=== PATIENT | female | born 1940 | race Caucasian/White ===

== ENCOUNTER → 2018-05-20 08:20 | Outpatient (CLI) | payer MEDICARE, OTHER, SELFPAY ==
[2018-05-20 10:26] LABS: Anion Gap 9 (5-15); BUN 20 mg/dL (7-18); BUN/Creat Ratio 22.3 RATIO (10-20); Calcium,Total 8.9 mg/dL (8.5-10.1); Chloride 105 mmol/L (98-107); Cholesterol 149 mg/dL (200); EST Glomerular Filtration Rate 65 mL/min (>60); Est Glom Filt Rate - Afr Amer 79 mL/min (>60); Glucose 124 mg/dL (74-106); High Density Lipoprotein 36 mg/dL; Potassium 3.8 mmol/L (3.5-5.1); Sodium Level 144 mmol/L (136-145); Triglycerides 182 mg/dL; Very Low Density Lipoprotein 36 mg/dL (5-40)
== END ==
PROVIDERS: Visit Provider Family Medicine
DX: I71.9 Aortic aneurysm of unspecified site, without rupture (principal); E55.9 Vitamin D deficiency, unspecified
CPT/HCPCS: 36415; 80048; 80061; 82306

== ENCOUNTER → 2018-06-26 14:42 | Outpatient (CLI) | payer MEDICARE, OTHER, SELFPAY ==
--- NOTE | 2018-06-26 14:44 | CT_ITS ---
STUDY: CT ABDOMEN AND PELVIS WITH CONTRAST REASON FOR EXAM: Female, 77 years old. Malignant neoplasm of the anus RADIATION DOSAGE (If Supplied By Facility): CTDIvol = ( 18.57 ) mGy, DLP = ( 1092.21 ) mGycm TECHNIQUE: Transaxial images were obtained from the dome of the diaphragm to the symphysis pubis with oral contrast. 100 ml of Isovue 300 contrast was administered. Sagittal and coronal images were reconstructed. Individualized dose optimization techniques were used for this CT. COMPARISON: None. FINDINGS: The visualized lung bases are unremarkable. The visualized portions of the heart are within normal limits. Low-density cystic lesion of the left hepatic lobe measures 2 cm with peripheral calcification or nodular enhancement. There are surgical clips in the gallbladder fossa consistent with a prior cholecystectomy. Normal spleen. Normal pancreas. Normal bilateral adrenal glands. Normal right kidney. There is a simple cyst of the left kidney measuring 9 mm. Normal visualized stomach. Normal small intestine. There are multiple colonic diverticula consistent with diverticulosis. Wall thickening in the region of the anus and lower rectum could relate to patient's known history of anal neoplasm but is limited in evaluation due to incomplete distention. The appendix is visualized and appears normal. Atherosclerosis and tortuosity of the abdominal aorta and iliac arteries. There is noncalcified mural thrombus of the lower thoracic aorta with mild aneurysmal enlargement measuring up to 4.3 cm. Normal inferior vena cava. There is borderline retroperitoneal lymphadenopathy with enlarged nodes no greater than 10mm in the short axis diameter. Poorly distended urinary bladder. There is atrophy of the uterus. 3.3 x 2.9 cm cyst of the right ovary is evident on axial image 75. No pelvic free fluid or adenopathy. There is a left-sided inguinal hernia containing adipose tissue. There are diffuse degenerative changes of the visualized lumbar spine. CT/Abdomen/Pelvis WITH Contrast IMPRESSION: 1. No pelvic mass or adenopathy. Lower rectal/anal wall thickening could relate to patient's known neoplasm or artifact and nondistention. 2. 2 cm low density lesion of the left hepatic lobe with peripheral calcification or nodular enhancement. In the setting of known neoplasm, additional evaluation with hepatic MRI or ultrasound suggested. 3. 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 4. 3.3 x 2.9 cm left ovarian cyst. Electronically Signed: Rene Hall MD at 9:30 EDT , Service support ,
== END ==
PROVIDERS: Family Provider Family Medicine; PCP Family Medicine; Referring Provider Internal Medicine Medical Oncology; Visit Provider Internal Medicine Medical Oncology
DX: C21.0 Malignant neoplasm of anus, unspecified (principal)
CPT/HCPCS: 74177; Q9967

== ENCOUNTER → 2018-07-22 12:05 | Outpatient (CLI) | payer MEDICARE, OTHER, SELFPAY ==
--- NOTE | 2018-07-22 12:08 | MRI_ITS ---
STUDY: MRI ABDOMEN WITH AND WITHOUT CONTRAST REASON FOR EXAM: Female, 77 years old. malignant neoplasm of anus, attn. liver f/u from ct abd TECHNIQUE: Standardized fat and water weighted pulse sequences were obtained in all 3 orthogonal planes post contrast administration. 7 ml of Gadavist contrast material was administered intravenously for the contrast portion of the examination. COMPARISON: CT abdomen and pelvis June 26, 2018 FINDINGS: The visualized lung bases are unremarkable. The visualized portions of the heart are within normal limits. Once again note is made of a lesion associated with the lateral left hepatic lobe measuring approximately 1.7 cm transverse. It is stable in size. It follows fluid signal intensity on all sequences including diffusion and ADC mapping. Although it does appear to have subtle rim enhancement on postcontrast imaging I do not believe it represents a hemangioma. There is no central fill in. The appearance however suggests a benign lesion, perhaps a complicated cyst. It is unchanged compared to previous CT. There are surgical clips in the gallbladder fossa consistent with a prior cholecystectomy. Normal spleen. Normal pancreas. Normal bilateral adrenal glands. Normal right kidney. Normal left kidney. Small cortical cyst of the lateral midpole the left kidney is noted measuring approximately 0.85 cm. Normal visualized stomach. Normal small intestine. Normal colon. There is non-visualization of the appendix. Once again note is made of aneurysmal dilatation of the distal thoracic aorta with prominent peripheral thrombus. The aorta measures approximately 4.43 x 3.79 cm as seen on image #17 series 904. Normal inferior vena cava. Normal retroperitoneum. Normal abdominal wall. Normal osseous structures. MRI/MRI Abd WITH and W/O Contrast IMPRESSION: The signal could characteristics of the lesion in the left hepatic lobe generally follows water signal intensity. It does not have the typical enhancement pattern of a hemangioma, yet it does not completely meet the characteristics of a simple hepatic cyst read on CT exam the margin was irregular in the high density of this peripheral located cyst appears to associate with peripheral vasculature. Especially concerning in this patient has history of malignant neoplasm of the anus and this lesion therefore cannot be completely deemed to have simple benign characteristics. One might consider either follow-up or PET scan in further evaluation. Electronically Signed: Haily Bennett MD at 12:54 EST , Service support ,
== END ==
PROVIDERS: Family Provider Family Medicine; PCP Family Medicine; Referring Provider Internal Medicine Medical Oncology; Visit Provider Internal Medicine Medical Oncology
DX: C21.0 Malignant neoplasm of anus, unspecified (principal); K76.89 Other specified diseases of liver
CPT/HCPCS: 74183; A9585

== ENCOUNTER 2018-08-01 08:32 | Day surgery (SDC) | payer MEDICARE, OTHER, SELFPAY ==
[2018-07-18 13:16] VITALS: BMI 33.4
[2018-08-01] VITALS (8 sets, daily range): BP systolic 112–158; BP diastolic 51–92; PULSE 62–76; RESP 16; TEMP 36.5–37.1; O2SAT 4–97; BMI 32.3
--- NOTE | 2018-08-01 09:45 | COLBX_PTH ---
PATIENT: RICKEY TRUJILLO LOC: EN U#:[id number] AGE/SX: 77/F ROOM: RE08/01/[address]: Dr. Chao Martins MD : 1940 BED: DIS: 08/01/2018 SPEC #: [id number] RECD: 08/01/18 13:43 STATUS: DAWNA ISAIAS #: [id number] EJ: 08/01/18 09:[address]: Chao Martins DEPT: SURGICAL PATHOLOGY RECD BY: Dayo Overton ENTERED: 08/01/18 13:43 SP TYPE: COLON BX OTHR DR: Dr. Antoine Brown MD Tissues: Rectum, NOS Procedures: Surgery Specimen Level IV HEADER OPERATION: Flexible sigmoidoscopy PRE-OP DIAGNOSIS: Anal squamous cell carcinoma, history of anal cancer TISSUE SUBMITTED: Random rectal biopsy MICROSCOPIC DIAGNOSIS Rectum, random biopsy: Fragments of colonic mucosa, no pathologic diagnosis. SJ:damion 11/19/18 MICROSCOPIC DESCRIPTION Slides are reviewed. GROSS DESCRIPTION Received in fixative is one container labeled with the patient's name and designated random rectal biopsy. The specimen consists of multiple irregular fragments of light arteaga soft tissue that in aggregate measure 1 x 0.3 x 0.1 cm. The specimen is totally submitted in one cassette. / SJ:rg 08/01/18 TC:4 CPT: 74909
--- NOTE | 2018-08-01 09:54 | OP.ENDO_ITS ---
Patient Name: Latonia Pierce Procedure Date: 08/01/2018 9:32 AM Date of : 1940 Age: 77 Procedure: Colonoscopy Indications: Follow-up of anorectal cancer, Personal history of malignant neoplasm of the anal canal, Abnormal CT of the GI tract with thickening of anal canal. Providers: Chao Martins MD Referring MD: Chao Martins MD Medicines: Fentanyl 50 micrograms IV, Midazolam 2 mg IV Patient Profile: This is a 77 year old female. Refer to note in patient chart for documentation of history and physical. Last Colonoscopy: 1 year ago. Complications: No immediate complications. Estimated blood loss: Minimal. Procedure: Pre-Anesthesia Assessment: - Prior to the procedure, a History and Physical was performed, and patient medications and allergies were reviewed. The patient's tolerance of previous anesthesia was also reviewed. The risks and benefits of the procedure and the sedation options and risks were discussed with the patient. All questions were answered, and informed consent was obtained. Prior Anticoagulants: The patient has taken no previous anticoagulant or antiplatelet agents. After reviewing the risks and benefits, the patient was deemed in satisfactory condition to undergo the procedure. After I obtained informed consent, the scope was passed under direct vision. Throughout the procedure, the patient's blood pressure, pulse, and oxygen saturations were monitored continuously. The colonoscope was introduced through the anus and advanced to the sigmoid colon for evaluation. This was the intended extent. The colonoscopy was performed without difficulty. The patient tolerated the procedure well. The quality of the bowel preparation was good. Moderate Sedation: Moderate (conscious) sedation was administered by the endoscopy nurse and supervised by the endoscopist. The patient's oxygen saturation, heart rate, blood pressure and response to care were monitored. Scope In: 9:42:55 AM Scope Out: 9:46:20 AM Total Procedure Duration Time 0 hours 3 minutes 25 seconds Findings: A diffuse area of moderately friable mucosa with no bleeding was found in the rectum. Appeared consistent with prior radiation, no obvious malignancy identified. Random biopsies of the rectal and anal canal were taken with a cold forceps for histology. Impression: - Friability with no bleeding in the rectum. Appeared consistent with prior radiation, no obvious malignancy identified. Random biopsies of the rectal and anal canal were taken with a cold forceps for histology. Recommendation: - Discharge patient to home. - Resume previous diet. - Continue present medications. - Await pathology results. - Repeat colonoscopy is recommended. The colonoscopy date will be determined after pathology results from today's exam become available for review. Procedure Code(s): --- Professional --- 79271, Sigmoidoscopy, flexible; with biopsy, single or multiple Diagnosis Code(s): --- Professional --- K62.89, Other specified diseases of anus and rectum C21.8, Malignant neoplasm of overlapping sites of rectum, anus and anal canal Z85.048, Personal history of other malignant neoplasm of rectum, rectosigmoid junction, and anus R93.3, Abnormal findings on diagnostic imaging of other parts of digestive tract CPT copyright 2017 [employer]. All rights reserved. The codes documented in this report are preliminary and upon band attacher review may be revised to meet current compliance requirements. Chao Martins MD 08/01/2018 9:53:52 AM This report has been signed electronically. Number of Addenda: 0 Note Initiated On: 08/01/2018 9:32 AM
== END 2018-08-01 10:56 | disposition home or self-care (01) ==
LOC: EN 08:34 → AC 08:35
PROVIDERS: Family Provider Family Medicine; PCP Family Medicine; Referring Provider Surgery; Visit Provider Surgery
PROC: 0DJD8ZZ Inspection of Lower Intestinal Tract, Via Natural or Artificial Opening Endoscopic (ICD-10-PCS; CPT 45330; principal; 2018-08-01 09:40)
DX: C21.0 Malignant neoplasm of anus, unspecified (principal); R93.3 Abnormal findings on diagnostic imaging of other parts of digestive tract; K62.89 Other specified diseases of anus and rectum; Z92.3 Personal history of irradiation; Z85.048 Personal history of other malignant neoplasm of rectum, rectosigmoid junction, and anus; J44.9 Chronic obstructive pulmonary disease, unspecified; I10 Essential (primary) hypertension; Z87.891 Personal history of nicotine dependence
CPT/HCPCS: 45331; 88305; 99152; J7120

== ENCOUNTER → 2018-08-19 09:53 | Outpatient (CLI) | payer MEDICARE, OTHER, SELFPAY ==
[2018-08-12 13:19] VITALS: BMI 33.2
[2018-08-19 13:05] LABS: Anion Gap 9 (5-15); BUN 24 mg/dL (7-18); BUN/Creat Ratio 28.2 RATIO (10-20); Calcium,Total 8.6 mg/dL (8.5-10.1); Chloride 106 mmol/L (98-107); Cholesterol 165 mg/dL (200); Creatinine, Serum 0.85 mg/dL (0.55-1.02); EST Glomerular Filtration Rate 69 mL/min (>60); Est Glom Filt Rate - Afr Amer 84 mL/min (>60); Glucose 118 mg/dL (74-106); High Density Lipoprotein 37 mg/dL; Potassium 3.9 mmol/L (3.5-5.1); Sodium Level 142 mmol/L (136-145); Triglycerides 192 mg/dL; Very Low Density Lipoprotein 38 mg/dL (5-40)
== END ==
PROVIDERS: Family Provider Family Medicine; PCP Family Medicine; Visit Provider Family Medicine
DX: I50.9 Heart failure, unspecified (principal)
CPT/HCPCS: 36415; 80048; 80061

== ENCOUNTER → 2018-08-27 12:33 | Outpatient (CLI) | payer MEDICARE, OTHER, SELFPAY ==
[2018-08-12 13:19] VITALS: BMI 33.2
--- NOTE | 2018-08-27 12:37 | ECHODONC_ITS ---
Version 2 Reason For Study: CHF Procedure This was a 2D Doppler, Color Flow transthoracic echocardiogram. Myocardial strain analysis was performed in this exam to aid in the assessment of cardiac function. Exam performed in department. Left Ventricle Normal LV size. The estimated ejection fraction is 50 %. Left ventricular systolic function is lower limits of normal. The global longitudinal strain is moderately abnormal. The global longitudinal strain = -14.2% (abnormal). Stage 1 diastolic dysfunction. No regional wall motion abnormalities noted. Right Ventricle Normal RV size. Normal systolic function. Atria Normal left atrium. Normal right atrium. Mitral Valve Normal mitral valve. Mild (1+) eccentric mitral valve insufficiency. Tricuspid Valve Normal tricuspid valve. Mild (1+) tricuspid valve insufficiency. Pulmonary artery systolic pressure is 29 mmHg. Aortic Valve Trisinus/trileaflet aortic valve. Mild (1+) eccentric aortic valve insufficiency. Great Vessels Mild to moderately dilated aortic root. The pulmonary artery is normal size. Normal inferior vena cava. Pericardium/Pleural No pericardial effusion. MMode/2D Measurements & Calculations LVIDd: 4.9 cm IVSd: 1.2 cm Ao root diam: 4.6 cm LVIDs: 3.4 cm LVPWd: 1.1 cm RVDd: 2.6 cm FS: 31.7 % LAV(MOD-bp): 36.9 ml LA A4 area: 13.0 cm2 LA dimension(2D): 3.3 cm LAV(MOD-bp) Indexed: 21.1 ml/m2 LAV(MOD-sp2): 43.3 ml LAV(MOD-sp4): 31.4 ml RA A4 area: 11.6 cm2 Time Measurements MV dec time: 0.33 sec Doppler Measurements & Calculations MV E max dk: 51.1 cm/sec Lat Peak E' Dk: 4.8 cm/sec Med Peak E' Dk: 4.4 cm/sec MV A max dk: 109.8 cm/sec E/E' lat: 10.7 E/E' med: 11.6 MV E/A: 0.46 Ao V2 max: 132.3 cm/sec AI max dk: 393.3 cm/sec LV V1 max: 103.3 cm/sec Ao max P.0 mmHg AI max P.9 mmHg LV V1 max P.3 mmHg AI dec slope: 190.7 cm/sec2 AI P1/2t: 603.9 msec PA V2 max: 74.8 cm/sec TR max dk: 248.5 cm/sec TR max P.7 mmHg Interpretation Summary Normal LV size. The estimated ejection fraction is 50 %. Left ventricular systolic function is lower limits of normal. The global longitudinal strain is moderately abnormal. The global longitudinal strain = -14.2% (abnormal). Stage 1 diastolic dysfunction. Mild (1+) tricuspid valve insufficiency. Pulmonary artery systolic pressure is 29 mmHg. Mild to moderately dilated aortic root. Ordering Physician: Antoine Brown Referring Physician: Antoine Brown Performed By: Anita Fair RDCS, RVT
--- NOTE | 2018-08-27 13:49 | CT_ITS ---
STUDY: CT CHEST/THORAX WITH CONTRAST REASON FOR EXAM: Female, 78 years old. Aortic aneurysm. History of emphysema, anal cancer. RADIATION DOSAGE (If Supplied By Facility): CTDIvol = ( 14.59 ) mGy, DLP = ( 429.28 ) mGycm TECHNIQUE: Transaxial imaging was performed following intravenous administration of 100ML ml of Isovue 300 contrast material. Multiplanar coronal and sagittal images were reformatted. Individualized dose optimization techniques were used for this CT. COMPARISON: CT abdomen and pelvis June 26, 2018. FINDINGS: Emphysematous changes predominate in the upper lung zones. There is a 7.5 x 6.5 x 5 mm noncalcified nodule in the lateral periphery of the right lower lobe (series 4 image 78, series 601 image 46, series 602 image 149). This is a borderline spiculated margin and a small tail to the lateral pleural surface. Two additional 2-3 mm nodular densities are seen in the anterior peripheral margin of the right lung base near the pleural fissure on series 4 image 78. Mild curvilinear scarring in the inferior lingula of the left upper lobe. There is no demonstrated pleural abnormality. The heart size is upper normal. Normal pericardium. There are calcifications of the coronary arteries. There are nonspecific lymph nodes along the proximal right mainstem bronchus, as well as a few nonspecific lymph nodes at the hilar regions. Normal enhanced pulmonary arteries. The diameter of the aortic root is 4 cm. The mid ascending aorta is 4.5 x 4.6 cm (series 601 image 136, series 602 image 107). Moderate atherosclerotic calcification of the thoracic aortic arch. The posterior thoracic aortic arch to centered beyond the takeoff left subclavian artery is 3.3 x 3.05 cm. The proximal descending thoracic aorta is 2.95 x 3.0 cm. Possible small intimal flap near this level (series 601 image 180). Mild eccentric mural thrombus or noncalcified plaquing along the left posterior wall of the mid descending thoracic aorta. There is 8.5 cm long, 3.9 x 4.3 cm fusiform aneurysm of the distal descending thoracic aorta just above the hiatus. There is eccentric left posterolateral mural thrombus within the aneurysm. The aorta at the level of the hiatus just above the celiac artery takeoff is 2.7 x 2.8 cm, and shows some smooth, eccentric noncalcified posterior mural plaquing. There are multi-level degenerative changes of the thoracic spine. Lobulated 1.35 cm low-density in the upper right lobe of liver just deep to a smooth cortical angulation may be a focus of scarring CT/Chest WITH Contrast IMPRESSION: 1. 4.6 cm fusiform ectasia of the ascending aorta, as well as 8.5 cm long, 4.3 cm diameter fusiform aneurysm of the distal descending thoracic aorta. The latter contains eccentric mural thrombus. Question also of the eccentric intimal flap at the very proximal descending thoracic aorta, but no extended aortic dissection. 2. The heart size is upper normal. There are atherosclerotic calcifications of the coronary arteries. 3. There is emphysema, predominating in the upper lung zones. 4. 7.5 mm nodule of indeterminate etiology in the lateral periphery of the right lung base. This must be regarded with some suspicion and, at the least, a 1-3 month follow-up is advised to document stability. If clinical suspicion warrants additional imaging, one might consider PET scan. 5. Stable lobulated 1.3 cm low-density in the dome of the right lobe of liver, possibly a focus of scarring. Electronically Signed: Mahad Love MD at 20:05 EST , Service support ,
--- OUTSIDE RECORDS SUMMARY | 2018-10-13 16:09 | XMS RPT_ITS ---
:1940 Author Organization OHIP Support Name Relationship Address Phone ARMINDA, LATANYA Unavailable Unavailable + R Unavailable Unavailable Unavailable ARMINDA, LATANYA Unavailable Unavailable + R Unavailable Unavailable Unavailable ARMINDA, LATANYA Unavailable Unavailable + R Unavailable Unavailable Unavailable ARMINDA, LATANYA Unavailable Unavailable + R Unavailable Unavailable Unavailable ARMINDA, LATANYA Unavailable Unavailable + R Unavailable Unavailable Unavailable ARMINDA, LATANYA Unavailable Unavailable + R Unavailable Unavailable Unavailable ARMINDA, LATANYA Unavailable Unavailable + R Unavailable Unavailable Unavailable ARMINDA, LATANYA Unavailable . + [place] [address] R Unavailable Unavailable Unavailable ARMINDA, LATANYA Unavailable . + [place] [address] R Unavailable Unavailable Unavailable ARMINDA, LATANYA Unavailable . + [place] [address] R Unavailable Unavailable Unavailable ARMINDA, LATANYA Unavailable Unavailable + R Unavailable Unavailable Unavailable ARMINDA, LATANYA Unavailable Unavailable + R Unavailable Unavailable Unavailable R Unavailable Unavailable Unavailable Care Team Providers Name Role Phone Gopi Tom Attending Unavailable Antoine Brown Referring Unavailable Antoine Brown Attending Unavailable Armando Wallace Attending Unavailable Antoine Brown Referring Unavailable Antoine Brown Primary Care Unavailable Armando Wallace Attending Unavailable Antoine Brown Referring Unavailable Antoine Brown Primary Care Unavailable Armando Wallace Consulting Unavailable Armando Wallace Attending Unavailable Armando Wallace Referring Unavailable Antoine Brown Primary Care Unavailable Armando Wallace Attending Unavailable Antoine Brown Referring Unavailable Antoine Brown Primary Care Unavailable Armando Wallace Consulting Unavailable Chao Martins Attending Unavailable Armando Wallace Referring Unavailable Armando Wallace Attending Unavailable Armando Wallace Referring Unavailable Brown, Antoine Primary Care Unavailable Calabretta, Chao Attending Unavailable Calabretta, Chao Referring Unavailable Brown, Antoine Primary Care Unavailable Prabertin, Armando Attending Unavailable Brown, Antoine Referring Unavailable Brown, Antoine Primary Care Unavailable Prabertin, Armando Consulting Unavailable Calabretta, Chao Attending Unavailable Brown, Antoine Attending Unavailable Brown, Antoine Primary Care Unavailable Brown, Antoine Attending Unavailable Brown, Antoine Referring Unavailable Brown, Antoine Primary Care Unavailable PROBLEMS PROBLEMS DATE TYPE CONDITION / CODE ATTENDING STATUS SOURCE 08/19/2018 Unknown I50.9 - Heart Antoine Brown Active [place] failure, Community unspecified / Hospital I50.9(ICD-10) Repository 08/08/2018 Unknown 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, Community unspecified / Hospital C21.0(ICD-10) Repository 08/08/2018 Unknown K76.89 - Other Armando Wallace Active [place] specified diseases [facility] of liver / Hospital K76.89(ICD-10) Repository 08/18/2018 Unknown Z85.048 - Personal Calcarmen, Active [place] history of other [facility] malignant neoplasm Hospital of rectum, Repository rectosigmoid junction, and anus / Z85.048(ICD-10) 08/18/2018 Unknown R93.3 - Abnormal Calcarmen, Active [place] findings on [facility] diagnostic imaging Hospital of other parts of Repository digestive tract / R93.3(ICD-10) 08/18/2018 Unknown K62.89 - Other [facility], Active [place] specified diseases [facility] anus and rectum Hospital / K62.89(ICD-10) Repository 08/18/2018 Unknown C21.8 - Malignant Calabretta, Active [place] neoplasm of [facility] overlapping sites Hospital of rectum, anus Repository and anal canal / C21.8(ICD-10) PROCEDURES PROCEDURES No Procedure Records FoundRESULTS RESULTS ONC ECHOCARDIOGRAM Observed: 08/27/2018 Status: F Source: [place] COMPLETE 3:41 PM [facility] H[facility]PITAL REPOSITORY [facility] Cardiovascular Services [address] [place] [address] ONC Echo Complete 08/27/18 1258 MR#: [id number] Acct: [id number] Name: RICKEY PIERCE Rep #: [id number] : 1940 78 From: Gopi Tom MD Attending Dr: Antoine Brown MD Status: REG CLI Ordering Dr: Antoine Brown MD Date: 08/27/18 Location: [facility] Sex: F C Admitted: Version 2 Reason For Study: CHF Procedure This was a 2D Doppler, Color Flow transthoracic echocardiogram. Myocardial strain analysis was performed in this exam to aid in the assessment of cardiac function. Exam performed in department. Left Ventricle Normal LV size. The estimated ejection fraction is 50 %. Left ventricular systolic function is lower limits of normal. The global longitudinal strain is moderately abnormal. The global longitudinal strain = -14.2% (abnormal). Stage 1 diastolic dysfunction. No regional wall motion abnormalities noted. Right Ventricle Normal RV size. Normal systolic function. Atria Normal left atrium. Normal right atrium. Mitral Valve Normal mitral valve. Mild (1+) eccentric mitral valve insufficiency. Tricuspid Valve Normal tricuspid valve. Mild (1+) tricuspid valve insufficiency. Pulmonary artery systolic pressure is 29 mmHg. Aortic Valve Trisinus/trileaflet aortic valve. Mild (1+) eccentric aortic valve insufficiency. Great Vessels Mild to moderately dilated aortic root. The pulmonary artery is normal size. Normal inferior vena cava. Pericardium/Pleural No pericardial effusion. MMode/2D Measurements AND Calculations LVIDd: 4.9 cm IVSd: 1.2 cm Ao root diam: 4.6 cm LVIDs: 3.4 cm LVPWd: 1.1 cm RVDd: 2.6 cm FS: 31.7 % LAV(MOD-bp): 36.9 ml LA A4 area: 13.0 cm2 LA dimension(2D): 3.3 cm LAV(MOD-bp) Indexed: 21.1 ml/m2 LAV(MOD-sp2): 43.3 ml LAV(MOD-sp4): 31.4 ml RA A4 area: 11.6 cm2 Time Measurements MV dec time: 0.33 sec Doppler Measurements AND Calculations MV E max dk: 51.1 cm/sec Lat Peak E' Dk: 4.8 cm/sec Med Peak E' Dk: 4.4 cm/sec MV A max dk: 109.8 cm/sec E/E' lat: 10.7 E/E' med: 11.6 MV E/A: 0.46 Ao V2 max: 132.3 cm/sec AI max dk: 393.3 cm/sec LV V1 max: 103.3 cm/sec Ao max P.0 mmHg AI max P.9 mmHg LV V1 max P.3 mmHg AI dec slope: 190.7 cm/sec2 AI P1/2t: 603.9 msec PA V2 max: 74.8 cm/sec TR max dk: 248.5 cm/sec TR max P.7 mmHg Interpretation Summary Normal LV size. The estimated ejection fraction is 50 %. Left ventricular systolic function is lower limits of normal. The global longitudinal strain is moderately abnormal. The global longitudinal strain = -14.2% (abnormal). Stage 1 diastolic dysfunction. Mild (1+) tricuspid valve insufficiency. Pulmonary artery systolic pressure is 29 mmHg. Mild to moderately dilated aortic root. Ordering Physician: Antoine Brown Referring Physician: Antoine Brown Performed By: Anita Fair, AISLINN, RVT 08/27/18 1540 Date Gopi Tom MD CC: Antoine Brown MD Date Dictated: 08/27/18 1258 Date Transcribed: 08/27/18 1540 Cutting And Printing Machine Operator: Signed CHEST WITH CONTRAST Observed: 08/27/2018 Status: F Source: [place] 1:49 PM [facility] REPOSITORY [facility] Imaging Services [address] [place] [address] Chest WITH Contrast MR#: [id number] Acct: [id number] Name: RICKEY PIERCE Rep #: [id number] : 1940 F 78 From: Vince Love MD PCP: Antoine Brown MD Status: REG CLI Study: Chest WITH Contrast Date of Exam: 08/27/18 Exam# [id number] Ordering Dr: Antoine Brown MD STUDY: CT CHEST/THORAX WITH CONTRAST REASON FOR EXAM: Female, 78 years old. Aortic aneurysm. History of emphysema, anal cancer. RADIATION DOSAGE (If Supplied By Facility): CTDIvol = ( 14.59 ) mGy, DLP = ( 429.28 ) mGycm TECHNIQUE: Transaxial imaging was performed following intravenous administration of 100ML ml of Isovue 300 contrast material. Multiplanar coronal and sagittal images were reformatted. Individualized dose optimization techniques were used for this CT. COMPARISON: CT abdomen and pelvis June 26, 2018. FINDINGS: Emphysematous changes predominate in the upper lung zones. There is a 7.5 x 6.5 x 5 mm noncalcified nodule in the lateral periphery of the right lower lobe (series 4 image 78, series 601 image 46, series 602 image 149). This is a borderline spiculated margin and a small tail to the lateral pleural surface. Two additional 2-3 mm nodular densities are seen in the anterior peripheral margin of the right lung base near the pleural fissure on series 4 image 78. Mild curvilinear scarring in the inferior lingula of the left upper lobe. There is no demonstrated pleural abnormality. The heart size is upper normal. Normal pericardium. There are calcifications of the coronary arteries. There are nonspecific lymph nodes along the proximal right mainstem bronchus, as well as a few nonspecific lymph nodes at the hilar regions. Normal enhanced pulmonary arteries. The diameter of the aortic root is 4 cm. The mid ascending aorta is 4.5 x 4.6 cm (series 601 image 136, series 602 image 107). Moderate atherosclerotic calcification of the thoracic aortic arch. The posterior thoracic aortic arch to centered beyond the takeoff left subclavian artery is 3.3 x 3.05 cm. The proximal descending thoracic aorta is 2.95 x 3.0 cm. Possible small intimal flap near this level (series 601 image 180). Mild eccentric mural thrombus or noncalcified plaquing along the left posterior wall of the mid descending thoracic aorta. There is 8.5 cm long, 3.9 x 4.3 cm fusiform aneurysm of the distal descending thoracic aorta just above the hiatus. There is eccentric left posterolateral mural thrombus within the aneurysm. The aorta at the level of the hiatus just above the celiac artery takeoff is 2.7 x 2.8 cm, and shows some smooth, eccentric noncalcified posterior mural plaquing. There are multi-level degenerative changes of the thoracic spine. Lobulated 1.35 cm low-density in the upper right lobe of liver just deep to a smooth cortical angulation may be a focus of scarring CT/Chest WITH Contrast IMPRESSION: 1. 4.6 cm fusiform ectasia of the ascending aorta, as well as 8.5 cm long, 4.3 cm diameter fusiform aneurysm of the distal descending thoracic aorta. The latter contains eccentric mural thrombus. Question also of the eccentric intimal flap at the very proximal descending thoracic aorta, but no extended aortic dissection. 2. The heart size is upper normal. There are atherosclerotic calcifications of the coronary arteries. 3. There is emphysema, predominating in the upper lung zones. 4. 7.5 mm nodule of indeterminate etiology in the lateral periphery of the right lung base. This must be regarded with some suspicion and, at the least, a 1-3 month follow-up is advised to document stability. If clinical suspicion warrants additional imaging, one might consider PET scan. 5. Stable lobulated 1.3 cm low-density in the dome of the right lobe of liver, possibly a focus of scarring. Electronically Signed: Mahad Love MD at 20:05 EST , Service support , CC: Antoine Brown MD Cutting [employer] Printing Machine Operator: Signed BASIC METABOLIC Collected: 08/19/2018 Status: F Source: [place] PROFILE (BMP) 9:54 AM [facility] REPOSITORY TYPE CODE TESTS RESULT OUT OF RANGE REFERENCE UNITS LAB L501.0100 74-106 mg/dL High GLU 118 Result Comment: Fasting Glucose result from 100 to 125 mg/dL suggests IMPAIRED HOMEOSTASIS per A.D.A. criteria. Please note revised GLUCOSE reference range effective 2017. LAB L501.1000 7-18 mg/dL High BUN 24 LAB L501.1100 0.55-1.02 mg/dL Normal CREAT,SERUM 0.85 Result Comment: The validity of the calculated GFR AND GFRAA in patients over 70 years has not been determined. Clinical correlation is essential. LAB L501.1110 >60 mL/min Normal EST GFR 69 Result Comment: Non- GFR Calc LAB L501.1115 >60 mL/min Normal EST GFR - AA 84 Result Comment: GFR Calc LAB L501.1300 10-20 RATIO High BUN/CRE 28.2 LAB L501.2200 8.5-10.1 mg/dL CA Normal 8.6 LAB L501.5300 136-145 mmol/L NA Normal 142 LAB L501.5600 3.5-5.1 mmol/L K Normal 3.9 LAB L501.5900 98-107 mmol/L CL Normal 106 LAB L501.6100 21.0-32.0 mmol/L Normal CO2 27.0 LAB L501.6200 5-15 Normal GAP 9 Performed By: #### L500.2500, L500.4100 #### [facility] [address] [place], [address] LIPID PROFILE Collected: 08/19/2018 Status: F Source: [place] 9:54 AM [facility] REPOSITORY TYPE CODE TESTS RESULT OUT OF RANGE REFERENCE UNITS LAB L501.4900 200 mg/dL Normal CHOL 165 Result Comment: <200 mg/dL Desirable 200-240 mg/dL Borderline >240 mg/dL High Risk LAB L501.5000 mg/dL Normal TRIG 192 Result Comment: The drugs N-Acetylcysteine and Metamizole may falsely depress this assay. Serum Triglycerides Reference Interval Normal <150 mg/dL Borderline high 150 - 199 mg/dL High 200 - 499 mg/dL Very High > or = 500 mg/dL LAB L501.6400 mg/dL Low HDL 37 Result Comment: The drugs N-Acetylcysteine and Metamizole may falsely depress this assay. Reference Range HDL <40 mg/dL Low HDL Cholesterol HDL >or= 60 mg/dL High HDL Cholesterol LAB L501.6500 0-130 mg/dL Normal LDL 90 LAB L501.6600 5-40 mg/dL Normal VLDL 38 Performed By: #### L500.2500, L500.4100 #### [facility] [address] [place], [address] ONCOLOGY VISIT REPORT Observed: 08/12/2018 Status: F Source: [place] 4:53 PM [facility] REPOSITORY [facility] [address] [place] [address] OFFICE VISIT Date of Service: 08/12/18 1343 MR#: [id number] Acct: [id number] Name: ARYA PIERCEANDERSON Oakes Rep #: [id number] : 1940 From: Armando Wallace MD Age/Sex: 78/F Location: OMD Status: Signed Subjective - Date of Service Date of Service:: 08/12/18 - Chief Complaint For anal cancer follow up. - History of Present Illness 78-year-old woman was diagnosed with anal cancer, squamous cell type, stage I (cT1 cN0 M0) on July 03, 2017 in [place]. She was treated with Xeloda and mitomycin with radiation therapy from 08/16/2017 to 10/03/2017. She had a PET CT scan on 12/11/2017 which showed complete resolution of hypermetabolic activity in the anal canal no evidence of regional chinmay disease or distant metastatic disease. She moved to [place], referred by PCP for follow up care of Anal cancer. CT a/p on 06/26/2018 showed 2cm Left hepatic lobe lesion. She had colonoscopy on 08/01/2018, which showed friable mucosa in the rectum with no bleeding, biopsy was negative. She had MRI liver and comes for follow up. Review of Systems Constitutional:: Denies: Fever, Sweats, Weight loss, Appetite change, Chills Cardiovascular:: Denies: Chest pain, Palpitations, Dyspnea on exertion, Orthopnea, PND, Shortness of breath Respiratory: Denies: Cough, Hemoptysis, Shortness of Breath, Wheezing Gastrointestinal:: Denies: Abdominal pain, Nausea, Vomiting, Diarrhea, Constipation, Hematochezia Genitourinary: Denies: Dysuria, Hematuria, 15, Flank pain Musculoskeletal:: Denies: Back pain, Myalgia, Arthralgia Skin: Denies: Rash, Skin Changes, Wounds Neurological:: Denies: Headache, Dizziness, Visual changes, Tinnitus, Hearing loss Psychiatric: Denies: Anxiety, Depression, Homicidal Ideations, Suicidal Ideations Vital Signs Height 5 ft 0.5 in Weight: 78.381 kg Weight in Pounds 172.8 lbs Pulse Ox 94 - Physical Exam General: Alert, Oriented x3, No apparent distress Diagnostic Data: 07/22/2018 MRI report reviewed. MRI/MRI Abd WITH and W/O Contrast IMPRESSION: The signal could characteristics of the lesion in the left hepatic lobe generally follows water signal intensity. It does not have the typical enhancement pattern of a hemangioma, yet it does not completely meet the characteristics of a simple hepatic cyst read on CT exam the margin was irregular in the high density of this peripheral located cyst appears to associate with peripheral vasculature. Especially concerning in this patient has history of malignant neoplasm of the anus and this lesion therefore cannot be completely deemed to have simple benign characteristics. One might consider either follow-up or PET scan in further evaluation. Electronically Signed: Haily Bennett MD at 12:54 EST Assessment and Plan Anal cancer stage I, S/P chemoradiation therapy. No evidence of disease. Hypodensity in liver-Cyst present since 2012 so no further evaluation required. Plan is to do observation. RTC 6 months with CBC/CMP. Medications: Prescriptions This Visit Medication Instructions Recorded Carvedilol [Coreg] 12.5 mg PO DAILY 06/17/18 Cholecalciferol (VIT D3) [Vitamin 3,000 unit PO DAILY 06/17/18 Primary Care Provider: Antoine Brown Referring Provider: Antoine Brown - Problem List (1) Anal squamous cell carcinoma Status: Resolved (2) History of anal cancer Status: Chronic Code Visit Office Visits / Consults: 65203 OV L4 Est 08/12/18 1653 <Electronically signed by Armando Wallace MD> Date Armando Wallace MD Cosigner Signature: Date (if applicable) CC: Antoine Brown MD OPERATIVE REPORT - Observed: 08/01/2018 Status: F Source: [place] [facility] 9:54 AM [facility] REPOSITORY [facility] Medical Records Department [address] [place] [address] Operative Report - Endoscopy MR#: [id number] Acct: [id number] Name: RICKEY PIERCE Rep #: [id number] : 1940 77 From: Chao Martins MD PCP: Antoine Brown MD Status: REG [facility] Patient Name: Rickey Pierce Procedure Date: 08/01/2018 9:32 AM Date of : 1940 Age: 77 Procedure: Colonoscopy Indications: Follow-up of anorectal cancer, Personal history of malignant neoplasm of the anal canal, Abnormal CT of the GI tract with thickening of anal canal. Providers: Chao Martins MD Referring MD: Chao Martins MD Medicines: Fentanyl 50 micrograms IV, Midazolam 2 mg IV Patient Profile: This is a 77 year old female. Refer to note in patient chart for documentation of history and physical. Last Colonoscopy: 1 year ago. Complications: No immediate complications. Estimated blood loss: Minimal. Procedure: Pre-Anesthesia Assessment: - Prior to the procedure, a History and Physical was performed, and patient medications and allergies were reviewed. The patient's tolerance of previous anesthesia was also reviewed. The risks and benefits of the procedure and the sedation options and risks were discussed with the patient. All questions were answered, and informed consent was obtained. Prior Anticoagulants: The patient has taken no previous anticoagulant or antiplatelet agents. After reviewing the risks and benefits, the patient was deemed in satisfactory condition to undergo the procedure. After I obtained informed consent, the scope was passed under direct vision. Throughout the procedure, the patient's blood pressure, pulse, and oxygen saturations were monitored continuously. The colonoscope was introduced through the anus and advanced to the sigmoid colon for evaluation. This was the intended extent. The colonoscopy was performed without difficulty. The patient tolerated the procedure well. The quality of the bowel preparation was good. Moderate Sedation: Moderate (conscious) sedation was administered by the endoscopy nurse and supervised by the endoscopist. The patient's oxygen saturation, heart rate, blood pressure and response to care were monitored. Scope In: 9:42:55 AM Scope Out: 9:46:20 AM Total Procedure Duration Time 0 hours 3 minutes 25 seconds Findings: A diffuse area of moderately friable mucosa with no bleeding was found in the rectum. Appeared consistent with prior radiation, no obvious malignancy identified. Random biopsies of the rectal and anal canal were taken with a cold forceps for histology. Impression: - Friability with no bleeding in the rectum. Appeared consistent with prior radiation, no obvious malignancy identified. Random biopsies of the rectal and anal canal were taken with a cold forceps for histology. Recommendation: - Discharge patient to home. - Resume previous diet. - Continue present medications. - Await pathology results. - Repeat colonoscopy is recommended. The colonoscopy date will be determined after pathology results from today's exam become available for review. Procedure Code(s): --- Professional --- 01644, Sigmoidoscopy, flexible; with biopsy, single or multiple Diagnosis Code(s): --- Professional --- K62.89, Other specified diseases of anus and rectum C21.8, Malignant neoplasm of overlapping sites of rectum, anus and anal canal Z85.048, Personal history of other malignant neoplasm of rectum, rectosigmoid junction, and anus R93.3, Abnormal findings on diagnostic imaging of other parts of digestive tract CPT copyright 2017 [employer]. All rights reserved. The codes documented in this report are preliminary and upon collection card clerk review may be revised to meet current compliance requirements. Chao Martins MD 08/01/2018 9:53:52 AM This report has been signed electronically. Number of Addenda: 0 Note Initiated On: 08/01/2018 9:32 AM 08/01/1854 Date Chao Martins MD Cosigner Signature: Date (if indicated) CC: Chao Martins MD; Antoine Brown MD Date Dictated: 08/01/18931 Date Transcribed: Cutting And Printing Machine Operator: AC Signed COLON BIOPSY (CHOOSE Observed: 08/01/2018 Status: F Source: [facility]) 9:45 AM [facility] REPOSITORY Patient: RICKEY PIERCE : 1940 (77/F) Acct Num: [id number] Phys: Lakshmi VARGAS,Chao Unit Num: [id number] Loc: EN Specimen: [id number] Received: 08/01/18 1343 Spec Type: COLON BX TISSUES 1 TISSUES: Rectum, NOS GROSS DESCRIPTION Received in fixative is one container labeled with the patient's name and designated random rectal biopsy. The specimen consists of multiple irregular fragments of light arteaga soft tissue that in aggregate measure 1 x 0.3 x 0.1 cm. The specimen is totally submitted in one cassette. / SJ:damion 08/01/18 TC:4 CPT: 47600 HEADER OPERATION: Flexible sigmoidoscopy PRE-OP DIAGNOSIS: Anal squamous cell carcinoma, history of anal cancer TISSUE SUBMITTED: Random rectal biopsy MICROSCOPIC DESCRIPTION Slides are reviewed. MICROSCOPIC DIAGNOSIS Rectum, random biopsy: Fragments of colonic mucosa, no pathologic diagnosis. SJ:damion 08/04/18 Signed Brooks Dc 08/04/18 <signature on file> Performed By: #### PCOLBX #### [facility] [address] [place], [address] MRI ABD WITH AND W/O Observed: 07/22/2018 Status: F Source: [place] CONTRAST 12:08 PM [facility] REPOSITORY [facility] Imaging Services [address] [place] [address] MRI Abd WITH and W/O Contrast MR#: [id number] Acct: [id number] Name: RICKEY PIERCE Rep #: [id number] : 1940 F 77 From: Haily Bennett MD PCP: Antoine Brown MD Status: REG CLI Study: MRI Abd WITH and W/O Contrast Date of Exam: 07/22/18 Exam# [id number] Ordering Dr: Armando Wallace MD STUDY: MRI ABDOMEN WITH AND WITHOUT CONTRAST REASON FOR EXAM: Female, 77 years old. malignant neoplasm of anus, attn. liver f/u from ct abd TECHNIQUE: Standardized fat and water weighted pulse sequences were obtained in all 3 orthogonal planes post contrast administration. 7 ml of Gadavist contrast material was administered intravenously for the contrast portion of the examination. COMPARISON: CT abdomen and pelvis June 26, 2018 FINDINGS: The visualized lung bases are unremarkable. The visualized portions of the heart are within normal limits. Once again note is made of a lesion associated with the lateral left hepatic lobe measuring approximately 1.7 cm transverse. It is stable in size. It follows fluid signal intensity on all sequences including diffusion and ADC mapping. Although it does appear to have subtle rim enhancement on postcontrast imaging I do not believe it represents a hemangioma. There is no central fill in. The appearance however suggests a benign lesion, perhaps a complicated cyst. It is unchanged compared to previous CT. There are surgical clips in the gallbladder fossa consistent with a prior cholecystectomy. Normal spleen. Normal pancreas. Normal bilateral adrenal glands. Normal right kidney. Normal left kidney. Small cortical cyst of the lateral midpole the left kidney is noted measuring approximately 0.85 cm. Normal visualized stomach. Normal small intestine. Normal colon. There is non-visualization of the appendix. Once again note is made of aneurysmal dilatation of the distal thoracic aorta with prominent peripheral thrombus. The aorta measures approximately 4.43 x 3.79 cm as seen on image #17 series 904. Normal inferior vena cava. Normal retroperitoneum. Normal abdominal wall. Normal osseous structures. MRI/MRI Abd WITH and W/O Contrast IMPRESSION: The signal could characteristics of the lesion in the left hepatic lobe generally follows water signal intensity. It does not have the typical enhancement pattern of a hemangioma, yet it does not completely meet the characteristics of a simple hepatic cyst read on CT exam the margin was irregular in the high density of this peripheral located cyst appears to associate with peripheral vasculature. Especially concerning in this patient has history of malignant neoplasm of the anus and this lesion therefore cannot be completely deemed to have simple benign characteristics. One might consider either follow-up or PET scan in further evaluation. Electronically Signed: Haily Bennett MD at 12:54 EST , Service support , CC: Armando Wallace MD; Antoine Brown MD Cutting And Printing Machine Operator: Signed SURGERY VISIT REPORT Observed: 07/18/2018 Status: F Source: [place] 1:56 PM [facility] REPOSITORY [facility] [address] [place] [address]. [address] [place], [place] [address] OFFICE VISIT Date of Service: 07/18/18 MR#: [id number] Acct: [id number] Name: RICKEY PIERCE Rep #: [id number] : 1940 Provider: Chao Martins MD Age/Sex: 77/F Location: [facility] [place] Status: Signed Intake Vital Signs07/18/18 Height 5 ft 0.5 in 07/18/18 Weight: 174 lb 07/18/18 Body Mass Index (BMI) 33.4 Intake Visit Reasons: Proctoscopy AND Sigmoidoscopy Consult from [facility] Chief Complaint: For anal cancer follow up. Ball Fringe Machine Operator Required: No Is patient in pain?: No Allergies aspirin Adverse Reaction (Verified 07/18/18 13:05) Nausea Medications Carvedilol [Coreg] 12.5 mg PO DAILY 06/17/18 [History Confirmed 07/18/18] Cholecalciferol (VIT D3) [Vitamin D] 3,000 unit PO DAILY 06/17/18 [History Confirmed 07/18/18] Furosemide [Lasix] 40 mg PO DAILY 06/17/18 [History Confirmed 07/18/18] Potassium Chloride 20 tab PO DAILY 06/17/18 [History Confirmed 07/18/18] Meclizine HCl [Antivert] 25 mg PO TID PRN PRN 07/15/18 [History Confirmed 07/18/18] PFSH Medical History Anal cancer (Acute) Palumbo esophagus (Acute) COPD (chronic obstructive pulmonary disease) (Acute) Diverticular disease (Acute) Vertigo (Acute) Hypertension (Chronic) Surgical History History of cholecystectomy (Acute) Family History Father Heart disease Sister Cancer Diabetes Brother Heart disease Mother Heart disease Sister Heart disease Social History Smoking Status: Former smoker alcohol intake: never HPI HPI HPI: RICKEY PIERCE, is a 77 F who presents to the office today for rectal exam. The patient had a history of anal carcinoma which was treated with chemotherapy and radiation 1 year ago. She is not having any bleeding but does report that she is having diarrhea. She has been having diarrhea since radiation completed. She is not having any rectal or anal pain. She recently had a CT scan which showed thickening of the anal canal and her oncologist would like exam and possible biopsy ROS General General: No weight change or fatigue Cardio Cardiovascular: No murmur, pacemaker, heart disease, atrial fibrillation, high blood pressure, heart attack, heart stent, palpitations, shortness of breat with exertion or chest pain Psych Psychiatric: No depression or anxiety Resp Respiratory: Yes shortness of breath, No sleep apnea, No cough, Yes COPD, No asthma, Yes emphysema, No wheezing Gastro Gastrointestinal: No abdominal pain, No nausea or vomiting, Yes diarrhea, No constipation, No blood in stool, No acid reflux, No hemorrhoids, No ulcers, Yes gallbladder problem, No black,tarry stools Rory Hematologic: No blood thinners Exam Const General: cooperative Orientation: alert, oriented x3 Resp Effort AND Inspection: normal respiratory effort Auscultation: clear to auscultation bilaterally Cardio Rate: regular rate Rhythm: regular rhythm Heart Sounds: no murmurs GI Inspection: non-distended Palpation: soft, nontender Other: Inspection of the anal canal is normal. No bleeding or proctitis. Assessment AND Plan Problems 1. 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 History of anal cancer Z85.048 Plan 1. The patient has a history of anal cancer and completed radiation and chemotherapy this September. She had a CT scan which showed thickening of the anal canal. 2. I will plan on flexible sigmoidoscopy to examine the distal rectum and anal canal. 3. I explained endoscopy in detail to the patient. I explained the risks including but not limited to stroke or heart attack with anesthesia, perforation of the GI tract, bleeding, infection. I explained that any of these could necessitate further emergency surgery. The patient understands and all questions were answered sufficiently. The patient wishes to proceed with procedure. 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 History of anal cancer Z85.048 07/18/18 1356 <Electronically signed by Chao Martins MD> Date [facility]ins [facility] Signature: Date (if applicable) CC: Armando Wallace MD; Antoine Brown MD ONCOLOGY VISIT REPORT Observed: 07/15/2018 Status: F Source: [place] 4:17 PM [facility] REPOSITORY [facility] [address] [place] [address] OFFICE VISIT Date of Service: 07/15/18 1332 MR#: [id number] Acct: [id number] Name: RICKEY PIERCE Rep #: [id number] : 1940 From: Armando Wallace MD Age/Sex: 77/F Location: OMD Status: Signed Subjective - Date of Service Date of Service:: 07/15/18 - Chief Complaint For anal cancer follow up. - History of Present Illness 77-year-old woman was diagnosed with anal cancer, squamous cell type, stage I (cT1 cN0 M0) on July 03, 2017 in [place]. She was treated with Xeloda and mitomycin with radiation therapy from 08/16/2017 to 10/03/2017. She had a PET CT scan on 12/11/2017 which showed complete resolution of hypermetabolic activity in the anal canal no evidence of regional chinmay disease or distant metastatic disease. She moved to [place], referred by PCP for follow up care of Anal cancer. She had a CT a/p and comes for follow up. Review of Systems Constitutional:: Denies: Fever, Sweats, Weight loss, Appetite change, Chills Cardiovascular:: Denies: Chest pain, Palpitations, Dyspnea on exertion, Orthopnea, PND, Shortness of breath Respiratory: Denies: Cough, Hemoptysis, Shortness of Breath, Wheezing Gastrointestinal:: Denies: Abdominal pain, Nausea, Vomiting, Diarrhea, Constipation, Hematochezia Genitourinary: Denies: Dysuria, Hematuria, 15, Flank pain Musculoskeletal:: Denies: Back pain, Myalgia, Arthralgia Skin: Denies: Rash, Skin Changes, Wounds Neurological:: Denies: Headache, Dizziness, Visual changes, Tinnitus, Hearing loss Psychiatric: Denies: Anxiety, Depression, Homicidal Ideations, Suicidal Ideations Vital Signs Height 5 ft 0.5 in Weight: 78.925 kg Weight in Pounds 174.0 lbs Pulse Ox 92 - Physical Exam General: Alert, Oriented x3, No apparent distress Diagnostic Data: 06/26/2018 CT abd/pelvis reviewed. CT/Abdomen/Pelvis WITH Contrast IMPRESSION: 1. No pelvic mass or adenopathy. Lower rectal/anal wall thickening could relate to patient's known neoplasm or artifact and nondistention. 2. 2 cm low density lesion of the left hepatic lobe with peripheral calcification or nodular enhancement. In the setting of known neoplasm, additional evaluation with hepatic MRI or ultrasound suggested. 3. 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 4. 3.3 x 2.9 cm left ovarian cyst. Electronically Signed: Rene Hall MD at 9:30 EDT Assessment and Plan Anal cancer stage I, S/P chemoradiation therapy. Hypodensity in liver. Plan is to obtain MRI liver. Surgery referral for proctoscopy/sigmoidoscopy. RTC 1 month. Medications: Prescriptions This Visit Medication Instructions Recorded Carvedilol [Coreg] 12.5 mg PO DAILY 06/17/18 Cholecalciferol (VIT D3) [Vitamin 3,000 unit PO DAILY 06/17/18 Primary Care Provider: Antoine Brown Referring Provider: Antoine Brown - Problem List (1) Anal squamous cell carcinoma Status: Resolved (2) History of anal cancer Status: Chronic Code Visit Office Visits / Consults: 85053 OV L3 Est 07/15/18 1617 <Electronically signed by Armando Wallace MD> Date Armando Wallace MD Cosigner Signature: Date (if applicable) CC: Antoine Brown MD ABDOMEN/PELVIS WITH Observed: 06/26/2018 Status: F Source: [place] CONTRAST 2:44 PM [facility] REPOSITORY [facility] Imaging Services [address] [place] [address] Abdomen/Pelvis WITH Contrast MR#: [id number] Acct: [id number] Name: RICKEY PIERCE Rep #: [id number] : 1940 F 77 From: Rene Hall MD PCP: Antoine Brown MD Status: REG CLI Study: Abdomen/Pelvis WITH Contrast Date of Exam: 06/26/18 Exam# [id number] Ordering Dr: Armando Wallace MD STUDY: CT ABDOMEN AND PELVIS WITH CONTRAST REASON FOR EXAM: Female, 77 years old. Malignant neoplasm of the anus RADIATION DOSAGE (If Supplied By Facility): CTDIvol = ( 18.57 ) mGy, DLP = ( 1092.21 ) mGycm TECHNIQUE: Transaxial images were obtained from the dome of the diaphragm to the symphysis pubis with oral contrast. 100 ml of Isovue 300 contrast was administered. Sagittal and coronal images were reconstructed. Individualized dose optimization techniques were used for this CT. COMPARISON: None. FINDINGS: The visualized lung bases are unremarkable. The visualized portions of the heart are within normal limits. Low-density cystic lesion of the left hepatic lobe measures 2 cm with peripheral calcification or nodular enhancement. There are surgical clips in the gallbladder fossa consistent with a prior cholecystectomy. Normal spleen. Normal pancreas. Normal bilateral adrenal glands. Normal right kidney. There is a simple cyst of the left kidney measuring 9 mm. Normal visualized stomach. Normal small intestine. There are multiple colonic diverticula consistent with diverticulosis. Wall thickening in the region of the anus and lower rectum could relate to patient's known history of anal neoplasm but is limited in evaluation due to incomplete distention. The appendix is visualized and appears normal. Atherosclerosis and tortuosity of the abdominal aorta and iliac arteries. There is noncalcified mural thrombus of the lower thoracic aorta with mild aneurysmal enlargement measuring up to 4.3 cm. Normal inferior vena cava. There is borderline retroperitoneal lymphadenopathy with enlarged nodes no greater than 10mm in the short axis diameter. Poorly distended urinary bladder. There is atrophy of the uterus. 3.3 x 2.9 cm cyst of the right ovary is evident on axial image 75. No pelvic free fluid or adenopathy. There is a left-sided inguinal hernia containing adipose tissue. There are diffuse degenerative changes of the visualized lumbar spine. CT/Abdomen/Pelvis WITH Contrast IMPRESSION: 1. No pelvic mass or adenopathy. Lower rectal/anal wall thickening could relate to patient's known neoplasm or artifact and nondistention. 2. 2 cm low density lesion of the left hepatic lobe with peripheral calcification or nodular enhancement. In the setting of known neoplasm, additional evaluation with hepatic MRI or ultrasound suggested. 3. 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 4. 3.3 x 2.9 cm left ovarian cyst. Electronically Signed: Rene Hall MD at 9:30 EDT , Service support , CC: Armando Wallace MD; Antoine Brown MD Cutting And Printing Machine Operator: Signed ONCOLOGY CONSULTATION Observed: 06/17/2018 Status: F Source: [place] 4:26 PM [facility] REPOSITORY [facility] [address] [place] [address] Oncology Consultation Date of Service: 06/17/18 1446 MR#: [id number] Acct: [id number] Name: RICKEY PIERCE Rep #: [id number] : 1940 From: Armando Wallace MD Age/Sex: 77/F Location: OMD Status: Signed Consult Referring Physician: Dr. Tierney Consult Results: histroy of Anal Cancer. Subjective Date of Service:: 06/17/18 Chief Complaint: Referred for anal cancer follow up. History of Present Illness: 77-year-old woman was diagnosed with anal cancer, squamous cell type, stage I (cT1 cN0 M0) on July 03, 2017 in [place]. She was treated with Xeloda and mitomycin with radiation therapy from 08/16/2017 to 10/03/2017. She had a PET CT scan on 12/11/2017 which showed complete resolution of hypermetabolic activity in the anal canal no evidence of regional chinmay disease or distant metastatic disease. She moved to [place], referred by PCP for follow up care of Anal cancer. Health History: Past Medical History (Last Updated 06/10/18 @ 10:08 by Linda Leary) Anal cancer (Acute) Palumbo esophagus (Acute) COPD (chronic obstructive pulmonary disease) (Acute) Diverticular disease (Acute) Hypertension (Chronic) Past Surgical History (Last Updated 06/17/18 @ 14:14 by Linda Leary) History of cholecystectomy (Acute) Family History (Last Updated 06/17/18 @ 14:17 by Linda Leary) Father Heart disease Sister Cancer Diabetes Brother Heart disease Mother Heart disease Sister Heart disease Allergies/Adverse Reactions: Allergy/AdvReac Type Severity Reaction Status Date / Time aspirin AdvReac Nausea Verified 06/17/18 14:12 Review of Systems Constitutional:: Denies: Fever, Sweats, Weight loss, Appetite change, Chills Cardiovascular:: Denies: Chest pain, Palpitations, Dyspnea on exertion, Orthopnea, PND, Shortness of breath Respiratory: Denies: Cough, Hemoptysis, Shortness of Breath, Wheezing Gastrointestinal:: Denies: Abdominal pain, Nausea, Vomiting, Diarrhea, Constipation, Hematochezia Genitourinary: Denies: Dysuria, Hematuria, 15, Flank pain Musculoskeletal:: Denies: Back pain, Myalgia, Arthralgia Skin: Denies: Rash, Skin Changes, Wounds Neurological:: Denies: Headache, Dizziness, Visual changes, Tinnitus, Hearing loss Psychiatric: Denies: Anxiety, Depression, Homicidal Ideations, Suicidal Ideations Vital Signs Height 5 ft 0.5 in Weight: 78.381 kg Weight in Pounds 172.8 lbs Pulse Ox 82 - Physical Exam General: Alert, Oriented x3, No apparent distress HEENT: Atraumatic, PERRLA, EOMI, Normocephalic Oropharynx:: Dry mucosa Neck:: Supple, Trachea midline. Negative for: JVD, bilateral Cardiac:: Regular rate, Regular rhythm, Normal S1, Normal S2. Negative for: Murmur Lungs: Clear to auscultation, Excusion symmetrical. Negative for: Rhonchi, Wheezes Abdomen:: Bowel sounds x 4, Soft, Non-tender, Non-distended. Negative for: Hepatosplenomegaly Extremities:: Negative for: Cyanosis, Edema Neurological: Neuro grossly intact Skin:: Negative for: Lesions, Rash, Petechiae, Ecchymosis Psychiatric:: Appropriate affect, Euthymic Lymphatics:: Negative for: Cervical lymphadenopathy, Supraclavicular lymphadenopathy, Axillary lymphadenopathy Assessment and Plan Anal cancer stage I, no clinical evidence of disease. Discussed disease status, surveillance for recurrence with periodic CT scan. Patient agrees to proceed. Plan is to obtain CT abdomen/pelvis and CBC/CMP. She will need referral for proctoscopy on her next visit. RTC 1 month. Medications: Prescriptions This Visit Medication Instructions Recorded Carvedilol [Coreg] 12.5 mg PO DAILY 06/17/18 Primary Care Provider: Antoine Brown Referring Provider: Antoine Brown - Problem List (1) Anal squamous cell carcinoma Status: Resolved (2) History of anal cancer Status: Chronic Code Visit Office Visits / Consults: 28589 OP Consult L5 06/17/18 2716 <Electronically signed by Armando Wallace MD> Date Armando Wallace MD Cosigner Signature: Date (if applicable) CC: Antoine Brown MD CBC W/DIFF, AUTOMATED Collected: 06/17/2018 Status: F Source: [place] 3:25 PM [facility] REPOSITORY Order Comment: Reason for Laboratory Test . TYPE CODE TESTS RESULT OUT OF RANGE REFERENCE UNITS LAB L100.1000 4.4-11.0 K/mm3 Normal WBC 7.0 LAB L100.1200 4.2-5.4 M/mm3 Low RBC 4.10 LAB L100.1300 12.0-15.0 g/dl Normal HGB 13.1 LAB L100.1400 37-47 % Normal HCT 39.8 LAB L100.1500 81-99 fL Normal MCV 97.1 LAB L100.1600 27.0-32.0 pg Normal MCH 32.0 LAB L100.1700 32-36 g/gl Normal MCHC 32.9 LAB L100.1810 11.6-14.6 % Normal RDW CV 13.3 LAB L100.1820 35.1-43.9 fl High RDW SD 46.2 LAB L100.1900 150-450 K/mm3 Normal PLT 279 LAB L100.2000 6.2-12.0 fl Normal MPV 8.5 LAB L100.2100 47-70 % Normal NEUT% 65.2 LAB L100.2200 19-41 % Normal LY% 24.6 LAB L100.2300 0-10 % Normal MONO% 8.6 LAB L100.2400 0-5 % Normal EO% 1.4 LAB L100.2500 0-1 % Normal BASO% 0.1 LAB L100.2550 0.0-0.9 % Normal IM GRAN % 0.100 Result Comment: IG% - Immature Granulocytes (promyelocytes, myelocytes and metamyelocytes) > 1% indicates that a LEFT SHIFT is Present. LAB L100.2620 2.0-7.7 X10 3/uL Normal Absolute Neut 4.5 LAB L100.2720 0.83-4.51 X10 3/ul Normal Absolute Lymph 1.71 Performed By: #### L100.0100 #### [facility] [address] [place], [place], [address] COMPREHENSIVE METABOLIC Collected: 06/17/2018 Status: F Source: [facility] 3:25 PM [facility] REPOSITORY Order Comment: Reason for Laboratory Test . TYPE CODE TESTS RESULT OUT OF RANGE REFERENCE UNITS LAB L501.0100 74-106 mg/dL Normal GLU 85 Result Comment: Please note revised GLUCOSE reference range effective 2017. LAB L501.1000 7-18 mg/dL High BUN 19 LAB L501.1100 0.55-1.02 mg/dL Normal CREAT,SERUM 0.82 Result Comment: The validity of the calculated GFR AND GFRAA in patients over 70 years has not been determined. Clinical correlation is essential. LAB L501.1110 >60 mL/min Normal EST GFR 72 Result Comment: Non- GFR Calc LAB L501.1115 >60 mL/min Normal EST GFR - AA 87 Result Comment: GFR Calc LAB L501.1255 ml/min Normal Estimated CRCL 42.58 LAB L501.1300 10-20 RATIO High BUN/CRE 23.1 LAB L501.1500 6.4-8. g/dL Normal 2 T PROT 8.1 LAB L501.1800 3.2-5. g/dL Normal 0 ALB 3.7 LAB L501.1950 2.2-4. g/dL High 2 GLOB 4.4 LAB L501.2000 0.9-2. RATIO Low 4 A/G 0.8 LAB L501.2200 8.5-10 mg/dL Normal .1 CA 9.1 LAB L501.4100 15-37 U/L Normal AST 23 LAB L501.4305 45-117 U/L Normal ALK P 109 LAB L501.4405 13-56 U/L Normal ALT 33 LAB L501.4600 0.20-1 mg/dL Normal .00 T BILI 0.50 LAB L501.5300 136-14 mmol/L Normal 5 NA 140 LAB L501.5600 3.5-5. mmol/L Normal 1 K 3.5 LAB L501.5900 98-107 mmol/L Normal CL 105 LAB L501.6100 21.0-3 mmol/L Normal 2.0 CO2 27.0 LAB L501.6200 5-15 Normal GAP 8 Performed By: #### L500.4050 #### [facility] [address] [place], [address] BASIC METABOLIC Collected: 05/20/2018 Status: F Source: [place] PROFILE ([facility]) 8:26 AM [facility] REPOSITORY TYPE CODE TESTS RESULT OUT OF RANGE REFERENCE UNITS LAB L501.0100 74-106 mg/dL High GLU 124 Result Comment: Fasting Glucose result from 100 to 125 mg/dL suggests IMPAIRED HOMEOSTASIS per A.D.A. criteria. Please note revised GLUCOSE reference range effective 2017. LAB L501.1000 7-18 mg/dL High BUN 20 LAB L501.1100 0.55-1.02 mg/dL Normal CREAT,SERUM 0.90 Result Comment: The validity of the calculated GFR AND GFRAA in patients over 70 years has not been determined. Clinical correlation is essential. LAB L501.1110 >60 mL/min Normal EST GFR 65 Result Comment: Non- GFR Calc LAB L501.1115 >60 mL/min Normal EST GFR - AA 79 Result Comment: GFR Calc LAB L501.1300 10-20 RATIO High BUN/CRE 22.3 LAB L501.2200 8.5-10.1 mg/dL CA Normal 8.9 LAB L501.5300 136-145 mmol/L NA Normal 144 LAB L501.5600 3.5-5.1 mmol/L K Normal 3.8 LAB L501.5900 98-107 mmol/L CL Normal 105 LAB L501.6100 21.0-32.0 mmol/L Normal CO2 30.0 LAB L501.6200 5-15 Normal GAP 9 Performed By: #### L500.2500, L500.4100 #### [facility] [address] [facility] [place], [place], [id number] LIPID PROFILE Collected: 05/20/2018 Status: F Source: [place] 8:26 AM [facility] REPOSITORY TYPE CODE TESTS RESULT OUT OF RANGE REFERENCE UNITS LAB L501.4900 200 mg/dL Normal CHOL 149 Result Comment: <200 mg/dL Desirable 200-240 mg/dL Borderline >240 mg/dL High Risk LAB L501.5000 mg/dL Normal TRIG 182 Result Comment: The drugs N-Acetylcysteine and Metamizole may falsely depress this assay. Serum Triglycerides Reference Interval Normal <150 mg/dL Borderline high 150 - 199 mg/dL High 200 - 499 mg/dL Very High > or = 500 mg/dL LAB L501.6400 mg/dL Low HDL 36 Result Comment: The drugs N-Acetylcysteine and Metamizole may falsely depress this assay. Reference Range HDL <40 mg/dL Low HDL Cholesterol HDL >or= 60 mg/dL High HDL Cholesterol LAB L501.6500 0-130 mg/dL Normal LDL 77 LAB L501.6600 5-40 mg/dL Normal VLDL 36 Performed By: #### L500.2500, L500.4100 #### [facility] [address] [facility] [place], [place], [id number] VITAMIN D,25 HYDROXY Collected: 05/20/2018 Status: F Source: [place] 8:26 AM [facility] REPOSITORY TYPE CODE TESTS RESULT OUT OF REFERENCE UNITS RANGE LAB L506.1000 29.95-100.01 ng/mL Low Vitamin D 25.0 25-OH Result Comment: Vitamin D 25(OH) Status Range Deficiency <20 ng/mL (50nmol/L) Insuffciency 20 - 30 ng/mL (50 - 75 nmol/L) Sufficiency 30 - 100 ng/mL (75 - 250 nmol/L) Toxicity >100 ng/mL (>250 nmol/L) Performed By: #### L506.1000 #### [facility] [address] [place], [address] ALLERGIES ALLERGIES DATE TYPE / CODE NAME / CODE REACTION SEVERITY SOURCE 08/12/2018 Drug aspirin/F006 Nausea Unknown [facility] Allergy/4160 [id number](Formerly [facility] [address]26(SNOMED M) Repository CT) ENCOUNTERS ENCOUNTERS ADMIT/DISCHARGE ACCOUNT ADMITTING ENCOUNTER LOCATION SOURCE NUMBER CLASS 08/27/2018 [id number] Ambulatory BMSBuilding:[place] 7 [facility] Repository 08/27/2018 [id number] [place] [facility] ing:[facility] Repository 08/19/2018 [id number] [place] 8 [facility] ing:MFPLAB Repository 08/12/2018 [id number] Ambulatory BMSBuilding:B [place] 8 [place] Repository 08/12/2018 [id number] [place] [facility] ing:[facility] Repository 08/01/2018/ [id number] [place] 8 3 [facility] ing:ENRoom: Repository AC15 08/01/2018/ [id number] Ambulatory BMSBuilding:B [place] 8 0 [place] Repository 07/22/2018 [id number] [place] 8 [facility] ing:MRI Repository 07/18/2018/ [id number] Ambulatory BMSBuilding:B [place] 6 [place] Repository 07/15/2018 [id number] Ambulatory BMSBuilding:B [place] 7 [place] Repository 06/26/2018 [id number] [place] [facility] ing:CT Repository 06/17/2018 [id number] Ambulatory BMSBuilding:B [place] Repository 05/20/2018 [id number] Ambulatory [place] 2 [facility] ing:MFPLAB Repository PAYERS PAYERS ENCOUNTER GUARANTOR PAYER SUBSCRIBER SOURCE 08/27/2018 DELTHA J Primary DELTHA J [place] [id number] Insurance:MEDICARE ANSHUTZDOB: [facility], PART A [id number] [address]Qrn: Number: Repository [id number] (HP) Date:2018-08-15 08/27/2018 Secondary DELTHA J [place] Insurance:AARPPolicy ANSTZDOB: [facility] Number: [id number] Hospital [id number] Repository Date:6539-02-78AY [facility] [place], [place] [address]FP: 08/27/2018 Tertiary NOT GIVENUNK [place] Insurance:SELF PAY [facility] Number: Effective Repository Date:2018-08-27 08/27/2018 DELTHA J Primary DELTHA J [place] [id number] Insurance:MEDICARE ANSHUTZDOB: [facility], PART A [facility] [id number] [id number]: Number: Repository [id number] (HP) Date:2018-08-15 08/27/2018 Secondary DELTHA J Anselmo Insurance:AARPPolicy ANSHUTZDOB: Community Number: [id number] Hospital [id number] Repository Date:0552-18-22GM [facility] [place], [place] [address]UJ: 08/27/2018 Tertiary NOT GIVENUNK [place] Insurance:SELF PAY [facility] Number: Effective Repository Date:2018-08-15 08/19/2018 DELTHA J Primary DELTHA J [place] [id number] Insurance:MEDICARE ANSH[facility]ZDOB[facility] [id number] Health Care [facility] [address]Ohg: Number: Repository [id number] (HP) Date:2018-08-19 08/19/2018 Secondary DELTHA J [place] Insurance:AARPPolicy ANSTZDOB: Community Number: [id number] Hospital [id number] Repository Date:5114-63-57QK [address], [place] [address]VH: 08/19/2018 Tertiary NOT GIVENUNK [place] Insurance:SELF PAY [facility] Number: Effective Repository Date:2018-08-19 08/12/2018 DELTHA J Primary DELTHA J [place] [id number] Insurance:MEDICARE ANSHUTZDOB: [facility] ELISA, PART A [facility] [id number] Health Care Center [address]Mzt: Number: Repository [id number] (HP) Date:2018-06-09 08/12/2018 Secondary DELTHA J [place] [facility] Community Number: [id number] Hospital [id number] Repository Date:5089-41-50SE [address]QYZNJSL, [place] [address]CX: 08/12/2018 Tertiary NOT GIVENUNK [place] Insurance:SELF PAY [facility] Number: Effective Repository Date:2018-08-12 08/12/2018 DELTHA J Primary DELTHA J [place] [id number] Insurance:MEDICARE ANSHUTZDOB: [facility] ENE, PART A [facility] [id number] Health Care Center [address]Ikp: Number: Repository [id number] (HP) Date:2018-06-09 08/12/2018 Secondary DELTHA J [place] Insurance[facility] ANSTZDOB: Community Number: [id number] Hospital [id number] Repository Date:5993-87-83WH [address], [place] [address]AD: 08/12/2018 Tertiary NOT GIVENUNK [place] Insurance:SELF PAY [facility] Number: Effective Repository Date:2018-06-09 08/01/2018 DELTHA J Primary DELTHA J [place] [id number] Insurance:MEDICARE ANSTZDOB: [facility], PART A [facility] [id number] Health Care Center [address]Dtp: Number: Repository [id number] (HP) Date:2018-07-21 08/01/2018 Secondary DELTHA J [place] Insurance:[facility] ANSTZDOB: Community Number: [id number] Hospital [id number] Repository Date:3409-36-99XC [address]CH, [place] [address]HT: 08/01/2018 Tertiary NOT GIVENUNK [place] Insurance:SELF PAY [facility] Number: Effective Repository Date:2018-07-21 08/01/2018 DELTHA J Primary DELTHA J [place] [id number] Insurance:MEDICARE ANSTZDOB: [facility], PART A [facility] [id number] Health Care Center [address]Czf: Number: Repository [id number] (HP) Date:2018-07-21 08/01/2018 Secondary DELTHA J [place] Insurance:AARPPolicy ANSTZDOB: Community Number: [id number] Hospital [id number] Repository Date:8756-69-99MD [address]YWJNH, [place] [address]LZ: 08/01/2018 Tertiary NOT GIVENUNK [place] Insurance:SELF PAY [facility] Number: Effective Repository Date:2018-08-01 07/22/2018 DELTHA J Primary DELTHA J [place] [id number] Insurance:MEDICARE ANSTZDOB: [facility], PART A [facility] [id number] [place] [address]Tel: Number: Repository [id number] (HP) Date:2018-07-15 07/22/2018 Secondary DELTHA J [place] Insurance:AARPPolicy GEOVANNYTZDOB: Community Number: [id number] Hospital [id number] Repository Date:0860-53-69VB [facility] [address], [place] [address]ZZ: 07/22/2018 Tertiary NOT GIVENUNK [place] Insurance:SELF PAY [facility] Number: Effective Repository Date:2018-07-15 07/18/2018 DELTHA J Primary DELTHA J [place] [id number] Insurance:MEDICARE [facility]ZDOB[facility] [id number] [id number]: Number: Repository [id number] (HP) Date:2018-07-15 07/18/2018 Secondary DELTHA J [place] Insurance:AARPPolicy GEOVANNYTZDOB: Community Number: [id number] Hospital [id number] Repository Date:6657-91-70QV [address], [place] [address]FM: 07/18/2018 Tertiary NOT GIVENUNK [place] Insurance:SELF PAY [facility] Number: Effective Repository Date:2018-07-15 07/15/2018 DELTHA J Primary DELTHA J [place] [id number] Insurance:MEDICARE ANSHUTZDOB[facility] [id number] [place] [address]Tel: Number: Repository [id number] (HP) Date:2018-06-09 07/15/2018 Secondary DELTHA J [place] Insurance:[facility]PP[facility]ery ANSAJAYTZDOB: Community Number: [id number] Hospital [id number] Repository Date:4633-16-93LR [address]GFYQM[place], [place] [address]GT: 07/15/2018 Tertiary NOT GIVENUNK [place] Insurance:SELF PAY [facility] Number: Effective Repository Date:2018-07-15 06/26/2018 DELTHA J Primary DELTHA J [place] [id number] Insurance:MEDICARE ANSHUTZDOB: Community [address]SH[address]VE, PART A olicy [id number] Health Care Center [address]Rau: Number: Repository [id number] (HP) Date:2018-06-17 06/26/2018 Secondary DELTHA J [place] Insurance:AARPPolicy ANSHUTZDOB: Community Number: [id number] [facility] [id number] Repository Date:3941-36-14BS [address], [place] [address]PA: 06/26/2018 Tertiary NOT GIVENUNK [place] Insurance:SELF PAY [facility] Number: Effective Repository Date:2018-06-17 06/17/2018 DELTHA J Primary DELTHA J [place] [id number] Insurance:MEDICARE ANSHUTZDOB: [facility] MICHOACANO RDSHREVE, PART A [facility] [id number] Health Care Center [address]Xmp: Number: Repository [id number] (HP) Date:2018-06-09 06/17/2018 Secondary DELTHA J [place] Insurance:AARPPolicy ANSHUTZDOB: Community Number: [id number] Hospital [id number] Repository Date:8654-88-79WU [facility] 9810[place], [place] [address]FE: 06/17/2018 Tertiary NOT GIVENUNK [place] Insurance:SELF PAY [facility] Number: Effective Repository Date:2018-06-17 05/20/2018 DELTHA Primary DELTHA [place] [id number] Insurance:MEDICARE ANSHUTZDOB: Community [address]SHREVE, PART A [facility] [id number] Health Care Center [address]Eda: Number: Repository [id number] (HP) Date:2018-05-20 05/20/2018 Secondary DELTHA [place] Insurance:Beto GAMBINOB: Community Number: [id number] Hospital [id number] Repository Date:5232-94-03CL [address], [place] [address]CU: 05/20/2018 Tertiary NOT GIVENANDERSON [place] Insurance:SELF PAY [facility]: Effective Repository Date:2018-05-20
== END ==
PROVIDERS: Family Provider Family Medicine; PCP Family Medicine; Referring Provider Family Medicine; Visit Provider Family Medicine
DX: I71.4 Abdominal aortic aneurysm, without rupture (principal)
CPT/HCPCS: 0399T; 71260; 93306; Q9967

== ENCOUNTER → 2018-11-17 07:18 | Outpatient (CLI) | payer MEDICARE, OTHER, SELFPAY ==
[2018-08-12 13:19] VITALS: BMI 33.2
--- NOTE | 2018-11-17 07:23 | CT_ITS ---
STUDY: CT CHEST WITH CONTRAST REASON FOR EXAM: Female, 78 years old. Lung nodule follow-up. History of cancer RADIATION DOSAGE (If Supplied By Facility): CTDIvol = ( 10.08 ) mGy, DLP = ( 481.67 ) mGycm TECHNIQUE: Transaxial imaging was performed following intravenous administration of Isovue 300 100 IV. Individualized dose optimization techniques were used for this CT. COMPARISON: 08/27/2018 FINDINGS: Grossly unremarkable thyroid Stable appearance of COPD and emphysema. There is a stable soft tissue nodule in the superior segment of the right lower lobe laterally measuring 6.4 x 5.6 mm. No significant interval change as compared to the most recent prior exam. No evidence of new pulmonary nodules or masses. Lungs are clear. There is no demonstrated pleural abnormality. Normal heart and pericardium. Normal mediastinum. Normal hilar regions. Normal enhanced pulmonary arteries. Stable enlargement of the descending aorta measuring 4.5 cm. Prominent soft plaque formation in the distal thoracic aorta near the hemidiaphragms with associated stable fusiform aneurysm. Normal osseous structures. There appears to be a small hemangioma in the left lobe of the liver, stable. Otherwise, upper abdomen is unremarkable. CT/Chest WITH Contrast IMPRESSION: 1. Stable pulmonary nodule in the right lung base as detailed above. Repeat chest CT is recommended in 6 months 2. Remaining findings are stable Electronically Signed: Neptali Franklin DO at 9:10 EST Tel , Service support ,
[2018-11-17 08:06] LABS: CREATININE FINGERSTICK 0.8 mg/dL (0.55-1.02)
== END ==
PROVIDERS: Family Provider Family Medicine; PCP Family Medicine; Referring Provider Family Medicine; Visit Provider Family Medicine
DX: R91.1 Solitary pulmonary nodule (principal); Z01.812 Encounter for preprocedural laboratory examination
CPT/HCPCS: 71260; Q9967

== ENCOUNTER 2019-07-05 09:09 | Inpatient (IN) | payer MEDICARE, OTHER, SELFPAY ==
[2019-04-08 14:56] VITALS: BMI 30.8
[2019-07-05 09:11] VITALS: BP 146/88; PULSE 73; RESP 16; TEMP 36.6; O2SAT 92; BMI 31.6
--- NOTE | 2019-07-05 09:20 | CT_ITS ---
STUDY: CTA HEAD AND NECK WITH CONTRAST REASON FOR EXAM: Female, 78 years old. Headache and left shoulder pain. RADIATION DOSAGE (If Supplied By Facility): CTDIvol = ( 29.89 ) mGy, DLP = ( 1431.12 ) mGycm TECHNIQUE: CT angiography was performed with a multi-detector CT scanner. Data acquisition was obtained from the skull base through the vertex following intravenous administration of IV Isovue 370 75. MIP images were reconstructed from the axial data set. Post-processing of the angiographic images was performed, with multiplanar reformation and 3D reconstruction. Individualized dose optimization techniques were used for this CT. COMPARISON: No relevant priors. FINDINGS: Normal bilateral petrous carotid arteries. Normal right cavernous carotid artery with a normal supraclinoid bifurcation. Normal left cavernous carotid artery with a normal supraclinoid bifurcation. Normal right A1 segments of the anterior cerebral artery. Normal left A1 segments of the anterior cerebral artery. Normal intact anterior communicating artery (ACOM). Normal bilateral A2 segments of the anterior cerebral arteries. Normal right M1 and M2 segments of the middle cerebral arteries, with a normal M1 bifurcation. Normal left M1 and M2 segments of the middle cerebral arteries, with a normal M1 bifurcation. Normal right posterior communicating artery (PCOM). There is a persistent origin of the left posterior cerebral artery with absence of the posterior communicating artery (PCOM). Normal bilateral vertebral arteries. Normal basilar artery with a normal basilar bifurcation. There is no demonstrated definite aneurysm of the pilot point of Armas within the limitation of this examination. There is no demonstrated abnormality of the visualized brain. AORTIC ARCH: There is atherosclerotic calcific plaque formation of the aortic arch and great vessels arising from the aortic arch, without a hemodynamically significant stenosis. There is a bovine origin of the great vessels with a common origin of the brachiocephalic and left common carotid artery. Normal origin of the left subclavian artery. Normal origins of the brachiocephalic, left common carotid, and left subclavian arteries. RIGHT CAROTID ARTERIES: Normal right common carotid artery (CCA). Normal right common carotid bulb. Normal origin of the right internal carotid (ICA) artery without a hemodynamically significant stenosis. There is atherosclerotic tortuous elongation of the cervical portion of the right internal carotid artery. Normal origin of the right external carotid artery (ECA). LEFT CAROTID ARTERIES: Normal left common carotid artery (CCA). There is mild atherosclerotic plaque formation with minimal narrowing of the left carotid bulb. Normal origin of the left internal carotid (ICA) artery without a hemodynamically significant stenosis. There is atherosclerotic tortuous elongation of the cervical portion of the left internal carotid artery. Minimal calcification at the origin of the left external carotid artery (ECA) without significant stenosis. VERTEBRAL ARTERIES: Normal bilateral vertebral arteries. CT/CTA Head AND Neck W/ Contrast IMPRESSION: 1. No flow-limiting stenosis is seen. 2. Tortuous internal carotid arteries without significant stenosis. Electronically Signed: Shawn Perry MD at 11:09 EDT Tel , Service support ,
[2019-07-05] MEDS: fentaNYL 100 MCG/2 ML Ampul 50 MCG IV (09:41)
[2019-07-05 09:48] LABS: Absolute Lymphocyte Count 1.35 X10^3/uL (0.83-4.51); Absolute Neutrophil Count 6.7 X10^3/uL (2.0-7.7); Basophil# 0.02 X10^3/uL; Basophil% 0.2 % (0-1); Eosinophil# 0.03 X10^3/uL; Eosinophils% 0.3 % (0-5); Hematocrit 38.9 % (37-47); Hemoglobin 12.7 g/dL (12.0-15.0); Lymphocyte # 1.35 X10^3/ul (4.0); Lymphocyte % 15.4 % (19-41); Mean Corp Hgb Conc 32.6 g/dL (32-36); Mean Corpuscular Hgb 32.1 pg (27.0-32.0); Mean Corpuscular Volume 98.2 fL (81-99); Mean Platelet Vol. 8.8 fl (6.2-12.0); Monocyte# 0.65 X10^3/uL; Monocyte% 7.4 % (0-10); NRBC Flagged by Analyzer 0 % (0-5); Neutrophil # 6.69 X10^3/uL (2.7-7.7); Neutrophil % 76.4 % (47-70); Platelet Count 263 K/mm3 (150-450); RBC Distribution Width CV 13.2 % (11.6-14.6); RBC Distribution Width SD 47.1 fl (35.1-43.9); Red Blood Count 3.96 M/mm3 (4.2-5.4); White Blood Count 8.8 K/mm3 (4.4-11.0)
[2019-07-05 09:58] LABS: Anion Gap 6 (5-15); BUN 25 mg/dL (7-18); BUN/Creat Ratio 28.6 RATIO (10-20); Calcium,Total 9.1 mg/dL (8.5-10.1); Chloride 108 mmol/L (98-107); Creatinine, Serum 0.88 mg/dL (0.55-1.02); EST Glomerular Filtration Rate 67 mL/min (>60); Est Glom Filt Rate - Afr Amer 81 mL/min (>60); Estimated Creatinine Clearance 39.07 ml/min; Glucose 123 mg/dL (74-106); Potassium 3.8 mmol/L (3.5-5.1); Sodium Level 141 mmol/L (136-145)
--- NOTE | 2019-07-05 10:13 | ED.DCSUM_ITS ---
- ER Visit Summary Date of Service: 07/05/19 Chief Complaint: Pain History of Present Illness: The patient is a 78 F with headache, left ear, left neck, and left shoulder pain. Symptoms started 3 days ago when she woke up. They are gradually getting worse. The pain is severe and worse with movement. Patient denies any injury, she did see a chiropractor for right back and shoulder pain earlier in the week. She denies any history of this pain in the past. No associated symptoms like HEENT symptoms. No weakness or numbness or other neurologic symptoms. No fever or recent illness. Physical Examination: Afebrile and vital signs unremarkable. Head and neck are normal to inspection. She has diffuse tenderness to palpation of her left lateral neck and cervical spine. She has some tenderness to palpation into the left trapezius. HEENT exam is unremarkable. Cranial nerves grossly intact. Heart regular. Lungs clear. Skin appears normal. Good strength and sensation. Normal speech and cranial nerve function. Test Results: Labs and imaging pending. Emergency Department Course and Treatment: CT brain was ordered because of the new headache and her advanced age. Results are pending. I will also check basic labs and then CTA of her head and neck. I have low suspicion for arterial injury, but she did have recent manipulation. I do not have any suspicion for cervical fracture based on her history and exam. She was treated with fentanyl and IV fluids while awaiting results. CTA was unremarkable. Patient was having continued pain after treatment with fentanyl. She was treated with Compazine and Benadryl. I spoke with radiology. They were able to do recons of the imaging and evaluate the cervical spine. She had no acute pathology. She continues to complain of neck pain and was worried that her neck was out of alignment. I was concerned for myofascial pain. She was treated with Valium. Patient had continued pain. There is no evidence of dissection, aneurysm, bleeding, fracture, infection. I am not sure what is causing her symptoms. Her pain is severe and she is unable to ambulate without multiple people assisting her. I contacted the hospitalist for further care. Treatment Plan: As above Disposition: [facility] Impression: 1. Intractable neck pain This note was generated with [employer] software. It may contain incorrect words, spelling, and punctuation that were not noted in review of the chart prior to signing ED Disposition - Plan for ED Patient: Referrals: Antoine Brown MD [Primary Care Provider] -
[2019-07-05] MEDS: proCHLORPERazine 10 MG/2 ML Vial 5 MG IV (11:13)
[2019-07-05] MEDS: DiphenhydrAMINE 50 MG/ML Syringe 25 MG IV (11:13)
[2019-07-05 11:33] VITALS: BP 139/89
[2019-07-05 13:00] VITALS: BP 139/85; PULSE 68; RESP 16; O2SAT 95
[2019-07-05] MEDS: diazePAM 2 MG Tablet PO (13:00)
--- NOTE | 2019-07-05 13:38 | CT_ITS ---
STUDY: CT CERVICAL SPINE WITHOUT CONTRAST REASON FOR EXAM: Female, 78 years old. Pain radiating from the head to the shoulders for a couple days RADIATION DOSAGE (If Supplied By Facility): CTDIvol = ( ) mGy, DLP = ( ) mGycm TECHNIQUE: High resolution transaxial imaging was performed without contrast material. Sagittal and coronal images were reconstructed. Individualized dose optimization techniques were used for this CT. COMPARISON: None FINDINGS: Normal craniovertebral junction. There are degenerative changes of the anterior atlantoaxial articulation. Normal odontoid process. Normal cervical lordosis. Normal vertebral bodies and posterior osseous elements. C2-3: Normal endplates. Normal disc height and morphology. Normal central canal and intervertebral neuroforamina. C3-4: Normal endplates. Normal disc height and morphology. Moderate facet arthropathy with right less than left foraminal stenosis. C4-5: Disc space narrowing with anterior spondylosis but no critical canal stenosis. Bilateral facet arthropathy without critical canal stenosis or significant foraminal stenosis. C5-6: Disc space narrowing with posterior disc osteophyte complex and anterior spondylosis. Uncovertebral hypertrophy and facet arthropathy contribute to bilateral foraminal narrowing. C6-7: Mild disc space narrowing with anterior spondylosis but no significant canal or foraminal stenosis. C7-T1: Normal endplates. Normal disc height and morphology. Normal central canal and intervertebral neuroforamina. Tortuosity of the bilateral carotid arteries. The bilateral vertebral arteries are patent and their visualized extent. CT/Spine Cervical without Contras IMPRESSION: 1. No cervical spine fracture or traumatic subluxation. 2. 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 3. Bilateral foraminal narrowing, as above. Electronically Signed: Rene Hall MD ([place]) at 14:04 EDT , Service support ,
--- NOTE | 2019-07-05 15:25 | PCM.HP.STD ---
Problem List (1) Neck pain Status: Acute (2) Essential (primary) hypertension Status: Chronic (3) Thoracic aortic aneurysm Status: Chronic (4) Anal squamous cell carcinoma Status: Resolved (5) Lung nodule Status: Chronic History of Present Illness Date of Admission: 07/05/19 Chief Complaint: Neck pain - 3 days The patient is a 78 year old F with past medical history of hypertension, chronic diastolic heart failure, ascending thoracic aortic aneurysm, history of anal CA status post chemoradiation comes in with complaints of left-sided posterior neck and shoulder pain ongoing for 3 days. Patient had seen a chiropractor a week prior with complaints of right shoulder pain. She was told that her shoulder had popped out and manipulations were made to his shoulder. She reportedly car with heavy groceries on 4 days to admission. She denies any trauma. She woke up Saturday with pain in her left neck radiation to the head and down to his shoulder. She tried to manage it conservatively but pain persisted she came to the emergency department. Vitals in the ED show temperature of 97.9F, heart rate 73, blood pressure 146/88, respiratory rate was 16, SPO2 is 92% on room air. Admitting blood work showed WBC count of 8.8, hemoglobin 12.7, platelet count 263, BMP was unremarkable. CTA of the head and neck showed no flow-limiting stenosis. Cervical spine CT shows degenerative disc disease, bilateral foramina narrowing seen more in C4-C6. Past Medical History Past Medical History (Chronic Problems): Chronic Problems (This Medical Record has been edited. Action required.) Thoracic aortic aneurysm (Chronic) Essential (primary) hypertension (Chronic) Lung nodule (Chronic) Medical History: Medical History (This Medical Record has been edited. 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 COPD (chronic obstructive pulmonary disease) J44.9 Diverticular disease K57.90 History of anal cancer Z85.048 Vertigo R42 Allergies aspirin Adverse Reaction (Verified 07/05/19 09:11) Nausea Home Medications: Ambulatory Orders Medication Instructions Recorded Furosemide [Lasix] 40 mg PO DAILY 06/17/18 potassium chloride ER 20 mEq 20 meq PO DAILY #90 tab 04/07/19 tablet,extended release(part/cryst) carvedilol 6.25 mg tablet 6.25 mg PO BID tab 04/08/19 cholecalciferol (vitamin D3) 1,000 1,000 unit PO TID tab 04/08/19 unit (25 mcg) tablet Surgical History: Surgical History (This Medical Record has been edited. Action required.) History of cholecystectomy Z90.49 07/28/13 [place] History of right and left heart catheterization Onset Date: 02/24/13 Z98.890 Surgical History: cholecystectomy, - - Status post right and left heart catheterization Psychiatric History: No pertinent psych hx S[employer] WORKER History: No pertinent S[employer] WORKER history Lives: Spouse/ Significant Other Smoking Status: Former smoker Tobacco Use: Non-smoker Alcohol: None Drugs: None - *Family History Maternal Family History: Family History (This Medical Record has been edited. Action required.) Father Heart disease Sister Cancer Diabetes Brother Heart disease Mother Heart disease Sister Heart disease Sister Cancer History Items: Heart Disease Paternal Family History: Family History (This Medical Record has been edited. Action required.) Father Heart disease Sister Cancer Diabetes Brother Heart disease Mother Heart disease Sister Heart disease Sister Cancer History Items: Heart Disease Review of Systems Constitutional: Reports: Chills, Malaise, Weakness, Fatigue. Denies: Anorexia, Fever, Weight Change Eyes: Denies: Blurred vision, Cataracts, Conjunctivae Inflammation HEENT: Denies: Difficulty Hearing, Difficulty Swallowing, Head Aches, Hearing Changes, Sinus Congestion, Sinus Drainage Cardiovascular: Denies: Chest Pain, Claudication, Orthopnea, Palpitations, Paroxysmal Noc. Dyspnea, Syncope Respiratory: Denies: Cough, Shortness of breath at rest, Shortness of breath upon exertion, Sputum production Gastrointestinal: Denies: Abdominal Pain, Constipation, Hematemesis, Hematochezia, Nausea, Vomiting Genitourinary: Denies: Dysuria Musculoskeletal: Reports: Neck Pain, Shoulder Pain - left. Denies: Joint Pain, Joint stiffness, Joint swelling, Joint Tenderness Skin: Denies: Rash, Wounds Neurological: Denies: Numbness, Tingling, Focal weakness Psychiatric: Denies: Anxiety, Depression, Homicidal Ideations, Suicidal Ideations Hematologic/ Lymphatic: Denies: Easy Bruising, Easy Bleeding VTE Information - Inpt Only VTE Present on Admission: No VTE Pharm Prophylaxis ordered?: Yes Patient Problems: Active and Suspected Problems (This Medical Record has been edited. Action required.) Neck pain (Acute) - Physical Exam General: Alert, Oriented x3, Cooperative, - - in severe pain, covered up with blankets HEENT: Atraumatic, PERRLA, EOMI, Normocephalic Oral: Moist Mucosa Neck: - - tenderness over the posterior neck with point tenderness at the proximal neck. Spasms of muscles of posterior neck and shoulder palpated. Lungs: Clear to auscultation, Normal air movement Cardiovascular: Regular rate, Regular Rhythm, Normal S1, Normal S2, No murmurs Abdomen: Bowel Sounds Present, Soft, Non Tender, Non-Distended, No Hepato-splenomegaly Extremities: No edema Skin: No rashes, No breakdown Musculoskeletal: No Tenderness to Palpation of Joints or Extremities Lymphatic: No Cervical, Supraclavicular, or Inguinal Adenopathy Neurological: Cranial nerves II-XII grossly intact, Neuro grossly intact Psych/Mental Status: Normal Affect, Appropriate Vital Signs Temp Pulse Resp BP Pulse Ox 97.9 F 68 16 139/85 H 95 07/05/19 09:11 07/05/19 13:00 07/05/19 13:00 07/05/19 13:00 07/05/19 13:00 Oxygen Delivery Method Room Air Weight: 73.6 kg Body Mass Index (BMI) 31.6 Intake and Output for Last 24 Hours 07/03/19 07/04/19 07/05/19 23:59 23:59 23:59 Intake Total 500 / 500 Balance 500 / 500 Laboratory Tests Past 24 Hrs 07/05/19 07/05/19 09:15 09:15 WBC 8.8 RBC 3.96 L Hgb 12.7 Hct 38.9 MCV 98.2 MCH 32.1 H MCHC 32.6 RDW Std Deviation 47.1 H RDW Coeff of Harsh 13.2 Plt Count 263 MPV 8.8 Immature Gran % (Auto) 0.300 Neut % (Auto) 76.4 H Lymph % (Auto) 15.4 L [place] % (Auto) 7.4 Eos % (Auto) 0.3 Baso % (Auto) 0.2 Absolute Neuts (auto) 6.7 Absolute Lymphs (auto) 1.35 Nucleated RBC % 0 Sodium 141 Potassium 3.8 Chloride 108 H Carbon Dioxide 27.0 Anion Gap 6 BUN 25 H Creatinine 0.88 Estim Creat Clear Calc 39.07 Est GFR (MDRD) Af Amer 81 Est GFR (MDRD) Non-Af 67 BUN/Creatinine Ratio 28.6 H Glucose 123 H Calcium 9.1 Assessment/Plan All Active Problems (This Medical Record has been edited. Action required.) Neck pain (Acute) Anal squamous cell carcinoma (Resolved) 78 year old F with past medical history of hypertension, chronic diastolic heart failure, ascending thoracic aortic aneurysm, history of anal CA status post chemoradiation comes in with complaints of left-sided posterior neck and shoulder pain ongoing for 3 days. 1. Acute intractable left posterior neck and shoulder pain, musculoskeletal in origin Unclear etiology, likely related to heavy groceries lifted a day before admission Plan: Admit to MedSurg, monitor per protocol, pain control with scheduled Tylenol, PRN oxycodone, PRN morphine, Flexeril as needed, Lidoderm patch, PT and OT to evaluate and treat 2. Hypertension, controlled, on carvedilol, continue with home regimen 3. Chronic diastolic CHF, not in acute exacerbation, Will hold home Lasix whilst patient is on gentle IV fluids Lasix may need to be resumed tomorrow Daily weights 4. Ascending thoracic aortic aneurysm, stable, follow-up in the outpatient 5. History of anal CA, stage I, status post chemoradiation Not on any treatment at the moment, being followed by oncology 6. DVT PPx- Lovenox SC Code Visit OBSV E&M: 81866 Initial observation care L3
[2019-07-05 15:41] VITALS: RESP 16
[2019-07-05 17:11] VITALS: BMI 31.7
[2019-07-05 17:20] VITALS: BMI 30.8
[2019-07-05 17:29] VITALS: BP 130/71; PULSE 79; RESP 16; TEMP 36.6; O2SAT 92
[2019-07-05] MEDS: 0.9% Normal Saline 1,000 ML 75 ML IV (18:23)
[2019-07-05] MEDS: cycloBENZAPRine HCl 10 MG Tablet PO (18:23)
[2019-07-05 18:37] LABS: AST(SGOT) 17 U/L (15-37); Alanine Aminotransfer ALT/SGPT 26 U/L (13-56); Albumin, Serum 3.7 g/dL (3.2-5.0); Alkaline Phosphatase 102 U/L (45-117); Bilirubin, Direct 0.15 mg/dL (0.00-0.30); Globulin 3.8 g/dL (2.2-4.2); Protein, Total 7.5 g/dL (6.4-8.2)
[2019-07-05 21:40] VITALS: BP 128/72; PULSE 84; RESP 16; TEMP 37.1; O2SAT 92
[2019-07-05] MEDS: Acetaminophen 500 MG Tablet 1000 MG PO (21:51)
[2019-07-05] MEDS: Carvedilol 6.25 MG Tablet PO (21:51)
[2019-07-05] MEDS: Heparin Injection (Vial) 5,000 UNIT/ML VIAL 5000 UNIT SC (21:51)
[2019-07-05] MEDS: Morphine 2 MG/ML Syringe IV (21:52)
[2019-07-06 03:24] VITALS: BP 107/58; PULSE 67; RESP 16; TEMP 36.9; O2SAT 96
[2019-07-06] MEDS: cycloBENZAPRine HCl 10 MG Tablet PO ×3 (04:50→21:48)
[2019-07-06 05:49] LABS: Absolute Lymphocyte Count 1.62 X10^3/uL (0.83-4.51); Absolute Neutrophil Count 4.3 X10^3/uL (2.0-7.7); Basophil# 0.02 X10^3/uL; Basophil% 0.3 % (0-1); Eosinophil# 0.04 X10^3/uL; Eosinophils% 0.6 % (0-5); Hematocrit 36.4 % (37-47); Hemoglobin 11.7 g/dL (12.0-15.0); Lymphocyte # 1.62 X10^3/ul (4.0); Lymphocyte % 24.5 % (19-41); Mean Corp Hgb Conc 32.1 g/dL (32-36); Mean Corpuscular Hgb 32.3 pg (27.0-32.0); Mean Corpuscular Volume 100.6 fL (81-99); Mean Platelet Vol. 8.9 fl (6.2-12.0); Monocyte# 0.59 X10^3/uL; Monocyte% 8.9 % (0-10); NRBC Flagged by Analyzer 0 % (0-5); Neutrophil # 4.33 X10^3/uL (2.7-7.7); Neutrophil % 65.4 % (47-70); Platelet Count 230 K/mm3 (150-450); RBC Distribution Width CV 13.3 % (11.6-14.6); RBC Distribution Width SD 49.6 fl (35.1-43.9); Red Blood Count 3.62 M/mm3 (4.2-5.4); White Blood Count 6.6 K/mm3 (4.4-11.0)
[2019-07-06 06:21] LABS: ALB/GLOB Ratio 0.9 RATIO (0.9-2.4); AST(SGOT) 16 U/L (15-37); Alanine Aminotransfer ALT/SGPT 21 U/L (13-56); Albumin, Serum 3.2 g/dL (3.2-5.0); Alkaline Phosphatase 92 U/L (45-117); Anion Gap 8 (5-15); BUN 18 mg/dL (7-18); BUN/Creat Ratio 26.4 RATIO (10-20); Calcium,Total 8.5 mg/dL (8.5-10.1); Chloride 110 mmol/L (98-107); Creatinine, Serum 0.68 mg/dL (0.55-1.02); EST Glomerular Filtration Rate 89 mL/min (>60); Est Glom Filt Rate - Afr Amer 107 mL/min (>60); Estimated Creatinine Clearance 34.38 ml/min; Globulin 3.6 g/dL (2.2-4.2); Glucose 95 mg/dL (74-106); Potassium 3.5 mmol/L (3.5-5.1); Protein, Total 6.8 g/dL (6.4-8.2); Sodium Level 141 mmol/L (136-145)
[2019-07-06] MEDS: Heparin Injection (Vial) 5,000 UNIT/ML VIAL 5000 UNIT SC ×3 (06:25→21:49)
[2019-07-06] MEDS: Acetaminophen 500 MG Tablet 1000 MG PO ×3 (06:31→21:49)
[2019-07-06] MEDS: Morphine 2 MG/ML Syringe IV ×3 (06:33→21:04)
--- NOTE | 2019-07-06 08:51 | MRI_ITS ---
STUDY: MRI CERVICAL SPINE WITHOUT CONTRAST REASON FOR EXAM: Female, 78 years old. Neck pain, left shoulder pain. TECHNIQUE: Standardized fat and water weighted pulse sequences were obtained in the sagittal and axial planes. COMPARISON: None FINDINGS: Normal foramen magnum and brainstem-cervical cord junction. Normal craniovertebral junction. Normal anterior atlantoaxial articulation. Normal odontoid process. Normal cervical lordosis. Normal vertebral bodies and posterior osseous elements. C2-3: Normal endplates. Normal disc height, signal and morphology. Normal central canal and intervertebral neural foramina. C3-4: Normal endplates. Normal disc height, signal and morphology. Normal central canal and intervertebral neural foramina. C4-5: Mild broad disc osteophyte complex produces mild spinal stenosis but no neural foraminal stenosis. C5-6: Mild broad disc osteophyte complex produces mild spinal stenosis but no neural foraminal stenosis. C6-7: Mild broad disc osteophyte complex produces mild spinal stenosis but no neural foraminal stenosis. C7-T1: Normal endplates. Normal disc height, signal and morphology. Normal central canal and intervertebral neural foramina. Normal cervical cord. Normal visualized soft tissue structures. MRI/Spine Cervical (Routine) IMPRESSION: Multilevel degenerative changes, as described above. Electronically Signed: aDyo Llanes MD at 10:52 EDT Tel , Service support ,
[2019-07-06] MEDS: Lidocaine 5% Patch 2 PATCH TOPICAL (10:36)
[2019-07-06] MEDS: Carvedilol 6.25 MG Tablet PO ×2 (10:37→21:50)
[2019-07-06 10:54] VITALS: BP 108/56; PULSE 71; RESP 18; TEMP 36.6; O2SAT 92
--- NOTE | 2019-07-06 11:25 | PCM.PROGNOTE ---
Patient Problems: Active and Suspected Problems (This Medical Record has been edited. Action required.) Neck pain (Acute) Subjective: CC ; f/u neck pain Patient is a 78-year-old lady admitted with neck pain and left-sided shoulder pain of 2 days duration. Seen patient is still c/o significant neck pain . MRI was requested did demonstrate multilevel degenerative joint disease - Physical Exam Vitals/I&O's: Vital Signs Temp Pulse Resp BP Pulse Ox 97.8 F 71 18 108/56 L 92 07/06/19 10:54 07/06/19 10:54 07/06/19 10:54 07/06/19 10:54 07/06/19 10:54 Oxygen Delivery Method Room Air Weight: 71.668 kg Body Mass Index (BMI) 30.8 Intake and Output for Last 24 Hours 07/04/19 07/05/19 07/06/19 23:59 23:59 23:59 Intake Total 500 / 900 1100 / 1100 Balance 500 / 900 1100 / 1100 General: Cooperative HEENT: Atraumatic Neck: No JVD Lungs: Diminished Cardiovascular: Regular rate, Regular Rhythm Abdomen: Soft, Non Tender Extremities: No clubbing, No cyanosis Neurological: Cranial nerves II-XII grossly intact Psych/Mental Status: Flat Affect Laboratory Results 07/05/19 09:15: Total Bilirubin 0.50, Direct Bilirubin 0.15, AST 17, ALT 26, Alkaline Phosphatase 102, Total Protein 7.5, Albumin 3.7, Globulin 3.8 07/06/19 05:24: WBC 6.6, RBC 3.62 L, Hgb 11.7 L, Hct 36.4 L, MCV 100.6 H, MCH 32.3 H, MCHC 32.1, RDW Std Deviation 49.6 H, RDW Coeff of Harsh 13.3, Plt Count 230, MPV 8.9, Immature Gran % (Auto) 0.300, Neut % (Auto) 65.4, Lymph % (Auto) 24.5, [place] % (Auto) 8.9, Eos % (Auto) 0.6, Baso % (Auto) 0.3, Absolute Neuts (auto) 4.3, Absolute Lymphs (auto) 1.62, Nucleated RBC % 0 07/06/19 05:24: Sodium 141, Potassium 3.5, Chloride 110 H, Carbon Dioxide 23.0, Anion Gap 8, BUN 18, Creatinine 0.68, Estim Creat Clear Calc 34.38, Est GFR (MDRD) Af Amer 107, Est GFR (MDRD) Non-Af 89, BUN/Creatinine Ratio 26.4 H, Glucose 95, Calcium 8.5, Total Bilirubin 0.50, AST 16, ALT 21, Alkaline Phosphatase 92, Total Protein 6.8, Albumin 3.2, Globulin 3.6, Albumin/Globulin Ratio 0.9 Current Medications Acetaminophen (Tylenol) 1,000 mg PO TID COUNTS INCLUDE 234 BEDS AT THE [facility] Last Admin: 07/06/19 06:31 Dose: 1,000 mg Documented by: Al Hydroxide/Mg Hydroxide (Mylanta Ii) 30 ml PO Q6H PRN PRN PRN Reason: Gastric Burning Carvedilol (Coreg) 6.25 mg PO BID COUNTS INCLUDE 234 BEDS AT THE [facility] Last Admin: 07/06/19 10:37 Dose: 6.25 mg Documented by: Cholecalciferol (Vitamin D) 1,000 unit PO TID COUNTS INCLUDE 234 BEDS AT THE [facility] Last Admin: 07/06/19 06:25 Dose: 1,000 unit Documented by: Cyclobenzaprine HCl (Flexeril) 10 mg PO TID PRN PRN PRN Reason: SPASMS Last Admin: 07/06/19 04:50 Dose: 10 mg Documented by: Heparin Sodium (Porcine) (Heparin Na) 5,000 unit SC Q8 COUNTS INCLUDE 234 BEDS AT THE [facility] Last Admin: 07/06/19 06:25 Dose: 5,000 unit Documented by: Lidocaine (Lidoderm Patch) 2 patch TOPICAL DAILY COUNTS INCLUDE 234 BEDS AT THE [facility]; Protocol Last Admin: 07/06/19 10:36 Dose: 2 patch Documented by: Morphine Sulfate () 2 mg IV Q3H PRN PRN PRN Reason: Severe pain (7-10/10) Last Admin: 07/06/19 06:33 Dose: 2 mg Documented by: Ondansetron HCl (Zofran) 4 mg IV Q8H PRN PRN PRN Reason: NAUSEA/VOMITING Oxycodone HCl (Oxyir) 5 mg PO Q4H PRN PRN PRN Reason: Moderate Pain (4-6/10) Potassium Chloride (K-Dur) 20 meq PO DAILYCM COUNTS INCLUDE 234 BEDS AT THE [facility] Last Admin: 07/06/19 10:37 Dose: 20 meq Documented by: Medical Necessity - Tobacco Use Smoking Status: Former smoker Tobacco Use: Non-smoker Assessment/Plan All Active Problems (This Medical Record has been edited. Action required.) Neck pain (Acute) Anal squamous cell carcinoma (Resolved) Patient is a 78-year-old lady admitted with neck pain and left-sided shoulder pain of 2 days duration. 1. Intractable pain involving the serial neck and left shoulder region. 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 Admitted to regular nursing floor for pain control. MRI was requested did demonstrate multilevel degenerative joint disease 2. Hypertension ~ blood pressure controlled, home medications continued with dose adjustment as needed 3. Chronic congestive heart failure with preserved ejection fraction ~ Not in exacerbation 4. Ascending thoracic aortic aneurysm ~ F/U as outpatient by PCP 5. History of anal CA, stage I ~ status post chemoradiation 6. DVT Prophylaxis ~ Lovenox SC Clinical Impression(s) from Imaging Studies Head/Neck CTA 07/05/19 09:20 IMPRESSION: 1. No flow-limiting stenosis is seen. 2. Tortuous internal carotid arteries without significant stenosis. Electronically Signed: Shawn Perry MD at 11:09 EDT Tel , Service support , Cervical Spine CT 07/05/19 13:38 IMPRESSION: 1. No cervical spine fracture or traumatic subluxation. 2. 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 3. Bilateral foraminal narrowing, as above. Electronically Signed: Rene Hall MD ([place]) at 14:04 EDT , Service support , Cervical Spine MRI 07/06/19 08:51 IMPRESSION: Multilevel degenerative changes, as described above. Electronically Signed: Dayo Llanes MD at 10:52 EDT Tel , Service support , Code Visit OBSV E&M: 40930 Subsequent observation care L3
[2019-07-06] MEDS: oxyCODONE 5 MG Tablet PO ×2 (12:12→17:43)
--- NOTE | 2019-07-06 14:45 | CHAPLAIN ---
Type of Pastoral Visit _x__ Initial Visit ___ Follow-up Visit ___ On-call Visit ___ General Patient Visit ___ Spiritual Assessment ___ Family Conference ___ Bereavement ___ Rapid Response ___ Code Blue ___ Other (describe below) Pastoral Care Referral From _x__ Patient _x__ Family ___ Nurse ___ Physician ___ Desk Operator ___ Student Assistance Counselor ___ Other (describe below) Sacrament/Intervention _x__ Active listening ___ Anointing ___ Caodaism ___ Bereavement ___ Communion _x__ Annmarie exploration ___ _x__ Life review _x__ Prayer ___ Reconciliation ___ Sacrament of Sick _x__ Supportive presence ___ Wedding ___ Other (describe below) Pastoral Comments
[2019-07-06 16:00] VITALS: BP 110/68; PULSE 68; RESP 16; TEMP 36.9; O2SAT 99
[2019-07-06 21:39] VITALS: BP 132/66; PULSE 74; RESP 20; TEMP 37.1; O2SAT 93
[2019-07-06] MEDS: 0.9% Saline Lock 10 ML Syringe IV (21:48)
[2019-07-07] MEDS: 0.9% Saline Lock 10 ML Syringe IV ×2 (00:01→04:55)
[2019-07-07] MEDS: Morphine 2 MG/ML Syringe IV ×2 (00:01→04:55)
[2019-07-07 04:58] VITALS: BP 111/66; PULSE 69; RESP 16; TEMP 36.6; O2SAT 92
[2019-07-07] MEDS: Heparin Injection (Vial) 5,000 UNIT/ML VIAL 5000 UNIT SC (05:12)
[2019-07-07] MEDS: Acetaminophen 500 MG Tablet 1000 MG PO (05:12)
--- NOTE | 2019-07-07 09:28 | DCINST_ITS ---
- Discharge Diagnoses Current Active Problems: Current Active and Chronic Problems (This Medical Record has been edited. Action required.) Neck pain (Acute) You will use the following diet at home:: No restrictions Your food should be the consistency of: Regular Discharge Activity: May not drive while taking narcotic pain medications. Allergies/Adverse Reactions: Allergies aspirin Adverse Reaction (Verified 07/05/19 09:11) Nausea Medications to take at Discharge Furosemide [Lasix] 40 mg PO DAILY 06/17/18 potassium chloride ER 20 mEq tablet,extended release(part/cryst) 20 meq PO DAILY #90 tab 04/07/19 carvedilol 6.25 mg tablet 6.25 mg PO BID tab 04/08/19 cholecalciferol (vitamin D3) 1,000 unit (25 mcg) tablet 1,000 unit PO TID tab 04/08/19 Cholecalciferol (VIT D3) [Vitamin D3] 1,000 unit PO TID #30 tab 07/07/19 Lidocaine [Lidoderm Patch] 1 patch TOPICAL DAILY #30 patch 07/07/19 Oxycodone [Oxyir] 5 mg PO Q4H PRN PRN 3 Days #18 tablet 07/07/19 The following prescriptions were given: Lidocaine [Lidoderm Patch] 1 patch TOPICAL DAILY #30 patch Transmission Status: Pending to [id number] Oxycodone [Oxyir] 5 mg PO Q4H PRN PRN 3 Days #18 tablet PRN Reason: Moderate Pain (4-6/10) Transmission Status: Received by [id number] Cholecalciferol (VIT D3) [Vitamin D3] 1,000 unit PO TID #30 tab Transmission Status: Pending to [id number] Primary Care Physician: Antoine Brown MD [Primary Care Provider] - Please follow up with your Primary Care Physician in: in 2-3 days Test Results: Test results from this visit will be discussed in further detail at your follow- up appointment, if applicable. Proposed Discharge Date: 07/07/19
--- NOTE | 2019-07-07 09:30 | PCM.DC.SUM ---
Discharge Date and Diagnosis - Problem List Patient Problems: Active and Suspected Problems (This Medical Record has been edited. Action required.) Neck pain (Acute) Date of Admission: 07/05/19 Date of Discharge: 07/07/19 - Primary Discharge Diagnosis Active and Suspected Problems (This Medical Record has been edited. Action required.) Neck pain (Acute) - Secondary Discharge Diagnosis Chronic Problems (This Medical Record has been edited. Action required.) Thoracic aortic aneurysm (Chronic) Essential (primary) hypertension (Chronic) Lung nodule (Chronic) Hospital Course and Treatment Imaging Results: Clinical Impression(s) from Imaging Studies Head/Neck CTA 07/05/19 09:20 IMPRESSION: 1. No flow-limiting stenosis is seen. 2. Tortuous internal carotid arteries without significant stenosis. Electronically Signed: Shawn Perry MD at 11:09 EDT Tel , Service support , Cervical Spine CT 07/05/19 13:38 IMPRESSION: 1. No cervical spine fracture or traumatic subluxation. 2. 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 3. Bilateral foraminal narrowing, as above. Electronically Signed: Rene Hall MD ([place]) at 14:04 EDT , Service support , Cervical Spine MRI 07/06/19 08:51 IMPRESSION: Multilevel degenerative changes, as described above. Electronically Signed: Dayo Llanes MD at 10:52 EDT Tel , Service support , Summary of Care Provided: Patient is a 78-year-old lady admitted with neck pain and left-sided shoulder pain of 2 days duration. 1. Intractable pain involving the serial neck and left shoulder region. 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 Admitted to regular nursing floor for pain control. MRI was requested did demonstrate multilevel degenerative joint disease she was discharged home 2 days after her admission after achieving a relatively good pain control. Prescription was written for lidocaine patch oxycodone as well as Flexeril on discharge. She was instructed to follow-up with her primary care physician within 2 to 3 days. 2. Hypertension ~ blood pressure controlled, home medications continued with dose adjustment as needed 3. Chronic congestive heart failure with preserved ejection fraction ~ Not in exacerbation 4. Ascending thoracic aortic aneurysm ~ F/U as outpatient by PCP 5. History of anal CA, stage I ~ status post chemoradiation 6. DVT Prophylaxis ~ Lovenox SC Patient Problems: Active and Suspected Problems (This Medical Record has been edited. Action required.) Neck pain (Acute) Objective: GENERAL: cooperative HEENT: Atraumatic; EYES; Anicteric, Normal Conjunctiva NECK; supple, normal thyroid, RESPIRATORY: Diminished to auscultation CARDIOVASCULAR: Regular S1 S2, GI: soft, normoactive bowel sounds, NEURO: Awake; no lateralizing signs. SKIN: No Rash PSYCH; Flat affect - Physical Exam Vitals/I&O's: Vital Signs Temp Pulse Resp BP Pulse Ox 97.9 F 69 16 111/66 92 07/07/19 04:58 07/07/19 04:58 07/07/19 04:58 07/07/19 04:58 07/07/19 04:58 Oxygen Delivery Method Room Air Weight: 74.7 kg Body Mass Index (BMI) 30.8 Intake and Output for Last 24 Hours 07/05/19 07/06/19 07/07/19 23:59 23:59 23:59 Intake Total 500 / 900 1900 / 2110 210 / 210 Balance 500 / 900 1900 / 2110 210 / 210 Current Medications Acetaminophen (Tylenol) 1,000 mg PO TID [facility] Last Admin: 07/07/19 05:12 Dose: 1,000 mg Documented by: Al Hydroxide/Mg Hydroxide (Mylanta Ii) 30 ml PO Q6H PRN PRN PRN Reason: Gastric Burning Carvedilol (Coreg) 6.25 mg PO BID [facility] Last Admin: 07/06/19 21:50 Dose: 6.25 mg Documented by: Cholecalciferol (Vitamin D) 1,000 unit PO TID [facility] Last Admin: 07/07/19 05:12 Dose: 1,000 unit Documented by: Cyclobenzaprine HCl (Flexeril) 10 mg PO TID PRN PRN PRN Reason: SPASMS Last Admin: 07/06/19 21:48 Dose: 10 mg Documented by: Heparin Sodium (Porcine) (Heparin Na) 5,000 unit SC Q8 [facility] Last Admin: 07/07/19 05:12 Dose: 5,000 unit Documented by: Lidocaine (Lidoderm Patch) 2 patch TOPICAL DAILY [facility]; Protocol Last Admin: 07/06/19 10:36 Dose: 2 patch Documented by: Morphine Sulfate () 2 mg IV Q3H PRN PRN PRN Reason: Severe pain (7-10/10) Last Admin: 07/07/19 04:55 Dose: 2 mg Documented by: Ondansetron HCl (Zofran) 4 mg IV Q8H PRN PRN PRN Reason: NAUSEA/VOMITING Oxycodone HCl (Oxyir) 5 mg PO Q4H PRN PRN PRN Reason: Moderate Pain (4-6/10) Last Admin: 07/06/19 17:43 Dose: 5 mg Documented by: Potassium Chloride (K-Dur) 20 meq PO DAILYCM [facility] Last Admin: 07/07/19 08:07 Dose: 20 meq Documented by: Sodium Chloride () 5 - 15 ml IV UD PRN PRN Reason: SALINE FLUSH Last Admin: 07/07/19 04:55 Dose: 10 ml Documented by: Discharge Diet: No Restrictions Discharge Activity: May not drive while taking narcotic pain medications. Home Medications: Medications to take at Discharge Furosemide [Lasix] 40 mg PO DAILY 06/17/18 potassium chloride ER 20 mEq tablet,extended release(part/cryst) 20 meq PO DAILY #90 tab 04/07/19 carvedilol 6.25 mg tablet 6.25 mg PO BID tab 04/08/19 cholecalciferol (vitamin D3) 1,000 unit (25 mcg) tablet 1,000 unit PO TID tab 04/08/19 Cholecalciferol (VIT D3) [Vitamin D3] 1,000 unit PO TID #30 tab 07/07/19 Lidocaine [Lidoderm Patch] 1 patch TOPICAL DAILY #30 patch 07/07/19 Oxycodone [Oxyir] 5 mg PO Q4H PRN PRN 3 Days #18 tablet 07/07/19 Following Prescrptions Were Given to Patient: Lidocaine [Lidoderm Patch] 1 patch TOPICAL DAILY #30 patch Transmission Status: [id number] Oxycodone [Oxyir] 5 mg PO Q4H PRN PRN 3 Days #18 tablet PRN Reason: Moderate Pain (4-610) Transmission Status: Received by [id number] Cholecalciferol (VIT D3) [Vitamin D3] 1,000 unit PO TID #30 tab Transmission Status: [id number] Primary Care Physician: Antoine Brown MD [Primary Care Provider] - Please follow up with your Primary Care Physician in: in 2-3 days Disposition: Home Minutes spent on discharge:: 35 Patient Condition:: Stable Medical Necessity - Tobacco Use Smoking Status: Former smoker Tobacco Use: Non-smoker Meaningful Use Info Meaningful Use Diagnoses (Choose all that apply): None applicable Code Visit Inpatient E&M: 16921 Disch Hosp
--- NOTE | 2019-07-07 10:06 | CASEMGMT ---
RN CM Assessment Presentation: Neck, shoulder pain Intro role of CM and purpose of RN CM assessment to patient. Demographics, PCP and Pharmacy verified. Pt plans to return home today. Pt states her has difficulty getting around and her grandson Gerry will be coming to assist them. Pt voiced she will be able to manage at home with his assist. -PT recommended outpt therapy. Discussed with pt. Script will be faxed to [facility] and pt will set up appt with them. PCP: Dr. Brown Preferred [facility]acy: [facility] Insurance: [facility] Prescription Benefit: yes LNOK: Rosalio Pierce and son Eze Engel Living Arrangements: Lives in one story home with ramp entry. Pt was independent prior to admission. Ambulated 100' with support of 1. 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 Pt states her grandson will assist. Transportation: Family will drive her to appointments and therapy DME: walker, cane- pt will be using cane at home HHC: none Patient DC goals: Home DC PLAN: Home with Outpt therapy @ [facility] and family support. Dang CANTU RN ACM
[2019-07-07] MEDS: Carvedilol 6.25 MG Tablet PO (10:10)
[2019-07-07] MEDS: Lidocaine 5% Patch 2 PATCH TOPICAL (10:11)
[2019-07-07] MEDS: cycloBENZAPRine HCl 10 MG Tablet PO (10:13)
--- NOTE | 2019-07-08 14:03 | CASEMGMT ---
JOVAN ELLIOTT DC PHONE CALL DC DATE: 07/07/19 DC Disposition: Home Diagnosis on Discharge: Neck pain, shoulder pain LACE/STRATA: 05/19 Intro role of CM to patient via phone. Pt states she is still having pain, but saw her pain dr today and had injection. Pt also states they gave her lidocaine patch and pain medications. Reviewed medications and symptoms to call physician for. Pt currently states just painful. She has assist at home, is using her cane for safety. No further questions, no care improvement suggestions were given. Dang CANTU RN ACM
== END 2019-07-07 10:52 | disposition home or self-care (01) | DRG 552 ==
LOC: ED 09:45 → MS3 15:49
PROVIDERS: Admitting Provider Internal Medicine; Emergency Provider Emergency Medicine; Family Provider Family Medicine; PCP Family Medicine; Referring Provider Internal Medicine; Visit Provider Internal Medicine
DX: M50.30 Other cervical disc degeneration, unspecified cervical region (principal); I50.32 Chronic diastolic (congestive) heart failure; I71.2 Thoracic aortic aneurysm, without rupture; I11.0 Hypertensive heart disease with heart failure; J44.9 Chronic obstructive pulmonary disease, unspecified; M19.90 Unspecified osteoarthritis, unspecified site; Z87.891 Personal history of nicotine dependence; Z92.21 Personal history of antineoplastic chemotherapy; Z92.3 Personal history of irradiation; Z85.048 Personal history of other malignant neoplasm of rectum, rectosigmoid junction, and anus; R91.1 Solitary pulmonary nodule; Z82.49 Family history of ischemic heart disease and other diseases of the circulatory system; Z83.3 Family history of diabetes mellitus
CPT/HCPCS: 36415; 70496; 70498; 72125; 72141; 80048; 80053; 80076; 85025; 97161; 97166; 97530; 99285; J7030; Q9967; A4216

== ENCOUNTER 2019-07-08 20:17 | Observation (INO) | payer MEDICARE, OTHER, SELFPAY ==
[2019-07-08 20:17] VITALS: BMI 31.6
[2019-07-08 20:18] VITALS: BP 136/62; PULSE 65; RESP 18; TEMP 36.8; O2SAT 94; BMI 28.6
[2019-07-08] MEDS: Ondansetron 4 MG/2 ML Vial IV (22:31)
[2019-07-08] MEDS: Morphine 2 MG/ML Syringe IV (22:31)
--- NOTE | 2019-07-08 22:35 | ED.DCSUM_ITS ---
History of Present Illness Chief Complaint: Headache Detail of Chief Complaint: Left upper neck pain Informant: Patient, Family Onset: Days Current Severity: Severe Maximum Severity: Severe Narrative: Patient presents with pain to the superior left neck and in the base of her skull. She was hospitalized July 05 through the for the same. CT and MRI studies revealed no acute cause. She was treated with morphine and oxycodone while here in the hospital. She was discharged with oxycodone, return patches, and Flexeril. Patient states that the oxycodone makes her sick so she does not take it. She is been using Tylenol. She got an injection today by her primary care physician which she believes was lidocaine. This is not helped her pain in fact she feels like it has worsened. There is been no new injury. She has no pain radiation to her arms and has no paresthesias or weakness. Past Medical History - Allergies and Home Meds Allergies/Adverse Reactions: Allergies aspirin Adverse Reaction (Verified 07/08/19 20:18) Nausea Primary Care Physician: Antoine Brown MD [Primary Care Provider] - Prior records reviewed: Yes Past Medical History: - - Reviewed Surgical History: cholecystectomy, - - Status post right and left heart catheterization Lives: With Family Smoking Status: Never smoker - Family History Maternal Family History: Family History (This Medical Record has been edited. Action required.) Father Heart disease Sister Cancer Diabetes Brother Heart disease Mother Heart disease Sister Heart disease Sister Cancer Family History: Reports: Heart Disease Paternal Family History: Family History (This Medical Record has been edited. Action required.) Father Heart disease Sister Cancer Diabetes Brother Heart disease Mother Heart disease Sister Heart disease Sister Cancer Family History: Reports: Heart Disease Review of Systems General: Denies: Chills, Fever Eyes: Denies: Visual changes - bilaterally ENT: Reports: - - Left upper neck pain. Denies: Bilateral ear pain Cardiovascular: Denies: Chest pain Respiratory: Denies: Dyspnea, Cough Gastrointestinal: Denies: Abdominal pain, Nausea, Vomiting Skin: Denies: Rash Neurological: Reports: Headache - Base of the skull on the left Endocrine: Denies: Polyuria, Polydipsia Hematologic: Denies: Easy bruising Allergy: Denies: Uticaria Physical Exam Vital Signs/Narrative: Vital Signs Temp Pulse Resp BP Pulse Ox 07/08/19 20:18 98.3 F 65 18 136/62 H 94 Inital Vital Signs reviewed: Yes General: Well nourished, Well developed Head: Normocephalic ENT: Moist mucous membranes Neck: Supple, - - Tenderness in the left upper cervical paraspinals and over the base of the skull. Cardiovascular: Regular rate, Regular rhythm Respiratory: No distress, CTA bilaterally Abdomen: Soft, Nontender Extremities: Nontender Skin: Normal color, No rash Neurological: Alert, Oriented x3, Normal Strength, Normal Sensation Psychological: Normal affect Diagnostic/Tx/Re-eval - Medical Decision Making I reviewed the patient's recent hospital notes. Imaging studies were reviewed. She was initially given 2 mg of IV morphine as this is what she was on the floor. On repeat evaluation she noted no improvement. She was given 0.5 mg of IV Dilaudid. At this time patient reports mild improvement but is still having intermittent spasms. She does not feel well to go home. I will speak with hospitalist again for readmission to get her back on an appropriate pain regimen. ED Disposition - Plan for ED Patient: Disposition: Acute Care Hospital [facility] Diagnosis: Intractable pain, Neck pain Referrals: Antoine Brown MD [Primary Care Provider] -
[2019-07-08 22:42] VITALS: BP 133/85; PULSE 80; RESP 16; O2SAT 94
[2019-07-08] MEDS: HYDROmorphone 0.5 MG/0.5 ML SYRINGE IV (23:16)
--- NOTE | 2019-07-09 00:10 | NURSING ---
HOSPITALIST WAS NOTIFIED THAT DR. REYNOLDS WANTS HIM TO SEE PT IN ROOM 9 FOR ADMISSION.
--- NOTE | 2019-07-09 00:15 | HP.PCM_ITS ---
Problem List (1) Intractable pain Status: Acute History of Present Illness Date of Admission: 07/09/19 Chief Complaint: neck pain Patient is a 78 year old F with past medical history of hypertension, chronic diastolic heart failure, ascending thoracic aortic aneurysm, history of anal CA status post chemoradiation comes who comes in with persistent complaints of left-sided posterior neck and shoulder pain for about 6 days. Her pain is at the posterior left neck and it radiates to her head. She was admitted on 07/05/2019 and discharged on 07/07/2019 for the same symptoms. MRI at that time showed multilevel degenerative joint disease. After patient achieved relatively good pain control at the hospital she was discharged home on lidocaine patch;oxycodone as well as Flexeril. She went to her PCPs office and was given a shot in the neck to help with her pain. Reportedly patient went home; slept and woke up with excruciating pain at the posterior neck. On discharge reportedly patient was not taking her oxycodone because oxycodone actually increases her pain. Her PCP started patient on gabapentin. Per patient she was instructed to take her gabapentin once a day and then advance her gabapentin as tolerated. She reported that moving makes her pain worse. Her pain is described as deep aching and sharp. Lying still makes the pain better. She denies photophobia. However she has sonophobia. She denies any nausea or vomiting. Past Medical History Past Medical History (Chronic Problems): Chronic Problems (This Medical Record has been edited. Action required.) Thoracic aortic aneurysm (Chronic) Essential (primary) hypertension (Chronic) Lung nodule (Chronic) Medical History: Medical History (This Medical Record has been edited. 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 COPD (chronic obstructive pulmonary disease) J44.9 Diverticular disease K57.90 History of anal cancer Z85.048 Vertigo R42 Allergies aspirin Adverse Reaction (Verified 07/08/19 20:18) Nausea Home Medications: Ambulatory Orders Medication Instructions Recorded Furosemide [Lasix] 40 mg PO DAILY 06/17/18 potassium chloride ER 20 mEq 20 meq PO DAILY #90 tab 04/07/19 tablet,extended release(part/cryst) carvedilol 6.25 mg tablet 6.25 mg PO BID tab 04/08/19 cholecalciferol (vitamin D3) 1,000 1,000 unit PO TID tab 04/08/19 unit (25 mcg) tablet Cholecalciferol (VIT D3) [Vitamin 1,000 unit PO TID #30 tab 07/07/19 D3] Lidocaine [Lidoderm Patch] 1 patch TOPICAL DAILY #30 patch 07/07/19 Oxycodone [Oxyir] 5 mg PO Q4H PRN PRN 3 Days #18 tab 07/07/19 Gabapentin [Neurontin] 300 mg PO TID 07/08/19 Surgical History: Surgical History (This Medical Record has been edited. 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 Action required.) Father Heart disease Sister Cancer Diabetes Brother Heart disease Mother Heart disease Sister Heart disease Sister Cancer History Items: Heart Disease Paternal Family History: Family History (This Medical Record has been edited. Action required.) Father Heart disease Sister Cancer Diabetes Brother Heart disease Mother Heart disease Sister Heart disease Sister Cancer History Items: Heart Disease Review of Systems Constitutional: Denies: Chills, Fever, Weight Change HEENT: Reports: Head Aches. Denies: Sinus Congestion, Sinus Drainage Cardiovascular: Denies: Chest Pain, Palpitations Respiratory: Denies: Cough, Shortness of breath at rest, Sputum production Gastrointestinal: Denies: Abdominal Pain, Nausea, Vomiting Genitourinary: Denies: Dysuria Musculoskeletal: Denies: Joint Pain, Joint Tenderness Skin: Denies: Rash, Wounds Neurological: Denies: Numbness, Tingling, Focal weakness Psychiatric: Denies: Anxiety, Depression, Homicidal Ideations, Suicidal Ideations Hematologic/ Lymphatic: Denies: Easy Bruising, Easy Bleeding VTE Information - Inpt Only VTE Present on Admission: No VTE Mechan Device Prophylaxis: None VTE Pharm Prophylaxis ordered?: Yes Patient Problems: Active and Suspected Problems (This Medical Record has been edited. Action required.) Neck pain (Acute) Intractable pain (Acute) - Physical Exam Vitals/I&O's: Vital Signs Temp Pulse Resp BP Pulse Ox 98.3 F 80 16 133/85 H 94 07/08/19 20:18 07/08/19 22:42 07/08/19 22:42 07/08/19 22:42 07/08/19 22:42 Oxygen Flow Rate (L/min) 3 Oxygen Delivery Method Nasal Cannula Weight: 78 kg Body Mass Index (BMI) 28.6 General: Alert, Oriented x3, Cooperative HEENT: Atraumatic, PERRLA, EOMI, Normocephalic Neck: Trachea Midline, - - Tender left neck and left shoulder Lungs: Clear to auscultation, Normal air movement Cardiovascular: Regular rate, No murmurs Abdomen: Bowel Sounds Present, Soft, Non Tender Extremities: No edema, Capillary Refill Less than 3 Seconds Skin: No rashes, No breakdown Musculoskeletal: No Tenderness to Palpation of Joints or Extremities Neurological: Cranial nerves II-XII grossly intact Psych/Mental Status: Normal Affect, Appropriate Assessment/Plan All Active Problems (This Medical Record has been edited. Action required.) Neck pain (Acute) Intractable pain (Acute) Anal squamous cell carcinoma (Resolved) Patient is a 78 year old F with past medical history of hypertension, chronic diastolic heart failure, ascending thoracic aortic aneurysm, history of anal CA status post chemoradiation comes who comes in with persistent complaints of left-sided posterior neck and shoulder pain. Intractable neck pain and headache We will continue patient on lidocaine patch. Reportedly she took 1 dose of gabapentin since she was advised to advance her gabapentin as tolerated. We will advance gabapentin to twice daily. The dose is 300 mg. Patient was started on Dilaudid 2 mg p.o. every 4 hours. Breakthrough dose of 1 mg of Dilaudid was also given for pain 10 out of 10 night of this admission.. Antiemetics and bowel protocol in place. Hypertension On presentation his blood pressure was stable in regard to age Carvedilol and Lasix continued Blood pressure and adjust blood pressure medications. Diastolic heart failure Lasix with potassium continued DVT prophylaxis Subcutaneous Lovenox Code Visit OBSV E&M: 45202 Initial observation care L3
[2019-07-09 01:10] VITALS: BP 120/60; PULSE 61; RESP 18; TEMP 36.3; O2SAT 98
[2019-07-09 01:44] VITALS: BMI 32.2
[2019-07-09] MEDS: HYDROmorphone 2 MG TABLET PO ×3 (02:14→19:43)
[2019-07-09] MEDS: HYDROmorphone 2 MG TABLET 1 MG PO (04:14)
[2019-07-09] MEDS: Gabapentin 300 MG Capsule PO ×3 (04:15→21:58)
[2019-07-09 04:18] VITALS: BP 115/57; PULSE 70; RESP 18; TEMP 36.6; O2SAT 95
[2019-07-09 08:25] VITALS: O2SAT 95
[2019-07-09] MEDS: MethylPREDNISolone 125 MG/2 ML Vial 60 MG IV (09:32)
[2019-07-09] MEDS: Lidocaine 5% Patch 1 PATCH TOPICAL (09:33)
[2019-07-09] MEDS: Enoxaparin 40 MG/0.4 ML Syringe SC (09:33)
[2019-07-09] MEDS: 0.9% Saline Lock 10 ML Syringe IV ×2 (09:33→22:04)
[2019-07-09] MEDS: Senna/Docusate Sodium 1 Tablet PO (09:34)
[2019-07-09] MEDS: Furosemide 40 MG Tablet PO (09:34)
[2019-07-09] MEDS: Carvedilol 6.25 MG Tablet PO ×2 (09:34→21:58)
[2019-07-09 09:48] VITALS: BP 126/61; PULSE 81; RESP 18; TEMP 36.9; O2SAT 96
--- NOTE | 2019-07-09 10:36 | OT ---
PT. WOULD BENEFIT FROM SHOWER CHAIR, GRAB BARS IN SHOWER, AND PATIENT ACCOUNTS SPECIALIST FOR GREATER INDEP AND DECREASED RISK FOR FALLS DURING ADLS. COMMUNICATED THROUGH PT. EDUCATION FOLDER HANDOUT.
--- NOTE | 2019-07-09 12:21 | PCM.PROGNOTE ---
<Kenyatta Stubbs - Last Filed: 07/09/19 12:48> Patient Problems: Active and Suspected Problems (This Medical Record has been edited. Action required.) Neck pain (Acute) Intractable pain (Acute) Subjective: Patient seen and examined. Continues to have significant neck pain, worse with any movement. Reports she is unable to sleep or get comfortable due to neck pain. - Physical Exam Vitals/I&O's: Vital Signs Temp Pulse Resp BP Pulse Ox 98.5 F 81 18 126/61 H 96 07/09/19 09:48 07/09/19 09:48 07/09/19 09:48 07/09/19 09:48 07/09/19 09:48 Oxygen Flow Rate (L/min) 3 Oxygen Delivery Method Room Air Weight: 165 lb 2.02 oz Body Mass Index (BMI) 32.2 Intake and Output for Last 24 Hours 07/07/19 07/08/19 07/09/19 23:59 23:59 23:59 Intake Total 640 / 640 Output Total 600 / 600 Balance 40 / 40 General: Alert, Oriented x3, Cooperative HEENT: Atraumatic, PERRLA, EOMI, Normocephalic Neck: Supple, No JVD, Negative Carotid Bruits Lungs: Clear to auscultation, Normal air movement Cardiovascular: Regular rate, Regular Rhythm, Normal S1, Normal S2, No murmurs Abdomen: Bowel Sounds Present, Soft, Non Tender, Non-Distended Extremities: No clubbing, No cyanosis, No edema, Capillary Refill Less than 3 Seconds Skin: No rashes, No breakdown Musculoskeletal: Tenderness - Cervical tenderness Neurological: Cranial nerves II-XII grossly intact, Neuro grossly intact Psych/Mental Status: Normal Affect, Appropriate Current Medications Acetaminophen (Tylenol) 650 mg PO Q6H PRN PRN PRN Reason: Pain Score 1-3/Temp > 100.7 F Carvedilol (Coreg) 6.25 mg PO BID [facility] Last Admin: 07/09/19 09:34 Dose: 6.25 mg Documented by: Cholecalciferol (Vitamin D) 1,000 unit PO TID [facility] Last Admin: 07/09/19 04:15 Dose: 1,000 unit Documented by: Dextrose (D50w Syringe) 0 gm IV X1 PRN; Protocol PRN Reason: Hypoglycemia Enoxaparin Sodium (Lovenox) 40 mg SC DAILY@1000 [facility] Last Admin: 07/09/19 09:33 Dose: 40 mg Documented by: Furosemide (Lasix) 40 mg PO DAILY [facility] Last Admin: 07/09/19 09:34 Dose: 40 mg Documented by: Gabapentin (Neurontin) 300 mg PO TID [facility] Last Admin: 07/09/19 04:15 Dose: 300 mg Documented by: Glucagon () 1 mg IM .X1 PRN PRN Reason: Hypoglycemia Hydromorphone HCl (Dilaudid Tablet) 2 mg PO Q4H PRN PRN PRN Reason: moderate to severe pain Last Admin: 07/09/19 09:32 Dose: 2 mg Documented by: Sodium Chloride () 250 mls @ 15 mls/hr IV .[id number] PRN PRN Reason: Saline Flush Lidocaine (Lidoderm Patch) 1 patch TOPICAL DAILY [facility]; Protocol Last Admin: 07/09/19 09:33 Dose: 1 patch Documented by: Melatonin (Melatonin) 3 mg PO QHS PRN PRN PRN Reason: INSOMNIA Methylprednisolone (Solu-Medrol) 40 mg IV Q8 JAYLYN Ondansetron HCl (Zofran) 4 mg IV Q8H PRN PRN PRN Reason: NAUSEA/VOMITING Potassium Chloride (K-Dur) 20 meq PO DAILY [facility] Last Admin: 07/09/19 09:35 Dose: 20 meq Documented by: Senna/Docusate Sodium (Senokot-S, Mayda-Colace) 1 tablet PO BID [facility] Last Admin: 07/09/19 09:34 Dose: 1 tablet Documented by: Sodium Chloride () 10 - 40 ml IV UD PRN PRN Reason: SALINE FLUSH Last Admin: 07/09/19 09:33 Dose: 10 ml Documented by: Medical Necessity - Tobacco Use Smoking Status: Former smoker Assessment/Plan All Active Problems (This Medical Record has been edited. Action required.) Neck pain (Acute) Intractable pain (Acute) Anal squamous cell carcinoma (Resolved) 1. Intractable neck pain secondary to cervical spine degenerative joint disease- PT/OT. Continue gabapentin regimen. Lidoderm patch. PRN pain regimen. Initiated on IV Solu-Medrol. Additionally will start on low-dose Flexeril. Apply heating pad. Patient had recent cervical spine MRI 07/06/2019 which showed multilevel degenerative changes. 2. Hypertension-stable, continue home carvedilol regimen. 3. Chronic diastolic CHF-continue home Lasix regimen. 4. Ascending thoracic aortic aneurysm-continue outpatient follow-up. 5. History of stage I anal cancer-in remission, status post chemoradiation. DVT prophylaxis- Lovenox sc This patient was seen by LORRAINE Martin under the supervision of Dr. Kolb. <Reginald Kolb - Last Filed: 07/09/19 13:14> - Physical Exam Vitals/I&O's: Vital Signs Temp Pulse Resp BP Pulse Ox 98.5 F 81 18 126/61 H 96 07/09/19 09:48 07/09/19 09:48 07/09/19 09:48 07/09/19 09:48 07/09/19 09:48 Oxygen Flow Rate (L/min) 3 Oxygen Delivery Method Room Air Weight: 74.9 kg Body Mass Index (BMI) 32.2 Intake and Output for Last 24 Hours 07/07/19 07/08/19 07/09/19 23:59 23:59 23:59 Intake Total 640 / 640 Output Total 600 / 600 Balance 40 / 40 Current Medications Acetaminophen (Tylenol) 650 mg PO Q6H PRN PRN PRN Reason: Pain Score 1-3/Temp > 100.7 F Carvedilol (Coreg) 6.25 mg PO BID [facility] Last Admin: 07/09/19 09:34 Dose: 6.25 mg Documented by: Cholecalciferol (Vitamin D) 1,000 unit PO TID [facility] Last Admin: 07/09/19 04:15 Dose: 1,000 unit Documented by: Cyclobenzaprine HCl (Flexeril) 5 mg PO X1 ONE Stop: 07/09/19 12:37 Cyclobenzaprine HCl (Flexeril) 5 mg PO BID PRN PRN PRN Reason: Neck pain Dextrose (D50w Syringe) 0 gm IV X1 PRN; Protocol PRN Reason: Hypoglycemia Enoxaparin Sodium (Lovenox) 40 mg SC DAILY@1000 [facility] Last Admin: 07/09/19 09:33 Dose: 40 mg Documented by: Furosemide (Lasix) 40 mg PO DAILY [facility] Last Admin: 07/09/19 09:34 Dose: 40 mg Documented by: Gabapentin (Neurontin) 300 mg PO TID [facility] Last Admin: 07/09/19 04:15 Dose: 300 mg Documented by: Glucagon () 1 mg IM .X1 PRN PRN Reason: Hypoglycemia Hydromorphone HCl (Dilaudid Tablet) 2 mg PO Q4H PRN PRN PRN Reason: moderate to severe pain Last Admin: 07/09/19 09:32 Dose: 2 mg Documented by: Sodium Chloride () 250 mls @ 15 mls/hr IV .[id number] PRN PRN Reason: Saline Flush Lidocaine (Lidoderm Patch) 1 patch TOPICAL DAILY JAYLYN; Protocol Last Admin: 07/09/19 09:33 Dose: 1 patch Documented by: Melatonin (Melatonin) 3 mg PO QHS PRN PRN PRN Reason: INSOMNIA Methylprednisolone (Solu-Medrol) 40 mg IV Q8 JAYLYN Ondansetron HCl (Zofran) 4 mg IV Q8H PRN PRN PRN Reason: NAUSEA/VOMITING Potassium Chloride (K-Dur) 20 meq PO DAILY [facility] Last Admin: 07/09/19 09:35 Dose: 20 meq Documented by: Senna/Docusate Sodium (Senokot-S, Mayda-Colace) 1 tablet PO BID [facility] Last Admin: 07/09/19 09:34 Dose: 1 tablet Documented by: Sodium Chloride () 10 - 40 ml IV UD PRN PRN Reason: SALINE FLUSH Last Admin: 07/09/19 09:33 Dose: 10 ml Documented by: Assessment/Plan This patient was seen in conjunction with LORRAINE Martin . I have independently interviewed and examined the patient and reviewed pertinent historical, laboratory, and other data. Please refer to LORRAINE Martin note for details of this patient's presentation, findings, and recommendations. I have reviewed LORRAINE Martin note and concur with documented findings. In brief, patient is a 78-year-old lady discharged from the hospital a day prior to her readmission with neck pain which was attributed to degenerative joint disease involving the cervical spine. Patient apparently did receive lidocaine injection in the office by PCP however symptoms did not improve subsequently sent to the hospital from where patient was admitted for further management Physical Examination: GENERAL: Appears to be in some discomfort HEENT: Atraumatic; EYES; Anicteric, Normal Conjunctiva NECK; supple, normal thyroid, RESPIRATORY: Diminished to auscultation CARDIOVASCULAR: Regular S1 S2, GI: soft, normoactive bowel sounds, : No Renal angle tenderness; NEURO: Awake; no lateralizing signs. SKIN: No Rash PSYCH; Flat affect Assessment: 1. Intractable pain involving the serial neck and left shoulder region.secondary to referred pain from degenerative joint disease involving the cervical spine. 2. Hypertension 3. Chronic congestive heart failure with preserved ejection fraction 4. Ascending thoracic aortic aneurysm 5. History of anal CA, stage I 6. DVT Prophylaxis- SC Lovenox Recommendations: 1. I have discussed the results of my overview and impressions with the patient 2. Options for management were reviewed Code Visit OBSV E&M: 67266 Subsequent observation care L3
--- NOTE | 2019-07-09 13:20 | NURSING ---
Patient requested a DO NOT DISTURB sign to be placed on door so that she could sleep undisturbed for 1-2 hours.
[2019-07-09] MEDS: cycloBENZAPRine HCl 10 MG Tablet 5 MG PO (13:37)
[2019-07-09 15:49] VITALS: BP 120/58; PULSE 72; RESP 18; TEMP 36.9; O2SAT 95
[2019-07-09 22:14] VITALS: BP 120/55; PULSE 73; RESP 18; TEMP 36.7; O2SAT 94
[2019-07-10] MEDS: Gabapentin 300 MG Capsule PO (05:32)
[2019-07-10] MEDS: 0.9% Saline Lock 10 ML Syringe IV (05:32)
[2019-07-10] MEDS: HYDROmorphone 2 MG TABLET PO (05:36)
[2019-07-10] MEDS: cycloBENZAPRine HCl 10 MG Tablet 5 MG PO (05:36)
[2019-07-10 05:38] VITALS: BP 130/66; PULSE 77; RESP 16; TEMP 36.1; O2SAT 95
[2019-07-10 05:43] LABS: Absolute Lymphocyte Count 1.06 X10^3/uL (0.83-4.51); Absolute Neutrophil Count 7.6 X10^3/uL (2.0-7.7); Basophil# 0.01 X10^3/uL; Basophil% 0.1 % (0-1); Eosinophil# 0.17 X10^3/uL; Eosinophils% 1.9 % (0-5); Hematocrit 33.3 % (37-47); Hemoglobin 10.6 g/dL (12.0-15.0); Lymphocyte # 1.06 X10^3/ul (4.0); Lymphocyte % 11.6 % (19-41); Mean Corp Hgb Conc 31.8 g/dL (32-36); Mean Corpuscular Hgb 31.6 pg (27.0-32.0); Mean Corpuscular Volume 99.4 fL (81-99); Mean Platelet Vol. 9.1 fl (6.2-12.0); Monocyte# 0.31 X10^3/uL; Monocyte% 3.4 % (0-10); NRBC Flagged by Analyzer 0 % (0-5); Neutrophil # 7.57 X10^3/uL (2.7-7.7); Neutrophil % 82.7 % (47-70); POSITIVE MORPHOLOGY YES; Platelet Count 254 K/mm3 (150-450); RBC Distribution Width CV 13.3 % (11.6-14.6); RBC Distribution Width SD 48.7 fl (35.1-43.9); Red Blood Count 3.35 M/mm3 (4.2-5.4); White Blood Count 9.2 K/mm3 (4.4-11.0)
[2019-07-10 05:48] LABS: Differential Indicated SCAN CRITERIA MET
[2019-07-10 06:03] LABS: Anion Gap 4 (5-15); BUN 23 mg/dL (7-18); BUN/Creat Ratio 25.3 RATIO (10-20); Calcium,Total 8.9 mg/dL (8.5-10.1); Chloride 106 mmol/L (98-107); Creatinine, Serum 0.91 mg/dL (0.55-1.02); EST Glomerular Filtration Rate 64 mL/min (>60); Est Glom Filt Rate - Afr Amer 77 mL/min (>60); Estimated Creatinine Clearance 37.78 ml/min; Glucose 164 mg/dL (74-106); Magnesium 2.2 mg/dL (1.6-2.6); Potassium 4.6 mmol/L (3.5-5.1); Sodium Level 139 mmol/L (136-145)
[2019-07-10 08:08] VITALS: BP 126/59; PULSE 54; RESP 18; TEMP 36.8; O2SAT 93
[2019-07-10] MEDS: Carvedilol 6.25 MG Tablet PO (08:18)
[2019-07-10] MEDS: Senna/Docusate Sodium 1 Tablet PO (08:18)
[2019-07-10] MEDS: Furosemide 40 MG Tablet PO (08:18)
[2019-07-10] MEDS: Lidocaine 5% Patch 1 PATCH TOPICAL (10:04)
[2019-07-10] MEDS: Enoxaparin 40 MG/0.4 ML Syringe SC (10:05)
--- NOTE | 2019-07-10 10:16 | DCINST_ITS ---
- Discharge Diagnoses Current Active Problems: Current Active and Chronic Problems (This Medical Record has been edited. Action required.) Neck pain (Acute) Intractable pain (Acute) You will use the following diet at home:: No restrictions Discharge Activity: Return to Normal Activity Call your doctor if you observe: Shortness of breath, Dizziness, Fainting spells, Chest pain Allergies/Adverse Reactions: Allergies aspirin Adverse Reaction (Verified 07/08/19 20:18) Nausea Medications to take at Discharge Furosemide [Lasix] 40 mg PO DAILY 06/17/18 potassium chloride ER 20 mEq tablet,extended release(part/cryst) 20 meq PO DAILY #90 tab 04/07/19 carvedilol 6.25 mg tablet 6.25 mg PO BID tab 04/08/19 cholecalciferol (vitamin D3) 1,000 unit (25 mcg) tablet 1,000 unit PO TID tab 04/08/19 Cholecalciferol (VIT D3) [Vitamin D3] 1,000 unit PO TID #30 tab 07/07/19 Lidocaine [Lidoderm Patch] 1 patch TOPICAL DAILY #30 patch 07/07/19 Gabapentin [Neurontin] 300 mg PO TID 07/08/19 Acetaminophen [Tylenol Extra Strength] 1,000 mg PO Q8H PRN PRN #20 tab 07/10/19 Prednisone 40 mg PO DAILY 5 Days #10 tab 07/10/19 cycloBENZAPRine HCl [Flexeril] 5 mg PO BID PRN PRN #20 tab 07/10/19 The following prescriptions were given: cycloBENZAPRine HCl [Flexeril] 5 mg PO BID PRN PRN #20 tab PRN Reason: Neck pain Transmission Status: Pending to [id number] Prednisone 40 mg PO DAILY 5 Days #10 tab Transmission Status: Pending to [id number] Acetaminophen [Tylenol Extra Strength] 1,000 mg PO Q8H PRN PRN #20 tab PRN Reason: Pain Transmission Status: Pending to [id number] Orders to be completed after discharge: Physical Therapy Evaluation Location: None Selected Primary Care Physician: Antoine Brown MD [Primary Care Provider] - Please follow up with your Primary Care Physician in: 3-5 Days Test Results: Test results from this visit will be discussed in further detail at your follow- up appointment, if applicable. Proposed Discharge Date: 07/10/19
--- NOTE | 2019-07-10 10:19 | DS.PCM_ITS ---
<Kenyatta Stubbs - Last Filed: 07/10/19 10:25> Discharge Date and Diagnosis Date of Admission: 07/09/19 Date of Discharge: 07/10/19 - Primary Discharge Diagnosis Active and Suspected Problems (This Medical Record has been edited. Action required.) 1. Intractable neck pain secondary to cervical spine degenerative joint disease and muscle strain 2. Hypertension 3. Chronic diastolic CHF 4. Ascending thoracic aortic aneurysm 5. History of stage I anal cancer - Secondary Discharge Diagnosis Chronic Problems (This Medical Record has been edited. Action required.) Thoracic aortic aneurysm (Chronic) Essential (primary) hypertension (Chronic) Lung nodule (Chronic) Hospital Course and Treatment Operations: None Procedures: None Summary of Care Provided: The patient is a 78 year old F admitted 07/09/2019 due to neck pain. 1. Intractable neck pain secondary to cervical spine degenerative joint disease and muscle strain- Patient had recent cervical spine MRI 07/06/2019 which showed multilevel degenerative changes. Pain improved with Flexeril, heating pad and steroids. Discharged on prednisone 40 mg x 5 days. Continue as needed low-dose Flexeril. Patient instructed not to drive while using muscle relaxer and use fall precautions at home. Continue heating pad at home. Patient declined outpatient physical therapy. Previously prescribed narcotics which patient reports she will not take. Recommend Tylenol 1000 mg every 8 hours as needed for pain. Follow-up with primary care provider in 3 to 5 days. 2. Hypertension-stable, continue home carvedilol regimen. 3. Chronic diastolic CHF-continue home Lasix regimen. 4. Ascending thoracic aortic aneurysm-continue outpatient follow-up. 5. History of stage I anal cancer-in remission, status post chemoradiation. General: Alert, Oriented x3, Cooperative HEENT: Atraumatic, PERRLA, EOMI, Normocephalic Neck: Supple, No JVD, Negative Carotid Bruits Lungs: Clear to auscultation, Normal air movement Cardiovascular: Regular rate, Regular Rhythm, Normal S1, Normal S2, No murmurs Abdomen: Bowel Sounds Present, Soft, Non Tender, Non-Distended Extremities: No clubbing, No cyanosis, No edema, Capillary Refill Less than 3 Seconds Skin: No rashes, No breakdown Musculoskeletal: Tenderness -Cervical tenderness Neurological: Cranial nerves II-XII grossly intact, Neuro grossly intact Psych/Mental Status: Normal Affect, Appropriate Patient seen and examined prior to discharge. Physical assessment as noted above. Patient is stable for discharge with follow up recommendations as noted above. This patient was seen by LORRAINE Martin under the supervision of Dr. Kolb. - Physical Exam Vitals/I&O's: Vital Signs Temp Pulse Resp BP Pulse Ox 98.3 F 54 L 18 126/59 H 93 07/10/19 08:08 07/10/19 08:08 07/10/19 08:08 07/10/19 08:08 07/10/19 08:08 Oxygen Flow Rate (L/min) 2 Oxygen Delivery Method Room Air Weight: 165 lb 2.02 oz Body Mass Index (BMI) 32.2 Intake and Output for Last 24 Hours 07/08/19 07/09/19 07/10/19 23:59 23:59 23:59 Intake Total 1100 / 1100 Output Total 1000 / 1000 Balance 100 / 100 Laboratory Results 07/10/19 04:55: WBC 9.2, RBC 3.35 L, Hgb 10.6 L, Hct 33.3 L, MCV 99.4 H, MCH 31.6, MCHC 31.8 L, RDW Std Deviation 48.7 H, RDW Coeff of Harsh 13.3, Plt Count 254, MPV 9.1, Immature Gran % (Auto) 0.300, Neut % (Auto) 82.7 H, Lymph % (Auto) 11.6 L, Brown % (Auto) 3.4, Eos % (Auto) 1.9, Baso % (Auto) 0.1, Absolute Neuts (auto) 7.6, Absolute Lymphs (auto) 1.06, Nucleated RBC % 0 07/10/19 04:55: Sodium 139, Potassium 4.6, Chloride 106, Carbon Dioxide 29.0, Anion Gap 4 L, BUN 23 H, Creatinine 0.91, Estim Creat Clear Calc 37.78, Est GFR (MDRD) Af Amer 77, Est GFR (MDRD) Non-Af 64, BUN/Creatinine Ratio 25.3 H, Glucose 164 H, Calcium 8.9, Magnesium 2.2 Current Medications Acetaminophen (Tylenol) 650 mg PO Q6H PRN PRN PRN Reason: Pain Score 1-3/Temp > 100.7 F Carvedilol (Coreg) 6.25 mg PO BID JAYLYN Last Admin: 07/10/19 08:18 Dose: 6.25 mg Documented by: Cholecalciferol (Vitamin D) 1,000 unit PO TID [facility] Last Admin: 07/10/19 05:32 Dose: 1,000 unit Documented by: Cyclobenzaprine HCl (Flexeril) 5 mg PO BID PRN PRN PRN Reason: Neck pain Last Admin: 07/10/19 05:36 Dose: 5 mg Documented by: Dextrose (D50w Syringe) 0 gm IV X1 PRN; Protocol PRN Reason: Hypoglycemia Enoxaparin Sodium (Lovenox) 40 mg SC DAILY@1000 [facility] Last Admin: 07/10/19 10:05 Dose: 40 mg Documented by: Furosemide (Lasix) 40 mg PO DAILY [facility] Last Admin: 07/10/19 08:18 Dose: 40 mg Documented by: Gabapentin (Neurontin) 300 mg PO TID [facility] Last Admin: 07/10/19 05:32 Dose: 300 mg Documented by: Glucagon () 1 mg IM .X1 PRN PRN Reason: Hypoglycemia Hydromorphone HCl (Dilaudid Tablet) 2 mg PO Q4H PRN PRN PRN Reason: moderate to severe pain Last Admin: 07/10/19 05:36 Dose: 2 mg Documented by: Sodium Chloride () 250 mls @ 15 mls/hr IV .[id number] PRN PRN Reason: Saline Flush Lidocaine (Lidoderm Patch) 1 patch TOPICAL DAILY [facility]; Protocol Last Admin: 07/10/19 10:04 Dose: 1 patch Documented by: Melatonin (Melatonin) 3 mg PO QHS PRN PRN PRN Reason: INSOMNIA Methylprednisolone (Solu-Medrol) 40 mg IV Q8 [facility] Last Admin: 07/10/19 05:32 Dose: 40 mg Documented by: Ondansetron HCl (Zofran) 4 mg IV Q8H PRN PRN PRN Reason: NAUSEA/VOMITING Potassium Chloride (K-Dur) 20 meq PO DAILY [facility] Last Admin: 07/10/19 08:18 Dose: 20 meq Documented by: Senna/Docusate Sodium (Senokot-S, Mayda-Colace) 1 tablet PO BID [facility] Last Admin: 07/10/19 08:18 Dose: 1 tablet Documented by: Sodium Chloride () 10 - 40 ml IV UD PRN PRN Reason: SALINE FLUSH Last Admin: 07/10/19 05:32 Dose: 20 ml Documented by: Discharge Diet: No Restrictions Discharge Activity: Return to Normal Activity Call your doctor if you observe: Shortness of breath, Dizziness, Fainting spells, Chest pain Home Medications: Medications to take at Discharge Furosemide [Lasix] 40 mg PO DAILY 06/17/18 potassium chloride ER 20 mEq tablet,extended release(part/cryst) 20 meq PO DAILY #90 tab 04/07/19 carvedilol 6.25 mg tablet 6.25 mg PO BID tab 04/08/19 cholecalciferol (vitamin D3) 1,000 unit (25 mcg) tablet 1,000 unit PO TID tab 04/08/19 Cholecalciferol (VIT D3) [Vitamin D3] 1,000 unit PO TID #30 tab 07/07/19 Lidocaine [Lidoderm Patch] 1 patch TOPICAL DAILY #30 patch 07/07/19 Gabapentin [Neurontin] 300 mg PO TID 07/08/19 Acetaminophen [Tylenol Extra Strength] 1,000 mg PO Q8H PRN PRN #20 tab 07/10/19 Prednisone 40 mg PO DAILY 5 Days #10 tab 07/10/19 cycloBENZAPRine HCl [Flexeril] 5 mg PO BID PRN PRN #20 tab 07/10/19 Following Prescrptions Were Given to Patient: cycloBENZAPRine HCl [Flexeril] 5 mg PO BID PRN PRN #20 tab PRN Reason: Neck pain Transmission Status: Received by [id number] Prednisone 40 mg PO DAILY 5 Days #10 tab Transmission Status: Received by [id number] Acetaminophen [Tylenol Extra Strength] 1,000 mg PO Q8H PRN PRN #20 tab PRN Reason: Pain Transmission Status: Received by [id number] Other Amb Orders: Physical Therapy Evaluation Location: None Selected Primary Care Physician: Antoine Brown MD [Primary Care Provider] - Please follow up with your Primary Care Physician in: 3-5 Days Disposition: Home Minutes spent on discharge:: 35 Patient Condition:: Stable Medical Necessity - Tobacco Use Smoking Status: Former smoker Meaningful Use Info Meaningful Use Diagnoses (Choose all that apply): None applicable <Reignald Kolb - Last Filed: 07/10/19 13:06> Discharge Date and Diagnosis - Secondary Discharge Diagnosis Chronic Problems (This Medical Record has been edited. Action required.) Thoracic aortic aneurysm (Chronic) Essential (primary) hypertension (Chronic) Lung nodule (Chronic) Hospital Course and Treatment Summary of Care Provided: This patient was seen in conjunction with LORRAINE Martin . I have independently interviewed and examined the patient and reviewed pertinent historical, laboratory, and other data. Please refer to LORRAINE Martin note for details of this patient's presentation, findings, and recommendations. I have reviewed LORRAINE Martin note and concur with documented findings. In brief, patient is a 78-year-old lady discharged from the hospital a day prior to her readmission with neck pain which was attributed to degenerative joint disease involving the cervical spine. Patient apparently did receive lidocaine injection in the office by PCP however symptoms did not improve subsequently sent to the hospital from where patient was admitted for further management Assessment: 1. Intractable pain involving the cervical neck and left shoulder region.secondary to referred pain from degenerative joint disease involving the cervical spine. 2. Hypertension 3. Chronic congestive heart failure with preserved ejection fraction 4. Ascending thoracic aortic aneurysm 5. History of anal CA, stage I 6. DVT Prophylaxis- [facility] course: As documented above - Physical Exam Vitals/I&O's: Vital Signs Temp Pulse Resp BP Pulse Ox 98.3 F 54 L 18 126/59 H 93 07/10/19 12:20 07/10/19 12:20 07/10/19 12:20 07/10/19 12:20 07/10/19 12:20 Oxygen Flow Rate (L/min) 2 Oxygen Delivery Method Room Air Weight: 74.9 kg Body Mass Index (BMI) 32.2 Intake and Output for Last 24 Hours 07/08/19 07/09/19 07/10/19 23:59 23:59 23:59 Intake Total 1100 / 1100 360 / 360 Output Total 1000 / 1000 Balance 100 / 100 360 / 360 Laboratory Results 07/10/19 04:55: WBC 9.2, RBC 3.35 L, Hgb 10.6 L, Hct 33.3 L, MCV 99.4 H, MCH 31.6, MCHC 31.8 L, RDW Std Deviation 48.7 H, RDW Coeff of Harsh 13.3, Plt Count 254, MPV 9.1, Immature Gran % (Auto) 0.300, Neut % (Auto) 82.7 H, Lymph % (Auto) 11.6 L, Brown % (Auto) 3.4, Eos % (Auto) 1.9, Baso % (Auto) 0.1, Absolute Neuts (auto) 7.6, Absolute Lymphs (auto) 1.06, Nucleated RBC % 0 07/10/19 04:55: Sodium 139, Potassium 4.6, Chloride 106, Carbon Dioxide 29.0, Anion Gap 4 L, BUN 23 H, Creatinine 0.91, Estim Creat Clear Calc 37.78, Est GFR (MDRD) Af Amer 77, Est GFR (MDRD) Non-Af 64, BUN/Creatinine Ratio 25.3 H, Glucose 164 H, Calcium 8.9, Magnesium 2.2 Code Visit OBSV E&M: [id number] Observation care discharge
--- NOTE | 2019-07-10 10:21 | CASEMGMT ---
This RN CM to room with HADDAD form a this time, explanation done-pt voices understanding, and signs HADDAD form at this time. Original to chart and copy to pt at this time. Therapy is recommending OP therapy for pt at this time and this RN CM informed pt but she declines at this time. Pt/ are aware that they can call PCP for therapy order, if needed after discharge, voice understanding. Pt voices no further question/concerns/needs at this time. SStaten RN CM
--- NOTE | 2019-07-10 10:44 | PHA.DC.MC ---
Pharmacy Service has performed discharge medication reconciliation and counseling for this patient. 1. CYCLOBENZAPRINE 5MG PO BID PRN NECK PAIN 2. PREDNISONE 40MG PO DAILY X 5 DAYS 3. ACETAMINOPHEN 1000MG PO Q8H PRN PAIN The patient's discharge medication list was reviewed for discrepancies and discrepancies were resolved. Home Medications Furosemide [Lasix] 40 mg PO DAILY 06/17/18 potassium chloride ER 20 mEq tablet,extended release(part/cryst) 20 meq PO DAILY #90 tab 04/07/19 carvedilol 6.25 mg tablet 6.25 mg PO BID tab 04/08/19 cholecalciferol (vitamin D3) 1,000 unit (25 mcg) tablet 1,000 unit PO TID tab 04/08/19 Cholecalciferol (VIT D3) [Vitamin D3] 1,000 unit PO TID #30 tab 07/07/19 Lidocaine [Lidoderm Patch] 1 patch TOPICAL DAILY #30 patch 07/07/19 Gabapentin [Neurontin] 300 mg PO TID 07/08/19 Acetaminophen [Tylenol Extra Strength] 1,000 mg PO Q8H PRN PRN #20 tab 07/10/19 Prednisone 40 mg PO DAILY 5 Days #10 tab 07/10/19 cycloBENZAPRine HCl [Flexeril] 5 mg PO BID PRN PRN #20 tab 07/10/19 The patient was counseled on the following discharge medications and changes in medications for homegoing were reviewed. The Reason for Use, instructions for use, and potential side effects were reviewed for all new medications. The patient's questions regarding all of their medications were answered. The patient was able to verbally demonstrate an understanding of their discharge medications.
[2019-07-10 12:20] VITALS: BP 126/59; PULSE 54; RESP 18; TEMP 36.8; O2SAT 93
== END 2019-07-10 10:16 | disposition home or self-care (01) ==
LOC: ED 07-09 00:05 → PCU 07-09 01:03
PROVIDERS: Admitting Provider Hospitalist; Emergency Provider Emergency Medicine; Family Provider Family Medicine; PCP Family Medicine; Visit Provider Internal Medicine
DX: S16.1XXA Strain of muscle, fascia and tendon at neck level, initial encounter (principal); M47.892 Other spondylosis, cervical region; I11.0 Hypertensive heart disease with heart failure; I50.32 Chronic diastolic (congestive) heart failure; R91.1 Solitary pulmonary nodule; J44.9 Chronic obstructive pulmonary disease, unspecified; K22.70 Barrett's esophagus without dysplasia; I71.2 Thoracic aortic aneurysm, without rupture; X58.XXXA Exposure to other specified factors, initial encounter; Y93.84 Activity, sleeping; Y92.009 Unspecified place in unspecified non-institutional (private) residence as the place of occurrence of the external cause; Z85.048 Personal history of other malignant neoplasm of rectum, rectosigmoid junction, and anus; Z92.21 Personal history of antineoplastic chemotherapy; Z92.3 Personal history of irradiation; Z79.899 Other long term (current) drug therapy; Z87.891 Personal history of nicotine dependence
CPT/HCPCS: 36415; 80048; 83735; 85025; 96372; 96374; 96375; 96376; 97162; 97166; 97530; 99218; 99285; A4216; G0378; J2405

== ENCOUNTER → 2019-08-17 12:25 | Outpatient (CLI) | payer MEDICARE, OTHER, SELFPAY ==
[2019-04-08 14:56] VITALS: BMI 30.8
[2019-07-09 01:44] VITALS: BMI 32.2
--- NOTE | 2019-08-17 12:26 | CT_ITS ---
STUDY: CT ABDOMEN AND PELVIS WITH CONTRAST REASON FOR EXAM: Female, 79 years old. Follow-up, anal cancer. Last chemotherapy September 2017. RADIATION DOSAGE (If Supplied By Facility): CTDIvol = ( 20.73 ) mGy, DLP = ( 1766.49 ) mGycm TECHNIQUE: Transaxial images were obtained from the dome of the diaphragm to the symphysis pubis with oral contrast. IV/Oral 100mL Isovue-300 100 was administered. Sagittal and coronal images were reconstructed. Individualized dose optimization techniques were used for this CT. COMPARISON: MRI of the abdomen, July 22, 2018. CT of the abdomen and pelvis, June 26, 2018. FINDINGS: The visualized lung bases are unremarkable. The visualized portions of the heart are within normal limits. There appears to be a partially thrombosed aneurysm of the distal descending thoracic aorta. Again seen is a small cystic area with surrounding calcification in the left lower lobe liver unchanged. Prior exam. There are surgical clips in the gallbladder fossa consistent with a prior cholecystectomy. Normal spleen. Normal pancreas. Normal bilateral adrenal glands. Normal right kidney. Normal left kidney. Normal visualized ureters. Normal visualized stomach. Normal small intestine. There is scattered colonic diverticulosis without acute inflammatory change. The inguinal region appears grossly normal in appearance. There is minimal stranding of the perianal fat. The appendix is visualized and appears normal. There is diffuse atherosclerotic calcification of the abdominal aorta, without a demonstrated aneurysm. Normal inferior vena cava. Normal retroperitoneum. Normal urinary bladder. Normal uterus and left adnexa. There is a complex solid and cystic focus in the right ovary measuring 4.4 x 2.7 x 3.3 cm. No pelvic lymphadenopathy. No free air or free fluid is seen within the peritoneal cavity. Umbilical hernia of omental fat. The abdominal wall is otherwise grossly unremarkable. There are diffuse degenerative changes of the visualized lumbar spine. CT/Abdomen/Pelvis WITH Contrast IMPRESSION: No evidence of local recurrence or metastatic disease. Electronically Signed: Db Alamo DO at 23:55 EST Tel [phone], Service support ,
--- NOTE | 2019-08-17 12:26 | CT_ITS ---
STUDY: CT CHEST WITH CONTRAST REASON FOR EXAM: Female, 79 years old. Anal cancer RADIATION DOSAGE (If Supplied By Facility): CTDIvol = ( 20.73 ) mGy, DLP = ( 1766.49 ) mGycm TECHNIQUE: Transaxial imaging was performed following intravenous administration of IV Isovue 300 100. Individualized dose optimization techniques were used for this CT. COMPARISON: 11/17/2018 FINDINGS: Mild bilateral apical scarring. Mild emphysematous changes. No change in the 6 cm noncalcified nodule peripherally in the right lower lobe the lungs on image 76. Follow-up CT the chest is recommended in 6 months document stability. No new noncalcified nodule or mass. There is no demonstrated pleural abnormality. Normal heart and pericardium. Normal mediastinum. Normal hilar regions. Normal enhanced pulmonary arteries. No change in a 4.5 cm aneurysm in the descending thoracic aorta with mural thrombus. Normal osseous structures. There is no demonstrated abnormality of the visualized upper abdomen. CT/Chest WITH Contrast IMPRESSION: No change in 6 mm right lower lobe nodule and follow-up CT the chest is recommended in 6 months document stability. Electronically Signed: Dayo Llanes MD at 9:07 EST Tel , Service support ,
[2019-08-17 12:56] LABS: CREATININE FINGERSTICK 0.9 mg/dL (0.55-1.02)
== END ==
PROVIDERS: Family Provider Family Medicine; PCP Family Medicine; Referring Provider Internal Medicine Medical Oncology; Visit Provider Internal Medicine Medical Oncology
DX: R91.1 Solitary pulmonary nodule (principal); Z85.048 Personal history of other malignant neoplasm of rectum, rectosigmoid junction, and anus
CPT/HCPCS: 71260; 74177; Q9967

== ENCOUNTER → 2019-08-19 10:41 | Outpatient (CLI) | payer MEDICARE, OTHER, SELFPAY ==
[2019-07-09 01:44] VITALS: BMI 32.2
--- NOTE | 2019-08-19 10:44 | RAD_ITS ---
STUDY: X-RAY - LEFT SHOULDER REASON FOR EXAM: Female, 79 years old. Pain TECHNIQUE: 3 view(s) of the shoulder. COMPARISON: None. FINDINGS: Mild degenerative changes of the glenohumeral and acromioclavicular joints. No acute fracture or dislocation identified. Normal visualized pulmonary apex. Calcified aorta. RAD/Shoulder min 2 Views IMPRESSION: Mild degenerative changes without acute fracture or dislocation. Electronically Signed: Joshau Hahn, at 5:52 EST Tel , Service support ,
--- NOTE | 2019-08-19 10:44 | RAD_ITS ---
STUDY: X-RAY - RIGHT SHOULDER REASON FOR EXAM: Female, 79 years old. Pain TECHNIQUE: 3 view(s) of the shoulder. COMPARISON: None. FINDINGS: Mild degenerative changes of the glenohumeral and acromioclavicular joints. No acute fracture or dislocation identified. Normal visualized pulmonary apex. RAD/Shoulder min 2 Views IMPRESSION: Mild degenerative changes without acute fracture or dislocation. Electronically Signed: Joshua Hahn, at 5:51 EST Tel , Service support ,
== END ==
PROVIDERS: Family Provider Family Medicine; PCP Family Medicine; Referring Provider Nurse Practitioner Adult Health; Visit Provider Nurse Practitioner Adult Health
DX: M25.511 Pain in right shoulder (principal); M25.512 Pain in left shoulder
CPT/HCPCS: 73030

== ENCOUNTER 2019-09-11 14:00 | Outpatient (RCR) | payer MEDICARE, OTHER, SELFPAY ==
[2019-07-09 01:44] VITALS: BMI 32.2
[2019-08-20 13:37] VITALS: BMI 32.4
--- NOTE | 2019-08-25 13:56 | HP.PTEVAL_ITS ---
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 Date of Evaluation: 08/25/19 Physical Therapist: Evelyn Dior PT, Cert MDT - Visit Plan Frequency: 2-3x /Week Duration: 4-6 Weeks Plan: CERVICAL US, STM, POSTURE CORRECTION/STRENGTHENING, INSTRUCTION IN APPROPRIATE BODY MECHANICS AND ACTIVITY MODIFICATIONS. ENE UE ROM, STRETCHING AND STRENGTHENING. HEP INSTRUCTION. - Subjective Findings: Work/Leisure: RETIRED. Present symptoms: ENE SHOULDER PAIN. NECK PAIN, RIGHT ARM, FOREARM AND HAND PAIN INTO THUMB. Present since: ABOUT 6 MONTHS. Pain Scale: Worst - 15/10 Least - 3/10. Currently: 11/23. Commenced as a result of: NO APPARENT REASON. Symptoms at onset: RIGHT SHOULDER. Worse: REACHING, MOVING HEAD. Better: SITTING REAL STILL. Disturbed sleep: YES. Previous history/Previous treatment: NECK PROBLEMS ABOUT 20 YEARS AGO. H/O CHIROPRACTIC A LONG TIME AGO. ONCE RECENT CHIRO VISIT FOR RIGHT SHLD THEN PAIN MOVED TO LEFT SHOULDER AND NECK. HOSPITALIZED IN JUL 2019 X2. 2 DAYS FIRST TIME AND 2 MORE DAYS THE SECOND TIME. NO JONATAN'S. NO NECK SURGERY. Dizziness: NO. Tinnitis: NO. Nausea: NO. Shortness of Breath: NO. Difficulty Swollowing: NO. Gait: NORMAL. Accidents: NO. Unexplained weight loss: NO. Imaging: NECK AND ENE SHOULDER MILD DEGENERATIVE CHANGES. PMH/Recent major surgery: POLIO, H/O ANAL CANCER, AORTIC ANURYSM - STABLE - Objective Sitting Posture/Standing Posture: FH, RS. Active Correction of posture: WORSE. Other Observations: INDEP SLOW GAIT INTO PT WITHOUT ANY AD'S OR LOB. PATIENT IS VERY GUARDED IN HER UPPER BODY. Motor deficit: ENE ELBOW, WRISTS AND HANDS GROSSLY 4/5. SHOULDER TESTING IS PAIN LIMITED. Sensory deficit: ENE UE LIGHT TOUCH SENSATION IS GROSSLY INTACT AND SYMMETRICAL. ROM deficit: PATIENT IS ONLY ABLE TO ELEVATE ENE UE'S TO APPROX 115 DEG AND WITH C/O SHOULDER PAIN WITH TESTING. Reflexes: UNABLE TO ELICIT ENE UE DTR'S. Dural Signs: TESTING IS PAIN LIMITED. Cervical Mvmt Loss: Flex: MIN. Pro: NT. Ext: BETY. Ret: BETY. RSB: BETY. LSB: BETY. R Rot: MOD TO BETY. L Rot: BETY. PATIENT WITH C/O INCREASED NECK AND SHOULDER PAIN WITH CERVICAL ROM TESTING ALL PLANES AND SHE IS RELUCTANT TO MOVE HER HEAD IN ANY DIRECTION. Postural strength: POOR - Goals Goal 1:: DECREASE C/O NECK AND ENE UE SX'S. Goal Time Frame: 4-6 Weeks Goal 2:: IMPROVE PERSONAL CARE, LIFTING, READING, WORK AND RECREATIONAL FUNCTION. Goal Time Frame: 4-6 Weeks Goal 3:: INSTRUCT IN PROPHYLAXIS Goal Time Frame: 4-6 Weeks - Rehabilitation Potential Rehabilitation Potential: Fair - Anticipated Interventions Patient/Client Instruction: Educate patient on: Condition, Plan of Care, Risk Factors, Benefits of Fitness Program For the Purpose of:: To improve self management Therapeutic Exercise to Include: Strength training, Body mechanics, Postural training, Flexibilty training, Active ROM, Scapular Strength/Stabilization Comment: NO PASSIVE ROM For the Purpose of:: To decrease pain, To increase ROM, To improve muscle performance and motor function, To increase tolerance to activity/condition/position, To improve ability of physical actions for home/c ommunity/work/leisure Thermo therapy (hot pack): Yes For the Purpose of:: To decrease pain Thank you for the opportunity to evaluate your patient. For Medicare and Medicare HMO plans, please review the plan of care and approve it. It will need to be FAXED BACK to us at [phone] for Medicare purposes. For Medicare only, by signing this I certify the plan of care. Please let me know if there are questions or concerns regarding this plan of care. Physician Signature: Date:
--- NOTE | 2019-09-11 14:33 | HP.PTDCSUM ---
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 Discharge Date: 09/11/19 Please see the following information for a summary of their discharge status. - Subjective Subjective: PATIENT REPORTS SHE IS BETTER. SHE STATES NOTHING IS HURTING AND SHE CAN MOVE HER HEAD IN ALL DIRECTIONS NOW WITHOUT SYMPTOMS. STATES SHE WOULD LIKE TO BE DONE WITH PT NOW IF THAT IS OK. PATIENT REPORTS SHE IS DOING HER HOME EX PROGRAM. 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 - Pain RIGHT UE Pain Intensity (Out of 10): 0 LEFT UE Pain Intensity (Out of 10): 0 NECK Pain Intensity (Out of 10): 0 - Overall Improvement % Improvement: 100 - Objective Objective/Function: ALL GOALS MET. INDEP WITH HEP. PATIENT STILL HAS NECK ROM LIMITATIONS BUT NO PAIN WITH TESTING TODAY. ENE UE ROM AND STRENGTH WFL AND NO PAIN WITH TESTING. - Goals Goal 1:: DECREASE C/O NECK AND ENE UE SX'S. Goal Progress: Goal Met Goal 2:: IMPROVE PERSONAL CARE, LIFTING, READING, WORK AND RECREATIONAL FUNCTION. Goal Progress: Goal Met Goal 3:: INSTRUCT IN PROPHYLAXIS Goal Progress: Goal Met - Plan Plan: D/C. - D/C Information If there are questions or concerns regarding this patient's physical therapy, please feel free to call me at [phone]. Thank you for the referral of this patient. Sincerely, Evelyn Dior, PT, Cert MDT
== END 2019-09-11 19:00 | disposition home or self-care (01) ==
LOC: PT 14:00
PROVIDERS: Family Provider Family Medicine; PCP Family Medicine
DX: M47.812 Spondylosis without myelopathy or radiculopathy, cervical region (principal)
CPT/HCPCS: 97110; 97162; 97530

== ENCOUNTER → 2020-02-10 12:08 | Outpatient (CLI) | payer MEDICARE, OTHER, SELFPAY ==
[2019-09-24 12:58] VITALS: BMI 32.6
--- NOTE | 2020-02-10 12:11 | RAD_ITS ---
STUDY: X-RAY - LEFT SHOULDER REASON FOR EXAM: Female, 79 years old. Left shoulder pain x 2 months -- no injury, limited range of motion TECHNIQUE: 4 view(s) of the shoulder. COMPARISON: 4 views of the left shoulder August 19, 2019 FINDINGS: There is stable mild degenerative arthrosis of the glenohumeral articulation. There is stable mild degenerative arthrosis of the acromioclavicular joint without inferior osseous spur formation. Normal acromion. Normal humeral head and visualized proximal humerus. The soft tissue structures are unremarkable. There is no demonstrated osseous destructive lesion or acute fracture. Normal visualized pulmonary apex. RAD/Shoulder min 2 Views IMPRESSION: Stable mild degenerative changes of the left glenohumeral and acromioclavicular joints. Electronically Signed: Mahad Love MD at 17:17 EDT , Service support ,
[2020-02-10 15:57] LABS: Anion Gap 8 (5-15); BUN 20 mg/dL (7-18); BUN/Creat Ratio 24.4 RATIO (10-20); Calcium,Total 9.6 mg/dL (8.5-10.1); Chloride 104 mmol/L (98-107); Creatinine, Serum 0.82 mg/dL (0.55-1.02); EST Glomerular Filtration Rate 72 mL/min (>60); Est Glom Filt Rate - Afr Amer 87 mL/min (>60); Glucose 81 mg/dL (74-106); Potassium 3.8 mmol/L (3.5-5.1); Sodium Level 138 mmol/L (136-145)
== END ==
PROVIDERS: PCP Family Medicine; Referring Provider Family Medicine; Visit Provider Family Medicine
DX: I10 Essential (primary) hypertension (principal); M25.512 Pain in left shoulder
CPT/HCPCS: 36415; 73030; 80048

== ENCOUNTER → 2020-03-28 14:01 | Outpatient (CLI) | payer MEDICARE, OTHER, SELFPAY ==
[2020-02-29 13:58] VITALS: BMI 32.6
--- NOTE | 2020-03-28 14:02 | RAD_ITS ---
STUDY: X-RAY - LUMBAR SPINE REASON FOR EXAM: Female, 79 years old. PAIN, NKI TECHNIQUE: 8 view(s) of the lumbar spine were obtained. COMPARISON: None FINDINGS: There is straightening of the normal lumbar lordosis. There is no substantial scoliosis. There is a normal alignment of the vertebrae. There is multilevel endplate spondylosis of the lumbar vertebrae. There is multi-level degenerative disc disease with multi-level disc space narrowing. There is no demonstrated fracture. There is atherosclerotic calcification of the abdominal aorta without a demonstrated aneurysm. RAD/L/S Spine Min 4 Views IMPRESSION: Degenerative changes of the spine, as detailed above. Electronically Signed: Mahad Nagel MD at 14:41 EDT , Service support ,
--- NOTE | 2020-03-28 14:02 | RAD_ITS ---
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 TECHNIQUE: 2 views of the pelvis and hip. COMPARISON: None. FINDINGS: Normal visualized soft tissue structures. Normal visualized right iliac wing and visualized sacrum. There is mild arthrosis of the right sacroiliac joint. Normal bilateral superior and inferior pubic rami. There are mild degenerative changes of the pubic symphysis. Normal bilateral ischial tuberosities. There is mild sclerosis in the right femoral head, suspicious for avascular necrosis. Normal acetabulum. Normal hip joint. RAD/HIP, UNI W/ Pelvis 2-3 Views IMPRESSION: Mild sclerosis in the right femoral head, suspicious for avascular necrosis. Mild right sacroiliac arthrosis. Mild degenerative changes of the pubic symphysis. Electronically Signed: Leonardo Carmona MD at 14:41 EDT Tel , Service support ,
== END ==
PROVIDERS: PCP Family Medicine; Referring Provider Orthopaedic Surgery; Visit Provider Orthopaedic Surgery
DX: M79.651 Pain in right thigh (principal); M25.551 Pain in right hip
CPT/HCPCS: 72110; 73502

== ENCOUNTER → 2020-04-12 15:17 | Outpatient (CLI) | payer MEDICARE, OTHER, SELFPAY ==
[2020-04-12 14:17] VITALS: BMI 32.8
[2020-04-12 16:09] LABS: Anion Gap 8 (5-15); BUN 21 mg/dL (7-18); Calcium,Total 9.1 mg/dL (8.5-10.1); Chloride 108 mmol/L (98-107); Creatinine, Serum 0.78 mg/dL (0.55-1.02); EST Glomerular Filtration Rate 76 mL/min (>60); Est Glom Filt Rate - Afr Amer 92 mL/min (>60); Glucose 91 mg/dL (74-106); Potassium 3.9 mmol/L (3.5-5.1); Sodium Level 139 mmol/L (136-145)
== END ==
PROVIDERS: PCP Family Medicine; Referring Provider Internal Medicine Cardiovascular Disease; Visit Provider Internal Medicine Cardiovascular Disease
DX: I10 Essential (primary) hypertension (principal)
CPT/HCPCS: 36415; 80048

== ENCOUNTER → 2020-04-21 12:24 | Outpatient (CLI) | payer MEDICARE, OTHER, SELFPAY ==
[2020-04-12 14:17] VITALS: BMI 32.8
--- NOTE | 2020-04-21 12:25 | CT_ITS ---
STUDY: CTA CHEST REASON FOR EXAM: Female, 79 years old. AAA FOLLOW UP, HX ANAL CANCER RADIATION DOSAGE (If Supplied By Facility): CTDIvol = ( 18.72 ) mGy, DLP = ( 348.78 ) mGycm TECHNIQUE: The examination was performed with the intravenous administration of IV 100mL Isovue-300. Post-processing of the angiographic images was performed, with multiplanar reformation and 3D reconstruction. Individualized dose optimization techniques were used for this CT. COMPARISON: Comparison is made with prior examination of 08/17/2019. FINDINGS: Normal enhancement of the main pulmonary artery and right and left pulmonary arteries. Normal enhancement of the bilateral peripheral pulmonary arteries. There is no demonstrated pulmonary embolism. There is aneurysmal dilatation of the ascending aorta. The transverse diameter of the ascending aorta measures 46.6 mm''s. There is dilatation of the distal portion of the thoracic aorta and at the thoracal abdominal level. It has a transverse dimension of 4.8 cm. There is evidence of a mural thrombus along the left side of the aorta with the increased vascularity. This is essentially unchanged as compared to prior study. Normal heart and pericardium. Normal mediastinum. Normal hilar regions. Normal visualized trachea and bronchi. Hyperinflation. Stable mild degree of emphysematous changes more prominent in the upper lobes with bullous changes. Stable bilateral apical scarring worse on the right side. Stable 6 mm noncalcified nodule in the peripheral aspect of the right lower lobe. Normal pleura. Normal chest wall structures. There are degenerative changes of thoracic spine. Normal visualized upper abdomen. CT/CTA Chest W/WO Contrast IMPRESSION: Stable examination. Electronically Signed: Oscar Mcarthur, at 13:04 EDT , Service support ,
--- NOTE | 2020-04-21 12:25 | ECHODONC_ITS ---
Reason For Study: DYSPNEA/SOB Procedure This was a 2D Doppler, Color Flow transthoracic echocardiogram. Exam performed in department. Left Ventricle Normal LV size. Left ventricular systolic function is normal. The estimated ejection fraction is 55 %. Stage 1 diastolic dysfunction. No regional wall motion abnormalities noted. Right Ventricle Normal RV size. Normal systolic function. Atria Normal left atrium. Normal right atrium. Mitral Valve Normal mitral valve. Trivial eccentric mitral valve insufficiency. Tricuspid Valve Normal tricuspid valve. Mild (1+) tricuspid valve insufficiency. Pulmonary artery systolic pressure is 30 mmHg. Aortic Valve Trisinus/trileaflet aortic valve. Mild (1+) eccentric aortic valve insufficiency. Pulmonic Valve Normal pulmonic valve. Great Vessels Mild to moderately dilated aortic root. The pulmonary artery is normal size. Normal inferior vena cava. Pericardium/Pleural No pericardial effusion. MMode/2D Measurements & Calculations LVIDd: 4.4 cm IVSd: 1.1 cm Ao root diam: 4.2 cm LVIDs: 3.3 cm LVPWd: 1.0 cm RVDd: 2.7 cm FS: 26.0 % LAV(MOD-bp): 44.6 ml LA A4 area: 14.6 cm2 LA dimension(2D): 3.2 cm LAV(MOD-bp) Indexed: 25.6 ml/m2 LAV(MOD-sp2): 40.3 ml LAV(MOD-sp4): 40.2 ml RA A4 area: 12.7 cm2 Time Measurements MV dec time: 0.23 sec Doppler Measurements & Calculations MV E max dk: 55.0 cm/sec Lat Peak E' Dk: 5.3 cm/sec Med Peak E' Dk: 4.1 cm/sec MV A max dk: 86.9 cm/sec E/E' lat: 10.4 E/E' med: 13.5 MV E/A: 0.63 Ao V2 max: 134.7 cm/sec AI max dk: 429.7 cm/sec LV V1 max: 104.3 cm/sec Ao max P.3 mmHg AI max P.9 mmHg LV V1 max P.4 mmHg Ao V2 mean: 96.5 cm/sec AI dec slope: 229.0 cm/sec2 LV V1 mean P.5 mmHg Ao mean P.1 mmHg AI P1/2t: 549.5 msec LV V1 mean: 75.2 cm/sec Ao V2 VTI: 26.9 cm LV V1 VTI: 23.1 cm TR max kd: 261.9 cm/sec TR max P.4 mmHg Interpretation Summary Normal LV size. Left ventricular systolic function is normal. The estimated ejection fraction is 55 %. Stage 1 diastolic dysfunction. Mild to moderately dilated aortic root. Mild (1+) eccentric aortic valve insufficiency. Pulmonary artery systolic pressure is 30 mmHg. Ordering Physician: Gopi Tom Referring Physician: Antoine Brown Performed By: Anita Fair, AISLINN, RVT
== END ==
PROVIDERS: PCP Family Medicine; Referring Provider Internal Medicine Cardiovascular Disease; Visit Provider Internal Medicine Cardiovascular Disease
DX: I34.0 Nonrheumatic mitral (valve) insufficiency (principal); R06.00 Dyspnea, unspecified; R06.02 Shortness of breath
CPT/HCPCS: 71275; 93306; 93356; Q9967; A4216

== ENCOUNTER → 2020-08-05 12:13 | Outpatient (CLI) | payer MEDICARE, OTHER, SELFPAY ==
[2020-04-12 14:17] VITALS: BMI 32.8
--- NOTE | 2020-08-05 12:15 | MRI_ITS ---
STUDY: MRI LUMBAR SPINE WITHOUT CONTRAST REASON FOR EXAM: Female, 79 years old. pt c/o severe R groin pain worsening by the day, no trauma TECHNIQUE: Standardized fat and water weighted pulse sequences were obtained in the sagittal and axial planes. COMPARISON: X-ray 03/28/2020 FINDINGS: T12-L1: Normal endplates. Normal disc height, hydration and morphology. Normal bilateral facet joints. Normal central canal and bilateral lateral recesses. Normal bilateral intervertebral neural foramina. Normal lumbar lordosis. There is no substantial scoliosis. Normal conus medullaris that terminates at the L1. L1-2: Normal endplates. Normal disc height, hydration and morphology. Normal bilateral facet joints. Normal central canal and bilateral lateral recesses. Normal bilateral intervertebral neural foramina. L2-3: Normal endplates. Normal disc height, hydration and morphology. Normal bilateral facet joints. Normal central canal and bilateral lateral recesses. Normal bilateral intervertebral neural foramina. L3-4: Disc desiccation but no disc protrusion, spinal stenosis, or neural foraminal stenosis. L4-5: Mild broad disc protrusion with right foraminal protrusion produces mild spinal stenosis with mild bilateral recess stenosis with moderate right neural foraminal stenosis and mild left neural foraminal stenosis. L5-S1: Small left foraminal protrusion produces mild left neural foraminal stenosis. No central spinal stenosis. Normal visualized sacral ala. Mild friction related edema of the posterior subcutaneous fat. MRI/Spine Lumbar (Routine) IMPRESSION: Multilevel degenerative changes, as described above. Electronically Signed: Dayo Llanes MD at 14:06 EST Tel , Service support ,
--- NOTE | 2020-08-05 12:15 | MRI_ITS ---
STUDY: MRI RIGHT HIP REASON FOR EXAM: Female, 79 years old. pt c/o severe R groin pain worsening by the day, no trauma TECHNIQUE: Standardized fat and water weighted pulse sequences were obtained in all 3 orthogonal planes. COMPARISON: 07/11/2020 FINDINGS: Normal hip joint without articular joint space narrowing. Normal acetabulum. Normal labrum. Curvilinear hyperintensity of the superior aspect of the femoral head consistent with avascular necrosis. No surrounding stress reaction or collapse. Normal femoral neck and intratrochanteric region. Normal gluteus minimus, medius and iliopsoas tendons and distal insertions. There is no trochanteric, iliopsoas or iliopectineal bursitis. Normal superior and inferior pubic rami. Normal pubic symphysis. Normal ischial tuberosity. Normal origin of the hamstring tendons. Normal visualized iliac wing, sacroiliac joint, and sacral ala. 4.5 cm septated cystic mass in the right side of the pelvis which is unchanged when compared with the CT the pelvis from 08/17/2019 likely consistent with a physiologic cyst, par ovarian cyst, or cystadenoma. Multiple diverticula of the sigmoid colon consistent with diverticulosis. MRI/Lower Ext Joint Only (Routine) IMPRESSION: 1. 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 2. No change in 4.5 cm septated cystic mass the right ovary consistent with a physiologic cyst, par ovarian cyst, or cystadenoma. 3. Sigmoid diverticulosis. Electronically Signed: Dayo Llanes MD at 14:14 EST Tel , Service support ,
== END ==
PROVIDERS: PCP Family Medicine; Referring Provider Orthopaedic Surgery; Visit Provider Orthopaedic Surgery
DX: M54.9 Dorsalgia, unspecified (principal); M25.551 Pain in right hip
CPT/HCPCS: 72148; 73721

== ENCOUNTER → 2020-08-19 13:41 | Outpatient (CLI) | payer MEDICARE, OTHER, SELFPAY ==
--- NOTE | 2020-08-19 13:50 | RAD_ITS ---
STUDY: X-RAY - ABDOMEN/PELVIS REASON FOR EXAM: Female, 80 years old. PAIN LEFT SIDE OF ABDOMEN AND LEFT LOWER BACK. HX OF OFF AND ON CONSTIPATION WITH DIARRHEA PER PAT. HX OF HER GB REMOVED. TECHNIQUE: AP supine and upright views of the abdomen and pelvis. COMPARISON: None. FINDINGS: Status post cholecystectomy. There is an unremarkable bowel gas pattern. There is no demonstrated free abdominal air. The visualized liver, spleen and kidneys are grossly normal in size and morphology. Normal soft tissue structures. Normal visualized osseous structures. RAD/Abd Inc Decub and/or Erect IMPRESSION: Normal x-ray examination of the abdomen and pelvis. Electronically Signed: Dayo Llanes MD at 18:00 EST Tel , Service support ,
[2020-08-19 15:34] LABS: ALB/GLOB Ratio 0.7 RATIO (0.9-2.4); AST(SGOT) 24 U/L (15-37); Alanine Aminotransfer ALT/SGPT 37 U/L (13-56); Albumin, Serum 3.4 g/dL (3.2-5.0); Alkaline Phosphatase 114 U/L (45-117); Anion Gap 6 (5-15); BUN 22 mg/dL (7-18); BUN/Creat Ratio 28.9 RATIO (10-20); Calcium,Total 9.3 mg/dL (8.5-10.1); Chloride 106 mmol/L (98-107); Cholesterol 143 mg/dL (200); Creatinine, Serum 0.76 mg/dL (0.55-1.02); EST Glomerular Filtration Rate 78 mL/min (>60); Est Glom Filt Rate - Afr Amer 95 mL/min (>60); Globulin 4.6 g/dL (2.2-4.2); Glucose 83 mg/dL (74-106); High Density Lipoprotein 43 mg/dL; Sodium Level 137 mmol/L (136-145); Triglycerides 164 mg/dL; Very Low Density Lipoprotein 33 mg/dL (5-40)
== END ==
PROVIDERS: PCP Family Medicine; Referring Provider Family Medicine; Visit Provider Family Medicine
DX: I10 Essential (primary) hypertension (principal); R10.9 Unspecified abdominal pain
CPT/HCPCS: 36415; 74019; 80053; 80061

== ENCOUNTER → 2020-08-22 13:41 | Outpatient (CLI) | payer MEDICARE, OTHER, SELFPAY ==
[2020-08-22 13:10] VITALS: BMI 34.0
[2020-08-24 15:24] LABS: Carbohydrate Ag 19-9 2261 7 U/mL (0-35); Carcinoembryonic Antigen 2139 1.9 ng/mL (0.0-4.7)
== END ==
PROVIDERS: PCP Family Medicine; Referring Provider Obstetrics & Gynecology; Visit Provider Obstetrics & Gynecology
DX: R19.09 Other intra-abdominal and pelvic swelling, mass and lump (principal)
CPT/HCPCS: 36415; 82378; 86301; 86304

== ENCOUNTER → 2020-08-26 12:19 | Outpatient (CLI) | payer MEDICARE, OTHER, SELFPAY ==
[2020-08-22 13:10] VITALS: BMI 34.0
--- NOTE | 2020-08-26 12:22 | US_ITS ---
STUDY: ULTRASOUND OF THE FEMALE PELVIS - COMPLETE REASON FOR EXAM: Female, 80 years old. rt adnexal mass LMP: Unknown. TECHNIQUE: Transabdominal and Transvaginal TECHNICAL QUALITY: Adequate. COMPARISON: CT 08/17/2019 FINDINGS: The uterus is anteverted and is in a midline position. The uterus measures 6.3 x 3.4 x 2.9 cm. Normal uterine cervix. The endometrium measures 8 mm in thickness, and is hyperechoic. Multiple hypoechoic areas within the endometrium and endometrial mass cannot be excluded. Correlation with hysteroscopy may be useful. There is no demonstrated myometrial mass. I.U.D. - The patient does not have an I.U.D. The right ovary is visualized. The right ovary measures 4.2 x 2.9 x 4.6 cm. There is no change in the enlargement the right ovary with multiple cystic spaces and septations likely consistent with a cystadenoma versus cystadenocarcinoma cannot be excluded. There is no visualized right adnexal mass or complex lesion. There is normal arterial and normal venous vascularity. The left ovary is non-visualized.. There is no fluid in the cul-de-sac. The pre void volume of the bladder was 100 ml. The post void volume of the bladder was ml. Polycystic ovary disease: No. US/Pelvic (Non ) IMPRESSION: 1. Multiple hypoechoic areas within the endometrium and endometrial mass cannot be excluded. Correlation with hysteroscopy would be useful. 2. No change in the enlarged (4.6) (right ovary with multiple cystic areas and septations. Possibilities include cystadenoma or cystadenocarcinoma. Electronically Signed: Dayo Llanes MD at 9:07 EST Tel , Service support ,
--- NOTE | 2020-08-26 12:22 | US_ITS ---
STUDY: ULTRASOUND OF THE FEMALE PELVIS - COMPLETE REASON FOR EXAM: Female, 80 years old. rt adnexal mass LMP: Unknown. TECHNIQUE: Transabdominal and Transvaginal TECHNICAL QUALITY: Adequate. COMPARISON: CT 08/17/2019 FINDINGS: The uterus is anteverted and is in a midline position. The uterus measures 6.3 x 3.4 x 2.9 cm. Normal uterine cervix. The endometrium measures 8 mm in thickness, and is hyperechoic. Multiple hypoechoic areas within the endometrium and endometrial mass cannot be excluded. Correlation with hysteroscopy may be useful. There is no demonstrated myometrial mass. I.U.D. - The patient does not have an I.U.D. The right ovary is visualized. The right ovary measures 4.2 x 2.9 x 4.6 cm. There is no change in the enlargement the right ovary with multiple cystic spaces and septations likely consistent with a cystadenoma versus cystadenocarcinoma cannot be excluded. There is no visualized right adnexal mass or complex lesion. There is normal arterial and normal venous vascularity. The left ovary is non-visualized.. There is no fluid in the cul-de-sac. The pre void volume of the bladder was 100 ml. The post void volume of the bladder was ml. Polycystic ovary disease: No. US/Transvaginal Non- IMPRESSION: 1. Multiple hypoechoic areas within the endometrium and endometrial mass cannot be excluded. Correlation with hysteroscopy would be useful. 2. No change in the enlarged (4.6) (right ovary with multiple cystic areas and septations. Possibilities include cystadenoma or cystadenocarcinoma. Electronically Signed: Dayo Llanes MD at 9:07 EST Tel , Service support ,
== END ==
PROVIDERS: PCP Family Medicine; Referring Provider Obstetrics & Gynecology; Visit Provider Obstetrics & Gynecology
DX: N94.89 Other specified conditions associated with female genital organs and menstrual cycle (principal)
CPT/HCPCS: 76830; 76856

== ENCOUNTER → 2020-09-20 14:11 | Outpatient (CLI) | payer MEDICARE, OTHER, SELFPAY ==
[2020-08-22 13:10] VITALS: BMI 34.0
--- NOTE | 2020-09-20 14:12 | CT_ITS ---
STUDY: CT ABDOMEN AND PELVIS WITH CONTRAST REASON FOR EXAM: Female, 80 years old. SURVEILLANCE, ANAL CA. LUNG NODULE. RADIATION DOSAGE (If Supplied By Facility): CTDIvol = ( 23.18 ) mGy, DLP = ( 1107.37 ) mGycm TECHNIQUE: Transaxial images were obtained from the dome of the diaphragm to the symphysis pubis without oral contrast. IV 100mL Isovue-300 was administered. Sagittal and coronal images were reconstructed. Individualized dose optimization techniques were used for this CT. COMPARISON: Comparison is made with prior examination dated 08/17/2019. FINDINGS: Stable 5 mm nodule in the lateral aspect of the right lower lobe. The visualized portions of the heart are within normal limits. There is decreased attenuation of the liver consistent with steatosis. Stable 1.7 cm cystic structure in the peripheral aspect of the left lobe of the liver peripherally with the peripheral calcification. There are surgical clips in the gallbladder fossa consistent with a prior cholecystectomy. Normal spleen. Normal pancreas. Normal bilateral adrenal glands. Normal right kidney. Normal left kidney. Normal visualized stomach. Normal small intestine. There are multiple colonic diverticula consistent with diverticulosis. The appendix is visualized and appears normal. There is diffuse atherosclerotic calcification of the abdominal aorta, without a demonstrated aneurysm. Stable aneurysmal dilatation of the distal portion of the descending thoracic aorta with a transverse dimension of 4.6 cm. There is evidence of a mural calcification as well as mural thrombus along the left lateral wall. Normal inferior vena cava. There is borderline retroperitoneal lymphadenopathy with enlarged nodes no greater than 10mm in the short axis diameter. Normal urinary bladder. There is a 4.8 cm x 3.1 cm septated cystic mass in the right adnexa. This is unchanged. There is a small umbilical hernia containing fat. There are diffuse degenerative changes of the visualized lumbar spine. CT/Abdomen/Pelvis W IV Cont ONLY IMPRESSION: Stable examination. Electronically Signed: Oscar Mcarthur, at 15:05 EST , Service support ,
--- NOTE | 2020-09-20 14:12 | CT_ITS ---
STUDY: CT CHEST WITH CONTRAST REASON FOR EXAM: Female, 80 years old. SURVEILLANCE, ANAL CA. LUNG NODULE. RADIATION DOSAGE (If Supplied By Facility): CTDIvol = ( 16.17 ) mGy, DLP = ( 449.13 ) mGycm TECHNIQUE: Transaxial imaging was performed following intravenous administration of IV 100mL Isovue-300. Multiplanar coronal and sagittal images were reformatted. Individualized dose optimization techniques were used for this CT. COMPARISON: Comparison is made with prior study dated 08/17/2019. FINDINGS: Stable 6 mm noncalcified nodule in the peripheral lateral aspect of the right lower lobe. There is no demonstrated pleural abnormality. Normal heart and pericardium. Normal mediastinum. Normal hilar regions. Normal enhanced pulmonary arteries. Dilatation of the roots of the descending thoracic aorta with a transverse dimension of 45 mm. Stable aneurysmal dilatation of the distal aspect of the descending thoracic aorta with the mural thrombus along the left lateral wall. There are degenerative changes of the thoracic spine. Fatty infiltration of the liver. CT/Chest WITH Contrast IMPRESSION: Stable examination. Electronically Signed: Oscar Mcarthur, at 15:17 EST , Service support ,
== END ==
PROVIDERS: PCP Family Medicine; Referring Provider Internal Medicine Medical Oncology; Visit Provider Internal Medicine Medical Oncology
DX: R91.1 Solitary pulmonary nodule (principal); Z85.048 Personal history of other malignant neoplasm of rectum, rectosigmoid junction, and anus
CPT/HCPCS: 71260; 74177; Q9967

== ENCOUNTER 2021-09-21 12:04 | Outpatient (CLI) | payer MEDICARE, OTHER, SELFPAY ==
--- NOTE | 2021-09-21 12:26 | CT_ITS ---
STUDY: CT CHEST, ABDOMEN T PELVIS WITH CONTRAST REASON FOR EXAM: Female, 81 years old. MONITORING LUNG NODULE/OVARIAN CYST/HX OF ANAL CA RADIATION DOSAGE (If Supplied By Facility): CTDIvol = ( 17.96 ) mGy, DLP = ( 1445.55 ) mGycm TECHNIQUE: Transaxial imaging was performed following intravenous administration of Oral and amp; IV Readi-CAT and amp; 100mL Isovue-370. Individualized dose optimization techniques were used for this CT. COMPARISON: Comparison is made with prior study dated 09/20/2020. FINDINGS: CHEST Emphysematous changes worse in the right lung apex. Stable 6 mm noncalcified nodule in the peripheral lateral aspect of the right lower lobe as seen on axial image #76. Stable mild linear scarring in the lingular segment of the left upper lobe. There is no demonstrated pleural abnormality. There are calcifications of the coronary arteries. Normal mediastinum. Normal hilar regions. Normal unenhanced pulmonary arteries. Stable dilatation of the root of the ascending thoracic aorta with a transverse dimension of 44 mm. Stable aneurysmal dilatation of the descending thoracic aorta at the level of the diaphragmatic hiatus with the mural thrombus/localized dissection along the left lateral wall. This is unchanged. There are multi-level degenerative changes of the thoracic spine. ABDOMEN There is decreased attenuation of the liver consistent with steatosis. Stable 1.7 cm cystic structure peripheral aspect of the left lobe of the liver with peripheral calcification. The gallbladder is contracted. Normal spleen. Normal pancreas. Normal bilateral adrenal glands. Normal right kidney. Normal left kidney. There is a small hiatal hernia. Normal small intestine. There are multiple colonic diverticula consistent with diverticulosis. There is non-visualization of the appendix. There is diffuse atherosclerotic calcification of the abdominal aorta, without a demonstrated aneurysm. Normal inferior vena cava. There is borderline retroperitoneal lymphadenopathy with enlarged nodes no greater than 10mm in the short axis diameter. PELVIS Normal urinary bladder. The patient is status post hysterectomy. The previously seen right septated ovarian mass is not seen at this time. Normal visualized small intestine. Normal visualized colon. There is no pelvic fluid. There is no pelvic lymphadenopathy or mass lesion. There is diffuse atherosclerotic calcification of the pelvic arteries. Normal abdominal wall. There are diffuse degenerative changes of the visualized lumbar spine. CT/CT Chest, Abd, Pel w/Contrast IMPRESSION: Status post hysterectomy and right oophorectomy. The remainder of the examination is unchanged. Electronically Signed: Oscar Mcarthur MD at 13:24 EST , Service support ,
[2021-09-21 12:46] LABS: CREATININE FINGERSTICK 0.9 mg/dL (0.55-1.02); EGFR FINGERSTICK > 60.0000 mL/min (>60)
[2021-09-21 14:25] LABS: Absolute Lymphocyte Count 1.55 X10^3/uL (0.83-4.51); Absolute Neutrophil Count 4.5 X10^3/uL (2.0-7.7); Basophil# 0.04 X10^3/uL; Basophil% 0.6 % (0-1); Eosinophil# 0.07 X10^3/uL; Hematocrit 40.6 % (37-47); Lymphocyte # 1.55 X10^3/ul (0.83-4.51); Mean Corpuscular Hgb 31.5 pg (27.0-32.0); Mean Corpuscular Volume 98.3 fL (81-99); Monocyte# 0.52 X10^3/uL; Monocyte% 7.7 % (0-10); NRBC Flagged by Analyzer 0 % (0-5); Neutrophil # 4.52 X10^3/uL (2.7-7.7); Neutrophil % 67.3 % (47-70); Platelet Count 281 K/mm3 (150-450); RBC Distribution Width CV 13.2 % (11.6-14.6); RBC Distribution Width SD 47.6 fl (35.1-43.9); Red Blood Count 4.13 M/mm3 (4.2-5.4); White Blood Count 6.7 K/mm3 (4.4-11.0)
[2021-09-21 14:56] LABS: ALB/GLOB Ratio 0.9 RATIO (0.9-2.4); AST(SGOT) 23 U/L (15-37); Alanine Aminotransfer ALT/SGPT 31 U/L (13-56); Albumin, Serum 3.8 g/dL (3.2-5.0); Alkaline Phosphatase 94 U/L (45-117); Anion Gap 5 (5-15); BUN 22 mg/dL (7-18); BUN/Creat Ratio 25.4 RATIO (10-20); Calcium,Total 8.9 mg/dL (8.5-10.1); Chloride 102 mmol/L (98-107); Creatinine, Serum 0.87 mg/dL (0.55-1.02); EST Glomerular Filtration Rate 67 mL/min (>60); Est Glom Filt Rate - Afr Amer 81 mL/min (>60); Globulin 4.3 g/dL (2.2-4.2); Glucose 102 mg/dL (74-106); LDH 272 U/L (84-246); Protein, Total 8.1 g/dL (6.4-8.2); Sodium Level 138 mmol/L (136-145)
[2021-09-21 20:14] LABS: Xtra Tube EP Lab EXTRA TUBE
[2021-09-23 08:30] LABS: Cancer Antigen 125 11.7 U/mL (0.0-38.1)
== END 2021-09-21 23:59 | disposition short-term general hospital (02) ==
LOC: CT 12:05
PROVIDERS: PCP Family Medicine; Referring Provider Internal Medicine Medical Oncology; Visit Provider Internal Medicine Medical Oncology
DX: R91.1 Solitary pulmonary nodule (principal); N83.201 Unspecified ovarian cyst, right side; Z85.040 Personal history of malignant carcinoid tumor of rectum; Z90.710 Acquired absence of both cervix and uterus; Z90.721 Acquired absence of ovaries, unilateral
CPT/HCPCS: 36415; 71260; 74177; 80053; 83615; 85025; 86304; Q9967

== ENCOUNTER 2021-10-03 17:05 | Observation (INO) | payer MEDICARE, OTHER, SELFPAY ==
[2021-10-03 17:06] VITALS: BP 132/71; PULSE 74; RESP 18; TEMP 36.3; O2SAT 95; BMI 36.6
--- NOTE | 2021-10-03 17:43 | RAD_ITS ---
INDICATION: Injury/Pain EXAMINATION/TECHNIQUE: X-RAY - LEFT XR Foot Min 3 Views 3 VIEWS COMPARISON: None. FINDINGS: SOFT TISSUES: No soft tissue swelling or gas. No radiopaque foreign body. BONES/JOINTS: There is normal bony alignment without evidence of fracture. There are mild degenerative changes with joint space narrowing and endplate sclerosis involving the interphalangeal joints of all digits. No periarticular erosion or destructive bony process.. RAD/Foot min 3 Views IMPRESSION: Mild degenerative change with joint space narrowing and subchondral sclerosis without evidence of fracture or destructive bony process. No malalignment. Electronically Signed: Dayo Bunn MD at 18:13 EST Tel , Service support ,
--- NOTE | 2021-10-03 17:43 | RAD_ITS ---
INDICATION: Injury/Pain EXAMINATION/TECHNIQUE: X-RAY - RIGHT XR Foot Min 3 Views 3 VIEWS COMPARISON: None. FINDINGS: SOFT TISSUES: No soft tissue swelling or gas. No radiopaque foreign body. BONES/JOINTS: No fractures noted. Mild degenerative changes involving the interphalangeal joints of all digits.. Normal alignment. Preservation of the joint space.. No sclerotic or destructive changes observed. RAD/Foot min 3 Views IMPRESSION: 1. Mild degenerative change particularly involving the interphalangeal joints of all digits. 2. No fractures or malalignment noted. Electronically Signed: Dayo Bunn MD at 18:16 EST Tel , Service support ,
--- NOTE | 2021-10-03 17:43 | ED.VIS.LOWEX ---
HPI History of Present Illness HPI Narrative: Patient presents with left ankle and foot pain that began after a fall today. Patient also admits to pain in her right second, third, and fourth toes. Patient states she slipped on the ice while she was getting her mail. Patient denies any head injury or loss of consciousness. Patient states she had to crawl back to her house to call 911. 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 Patient denies any other injuries. 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 Chronic diastolic (congestive) heart failure COPD (chronic obstructive pulmonary disease) Descending thoracic aortic aneurysm Diverticular disease Essential (primary) hypertension Foot drop, left foot History of anal cancer Lung nodule Obesity Vertigo Home Medications cholecalciferol (vitamin D3) 25 mcg (1,000 unit) tablet 3,000 unit PO DAILY tab 08/08/20 [History Last Taken Unknown] carvedilol 12.5 mg tablet 12.5 mg PO BID #180 tab 04/11/21 [Rx Last Taken Unknown] furosemide 40 mg tablet 40 mg PO DAILY #90 tab 04/11/21 [Rx Last Taken Unknown] potassium chloride 20 mEq tablet,extended release(part/cryst) 20 meq PO DAILY #90 tab 04/11/21 [Rx Last Taken Unknown] loperamide 2 mg capsule 2 mg PO Q6H PRN 09/27/21 [History Last Taken Unknown] Allergy/AdvReac Type Severity Reaction Status Date / Time oxycodone Allergy Mild headache Verified 10/03/21 17:09 aspirin AdvReac Nausea Verified 10/03/21 17:09 Family History Father Heart disease Sister Cancer Diabetes Brother Heart disease Mother Heart disease Sister Heart disease Sister Cancer breast Surgical History History of cholecystectomy History of right and left heart catheterization (02/24/13) S/P complete hysterectomy (~10/13/20) Social History Smoking Status: Former smoker how long ago did patient quit smokin years ago alcohol intake: never substance use type: does not use caffeine: Yes Type: coffee Number of servings: 2 what type of physical activity do you participate in: none seatbelt use: always do you feel safe at home: Yes additional social history: - Rosalio [place] ED Constitutional Constitutional ED: Denies chills or fever(s) Eyes Eyes: Denies blurry vision or change in vision ENT ENT ED: Denies rhinorrhea or sore throat Cardiovascular Cardiovascular: Denies chest pain or palpitations Respiratory/Chest Respiratory/Chest: Denies cough or dyspnea Gastrointestinal Gastrointestinal: Denies nausea or vomiting Genitourinary Genitourinary ED: Denies dysuria or hematuria Musculoskeletal Musculoskeletal: Denies back pain or neck pain Integumentary Denies abscess or rash Neurologic Neurologic: Denies headache(s) or weakness Allergic/Immunologic Allergic/Immunologic ED: Denies mouth swelling or urticaria EXAM Physical Exam Const Vital Signs: 10/03/21 17:06 Temperature 97.4 F L Temperature Source Oral Pulse Rate 74 Respiratory Rate 18 Blood Pressure 132/71 H Blood Pressure Mean 91 Pulse Ox 95 Oxygen Delivery Method Room Air Positive well nourished and well developed General Appearance ED: well developed HEENT Reports moist mucous membranes Extremity Extremity Narrative: There is tenderness, edema, and ecchymosis over the lateral aspect of the left ankle. There is also mild tenderness over the toes of the left foot. There is no obvious deformity noted. Range of motion was limited in all motions of the left ankle and foot secondary to pain. There is also tenderness over the right second, third, and fourth digits. There is no obvious deformity noted. Range of motion was limited in all motions of the right foot secondary to pain as well as her history of polio. Sensation was intact to light touch in all digits. Capillary refill was less than 2 seconds in all digits. Pedal pulses are equal bilaterally. Neuro oriented x3, CN's II-XII intact bilaterally, moves all extremities and no sensory deficits noted Sensorium / Orientation: alert Psych mental status grossly normal MDM MDM MDM Narrative Medical decision making narrative: X-rays of the left ankle were obtained. There are 3 views. On my interpretation, there is a nondisplaced fracture of the distal fibula. There is no dislocation. There is some mild soft tissue swelling. Radiologist also interpreted the x-rays and agrees. X-rays of the left foot were obtained. There are 3 views. On my interpretation, there is no acute fracture. There is no dislocation. There is no soft tissue swelling. Radiologist also interpreted the x-rays and agrees. X-rays of the right foot were obtained. There are 3 views. On my interpretation, there is no acute fracture. There is no dislocation. There is no soft tissue swelling. Radiologist also interpreted the x-rays and agrees. Patient was given a walking boot. Patient was instructed to ice and elevate the left foot. Patient was given a prescription for Antlers to take as needed for severe pain. Patient was instructed to follow-up with her primary care physician in 5 to 7 days. Patient was also given referral for podiatry. Patient and family understood and were agreeable with the plan. All questions were answered. Patient attempted ambulation with a walker. Patient was unable to get around. Patient states she does not feel safe going home. Case was discussed with the hospitalist. He will admit the patient for observation. Patient is agreeable going to an extended care facility for further rehab. Patient understands and is agreeable with plan. All questions were answered. Radiography Diagnostic Testing: Clinical Impression(s) from Imaging Studies Foot X-Ray 10/03/21 17:43 IMPRESSION: 1. Mild degenerative change particularly involving the interphalangeal joints of all digits. 2. No fractures or malalignment noted. Electronically Signed: Dayo Bunn MD at 18:16 EST Tel , Service support , Foot X-Ray 10/03/21 17:43 IMPRESSION: Mild degenerative change with joint space narrowing and subchondral sclerosis without evidence of fracture or destructive bony process. No malalignment. Electronically Signed: Dayo Bunn MD at 18:13 EST Tel , Service support , ADDENDUM: 10/03/21 1825 Ankle X-Ray 10/03/21 17:50 IMPRESSION: 1. Lateral soft tissue swelling, and oblique nondisplaced distal fibular fractures noted. Electronically Signed: Dayo Bunn MD at 18:15 EST Tel , Service support , Treatment and Re-Evaluation Vital Sign Attestation:: Vital signs were reviewed prior to admission. They are stable. Discharge Plan Dx/Rx/DC Orders Clinical Impression: Closed fracture of distal end of left fibula Disposition Disposition: Acute Care Hospital [facility] Discharge Date/Time: 10/03/21 20:38
--- NOTE | 2021-10-03 17:50 | RAD_ITS ---
INDICATION: Injury/Pain EXAMINATION/TECHNIQUE: X-RAY - LEFT XR Ankle Min 3 Views 3 VIEWS COMPARISON: None. FINDINGS: SOFT TISSUES: There is lateral soft tissue swelling, no soft tissue gas or radiopaque foreign body noted. No reactive bony changes noted. BONES/JOINTS: There is normal bony alignment with the exception of oblique fracture in the distal fibula noted only on lateral view. Remaining bony elements have normal appearance. RAD/Ankle min 3 Views IMPRESSION: 1. Lateral soft tissue swelling, and oblique nondisplaced distal fibular fractures noted. Electronically Signed: Dayo Bunn MD at 18:15 EST Tel , Service support ,
[2021-10-03] MEDS: Morphine 4 MG/ML Syringe IV (18:09)
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
[2021-10-03 20:02] VITALS: BP 130/70; PULSE 79; RESP 15; TEMP 36.7; O2SAT 95
--- NOTE | 2021-10-03 20:14 | PCM.HP.STD ---
HPI - General General Date of Admission: 10/03/21 HPI Narrative RICKEY TRUJILLO, is a 81 F with a significant history of COPD; right lower extremity poliomyelitis who presents to the emergency department with a fall. Reportedly patient went to pick her mail and she slipped and fall on the ice. She was in excruciating pain so she crawled into her house and called her . Afterwards patient felt excruciating pain in her bilateral legs and she fell 2 or 3 times when she stood on her feet. At the emergency department. Her right ankle showed a fracture. Right ankle was put in a surgical boot patient had excruciating pain so she could not ambulate at home. A decision was made to observe patient at the hospital. 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 Chronic diastolic (congestive) heart failure COPD (chronic obstructive pulmonary disease) Descending thoracic aortic aneurysm Diverticular disease Essential (primary) hypertension Foot drop, left foot History of anal cancer Lung nodule Obesity Vertigo Home Medications cholecalciferol (vitamin D3) 25 mcg (1,000 unit) tablet 3,000 unit PO DAILY tab 08/08/20 [History Last Taken Unknown] carvedilol 12.5 mg tablet 12.5 mg PO BID #180 tab 04/11/21 [Rx Last Taken Unknown] furosemide 40 mg tablet 40 mg PO DAILY #90 tab 04/11/21 [Rx Last Taken Unknown] potassium chloride 20 mEq tablet,extended release(part/cryst) 20 meq PO DAILY #90 tab 04/11/21 [Rx Last Taken Unknown] loperamide 2 mg capsule 2 mg PO Q6H PRN 09/27/21 [History Last Taken Unknown] Allergy/AdvReac Type Severity Reaction Status Date / Time oxycodone Allergy Mild headache Verified 10/03/21 17:09 aspirin AdvReac Nausea Verified 10/03/21 17:09 Family History Father Heart disease Sister Cancer Diabetes Brother Heart disease Mother Heart disease Sister Heart disease Sister Cancer breast Surgical History History of cholecystectomy History of right and left heart catheterization (02/24/13) S/P complete hysterectomy (~10/13/20) Social History Smoking Status: Former smoker how long ago did patient quit smokin years ago alcohol intake: never substance use type: does not use caffeine: Yes Type: coffee Number of servings: 2 what type of physical activity do you participate in: none seatbelt use: always do you feel safe at home: Yes additional social history: - Rosalio [place] Constitutional: Denies fever, chills, fatigue, anorexia and change in weight Eyes: Denies blurry vision, change in eye color, change in vision, discharge from eye(s), double vision, erythema, eye pain, loss of vision or other HEENT: Denies abnormal hearing, dysphagia, ear pain, epistaxis, headache(s), hearing loss, nasal congestion, nasal discharge, post nasal drip, sinus pressure, sore throat or other Cardiovascular: Denies chest pain or palpitations. Denies dyspnea on exertion, orthopnea and paroxysmal nocturnal dyspnea Respiratory/Chest: Denies cough, excessive phlegm production, shortness of breath with exertion and wheezing Gastrointestinal: Denies abdominal pain, coffee ground emesis, constipation, diarrhea, dyspepsia, hematemesis, hematochezia, loose stools, melena, nausea, vomiting or other Genitourinary: Denies burning urination, difficulty urinating, dysuria, hematuria, nocturia, urinary frequency, urinary hesitancy, urinary incontinence, urinary urgency or other Musculoskeletal: Pain in bilateral feet. Neurologic: Denies abnormal gait, abnormal speech, confusion, disequilibrium, dizziness, focal weakness, headache(s), numbness, paresthesias, seizure-like activity, seizures, syncope, tingling, tremor(s) or other Psychiatric: Denies anxiety, depression, homicidal ideation, suicidal ideation or other Endocrinology: Denies change in body appearance, cold intolerance, excessive sweating, heat intolerance, polydipsia, polyuria or other Hematologic/Lymphatic: Denies anemia, easy bleeding, easy bruising, lymphadenopathy or other Integumentary: Denies rashes Allergic/Immunologic: Denies rhinitis, hives, eczema, asthma or other Vital Signs Vital Signs Vital Signs: 10/03/21 17:06 10/03/21 20:02 Temperature 97.4 F L 98.1 F Temperature Source Oral Temporal Pulse Rate 74 79 Respiratory Rate 18 15 Blood Pressure 132/71 H 130/70 H Blood Pressure Mean 91 90 Pulse Ox 95 95 Oxygen Delivery Method Room Air Room Air Weight Weight: 85 kg Body Mass Index (BMI) 36.6 Physical Exam Narrative Physical exam: General: Well-nourished, well-developed. Head: Normocephalic, atraumatic, no tenderness Eyes: PERRLA, EOMI ENT, no trauma, moist mucous membranes, no rhinorrhea Neck: Nontender, full range of motion, no spinal tenderness, deformities, step-off CVS: Regular rate and rhythm. S1-S2 present. No murmur, gallop or rub. Respiratory : clear to auscultation bilaterally, chest wall nontender, no wheezing Abdomen: Soft, nontender, nondistended, normal bowel sounds, no masses : Deferred Back: Nontender, no CVA tenderness, no midline spinal tenderness, deformities, step-offs Extremities: Tender bilateral lower feet. Swelling of bilateral lower feet. Skin: Normal color, no trauma, abrasions Neuro: Alert, oriented, cranial nerves II through XII grossly intact. Psychiatry: Normal mood. Normal affect. Not depressed. Not anxious. Results Radiology Impression Foot X-Ray 10/03/21 17:43 IMPRESSION: 1. Mild degenerative change particularly involving the interphalangeal joints of all digits. 2. No fractures or malalignment noted. Electronically Signed: Dayo Bunn MD at 18:16 EST Tel , Service support , Foot X-Ray 10/03/21 17:43 IMPRESSION: Mild degenerative change with joint space narrowing and subchondral sclerosis without evidence of fracture or destructive bony process. No malalignment. Electronically Signed: Dayo Bunn MD at 18:13 EST Tel , Service support , ADDENDUM: 10/03/21 1825 Ankle X-Ray 10/03/21 17:50 IMPRESSION: 1. Lateral soft tissue swelling, and oblique nondisplaced distal fibular fractures noted. Electronically Signed: Dayo Bunn MD at 18:15 EST Tel , Service support , Assessment & Plan Assessment/Plan (1) Closed fracture of distal end of left fibula: PLAN: Closed fracture of distal end of left fibula/Fall/R foot pain Ankle x-ray independent reviewed showed lateral soft tissue swelling, and oblique nondisplaced distal fibular fractures. I agree with the latest interpretation. X-ray of right foot with no fractures or malalignment. Continue use of surgical boots given at the emergency department. Hydrocodone as needed. Bowel protocol and antiemetics ordered. Case management consult. Weightbearing as tolerates. Podiatry consult. PT and OT consult. Check vitamin D level. Hypertension Blood pressure is stable in regard to her age. Carvedilol and Lasix continued Trend blood pressure and adjust blood pressure medications. DVT prophylaxis: Subcutaneous Lovenox ordered. Charges/Coding Visit Charges OBSV E&M: 03454 Initial observation care L2
[2021-10-03 20:52] VITALS: BMI 33.8
--- NOTE | 2021-10-03 20:52 | PCS.PANDOC ---
PANDEMIC DOCUMENTATION INITIATED: Date: 10/03/2021 Time: 2049
[2021-10-03 21:08] VITALS: BP 143/77; PULSE 67; RESP 18; TEMP 36.7; O2SAT 94
[2021-10-03] MEDS: HYDROcodone Bitartrate/Apap 5/325 Tablet PO (21:19)
[2021-10-03] MEDS: Carvedilol 12.5 MG Tablet PO (21:19)
[2021-10-04 02:18] VITALS: BP 122/81; PULSE 69; RESP 18; TEMP 37.1; O2SAT 94
[2021-10-04 03:17] LABS: Absolute Lymphocyte Count 1.55 X10^3/uL (0.83-4.51); Absolute Neutrophil Count 5.7 X10^3/uL (2.0-7.7); Basophil# 0.03 X10^3/uL; Basophil% 0.4 % (0-1); Eosinophil# 0.07 X10^3/uL; Eosinophils% 0.8 % (0-5); Hematocrit 36.7 % (37-47); Hemoglobin 12.1 g/dL (12.0-15.0); Lymphocyte # 1.55 X10^3/ul (0.83-4.51); Lymphocyte % 18.8 % (19-41); Mean Corpuscular Volume 97.1 fL (81-99); Mean Platelet Vol. 8.6 fl (6.2-12.0); Monocyte# 0.82 X10^3/uL; NRBC Flagged by Analyzer 0 % (0-5); Neutrophil # 5.74 X10^3/uL (2.7-7.7); Neutrophil % 69.6 % (47-70); Platelet Count 233 K/mm3 (150-450); RBC Distribution Width CV 13.2 % (11.6-14.6); RBC Distribution Width SD 47.7 fl (35.1-43.9); Red Blood Count 3.78 M/mm3 (4.2-5.4); White Blood Count 8.2 K/mm3 (4.4-11.0)
[2021-10-04 03:41] LABS: Anion Gap 6 (5-15); BUN 27 mg/dL (7-18); BUN/Creat Ratio 22.9 RATIO (10-20); Calcium,Total 8.9 mg/dL (8.5-10.1); Chloride 107 mmol/L (98-107); Creatinine, Serum 1.18 mg/dL (0.55-1.02); EST Glomerular Filtration Rate 47 mL/min (>60); Est Glom Filt Rate - Afr Amer 57 mL/min (>60); Estimated Creatinine Clearance 27.77 ml/min; Glucose 99 mg/dL (74-106); Potassium 3.8 mmol/L (3.5-5.1); Sodium Level 143 mmol/L (136-145)
[2021-10-04] MEDS: HYDROcodone Bitartrate/Apap 5/325 Tablet PO ×3 (05:42→18:43)
[2021-10-04 05:45] VITALS: BP 118/71; PULSE 63; RESP 18; TEMP 36.9; O2SAT 94
[2021-10-04 07:35] VITALS: O2SAT 90
--- NOTE | 2021-10-04 07:38 | CON.PCM_ITS ---
Assessment & Plan Assessment/Plan (1) Closed fracture of distal end of left fibula: PLAN: Evaluation performed. Reviewed diagnostic data. Reviewed bilateral foot xrays, and left ankle xrays. Discussed with patient. Patient has a nondisplaced left lateral malleolus ankle fracture. We will treat this nonsurgically. No weightbearing left foot/ankle. Keep left foot elevated. Applied soft cast left foot/ankle - keep clean, dry and intact. Keep left foot/ankle protected in CAM Walker boot when out of bed and when in transit. Ok to remove CAM Walker boot when she is resting in bed with foot/ankle elevated. Right foot with contusion right forefoot and she relates site is feeling significantly better today. Patient may need to go to nursing facility to ensure she is able to remain nonweightbearing left foot/ankle while this heals. Podiatry will continue to follow. Thank you for consultation. (2) Contusion of right foot: (3) Pain in left ankle: HPI Consult Data Date of Consult: 10/04/21 HPI Narrative Reason for Consultation: Left fibula fracture HPI Narrative: RICKEY TRUJILLO, is a 81 F who presents due to a fall yesterday. She has a left distal fibular fracture, and also contusion right forefoot. She relates she is unable to ambulate on left foot/ankle, and the boot did not help. She relates right foot is feeling a lot better. She denies any other problems at this time. 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 Chronic diastolic (congestive) heart failure COPD (chronic obstructive pulmonary disease) Descending thoracic aortic aneurysm Diverticular disease Essential (primary) hypertension Foot drop, left foot History of anal cancer Lung nodule Obesity Vertigo Home Medications cholecalciferol (vitamin D3) 25 mcg (1,000 unit) tablet 3,000 unit PO DAILY tab 08/08/20 [History Last Taken Unknown] carvedilol 12.5 mg tablet 12.5 mg PO BID #180 tab 04/11/21 [Rx Last Taken Unknown] furosemide 40 mg tablet 40 mg PO DAILY #90 tab 04/11/21 [Rx Last Taken Unknown] potassium chloride 20 mEq tablet,extended release(part/cryst) 20 meq PO DAILY #90 tab 04/11/21 [Rx Last Taken Unknown] loperamide 2 mg capsule 2 mg PO Q6H PRN 09/27/21 [History Last Taken Unknown] Allergy/AdvReac Type Severity Reaction Status Date / Time oxycodone Allergy Mild headache Verified 10/03/21 17:09 aspirin AdvReac Nausea Verified 10/03/21 17:09 Family History Father Heart disease Sister Cancer Diabetes Brother Heart disease Mother Heart disease Sister Heart disease Sister Cancer breast Surgical History History of cholecystectomy History of right and left heart catheterization (02/24/13) S/P complete hysterectomy (~10/13/20) Social History Smoking Status: Former smoker how long ago did patient quit smokin years ago alcohol intake: never substance use type: does not use caffeine: Yes Type: coffee Number of servings: 2 what type of physical activity do you participate in: none seatbelt use: always do you feel safe at home: Yes additional social history: - Rosalio Physical Exam Const alert, oriented x3 and no apparent distress Extremity Extremity Narrative: Right foot- there is some localized ecchymosis to the dorsal forefoot with some mild tenderness to the central metatarsals. Left foot/ankle - there is some edema and ecchymosis localized to the ankle, there is pain to the lateral malleolus. There are no open lesions bilateral, muscle strength is intact to the foot and ankle to major muscle groups bilateral, there is no gross instability to the foot or ankle bilateral, no evidence of compartment syndrome and sensation is intact to light touch bilateral foot/ankle. Calf is soft and supple with no calf pain bilateral. CFT < 2 seconds to all toes and pedal pulses intact to the foot/ankle bilateral with no evidence of ischemia. Lab / Micro Data Result Diagrams: 10/04/21 03:04 10/04/21 03:04 Labs: Laboratory Results - last 24 hr 10/04/21 03:04: WBC 8.2, RBC 3.78 L, Hgb 12.1, Hct 36.7 L, MCV 97.1, MCH 32.0, MCHC 33.0, RDW Std Deviation 47.7 H, RDW Coeff of Harsh 13.2, Plt Count 233, MPV 8.6, Immature Gran % (Auto) 0.400, Neut % (Auto) 69.6, Lymph % (Auto) 18.8 L, Petroleum % (Auto) 10.0, Eos % (Auto) 0.8, Baso % (Auto) 0.4, Absolute Neuts (auto) 5.7, Absolute Lymphs (auto) 1.55, Nucleated RBC % 0 10/04/21 03:04: Sodium 143, Potassium 3.8, Chloride 107, Carbon Dioxide 30.0, Anion Gap 6, BUN 27 H, Creatinine 1.18 H, Estim Creat Clear Calc 27.77, Est GFR (MDRD) Af Amer 57 L, Est GFR (MDRD) Non-Af 47 L, BUN/Creatinine Ratio 22.9 H, Glucose 99, Calcium 8.9 Radiology Impression Foot X-Ray 10/03/21 17:43 IMPRESSION: 1. Mild degenerative change particularly involving the interphalangeal joints of all digits. 2. No fractures or malalignment noted. Electronically Signed: Dayo Bunn MD at 18:16 EST Tel , Service support , Foot X-Ray 10/03/21 17:43 IMPRESSION: Mild degenerative change with joint space narrowing and subchondral sclerosis without evidence of fracture or destructive bony process. No malalignment. Electronically Signed: Dayo Bunn MD at 18:13 EST Tel , Service support , ADDENDUM: 10/03/21 1825 Ankle X-Ray 10/03/21 17:50 IMPRESSION: 1. Lateral soft tissue swelling, and oblique nondisplaced distal fibular fractures noted. Electronically Signed: Dayo Bunn MD at 18:15 EST Tel , Service support ,
[2021-10-04 08:00] VITALS: BP 128/66; PULSE 121; RESP 18; TEMP 36.4; O2SAT 95
[2021-10-04 09:30] LABS: Vitamin D,25 Hydroxy 47.8 ng/mL
[2021-10-04] MEDS: Carvedilol 12.5 MG Tablet PO ×2 (09:41→20:34)
[2021-10-04] MEDS: Potassium Chloride Oral Tablet 20 MEQ PO (09:42)
[2021-10-04] MEDS: Furosemide 40 MG Tablet PO (09:42)
[2021-10-04] MEDS: Cholecalciferol (VIT D3) 25 MCG TABLET (1,000 UNITS) 75 MCG PO (09:42)
[2021-10-04] MEDS: Enoxaparin 30 MG/0.3 ML Syringe SC (09:47)
--- NOTE | 2021-10-04 13:36 | PN.HOSP_ITS ---
Subjective Subjective Follow-up on acute ankle fracture/fall: Patient was seen and examined, sitting up. She denied any new complaints. Her pain is fairly controlled. Objective Data Objective Data Vital Signs: Vital Signs Temp Pulse Resp BP Pulse Ox 97.6 F L 121 H 18 128/66 H 95 10/04/21 08:00 10/04/21 08:00 10/04/21 08:00 10/04/21 08:00 10/04/21 08:00 Oxygen Delivery Method Room Air Weight: 78.6 kg Body Mass Index (BMI) 33.8 Intake & Output: Intake and Output for Last 24 Hours 10/02/21 10/03/21 10/04/21 23:59 23:59 23:59 Intake Total 300 / 300 Output Total 200 / 200 Balance 100 / 100 Lab / Micro Data Result Diagrams: 10/04/21 03:04 10/04/21 03:04 Labs: Laboratory Results - last 24 hr 10/04/21 03:04: WBC 8.2, RBC 3.78 L, Hgb 12.1, Hct 36.7 L, MCV 97.1, MCH 32.0, MCHC 33.0, RDW Std Deviation 47.7 H, RDW Coeff of Harsh 13.2, Plt Count 233, MPV 8.6, Immature Gran % (Auto) 0.400, Neut % (Auto) 69.6, Lymph % (Auto) 18.8 L, [place] % (Auto) 10.0, Eos % (Auto) 0.8, Baso % (Auto) 0.4, Absolute Neuts (auto) 5.7, Absolute Lymphs (auto) 1.55, Nucleated RBC % 0 10/04/21 03:04: Sodium 143, Potassium 3.8, Chloride 107, Carbon Dioxide 30.0, Anion Gap 6, BUN 27 H, Creatinine 1.18 H, Estim Creat Clear Calc 27.77, Est GFR (MDRD) Af Amer 57 L, Est GFR (MDRD) Non-Af 47 L, BUN/Creatinine Ratio 22.9 H, Glucose 99, Calcium 8.9 10/04/21 03:04: Vitamin D 25-Hydroxy 47.8 Radiography Diagnostic Testing: Radiology Impression Foot X-Ray 10/03/21 17:43 IMPRESSION: 1. Mild degenerative change particularly involving the interphalangeal joints of all digits. 2. No fractures or malalignment noted. Electronically Signed: Dayo Bunn MD at 18:16 EST Tel , Service support , Foot X-Ray 10/03/21 17:43 IMPRESSION: Mild degenerative change with joint space narrowing and subchondral sclerosis without evidence of fracture or destructive bony process. No malalignment. Electronically Signed: Dayo Bunn MD at 18:13 EST Tel , Service support , ADDENDUM: 10/03/21 1825 Ankle X-Ray 10/03/21 17:50 IMPRESSION: 1. Lateral soft tissue swelling, and oblique nondisplaced distal fibular fractures noted. Electronically Signed: Dayo Bunn MD at 18:15 EST Tel , Service support , Physical Exam Narrative Physical exam: General: Alert, Oriented x3, Cooperative, No apparent distress, Well developed, on 2 L of oxygen HEENT: Atraumatic Oral: Moist Mucosa Neck: Supple Lungs: Diminished to auscultation Cardiovascular: HS I+II, regular, no murmurs Abdomen: Bowel Sounds Present, Soft, Non Tender Extremities: Right leg in a soft cast Assessment & Plan Assessment/Plan (1) Closed fracture of distal end of left fibula: QUALIFIERS: Encounter type: initial encounter Fracture morphology: unspecified fracture morphology Qualified Code(s): S82.832A - Other fracture of upper and lower end of left fibula, initial encounter for closed fracture PLAN: 1. Acute closed oblique nondisplaced distal fibula fracture, traumatic, status post fall Podiatry consulted, patient in a soft cast Vitamin D level unremarkable PT and OT consulted Discharge planning discussed with community mental health social worker 2. Acute kidney injury, prerenal secondary to dehydration Admit creatinine of 1.18, baseline creatinine of less than 1 Repeat blood work in a.m. 3. Hypertension, controlled, on continue with home regimen 4. DVT prophylaxis- Lovenox Sc Charges/Coding Visit Charges Inpatient E&M: 59435 Subs Hosp L2
[2021-10-04] MEDS: 0.9% Normal Saline 1,000 ML 100 ML IV ×2 (14:22→20:38)
--- NOTE | 2021-10-04 14:39 | CASEMGMT ---
Social Work ADELINA spoke with Paula in TCU. TCU does not have a bed available. Inpatient Rehab does have a bed available. ADELINA spoke with PT/OT and they do feel pt would be appropriate for Inpatient Rehab. ADELINA met with pt to discuss discharge plan. Pt states that she plans to go to her son's home and he works from home and does not need to go to [facility]. With pt permission, phone call placed to pt son Eze to discuss discharge plan. Eze states current plan is for pt to return to his home. SW explained therapist and physicians concerns with pt return home due to limited functional ability. ADELINA updated Eze that [facility] can accept pt for short term therapy prior to return home and explained visiting hours. Eze spoke with pt regarding options and called ADELINA back. Eze states that pt is agreeable to go to [facility] at discharge. ADELINA met with pt again and discussed discharge again. Pt now agreeable to go to [facility] upon d/c. Physician notified and states pt will likely be medically ready for discharge tomorrow. Pt, son and [facility] updated. Plan: Inpatient Rehab unit, when medically ready Akhil REY
[2021-10-04 14:42] VITALS: BP 112/58; PULSE 64; RESP 18; TEMP 37.2; O2SAT 92
--- NOTE | 2021-10-04 15:02 | CHAPLAIN ---
Type of Pastoral Visit _x__ Initial Visit ___ Follow-up Visit ___ On-call Visit ___ General Patient Visit ___ Spiritual Assessment ___ Family Conference ___ Bereavement ___ Rapid Response ___ Code Blue ___ Other (describe below) Pastoral Care Referral From _x__ Patient ___ Family ___ Nurse ___ Physician ___ Safety Representative ___ Cloth Worker ___ Other (describe below) Sacrament/Intervention _x__ Active listening ___ Anointing ___ Yazidism ___ Bereavement ___ Communion ___ Annmarie exploration ___ _x__ Life review _x__ Prayer ___ Reconciliation ___ Sacrament of Sick ___ Supportive presence ___ Wedding ___ Other (describe below) Pastoral Comments
--- NOTE | 2021-10-04 16:15 | CASEMGMT ---
RN EARL NOTE: Intro role of CM to patient and HADDAD form explained re: Observation status for treatment of oblique nondisplaced distal fibular fracture. Explained hospitalization will be paid per her insurance policy for Outpatient billing and condition will continue to be evaluated for Inpt necessity. Also let pt know that [facility] sends paper in the billing packet with their phone number if questions arise. Discussed Pharmacy section of HADDAD form and self administered medication guideline. Pt verbalizes understanding and does not have further questions. Form signed, copy made and placed in chart, and original given to pt. Christa CANTU RN CM
[2021-10-04 20:30] VITALS: BP 128/65; PULSE 61; RESP 18; TEMP 36.8; O2SAT 95
[2021-10-05] MEDS: HYDROcodone Bitartrate/Apap 5/325 Tablet PO ×2 (00:54→06:29)
[2021-10-05 02:00] VITALS: BP 121/64; PULSE 68; RESP 18; TEMP 36.8; O2SAT 94
[2021-10-05 04:24] LABS: Absolute Lymphocyte Count 1.37 X10^3/uL (0.83-4.51); Absolute Neutrophil Count 4.7 X10^3/uL (2.0-7.7); Basophil# 0.03 X10^3/uL; Basophil% 0.4 % (0-1); Eosinophil# 0.14 X10^3/uL; Hematocrit 35.4 % (37-47); Hemoglobin 11.3 g/dL (12.0-15.0); Lymphocyte # 1.37 X10^3/ul (0.83-4.51); Lymphocyte % 19.9 % (19-41); Mean Corp Hgb Conc 31.9 g/dL (32-36); Mean Corpuscular Hgb 31.6 pg (27.0-32.0); Mean Corpuscular Volume 98.9 fL (81-99); Mean Platelet Vol. 8.6 fl (6.2-12.0); Monocyte# 0.59 X10^3/uL; Monocyte% 8.6 % (0-10); NRBC Flagged by Analyzer 0 % (0-5); Neutrophil # 4.73 X10^3/uL (2.7-7.7); Neutrophil % 68.8 % (47-70); Platelet Count 210 K/mm3 (150-450); RBC Distribution Width CV 13.4 % (11.6-14.6); RBC Distribution Width SD 48.2 fl (35.1-43.9); Red Blood Count 3.58 M/mm3 (4.2-5.4); White Blood Count 6.9 K/mm3 (4.4-11.0)
[2021-10-05 04:50] LABS: ALB/GLOB Ratio 0.9 RATIO (0.9-2.4); AST(SGOT) 17 U/L (15-37); Alanine Aminotransfer ALT/SGPT 22 U/L (13-56); Alkaline Phosphatase 73 U/L (45-117); Anion Gap 5 (5-15); BUN 24 mg/dL (7-18); BUN/Creat Ratio 26.7 RATIO (10-20); Calcium,Total 7.9 mg/dL (8.5-10.1); Chloride 109 mmol/L (98-107); EST Glomerular Filtration Rate 64 mL/min (>60); Est Glom Filt Rate - Afr Amer 78 mL/min (>60); Estimated Creatinine Clearance 36.41 ml/min; Globulin 3.3 g/dL (2.2-4.2); Glucose 112 mg/dL (74-106); Potassium 3.6 mmol/L (3.5-5.1); Protein, Total 6.3 g/dL (6.4-8.2); Sodium Level 140 mmol/L (136-145)
[2021-10-05] MEDS: 0.9% Normal Saline 1,000 ML 100 ML IV (06:29)
[2021-10-05 08:00] VITALS: BP 146/68; PULSE 73; RESP 18; TEMP 36.7; O2SAT 92
[2021-10-05] MEDS: Enoxaparin 30 MG/0.3 ML Syringe SC (09:00)
[2021-10-05] MEDS: Cholecalciferol (VIT D3) 25 MCG TABLET (1,000 UNITS) 75 MCG PO (09:01)
[2021-10-05] MEDS: Furosemide 40 MG Tablet PO (09:01)
[2021-10-05] MEDS: Carvedilol 12.5 MG Tablet PO (09:01)
[2021-10-05] MEDS: Potassium Chloride Oral Tablet 20 MEQ PO (09:01)
--- NOTE | 2021-10-05 10:00 | PCM.DC ---
Discharge Instructions Diet Discharge Diet: Low fat / Low cholesterol and 2000 mg Sodium Diet Activity Discharge Activity: - Additional Activity Instructions:: No weightbearing left foot/ankle. Keep left foot elevated. Applied soft cast left foot/ankle - keep clean, dry and intact. Keep left foot/ankle protected in CAM Walker boot when out of bed and when in transit. Ok to remove CAM Walker boot when she is resting in bed with foot/ankle elevated. Follow Up Care Test Results: Test results from this visit will be discussed in further detail at your follow-up appointment, if applicable. Discharge Plan Admission Admit Date/Time: 10/03/21 19:51 Primary Reason for Your Visit: Acute left fibula fracture Attending Provider: Yvonne Youngblood Primary Care Provider: Antoine Brown Consulting Providers: Bobby Herrera Instructions Patient Instructions: ED Ankle Fracture, Distal Fibula Discharge Orders/Prescriptions Prescriptions: New acetaminophen [Tylenol] 325 mg Tablet 650 mg PO Q6H PRN PRN (Reason: Pain Score 1-10/Temp > 100.7 F) Qty: 0 RF: 0 hydrocodone-acetaminophen 5-325 mg Tablet 1 tab PO Q6H PRN PRN (Reason: Pain Score 6-10) Qty: 0 RF: 0 Continued furosemide 40 mg tablet 40 mg PO DAILY Qty: 90 RF: 3 potassium chloride 20 mEq tablet,ER particles/crystals 20 meq PO DAILY Qty: 90 RF: 3 carvedilol 12.5 mg tablet 12.5 mg PO BID Qty: 180 RF: 3 loperamide [Imodium A-D] 2 mg capsule 2 mg PO Q6H PRN (Reason: Diarrhea) RF: 0 cholecalciferol (vitamin D3) 25 mcg (1,000 unit) tablet 3,000 unit PO DAILY RF: 0 Referrals / Follow Up: Bobby Herrera DPM [STAFF PHYSICIAN] - 3-5 Days Antoine Brown MD [Primary Care Provider] - 1-2 Weeks Disposition Disposition (needs filled in before D/C Order can be placed): Inpatient Rehab Unit/Facility
--- NOTE | 2021-10-05 10:05 | PCM.DC.SUM ---
Providers Date of Admission: 10/03/21 Date of Discharge: 10/05/21 Primary Care Physician: Dr. Antoine Brown MD Consultations 10/03/21 21:09 Consult: Podiatry Routine Consulting Provider: Bobby Herrera Reason for Consult: Oblique nondisplaced distal fibula fracture of left foot EMERGENT Consult: No MD Notified: Yes Date Notified: 10/04/21 Time Notified: 06:26 Method of Notification: Text Reason For Visit: OBLIQUE NONDISPLACED DISTAL FIBULAR FRACTURE Diagnosis Discharge Diagnosis (1) Closed fracture of distal end of left fibula: Status: Acute Code(s): S82.832A - Other fracture of upper and lower end of left fibula, initial encounter for closed fracture Qualifiers: Encounter type: initial encounter Fracture morphology: unspecified fracture morphology Qualified Code(s): S82.832A - Other fracture of upper and lower end of left fibula, initial encounter for closed fracture (2) SHIRA (acute kidney injury): Status: Resolved Code(s): N17.9 - Acute kidney failure, unspecified Medications at Discharge Home Medications cholecalciferol (vitamin D3) 25 mcg (1,000 unit) tablet 3,000 unit PO DAILY tab 08/08/20 loperamide 2 mg capsule 2 mg PO Q6H PRN 09/27/21 acetaminophen [Tylenol] 650 mg PO Q6H PRN PRN #0 tab 10/05/21 carvedilol 12.5 mg PO BID 10/05/21 furosemide 40 mg PO DAILY 10/05/21 hydrocodone-acetaminophen 1 tab PO Q6H PRN PRN #0 tab 10/05/21 potassium chloride 20 meq PO DAILY 10/05/21 Hospital Course Operations None Procedures None Summary of Care Provided Minutes Spent on Discharge: 35 Hospital Course: 81-year-old with multiple comorbidities including history of right lower extremity poliomyelitis, who presented after a fall. Patient had gone to sisal picker a meal from the front of the house and fell. She could not stand up on her feet. She was in excruciating pain. She crawled into the house and called her . Work-up in the ED was significant for acute oblique fracture of the distal fibula, nondisplaced. Podiatry was consulted, recommended soft cast and nonweightbearing. Patient was admitted to the [facility] floor for pain control. She had evidence of acute kidney injury that improved with IV hydration. Patient was seen by PT and OT and skilled for discharge to acute rehab. On the day of discharge, patient was seen and examined. Denies any new complaints. Her pain was fairly controlled. Physical Exam Narrative Physical exam: General: Alert, Oriented x3, Cooperative, No apparent distress, Well developed, on 2 L of oxygen HEENT: Atraumatic Oral: Moist Mucosa Neck: Supple Lungs: Diminished to auscultation Cardiovascular: HS I+II, regular, no murmurs Abdomen: Bowel Sounds Present, Soft, Non Tender Extremities: Right leg in a soft cast Weight / BMI Weight Weight: 78.6 kg Body Mass Index (BMI) 33.8 ABG / Lab / Microbiology Data Result Diagrams: 10/05/21 03:46 10/05/21 03:46 Laboratory: Laboratory Results - last 24 hr 10/05/21 03:46: WBC 6.9, RBC 3.58 L, Hgb 11.3 L, Hct 35.4 L, MCV 98.9, MCH 31.6, MCHC 31.9 L, RDW Std Deviation 48.2 H, RDW Coeff of Harsh 13.4, Plt Count 210, MPV 8.6, Immature Gran % (Auto) 0.300, Neut % (Auto) 68.8, Lymph % (Auto) 19.9, [place] % (Auto) 8.6, Eos % (Auto) 2.0, Baso % (Auto) 0.4, Absolute Neuts (auto) 4.7, Absolute Lymphs (auto) 1.37, Nucleated RBC % 0 10/05/21 03:46: Sodium 140, Potassium 3.6, Chloride 109 H, Carbon Dioxide 26.0, Anion Gap 5, BUN 24 H, Creatinine 0.90, Estim Creat Clear Calc 36.41, Est GFR (MDRD) Af Amer 78, Est GFR (MDRD) Non-Af 64, BUN/Creatinine Ratio 26.7 H, Glucose 112 H, Calcium 7.9 L, Total Bilirubin 0.50, AST 17, ALT 22, Alkaline Phosphatase 73, Total Protein 6.3 L, Albumin 3.0 L, Globulin 3.3, Albumin/Globulin Ratio 0.9 D/C Instructions Discharge Diet: Low fat / Low cholesterol and 2000 mg Sodium Diet Additional Activity Instructions: No weightbearing left foot/ankle. Keep left foot elevated. Applied soft cast left foot/ankle - keep clean, dry and intact. Keep left foot/ankle protected in CAM Walker boot when out of bed and when in transit. Ok to remove CAM Walker boot when she is resting in bed with foot/ankle elevated. Meaningful Use Info Meaningful Use Diagnoses (Choose all that apply): None applicable Discharge Plan Admission Admit Date/Time: 10/03/21 19:51 Primary Reason for Your Visit: Acute left fibula fracture Attending Provider: Yvonne Youngblood Primary Care Provider: Antoine Brown Consulting Providers: Bobby Herrera Instructions Patient Instructions: ED Ankle Fracture, Distal Fibula Discharge Orders/Prescriptions Prescriptions: New acetaminophen [Tylenol] 325 mg Tablet 650 mg PO Q6H PRN PRN (Reason: Pain Score 1-10/Temp > 100.7 F) Qty: 0 RF: 0 hydrocodone-acetaminophen 5-325 mg Tablet 1 tab PO Q6H PRN PRN (Reason: Pain Score 6-10) Qty: 0 RF: 0 Continued loperamide [Imodium A-D] 2 mg capsule 2 mg PO Q6H PRN (Reason: Diarrhea) RF: 0 cholecalciferol (vitamin D3) 25 mcg (1,000 unit) tablet 3,000 unit PO DAILY RF: 0 No Action furosemide 40 mg tablet 40 mg PO DAILY RF: 0 carvedilol 12.5 mg tablet 12.5 mg PO BID RF: 0 potassium chloride 20 mEq tablet,ER particles/crystals 20 meq PO DAILY RF: 0 Referrals / Follow Up: Bobby Herrera DPM [STAFF PHYSICIAN] - 3-5 Days Antoine Brown MD [Primary Care Provider] - 1-2 Weeks Disposition Disposition (needs filled in before D/C Order can be placed): Inpatient Rehab Unit/Facility Charges/Coding Visit Charges Inpatient E&M: 79492 Disch Hosp
--- NOTE | 2021-10-05 10:29 | CASEMGMT ---
Social Work Per physician, pt is ready for discharge today. VM left with Paula in [facility] and notified of d/c today. Nursing updated and will coordinate d/c with [facility]. Pt notified and agreeable. Plan: Inpatient Rehab unit today [place]
--- NOTE | 2021-10-05 10:56 | NURSING ---
Called report to Rehab
== END 2021-10-05 11:15 ==
LOC: ED 19:55 → MS2 20:18
PROVIDERS: Admitting Provider Hospitalist; Emergency Provider Emergency Medicine; PCP Family Medicine; Visit Provider Internal Medicine
DX: S82.435A Nondisplaced oblique fracture of shaft of left fibula, initial encounter for closed fracture (principal); N17.9 Acute kidney failure, unspecified; J44.9 Chronic obstructive pulmonary disease, unspecified; I11.0 Hypertensive heart disease with heart failure; I50.32 Chronic diastolic (congestive) heart failure; E66.9 Obesity, unspecified; M21.372 Foot drop, left foot; Z68.33 Body mass index [BMI] 33.0-33.9, adult; Z86.12 Personal history of poliomyelitis; Z87.891 Personal history of nicotine dependence; W00.0XXA Fall on same level due to ice and snow, initial encounter; Y93.89 Activity, other specified; Y92.9 Unspecified place or not applicable; Z79.899 Other long term (current) drug therapy; S90.31XA Contusion of right foot, initial encounter
CPT/HCPCS: 99285; 36415; 73610; 73630; 80048; 80053; 82306; 85025; 97110; 97162; 97167; 97530; 97535; J7030; A4216

== ENCOUNTER 2021-10-05 11:37 | Inpatient (IN) | payer MEDICARE, OTHER, SELFPAY ==
[2021-10-05 11:42] VITALS: BP 131/51; PULSE 58; RESP 18; TEMP 36.6; O2SAT 93; BMI 34.0
--- NOTE | 2021-10-05 14:07 | PCM.HP.STD ---
HPI - General General Date of Admission: 10/05/21 HPI Narrative RICKEY TRUJILLO, is a 81 YO F with the PMH listed below who presented to the ED at [facility] on 10/03/21 c/o excruciating pain in her lungs. She had fallen on the ice going out to get her mail and crawled back to the house. She fell an additional 2-3 times when trying to bear weight. XRAYS of the feet showed a non-displaced oblique fracture of the L distal fibula. The R foot had no fractures. A surgical boot was placed on the L leg and she was admitted to the hospital for observation and pain control. She was seen in consult by Dr. Herrera who has elected to treat the fracture non-surgically. He applied a soft cast and recommended a Cam walker boot be applied any time she is out of bed. She is to remain non-weight bearing on the LLE. She was seen by PT and evaluated. She lives in a private 1 story home with a ramp to get into the house. She was very independent prior to the fracture. PT recommended acute inpatient rehab and she was admitted to the rehab unit at [facility] on 10/05/21 for 3 hours of therapy daily so that she can be mobile and perform some of her ADL while maintaining her NWB status safely after discharge. Currently she requires max assist of 2 to stand and pivot and full assistance to get to the edge of the bed. Significant lab at admission to the hospital includes and elevated creatinine at 1.18 (baseline for the past year has ranged from 0.76-0.87). With hydration the creatinine came down to 0.9. Vitamin D level is normal. Calcium is low normal. She has had 3 BMD tests in the past when living in but, has not had 1 in many years now. COUNT INCLUDES THE [facility] Medical History (Updated 10/05/21 @ 16:[address] 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 Chronic diastolic (congestive) heart failure COPD (chronic obstructive pulmonary disease) Descending thoracic aortic aneurysm Diverticular disease Essential (primary) hypertension Foot drop, left foot History of anal cancer Lung nodule Obesity Vertigo Home Medications cholecalciferol (vitamin D3) 25 mcg (1,000 unit) tablet 3,000 unit PO DAILY tab 08/08/20 [History Last Taken Unknown] loperamide 2 mg capsule 2 mg PO Q6H PRN 09/27/21 [History Last Taken Unknown] acetaminophen [Tylenol] 650 mg PO Q6H PRN PRN #0 tab 10/05/21 [Rx Last Taken Unknown] carvedilol 12.5 mg PO BID 10/05/21 [History Last Taken Unknown] furosemide 40 mg PO DAILY 10/05/21 [History Last Taken Unknown] hydrocodone-acetaminophen 1 tab PO Q6H PRN PRN #0 tab 10/05/21 [Rx Last Taken Unknown] potassium chloride 20 meq PO DAILY 10/05/21 [History Last Taken Unknown] Allergy/AdvReac Type Severity Reaction Status Date / Time oxycodone Allergy Mild headache Verified 10/03/21 17:09 aspirin AdvReac Nausea Verified 10/03/21 17:09 Family History Father Heart disease Sister Cancer Diabetes Brother Heart disease Mother Heart disease Sister Heart disease Sister Cancer breast Surgical History History of cholecystectomy History of right and left heart catheterization (02/24/13) S/P complete hysterectomy (~10/13/20) Social History (Updated 10/05/21 @ 16:[address] Kiersten Purdy DO) adopted: No household members: significant other housing: house number of children: 3 Smoking Status: Former smoker how long ago did patient quit smokin alcohol intake: never substance use type: does not use caffeine: Yes Type: coffee Number of servings: 2 what type of physical activity do you participate in: none seatbelt use: always do you feel safe at home: Yes additional social history: - Rosalio UPTON Constitutional Constitutional: Reports frequent falls; Denies anorexia, change in weight, chills, fatigue, fever(s), headache(s), night sweats or weakness Eyes Eyes: Denies blurry vision, change in vision, eye pain or loss of vision ENT HEENT: Denies abnormal hearing, dysphagia, headache(s), hearing loss, nasal congestion or sore throat Cardiovascular Cardiovascular: Reports dyspnea on exertion, edema, orthopnea and palpitations; Denies chest pain, lightheadedness, paroxysmal nocturnal dyspnea or syncope Respiratory/Chest Respiratory/Chest: Reports dyspnea on exertion, shortness of breath with exertion and wheezing; Denies cough, dyspnea or shortness of breath at rest Gastrointestinal Gastrointestinal: Reports abdominal pain, diarrhea, hematochezia and other Details: When she is in a hurry or anxious she has more frequent loose BM's. She also states she has had more BM's since she had her GB out. Had 51 radiation treatments total for anal CA. ; Denies constipation, dyspepsia, hematemesis, nausea or vomiting Genitourinary Genitourinary: Reports urinary incontinence and other Details: urge incontinence at times ; Denies dysuria, hematuria, nocturia, urinary frequency, urinary hesitancy or urinary urgency Musculoskeletal Musculoskeletal: Denies back pain, joint pain, joint swelling or neck pain Integumentary Integumentary: Reports dry skin; Denies alopecia, hirsutism or jaundice Neurologic Neurologic: Reports other Details: she has foot drop on the R from remote polio. AFO made her back hurt so she does not wear one and she has had frequent falls ; Denies confusion, disequilibrium, dizziness, focal weakness, headache(s), paresthesias, seizures or tremor(s) Psychiatric Psychiatric: Denies anxiety, depression, homicidal ideation or suicidal ideation Endocrine Endocrinology: Denies change in body appearance, polydipsia or polyuria Hematologic/Lymphatic Hematologic/Lymphatic: Reports easy bruising; Denies easy bleeding or lymphadenopathy Allergic/Immunologic Allergic/Immunologic: Denies rhinitis, eczemia or asthma Vital Signs Vital Signs Vital Signs: 10/05/21 11:42 Temperature 97.9 F Temperature Source Oral Pulse Rate 58 L Respiratory Rate 18 Blood Pressure 131/51 H Blood Pressure Mean 77 Blood Pressure Source Monitor Blood Pressure Position Semi-Fowlers Blood Pressure Location Right Arm Pulse Ox 93 Oxygen Delivery Method Room Air Weight Weight: 174 lb Body Mass Index (BMI) 34.0 Physical Exam Const alert, oriented x3, no apparent distress, healthy appearing and well nourished Constitutional Narrative: Happy with her pain control on the [place] General Appearance: cooperative, well kempt and well developed HEENT normocephalic and hearing grossly normal bilaterally HEENT Narrative: dry MM Eyes PERRL, EOMs intact bilaterally, conjunctivae normal and no scleral icterus Neck full ROM, supple, No nodes and no carotid bruits General: trachea midline Resp normal respiratory effort and No no use of accessory muscles Resp Narrative: very diminished but CTA. Effort and Inspection: able to speak in complete sentences and symmetric chest movement Cardio regular rate, regular rhythm, S1 normal heart sound, S2 normal heart sound and no murmurs Cardio Narrative: Heart sounds are somewhat distant GI normal to inspection, nondistended, normoactive bowel sounds and soft to palpation GI Narrative: pain with palpation but no guarding.......she tells me that her abd is always painful. Sometimes she is gassy. Extremity no calf tenderness Extremity Narrative: R foot drop and some deformity Skin no rashes or lesions noted and no wounds Neuro oriented x3, CN's II-XII intact bilaterally and moves all extremities Neuro Narrative: R foot drop Psych mental status grossly normal, thought process normal, cooperative and affect normal Assessment & Plan Assessment/Plan (1) Obesity: (2) Pain in left ankle: (3) Contusion of right foot: (4) Closed fracture of distal end of left fibula: QUALIFIERS: Encounter type: initial encounter Fracture morphology: unspecified fracture morphology Qualified Code(s): S82.832A - Other fracture of upper and lower end of left fibula, initial encounter for closed fracture (5) Anal squamous cell carcinoma: (6) Essential (primary) hypertension: (7) Chronic diastolic (congestive) heart failure: (8) Descending thoracic aortic aneurysm: (9) Lung nodule: (10) Physical debility: PLAN: PLAN PT for gait stability OT for ADL's Analgesics as needed Bowel protocol Fall precautions Assess for Anxiety/Depression GI prophylaxis not necessary at this time.....she has no nausea or epigastric pain DVT prophylaxis with Enoxaparin Follow up with Dr. Brown and Dr. Herrera following DC from Rehab All labs from her hospital stay were personally reviewed. Recommend a DEXA post DC if she has not had one in the past 2 years. Unit Exclusion This patient is an acute care inpatient being housed in the excluded unit because of capacity issues related to the disaster or emergency.: Yes Charges/Coding Visit Charges Inpatient E&M: 89603 Init Hosp L2
--- NOTE | 2021-10-05 14:43 | REHABEVAL_ITS ---
Admission Information Primary Diagnosis:: Debility due to fracture of the Left lateral malleolus sustained in a fall. She is NWB on the left leg. Status Changes from Prescreening?: No changes Identified Actual Problem List:: Falls, Pain, ALteration in Cmfrt, Alteration in Sleep, Mobility Impaired, Self Care Deficit, Fluid Change-Dehydration and Alteration- Leisure Activ. Potential Problem List:: DVT, Bleeding, Infection, UTI, Aspiration, Falls, Skin Integrity and Depression Risk of Complications DVT: LMWH and VICENTE Hose Bleeding: Monitor Lab Values, Nursing to Teach Precautions for anti-coagulation therapy., Wound, if applicable, to be assessed every shift. and Stroke patients assessed for lethargy or change in status. Infection: Clinical Staff to Monitor for S/S of infection: and S/S of infection include fever, redness, warmth, etc. Urinary Tract Infection: Monitor for frequency, burning, discomfort, or incontinence. and Nursing will obtain urine sample for urinalysis and C&S when ordered. Aspiration: Clinical staff will monitor for coughing, drooling, congestion., Speech will evaluate swallowing and dsyphasia. and Nursing will monitor patient swallowing during meals. Falls: Patient will be evaluated for Fall Precautions and Patient will be placed on Fall Precautions as indicated per protocol. Skin Breakdown: Nursing will assess skin daily using assessment tool. and Nursing will place on Skin Breakdown Precautions as indicated. Pain: Clinical staff will assess patient's pain level per protocol., Medications will be given, if needed, and the pain level reassessed. and Other methods: Massage, distraction, decrease stimulus, etc. used PRN. Plan of Care Patient requires physician specializing in physical medicine and rehab oversight to provide close medical supervision of rehab issues including: Pain Management, Sleep Problems, Bowel and Bladder, Medical and co-morbidity Management, DVT prophylaxis, Rehabilitation Leadership and Coordination of treatment team Patient needs Physical Therapy: For a minimum of 1 hour and At least 5 out of 7 days Patient needs Physical Therapy to improve:: Mobility, Strengthening, Transfers, Stretching, ROM, Endurance, Stairs, Gait and Balance Patient needs Occupational Therapy: For a minimum of 1 hour and At least 5 out of 7 days Patient needs Occupational Therapy to improve ADL's incl.: Eating, Grooming, Bathing, Dressing, Toileting, Toilet transfers, Community Reintegration, Higher functioning activities, Household tasks, Adaptive Equipment, Splinting and Other activities as determined Patient requires 24/7 Rehabilitation Nursing for: Pain Issues, Identifying and preventing risk factors, Monitoring and reporting current medical conditions, Assisting with ambulation, transfer, and all ADL's, Teaching patients about disease process and medications, Family teaching, Providing safe environment, Bowel and Bladder Issues, Skin integrity and Medication Management Patient needs Independent Living Advisor/ Case Management for: Discharge Planning, Arranging Home Equipment or Services and Family Interventions Patient needs Dietary and Nutrition Services for: Adequate Nutrition, Nutritional Supplements and Nutritional Education Goals Patient will remain: free from falls and or injury at time of discharge. Patient will perform bed mobility at: MOD I level of assist. Patient will complete transfers from bed to chair at: - (SBA or minimal assist) Patient will ambulate: - (She will hop on the R foot 5' with WW and min assist to allow her to maneuver in a small space) Patient will propel wheelchair: - (165 feet on various surfaces) Patient will complete upper body dressing at: MOD I level of assist. Patient will complete lower body dressing at: MOD I level of assist. Patient will complete toileting at: - (SBA to min assist) Patient will perform bathing at: Standby Assist. Patient will complete grooming at: MOD I level of assist. Patient will complete home management skills at: - (she will be staying with her son and his and they will be able to assist her and perform home management tasks until she is able to weight bear on the left leg again.) Patient will achieve: - Patient will have pain level of: of 3 or less Patient's skin will: remain intact Patient will receive: adequate nutrition. Discharge Planning Pt Prognosis for Sig. Practical Improv. w/in Reasonable Time: Good Estimated Length of stay (days): 14 Anticipated D/C Destination: Home w/ family or friends
[2021-10-05 15:00] VITALS: O2SAT 92
[2021-10-05 18:00] VITALS: O2SAT 95
[2021-10-05] MEDS: Carvedilol 12.5 MG Tablet PO (19:58)
[2021-10-05] MEDS: HYDROcodone Bitartrate/Apap 5/325 Tablet PO (19:58)
[2021-10-05 20:25] VITALS: O2SAT 93
[2021-10-05 21:04] VITALS: BP 131/78; PULSE 72; RESP 20; TEMP 36.6; O2SAT 92
[2021-10-06] MEDS: HYDROcodone Bitartrate/Apap 5/325 Tablet PO ×2 (02:59→19:48)
[2021-10-06] MEDS: Carvedilol 12.5 MG Tablet PO ×2 (07:54→21:42)
[2021-10-06] MEDS: Potassium Chloride Oral Tablet 20 MEQ PO (07:55)
[2021-10-06] MEDS: Enoxaparin 40 MG/0.4 ML Syringe SC (07:55)
[2021-10-06] MEDS: Cholecalciferol (VIT D3) 25 MCG TABLET (1,000 UNITS) 75 MCG PO (07:55)
[2021-10-06 08:34] VITALS: BP 139/62; PULSE 59; RESP 16; TEMP 36.3; O2SAT 93
--- NOTE | 2021-10-06 11:31 | NURSING ---
pt refused Lasix this AM Dr Purdy aware
--- NOTE | 2021-10-06 11:49 | PCM.PN.BLA ---
Progress Note afebrile VSS Maintaining appropriate oxygen saturation on RA. First bladder scan had a residual of 465 but, the second was 0. Med list reviewed. She slept well last night. She is happywith the current medications for pain control. Edward KEMP, SOB at rest, lightheadedness, N/V, dysuria, cough and sore throat. Alert and oriented X3 making good eye contact appears comfortable and in NAD MM are moist HRRR Lungs - diminished but, CTA no edema or the RLE Intact sensation in the L foot and the toes are warm with good capillary refill Assessment & Plan Assessment/Plan (1) Physical debility: (2) Closed fracture of distal end of left fibula: QUALIFIERS: Encounter type: initial encounter Fracture morphology: unspecified fracture morphology Qualified Code(s): S82.832A - Other fracture of upper and lower end of left fibula, initial encounter for closed fracture PLAN: 1. Continue therapy 2. no changes in the current drug regimen Visit Charges Inpatient E&M: 90925 Subs Hosp L1
[2021-10-06 13:57] VITALS: O2SAT 93
[2021-10-06 19:23] VITALS: BP 130/80; PULSE 74; RESP 18; TEMP 36.6; O2SAT 92
[2021-10-07] MEDS: Enoxaparin 40 MG/0.4 ML Syringe SC (06:11)
[2021-10-07] MEDS: HYDROcodone Bitartrate/Apap 5/325 Tablet PO ×3 (06:14→23:10)
[2021-10-07 07:49] VITALS: BP 151/75; PULSE 70; RESP 16; TEMP 36.5; O2SAT 93
[2021-10-07] MEDS: Carvedilol 12.5 MG Tablet PO ×2 (10:05→20:28)
[2021-10-07] MEDS: Cholecalciferol (VIT D3) 25 MCG TABLET (1,000 UNITS) 75 MCG PO (10:05)
[2021-10-07] MEDS: Potassium Chloride Oral Tablet 20 MEQ PO (10:05)
[2021-10-07] MEDS: Furosemide 40 MG Tablet PO (10:07)
[2021-10-07 19:24] VITALS: BP 108/65; PULSE 68; RESP 18; TEMP 36.6; O2SAT 92
[2021-10-07 22:00] VITALS: RESP 16; O2SAT 93
[2021-10-08] MEDS: Enoxaparin 40 MG/0.4 ML Syringe SC (05:07)
[2021-10-08] MEDS: Cholecalciferol (VIT D3) 25 MCG TABLET (1,000 UNITS) 75 MCG PO (07:43)
[2021-10-08] MEDS: Carvedilol 12.5 MG Tablet PO ×2 (07:43→21:59)
[2021-10-08] MEDS: Potassium Chloride Oral Tablet 20 MEQ PO (07:43)
[2021-10-08] MEDS: HYDROcodone Bitartrate/Apap 5/325 Tablet PO ×2 (07:48→15:50)
[2021-10-08] MEDS: Furosemide 40 MG Tablet PO (07:49)
[2021-10-08 07:56] VITALS: BP 139/69; PULSE 89; RESP 16; TEMP 36.1; O2SAT 98
[2021-10-08 19:16] VITALS: BP 123/68; PULSE 66; RESP 18; TEMP 36.6; O2SAT 93
[2021-10-08 22:00] VITALS: PULSE 66; RESP 16; O2SAT 93
[2021-10-09] MEDS: Enoxaparin 40 MG/0.4 ML Syringe SC (05:59)
[2021-10-09 08:00] VITALS: BP 147/72; PULSE 73; RESP 16; TEMP 36.1; O2SAT 95
[2021-10-09] MEDS: Cholecalciferol (VIT D3) 25 MCG TABLET (1,000 UNITS) 75 MCG PO (08:19)
[2021-10-09] MEDS: Potassium Chloride Oral Tablet 20 MEQ PO (08:19)
[2021-10-09] MEDS: Carvedilol 12.5 MG Tablet PO ×2 (08:19→21:08)
--- NOTE | 2021-10-09 09:09 | PCM.PN.BLA ---
Progress Note Latonia was seen on team rounds today. Her son and dtr-in-law were present in the room. Afebrile VSS Maintaining appropriate oxygen saturation on RA Oral intake is adequate Last bowel movement 10/08/2021 Discussed with nursing - no problems that need addressed Reviewed the PT/OT notes Medication list reviewed. Taking [place] 2 to 3 tablets daily as needed for pain. Has not needed a laxative or Imodium since admission. Physical Exam Const alert, oriented x3 and no apparent distress Constitutional Narrative: She is sitting in the recliner and her family is in the room for rounds General Appearance: cooperative, comfortable, well kempt and well developed Resp normal respiratory effort and clear to auscultation bilaterally Cardio regular rate, regular rhythm and no gallops GI normal to inspection, nondistended, normoactive bowel sounds, soft to palpation and non-tender Extremity no calf tenderness Extremity Narrative: The LLE is in a soft cast and a boot so can not assess for edema. No edema of the R ankle Skin General Skin Exam: no breakdown Rashes: no rashes Psych mental status grossly normal, thought process normal and affect normal Assessment & Plan Assessment/Plan (1) SHIRA (acute kidney injury): (2) Physical debility: (3) Closed fracture of distal end of left fibula: QUALIFIERS: Encounter type: initial encounter Fracture morphology: unspecified fracture morphology Qualified Code(s): S82.832A - Other fracture of upper and lower end of left fibula, initial encounter for closed fracture (4) Chronic diastolic (congestive) heart failure: PLAN: 1. Lasix was decreased to 40 mg p.o. every 48 hours yesterday. - no edema today and lungs are CTA. I suspect the edema is related to obesity and venous insufficiency. Will continue the VICENTE hose - I advised her to continue compression following DC.......she would be happy if this controlled the swelling and she no longer had to take Lasix. Will recheck a BMP and HH at the end of the week. 2. Continue therapy. Will go home and live with her son until she is ambulatory again. Visit Charges Inpatient E&M: 59229 Subs Hosp L2
[2021-10-09] MEDS: HYDROcodone Bitartrate/Apap 5/325 Tablet PO (11:08)
--- NOTE | 2021-10-09 14:03 | CASEMGMT ---
Social Work IDT met with patient, son and DIL for Team meeting. Discussed patient's progress in PT/OT and nursing. Pt progressing well. Explained Medicare approved for 13 days with a DC 2/. The goal is for pt to return home with son and DIL until she is full WB and can return home with her . Pt would need HHC and w/c with elevating leg rests. SW to order at DC. Will ReTeam next week. Sindy Garza, HOSPITAL FELLOW HUSBANDRY PERSON
[2021-10-09 21:00] VITALS: BP 153/70; PULSE 70; PULSE 79; RESP 17; TEMP 36.4; O2SAT 97
--- NOTE | 2021-10-10 04:28 | NURSING ---
Reviewed and agree with RECORDS ADMINISTRATOR documentation and assessment charting.
[2021-10-10] MEDS: Enoxaparin 40 MG/0.4 ML Syringe SC (05:31)
[2021-10-10] MEDS: HYDROcodone Bitartrate/Apap 5/325 Tablet PO (05:33)
[2021-10-10 08:26] VITALS: BP 123/53; PULSE 64; RESP 16; TEMP 36; O2SAT 93
[2021-10-10] MEDS: Cholecalciferol (VIT D3) 25 MCG TABLET (1,000 UNITS) 75 MCG PO (08:38)
[2021-10-10] MEDS: Potassium Chloride Oral Tablet 20 MEQ PO (08:38)
[2021-10-10] MEDS: Carvedilol 12.5 MG Tablet PO ×2 (08:38→20:13)
--- NOTE | 2021-10-10 09:46 | PN_ITS ---
Progress Note Afebrile VSS Maintaining appropriate oxygen saturation on RA Oral intake is good Discussed with nursing - no problems that need addressed Reviewed the PT/OT notes Medication list reviewed. She is c/o being tired today. She did not sleep very well last night due to RLS. She sometimes takes an OTC medication at night but the only thing that jasvir garcia seems to work is getting out of bed and walking. She has never had a prescription medication for RLS. She is not Diabetic and she has a mild macrocytic anemia so I do not think that she is iron deficient. Will recommend she get a sleep study after DC to R/O OLMAN as the etiology of the RLS. Denies pain. Denies dysuria. She is c/o very loose stool. She has had diarrhea at home in the past.......She has had many radiation treatments for anal CA in the past and may have radiation proctitis. Imodium is ordered and the Senna is PRN. She denies anal pain or painful BM's. No hematochezia. Physical Exam Const alert, oriented x3, no apparent distress, healthy appearing and well nourished Constitutional Narrative: appear tired today and she is a little pale General Appearance: cooperative, comfortable, well kempt and well developed Resp normal respiratory effort, No no retractions, No no use of accessory muscles and clear to auscultation bilaterally Effort and Inspection: able to speak in complete sentences Cardio regular rate, regular rhythm, no murmurs and no gallops GI normal to inspection, nondistended, normoactive bowel sounds, soft to palpation and non-tender Extremity Extremity Narrative: no ankle edema with VICENTE hose in place on the R leg. The toes on the L foot are warm and she has good sensation. Skin General Skin Exam: no breakdown Rashes: no rashes Psych Psych Narrative: She seems a little down in the dumps today. She does not want to be a burden to her son and his . She had a few tears in her eyes. She moved here from [place] 1 year ago to be closer to family. We talked about this and she has a very supportive son, Eze. Her older son who lives in [place] told her prior to her moving to [place] that he jaz not want to live if she were to pass away.......he has not visited since she moved to [place] and he does not call......this is upsetting to her. She also has a daughter who can not come to visit because she has animals she must take care of. She realizes she needs help now but worries about being a burden. Judgement: other poor safety awareness. Assessment & Plan Assessment/Plan (1) Physical debility: (2) Closed fracture of distal end of left fibula: QUALIFIERS: Encounter type: initial encounter Fracture morphology: unspecified fracture morphology Qualified Code(s): S82.832A - Other fracture of upper and lower end of left fibula, initial encounter for closed fracture (3) Contusion of right foot: (4) Dehydration: (5) Restless leg syndrome: PLAN: Start Gabapentin in the evening to treat the RLS. continue therapy. Check lab on Saturday......may be able to DC the Lasix if she would wear the compression stockings consistently. Will DC the Lasix and continue to monitor for edema and SOB. Visit Charges Inpatient E&M: 24957 Subs Hosp L1
[2021-10-10] MEDS: Calcium Carbonate 500 MG Tablet PO (16:59)
[2021-10-10] MEDS: Gabapentin 100 MG Capsule PO ×2 (18:10→20:13)
[2021-10-10 20:15] VITALS: BP 135/70; PULSE 65; RESP 18; TEMP 36.4; O2SAT 92
[2021-10-11] MEDS: HYDROcodone Bitartrate/Apap 5/325 Tablet PO ×2 (01:09→16:13)
--- NOTE | 2021-10-11 03:32 | NURSING ---
Reviewed and agree with MANAGER WINTER documentation and assessment charting.
[2021-10-11] MEDS: Enoxaparin 40 MG/0.4 ML Syringe SC (06:59)
[2021-10-11 07:36] VITALS: BP 138/57; PULSE 69; RESP 18; TEMP 35.7; O2SAT 95
[2021-10-11] MEDS: Cholecalciferol (VIT D3) 25 MCG TABLET (1,000 UNITS) 75 MCG PO (09:20)
[2021-10-11] MEDS: Calcium Carbonate 500 MG Tablet PO ×2 (09:20→17:53)
[2021-10-11] MEDS: Carvedilol 12.5 MG Tablet PO ×2 (09:20→22:37)
[2021-10-11] MEDS: Potassium Chloride Oral Tablet 20 MEQ PO (09:21)
--- NOTE | 2021-10-11 11:57 | PCM.PN.BLA ---
Progress Note Afebrile VSS Maintaining appropriate oxygen saturation on RA Oral intake is good Discussed with nursing - no problems that need addressed Reviewed the PT/OT/ST notes Medication list reviewed. She had no restless leg last night and slept well. She denies feeling tired today and is in a much better frame of mind. Alert and oriented X 3 MMM HRRR Lungs - CTA Abd - NT, good BS's minimal swelling in the toes on the L foot today and she has intact sensation Impressions 1. Debility due to ND fx of the Left ankle - NWB on the LLE 2. RLS - better with the addition of the gabapentin that was started last night Visit Charges Inpatient E&M: 41981 Subs Hosp L1
[2021-10-11 20:02] VITALS: BP 142/48; PULSE 59; RESP 16; TEMP 36.2; O2SAT 92
[2021-10-11] MEDS: Gabapentin 100 MG Capsule PO (22:37)
[2021-10-12] MEDS: Gabapentin 100 MG Capsule PO ×3 (01:42→21:39)
--- NOTE | 2021-10-12 04:03 | NURSING ---
Reviewed and agree with RANCH RIDER assessment.
[2021-10-12] MEDS: Enoxaparin 40 MG/0.4 ML Syringe SC (05:54)
[2021-10-12] MEDS: HYDROcodone Bitartrate/Apap 5/325 Tablet PO ×2 (05:55→15:01)
[2021-10-12 07:27] VITALS: BP 137/64; PULSE 66; RESP 16; TEMP 36.3; O2SAT 93
[2021-10-12] MEDS: Potassium Chloride Oral Tablet 20 MEQ PO (08:04)
[2021-10-12] MEDS: Calcium Carbonate 500 MG Tablet PO ×2 (08:04→18:02)
[2021-10-12] MEDS: Carvedilol 12.5 MG Tablet PO ×2 (08:04→21:39)
[2021-10-12] MEDS: Cholecalciferol (VIT D3) 25 MCG TABLET (1,000 UNITS) 75 MCG PO (08:05)
--- NOTE | 2021-10-12 13:59 | CASEMGMT ---
Social Work Pt requesting [facility]. Referral made for PT/OT. Sindy Garza, HAND BINDERY ASSEMBLY WORKER PLEASURE CRAFT SAILOR
[2021-10-12 19:40] VITALS: BP 161/62; PULSE 69; RESP 16; TEMP 36.6; O2SAT 94
[2021-10-13] MEDS: HYDROcodone Bitartrate/Apap 5/325 Tablet PO ×2 (01:37→19:43)
[2021-10-13] MEDS: Enoxaparin 40 MG/0.4 ML Syringe SC (06:02)
[2021-10-13 07:52] VITALS: BP 116/60; PULSE 67; RESP 18; TEMP 36.6; O2SAT 92
[2021-10-13] MEDS: Carvedilol 12.5 MG Tablet PO ×2 (08:25→19:44)
[2021-10-13] MEDS: Cholecalciferol (VIT D3) 25 MCG TABLET (1,000 UNITS) 75 MCG PO (08:25)
[2021-10-13] MEDS: Potassium Chloride Oral Tablet 20 MEQ PO (08:25)
[2021-10-13] MEDS: Calcium Carbonate 500 MG Tablet PO ×2 (08:26→16:31)
[2021-10-13 19:40] VITALS: BP 128/65; PULSE 68; RESP 18; TEMP 36.9; O2SAT 93
[2021-10-13] MEDS: Gabapentin 100 MG Capsule PO ×2 (19:43→23:22)
[2021-10-14] MEDS: HYDROcodone Bitartrate/Apap 5/325 Tablet PO ×3 (05:15→21:10)
[2021-10-14] MEDS: Enoxaparin 40 MG/0.4 ML Syringe SC (06:00)
[2021-10-14] MEDS: Calcium Carbonate 500 MG Tablet PO ×2 (08:00→17:00)
[2021-10-14] MEDS: Potassium Chloride Oral Tablet 20 MEQ PO (10:00)
[2021-10-14] MEDS: Cholecalciferol (VIT D3) 25 MCG TABLET (1,000 UNITS) 75 MCG PO (10:00)
[2021-10-14] MEDS: Carvedilol 12.5 MG Tablet PO ×2 (10:00→22:00)
[2021-10-14] MEDS: Gabapentin 100 MG Capsule PO ×2 (19:00→21:00)
[2021-10-14 20:20] VITALS: BP 122/55; PULSE 72; RESP 17; TEMP 36.4; O2SAT 92
--- NOTE | 2021-10-15 03:31 | NURSING ---
Reviewed and agree with FRONT OFFICE SPEC assessment and note.
[2021-10-15] MEDS: Enoxaparin 40 MG/0.4 ML Syringe SC (06:32)
[2021-10-15] MEDS: Calcium Carbonate 500 MG Tablet PO ×2 (08:30→17:11)
[2021-10-15] MEDS: Cholecalciferol (VIT D3) 25 MCG TABLET (1,000 UNITS) 75 MCG PO (08:31)
[2021-10-15] MEDS: Potassium Chloride Oral Tablet 20 MEQ PO (08:31)
[2021-10-15] MEDS: Carvedilol 12.5 MG Tablet PO ×2 (08:31→20:53)
[2021-10-15 10:00] VITALS: BP 103/49; PULSE 72; RESP 16; RESP 18; TEMP 36.5; O2SAT 98
[2021-10-15] MEDS: Loperamide 2 MG Capsule PO (13:00)
[2021-10-15] MEDS: HYDROcodone Bitartrate/Apap 5/325 Tablet PO ×2 (13:30→20:06)
[2021-10-15] MEDS: Gabapentin 100 MG Capsule PO ×2 (18:48→20:06)
[2021-10-15 20:00] VITALS: BP 142/75; PULSE 72; RESP 17; TEMP 36.6; O2SAT 92
[2021-10-16] MEDS: Enoxaparin 40 MG/0.4 ML Syringe SC (06:11)
[2021-10-16] MEDS: HYDROcodone Bitartrate/Apap 5/325 Tablet PO ×2 (06:18→20:59)
[2021-10-16 07:00] VITALS: BP 125/56; PULSE 67; RESP 18; TEMP 36.5; O2SAT 90
[2021-10-16] MEDS: Calcium Carbonate 500 MG Tablet PO ×2 (08:46→17:09)
[2021-10-16] MEDS: Carvedilol 12.5 MG Tablet PO ×2 (08:46→22:29)
[2021-10-16] MEDS: Cholecalciferol (VIT D3) 25 MCG TABLET (1,000 UNITS) 75 MCG PO (08:46)
[2021-10-16] MEDS: Potassium Chloride Oral Tablet 20 MEQ PO (08:46)
--- NOTE | 2021-10-16 10:11 | PCM.PN.BLA ---
Progress Note Latonia was seen on TEAM rounds today and her son and his were present in the room. All questions were answered. Afebrile VSS Maintaining appropriate oxygen saturation on RA - ranges from 90-98% Oral intake is adequate Discussed with nursing - no problems that need addressed Reviewed the PT/OT notes - She is still needing assistance with ADL's. Minimal assistance. Her son is putting in a walk in shower tomorrow. She is working on dressing herself......jamel the LB. Her son will bring by the car tomorrow to work on transfer into and out of the car prior to DC. Medication list reviewed. She s still c/o lateral left thigh pain. This is after a day of rest without PT yesterday. She is also c/o SOB with exertion and lying down. she has been off Lasix since admission to rehab because of SHIRA at admission to rehab......creat came down to baseline. she has known stage I systolic dysfunction. She denies dizziness. She was a smoker for many years. Weight is up 3 lbs from the wt at appt with Dr. Tom in July of 2011......but, she is being weighed with the boot on. She had a chest CT done in September 2021 that showed emphysematous changes worse in the right lung apex, stable 6 mm noncalcified nodule in the peripheral lateral aspect of the right lower lobe and stable linear scarring in the lingular segment of the left upper lobe. The dilatation of the descending thoracic aorta is stable. 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 Physical Exam Const alert, oriented x3 and no apparent distress Constitutional Narrative: Sitting in the WC Sleeps in a recliner at home due to SOB........she had SOB with lying down while she was on Lasix. General Appearance: cooperative, well kempt and well developed Resp Resp Narrative: BS's are diminished throughout with no crackles or wheezes. She is not tachypneic at rest. Effort and Inspection: able to speak in complete sentences Cardio regular rate, regular rhythm and no gallops GI normal to inspection, nondistended, normoactive bowel sounds and soft to palpation Extremity no calf tenderness Extremity Narrative: trace ankle edema on the R - controlled by the TEDS. There is ankle edema on the Left and mild distal tibia edema. She has pain with palpation of the lateral calf on the left. Skin Skin Narrative: Dry on the lower extremities. General Skin Exam: no breakdown Rashes: no rashes Psych mental status grossly normal, thought process normal, cooperative and affect normal Assessment & Plan Assessment/Plan (1) Restless leg syndrome: (2) COPD (chronic obstructive pulmonary disease): (3) Dehydration: (4) Physical debility: (5) Pain in left ankle: (6) Closed fracture of distal end of left fibula: QUALIFIERS: Encounter type: initial encounter Fracture morphology: unspecified fracture morphology Qualified Code(s): S82.832A - Other fracture of upper and lower end of left fibula, initial encounter for closed fracture (7) Essential (primary) hypertension: (8) Chronic diastolic (congestive) heart failure: (9) Descending thoracic aortic aneurysm: PLAN: 1. Will DC on Saturday. 2. check a BMP, MAG and a CBC without diff tomorrow 3. Restart the Lasix today 40 mg daily 4. I think if she has not seen a traffic supervisor she would benefit from this. There are emphysematous changes on the recent chest CT and she has markedly decreased breath sounds and some pursed lip breathing. She has never had PFT's at this institution. Will recommend to her Visit Charges Inpatient E&M: 26481 Subs Hosp L2
--- NOTE | 2021-10-16 13:53 | CASEMGMT ---
Social Work IDT met with patient, son and DIL for Team meeting. Discussed patient's progress in PT/OT and nursing. Pt progressing well and scheduled to DC to son/DILs house and they will assist her until she is ready to return to her own home. [facility] PT/OT is in place. Order faxed to [employer] for w/c with elevating leg rests and 3-in-1 commode. Both to be delivered to room prior to DC. Son to transport. Plan: DC home to son/DIL home 10/18, [facility] PT/OT, w/c w/elevating leg rests, [facility] Sindy Garza, HELPER/DRIVER MARKETING OPERATIONS INTERN
--- NOTE | 2021-10-16 15:00 | VDLE_ITS ---
Reason For Study: PAIN Procedure LEFT Exam performed portable in patient room. GSV is normal. A preliminary report was called and/or faxed CFV is compressible, spontaneous, phasic, to PT REHAB. competent, and demonstrates normal augmentation. FV is compressible, spontaneous, phasic, competent and demonstrates normal augmentation. POP V is compressible, spontaneous, phasic, competent and demonstrates normal augmentation. T/P Trunk is compressible. PTV is compressible. LT PerV is compressible. VL/Venous Duplex US, Unilateral Interpretation Summary There is no evidence of left lower extremity deep vein thrombosis. Left great s aphenous vein appears patent and compressible segmentally. Ordering Physician: Kiersten Purdy Referring Physician: ISAÍAS JACINTO Performed By: Funmi Lozano, RDCS, RVT
[2021-10-16 19:37] VITALS: BP 141/71; PULSE 65; RESP 18; TEMP 36.8; O2SAT 93
[2021-10-16] MEDS: Gabapentin 100 MG Capsule PO ×2 (19:47→22:29)
--- NOTE | 2021-10-17 05:03 | NURSING ---
REVIEWED AND AGREE WITH [employer]'S FUNCTIONAL ASSESSMENT AND HANDOFF CHARTING.
[2021-10-17] MEDS: Loperamide 2 MG Capsule PO (05:32)
[2021-10-17] MEDS: Enoxaparin 40 MG/0.4 ML Syringe SC (05:32)
[2021-10-17 05:54] LABS: Mean Corp Hgb Conc 32.4 g/dL (32-36); Mean Corpuscular Hgb 32.1 pg (27.0-32.0); Mean Corpuscular Volume 99.1 fL (81-99); Mean Platelet Vol. 8.4 fl (6.2-12.0); Platelet Count 245 K/mm3 (150-450); RBC Distribution Width CV 13.2 % (11.6-14.6); RBC Distribution Width SD 47.9 fl (35.1-43.9); Red Blood Count 3.43 M/mm3 (4.2-5.4); White Blood Count 5.7 K/mm3 (4.4-11.0)
[2021-10-17 06:39] LABS: Anion Gap 4 (5-15); BUN 18 mg/dL (7-18); BUN/Creat Ratio 25.4 RATIO (10-20); Calcium,Total 8.7 mg/dL (8.5-10.1); Chloride 108 mmol/L (98-107); Creatinine, Serum 0.71 mg/dL (0.55-1.02); EST Glomerular Filtration Rate 84 mL/min (>60); Est Glom Filt Rate - Afr Amer 102 mL/min (>60); Estimated Creatinine Clearance 32.77 ml/min; Glucose 100 mg/dL (74-106); Magnesium 2.2 mg/dL (1.6-2.6); Sodium Level 140 mmol/L (136-145)
[2021-10-17 07:24] VITALS: BP 110/46; PULSE 60; RESP 18; TEMP 36.4; O2SAT 90
[2021-10-17] MEDS: Calcium Carbonate 500 MG Tablet PO ×2 (09:29→16:50)
[2021-10-17] MEDS: Furosemide 40 MG Tablet PO (09:30)
[2021-10-17] MEDS: Carvedilol 12.5 MG Tablet PO ×2 (09:30→21:15)
[2021-10-17] MEDS: Cholecalciferol (VIT D3) 25 MCG TABLET (1,000 UNITS) 75 MCG PO (09:30)
[2021-10-17] MEDS: Potassium Chloride Oral Tablet 20 MEQ PO (09:30)
--- NOTE | 2021-10-17 09:52 | PCM.DC ---
Discharge Instructions Diet Discharge Diet: - (Low fat and low salt. ) Activity Discharge Activity: May Not Drive and Use Walker Weight Bearing Status: No weight bearing (on the Left leg) Lifting Restrictions: 5 lbs Keep extremity elevated above heart level: Left Leg Additional Activity Instructions:: Do the exercises given to you by the therapists at least once a day. Dressing / Incision Call your doctor if you observe: Fever of 101 or Higher, Inability to urinate, Inability to have a bowel movement, Dizziness, Fainting spells, Chest pain, Increased palpitations (irregular heartbeat), Calf discomfort and Uncontrolled pain Follow Up Care Please Follow Up With: Bobby Herrera DPM Test Results: Test results from this visit will be discussed in further detail at your follow-up appointment, if applicable. Pending Tests Upon Discharge: none Discharge Plan Admission Admit Date/Time: 10/05/21 11:37 Primary Reason for Your Visit: debility due to a ND Left ankle fracture Attending Provider: Kiersten Purdy Primary Care Provider: Antoine Brown Consulting Providers: Bobby Herrera Instructions Patient Instructions: Chronic Lung Disease ..., Chronic Lung Disease Stress, RLS, Emphysema Dc, Chronic Lung Disease Avoiding ... Additional Instructions / Restrictions: 1. You have diastolic dysfunction of your heart but, I do not think you need Lasix every day. I think it is COPD that is primarily making you short of breath. I looked at the CT scan of the chest you had in September and you clearly have emphysema. I think you would benefit from seeing a lung specialist and having some Pulmonary function tests. You may need to have medication to improve your lung function. Regular exercise is also important in maintaining the lung function you currently have and prevent it from getting worse. [facility] has a pulmonary rehab program which may be a good idea for you to attend when you are allowed to bear weight on the Left leg. We have not given you any Lasix since you arrived on rehab. You have no swelling in the ankles.......it is controlled just with the VICENTE hose. Your weight has not significantly increased due to fluid retention and you have no crackles in the lungs that would suggest congestive heart failure. The lab test for congestive Heart failure, BNP, is normal. 2. You have restless legs and this makes it hard to sleep at night. We started you on a medication called Gabapentin and the restless legs have resolved. I sent a prescription to the pharmacy for you. 3. You were dehydrated when you came to us. You had acute kidney failure. We stopped the Lasix and hydrated you and the acute kidney failure has resolved. you have gained approximately 2 lbs since admission and this is because your weight was decreased at admission because of the dehydration. Most women, jamel older women, do not drink enough water during the day because they do not want to not make it to the BR in time and have wet pants. You do OK most days but, [id number] it is marginal. Try and drink at least 1 liter a day of water. 4. While you have been in rehab you have been getting a shot in the belly every day and this is prevent blood clots. Blood clots tend to form when mobility is restricted and when you can not bear weight on your legs. I have discontinued the shot and started you on a pill to prevent blood clots. It is called Eliquis and you will take it every 12 hours until you are allowed to bear weight on the left leg and you are walking. We did an ultrasound on your left leg on 10/06/21 and it was negative for clots. 5. You have not had a bone density test in the past few years. I recommend you get a DEXA (bone density test) in the near future. 6. I am not sure that the diarrhea is due to IBS (irritable bowel syndrome). radiation not only kills cancer cells it damages healthy tissue and sometimes years after radiation you can have side effects such as diarrhea, and sometimes some blood in the diarrhea. We have not seen any blood. I would take Imodium every morning to help prevent diarrhea and you can take another dose later in the day if you have diarrhea. If you do not have a BM for 3 days hold the Imodium for a day or 2 and take Milk of magnesia if you have too. If you start to see blood in the stool then notify Dr. Brown or Dr. Wallace. 7. If you eat a lot of salt your body will retain fluid. One of the first signs you are retaining fluid is your weight will start increasing. Before you ever notice swelling in the legs your weight will have increased about 4 and 1/2 pounds. If this is addressed early then you can prevent admissions to the hospital for congestive heart failure. Buy a good scale. Weigh yourself daily in the AM after urinating with no clothes on and keep a record. If your weight increases by 5 pounds or more in 1 week then you are retaining fluid. Cut back on salt intake and fluids and take the Lasix once daily until you are back to your baseline weight If your weight continues to increase call your PCP or line worker for instructions. 8. It has been a pleasure to meet you and some of your family. If you have any questions after you leave rehab or I can help you with anything please do not hesitate to call. Take care [place] [facility]. Office [phone] Discharge Orders/Prescriptions Prescriptions: New calcium carbonate 200 mg calcium (500 mg) Tablet,Chewable 500 mg PO BIDCM Qty: 0 RF: 0 gabapentin 100 mg Capsule 100 mg PO BID@1900,2100 Qty: 60 RF: 0 magnesium hydroxide 400 mg/5 mL Suspension 30 ml PO .PRN X 1 PRN (Reason: Constipation) Qty: 0 RF: 0 Eliquis 2.5 mg tablet 2.5 mg PO BID Qty: 60 RF: 0 Continued loperamide [Imodium A-D] 2 mg capsule 2 mg PO Q6H PRN (Reason: Diarrhea) RF: 0 cholecalciferol (vitamin D3) 25 mcg (1,000 unit) tablet 3,000 unit PO DAILY RF: 0 acetaminophen [Tylenol] 325 mg Tablet 650 mg PO Q6H PRN PRN (Reason: Pain Score 1-10/Temp > 100.7 F) Qty: 0 RF: 0 carvedilol 12.5 mg tablet 12.5 mg PO BID RF: 0 potassium chloride 20 mEq tablet,ER particles/crystals 20 meq PO DAILY RF: 0 hydrocodone-acetaminophen 5-325 mg Tablet 1 tab PO Q6H PRN PRN (Reason: Pain Score 6-10) 7 Days Qty: 20 RF: 0 Changed furosemide 40 mg tablet 40 mg PO DAILY PRN (Reason: increase in weight by 5 lbs in 1 week) Qty: 0 RF: 0 Referrals / Follow Up: Asa Araujo DO [STAFF PHYSICIAN] - 11/29/21 7:15 am (pulmonary Medicine for COPD) Bobby Herrera DPM [STAFF PHYSICIAN] - 10/25/21 1:20 pm (Please bring photo ID and insurance card. Masks are required) Antoine Brown MD [Primary Care Provider] - 10/20/21 1:20 pm Disposition Disposition (needs filled in before D/C Order can be placed): Home Health Service
--- NOTE | 2021-10-17 09:54 | PN_ITS ---
Progress Note Afebrile VSS Maintaining appropriate oxygen saturation on RA wile resting but, when she was using the WC to get around the pulse ox dropped to 83%. After a few minutes of rest the pulse ox was 86%. She now reveals to me that she has been on oxygen in the past and she weaned herself off. she has never seen a sales program manager. Oral intake is good Discussed with nursing - no problems that need addressed Reviewed the PT/OT notes Medication list reviewed. Venous ultrasound of the left lower extremity was negative yesterday. All labs were personally reviewed. Hemoglobin is stable at 11. White blood cell count is within normal limits and platelets are normal. The BUN is down to 18 from 27 on 10/04/2021 and the creatinine is 0.71 today down from 1.18 on the . Magnesium is normal at 2.2. Calcium is normal at 8.7 and the BNP is normal at 65. She refused the Lasix yesterday afternoon but, will take it this AM. She has no cough, no CP, no SOB at rest. She is not lightheaded and has no palpitations. The pain in the Left calf resolved when the air in the boot was decreased. She denies getting SOB when she eats. she gets very SOB with walking in the past, jamel when she is trying to talk at the same time and she has to sit down. Physical Exam Const alert, oriented x3 and no apparent distress Constitutional Narrative: She is sitting in the WC at the bedside. She is attempting to convince me that she does not need oxygen. She has urinated many times today after she took the Lasix this morning. Pulse ox is still 90% at rest when I am talking with her. General Appearance: cooperative, comfortable and well developed Resp Resp Narrative: very diminished BS's throughout. No wheezes and no crackles. No conversational dyspnea at rest. No chronic cough/sputum production Effort and Inspection: symmetric chest movement Cardio regular rate, regular rhythm and no gallops GI normal to inspection, nondistended, normoactive bowel sounds and soft to palpation Extremity no calf tenderness and no pedal edema Skin General Skin Exam: no breakdown and dry skin Rashes: no rashes Assessment & Plan Assessment/Plan (1) COPD (chronic obstructive pulmonary disease): QUALIFIERS: COPD type: emphysema Emphysema type: unspecified Qualified Code(s): J43.9 - Emphysema, unspecified (2) Restless leg syndrome: (3) Physical debility: (4) Pain in left ankle: QUALIFIERS: Chronicity: acute Qualified Code(s): M25.572 - Pain in left ankle and joints of left foot (5) Closed fracture of distal end of left fibula: QUALIFIERS: Encounter type: initial encounter Fracture morphology: unspecified fracture morphology Qualified Code(s): S82.832A - Other fracture of upper and lower end of left fibula, initial encounter for closed fracture (6) Chronic diastolic (congestive) heart failure: PLAN: 1. Will need to arrange home O2 for DC. SW was notified and will take care of this. 2. check a weight tomorrow. 3. Has an appt with pulmonology going forward. 4. Instructed her that she needs to wear the oxygen at night and when she is exercising. 5. DC home with her son Eze in the AM 6. Has follow up with Dr. Herrera on Saturday. Visit Charges Inpatient E&M: 26807 Subs Hosp L2
--- NOTE | 2021-10-17 11:08 | DS.PCM_ITS ---
Providers Date of Admission: 10/05/21 Date of Discharge: 10/18/21 Primary Care Physician: MD Dr. Hari Caraballo DPM Reason For Visit: L. ANKLE FRACTURE Diagnosis Discharge Diagnosis (1) Physical debility: Status: Acute Code(s): R53.81 - Other malaise Plan: remains NWB on the LLE until the fracture is healed. She will follow up with Dr. Herrera post DC. (2) Pain in left ankle: Status: Acute Code(s): M25.572 - Pain in left ankle and joints of left foot Qualifiers: Chronicity: acute Qualified Code(s): M25.572 - Pain in left ankle and joints of left foot (3) Closed fracture of distal end of left fibula: Status: Acute Code(s): S82.832A - Other fracture of upper and lower end of left fibula, initial encounter for closed fracture Qualifiers: Encounter type: initial encounter Fracture morphology: unspecified fracture morphology Qualified Code(s): S82.832A - Other fracture of upper and lower end of left fibula, initial encounter for closed fracture Plan: Non-displaced. Treated conservatively with boot and NWB. Has an appt to follow up with Dr. Herrera. (4) Dehydration: Status: Resolved Code(s): E86.0 - Dehydration Plan: Lasix on hold since admission to rehab and she was hydrated with IV fluids. Weight is stable. (5) SHIRA (acute kidney injury): Status: Resolved Code(s): N17.9 - Acute kidney failure, unspecified (6) Restless leg syndrome: Status: Acute Code(s): G25.81 - Restless legs syndrome Plan: Controlled with Gabapentin 100 mg X 2 dose 2 hours apart in the evening. (7) COPD (chronic obstructive pulmonary disease): Status: Chronic Code(s): J44.9 - Chronic obstructive pulmonary disease, unspecified Qualifiers: COPD type: emphysema Emphysema type: unspecified Qualified Code(s): J43.9 - Emphysema, unspecified Plan: Scheduled appt for follow up with Dr. Lynne for Pulmonary function testing/sleep study and evaluation/tx. Sleeps in a recliner at night. (8) Essential (primary) hypertension: Status: Chronic Code(s): I10 - Essential (primary) hypertension Plan: Well controlled (9) Chronic diastolic (congestive) heart failure: Status: Chronic Code(s): I50.32 - Chronic diastolic (congestive) heart failure Plan: Edema in the legs is controlled with TEDS and salt restriction. BNP is WNL 2 weeks after Lasix DC'd. No rales. I think the SOB is primarily due to emphysema with bullae. Lasix changed to PRN for weight gain. (10) Descending thoracic aortic aneurysm: Status: Chronic Code(s): I71.2 - Thoracic aortic aneurysm, without rupture Plan: Stable on a CT chest in September 2021 (11) Obesity: Status: Chronic Code(s): E66.9 - Obesity, unspecified Qualifiers: Body mass index: BMI 30.0-30.9 Obesity classification: adult class 1 (BMI 30 - 34.9) Obesity type: due to excess calories Serious obesity comorbidity presence: without serious comorbidity Qualified Code(s): E66.09 - Other obesity due to excess calories; Z68.30 - Body mass index [BMI] 30.0-30.9, adult Plan: Weight loss advised to help with SOB with exertion. 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 She was instructed to call Dr. Wallace or Dr. Jacinto if she develops bloody diarrhea. (16) Chronic respiratory failure with hypoxia: Status: Chronic Code(s): J96.11 - Chronic respiratory failure with hypoxia Plan: Oxygen arranged for home to be worn with any exertion, while sleeping and PRN dyspnea. Follow up appt with infirmary attendant, Dr. Asa Araujo, arranged. Medications at Discharge Home Medications cholecalciferol (vitamin D3) 25 mcg (1,000 unit) tablet 3,000 unit PO DAILY tab 08/08/20 loperamide 2 mg capsule 2 mg PO Q6H PRN 09/27/21 acetaminophen [Tylenol] 650 mg PO Q6H PRN PRN #0 tab 10/05/21 carvedilol 12.5 mg PO BID 10/05/21 potassium chloride 20 meq PO DAILY 10/05/21 apixaban [Eliquis] 2.5 mg PO BID #60 tab 10/17/21 calcium carbonate 500 mg PO BIDCM #0 tab 10/17/21 furosemide 40 mg PO DAILY PRN #0 tab 10/17/21 gabapentin 100 mg PO BID@1900,2100 #60 cap 10/17/21 hydrocodone-acetaminophen 1 tab PO Q6H PRN PRN 7 Days #20 tab 10/17/21 magnesium hydroxide 30 ml PO .PRN X 1 PRN #0 ml 10/17/21 Hospital Course Operations None Procedures None Summary of Care Provided Minutes Spent on Discharge: 45 Hospital Course: RICKEY TRUJILLO, is a 81 YO F with the PMH listed below who presented to the ED at [facility] on 10/03/21 c/o excruciating pain in her lungs. She had fallen on the ice going out to get her mail and crawled back to the house. She fell an additional 2-3 times when trying to bear weight. XRAYS of the feet showed a non-displaced oblique fracture of the L distal fibula. The R foot had no fractures. A surgical boot was placed on the L leg and she was admitted to the hospital for observation and pain control. She was seen in consult by Dr. Herrera who has elected to treat the fracture non-surgically. He applied a soft cast and recommended a Cam walker boot be applied any time she is out of bed. She is to remain non-weight bearing on the LLE. She was seen by PT and evaluated. She lives in a private 1 story home with a ramp to get into the house. She was very independent prior to the fracture. PT recommended acute inpatient rehab and she was admitted to the rehab unit at [facility] on 10/05/21 for 3 hours of therapy daily so that she can be mobile and perform some of her ADL while maintaining her NWB status safely after discharge. Currently she requires max assist of 2 to stand and pivot and full assistance to get to the edge of the bed. Significant lab at admission to the hospital includes and elevated creatinine at 1.18 (baseline for the past year has ranged from 0.76-0.87). With hydration the creatinine came down to 0.9. Vitamin D level is normal. Calcium is low normal. Deltha c/o SOB with even mild exertion. She had been experiencing this for quite some time prior to admission and told me she frequently had to sit down until she got her breath back. She had been on home oxygen at one time but, she weaned herself off. A pulse ox was checked with exertion and it was 83%. After she sat for a few minutes it came up to 86%. Home O2 has been ordered for her and she was instructed to wear oxygen any time she is exerting herself and at night when sleeping. She is very resistant to this and does not want to have to wear oxygen. We discussed the possible complications of chronic hypoxia including but not limited to cardiac dysrhythmias, strokes, MA's, chronic fatigue, muscle weakness, etc. An appt was made for her to follow up with Dr. Asa Araujo from pulmonology. Her CT chest from September of 2021 clearly shows changes consistent with emphysema with many bullae, jamel in the upper R lung. I question the need for daily Lasix. She was dehydrated at admission with a creat of 1.18. Lasix was held and she was gently hydrated and the creat came down to 0.7. She has had no edema in the ankles for a few days prior to DC and her lungs are very diminished throughout with no wheezing or crackles. The BNP 1 day prior to DC with no Lasix for 2 weeks was 65. She was given instruction s to weigh herself daily and take Lasix only with increases in weight. Deltha c/o Restless leg during her time in rehab and this impacted the quality of her sleep. The RLS may be due to hypoxia and possibly OLMAN. She was started on Gabapentin in the evening and the RLS sx resolved and she was sleeping well prior to DC. She was given a prescription for Gabapentin at [facility]. She is non-weight bearing on the LLE and still has a boot on. A few days prior to DC she c/o pain in the L lateral calf and an US was ordered. the US was negative for DVT but, with immobility, obesity and NWB I feel she is still at risk for VTE so she was transitioned from Lovenox to Eliquis 2.5 mg BID for DVT prophylaxis. Rickey will be going home with her son and dtr-in-law until she has sufficiently recovered enough to return home. She is going to follow up with Dr. Herrera on Saturday10/25/21. She is also going to follow up with Dr. Antoine Jacinto on 10/20/[address] Asa Arauoj on 11/29/2021. Home health care was arranged for her by the social media editor. Physical Exam Const alert, oriented x3, no apparent distress and well nourished General Appearance: cooperative and well developed HEENT normocephalic HEENT Narrative: Hearing is grossly normal Eyes Eyes Narrative: No scleral icterus, no conjunctival irritation, pupils are equal round and reactive to light. Extraocular muscles are intact. Neck no carotid bruits General: trachea midline; Negative for lymphadenopathy Resp Resp Narrative: Markedly diminished breath sounds in all lung sosa. No wheezes and no crackles. Not tachypneic at rest. She does become tachypneic with exertion and her pulse ox drops to 83%. She is able to speak in complete sentences while at rest. Cardio regular rate, regular rhythm, no murmurs and no gallops Cardio Narrative: Heart sounds are somewhat distant and this may be due to body habitus. GI normal to inspection, nondistended, normoactive bowel sounds and soft to palpation GI Narrative: Good bowel function.......has loose stools with urgency often and this may be due to IBS but, she has a hx of anal CA treated with radiation and radiation enteritis is one of the LT side effects of radiation in the area of the Anus/rectum. Extremity General Extremity: Negative for clubbing, cyanosis or edema Skin General Skin Exam: no breakdown and dry skin Rashes: no rashes Wounds: Negative for wounds noted Neuro CN's II-XII intact bilaterally, no focal motor deficits and no sensory deficits noted Speech: speech normal Motor Exam: general weakness Psych affect normal Appearance: appropriate Weight / BMI Weight Weight: 175 lb Body Mass Index (BMI) 34.0 ABG / Lab / Microbiology Data Result Diagrams: 10/17/21 05:41 10/17/21 05:41 Laboratory: Laboratory Results - last 24 hr 10/17/21 05:41: WBC 5.7, RBC 3.43 L, Hgb 11.0 L, Hct 34.0 L, MCV 99.1 H, MCH 32.1 H, MCHC 32.4, RDW Std Deviation 47.9 H, RDW Coeff of Harsh 13.2, Plt Count 245, MPV 8.4 10/17/21 05:41: Sodium 140, Potassium 4.0, Chloride 108 H, Carbon Dioxide 28.0, Anion Gap 4 L, BUN 18, Creatinine 0.71, Estim Creat Clear Calc 32.77, Est GFR (MDRD) Af Amer 102, Est GFR (MDRD) Non-Af 84, BUN/Creatinine Ratio 25.4 H, Glucose 100, Calcium 8.7, Magnesium 2.2 10/17/21 05:41: B-Natriuretic Peptide 65.0 Radiography Diagnostic Testing: Radiology Impression Venous Doppler Study 10/16/21 15:00 Interpretation Summary There is no evidence of left lower extremity deep vein thrombosis. Left great saphenous vein appears patent and compressible segmentally. Ordering Physician: Kiersten Purdy Referring Physician: ANTOINE JACINTO Performed By: Funmi Lozano, AISLINN, RVT D/C Instructions Discharge Diet: - (Low fat and low salt. ) Weight Bearing Status: No weight bearing (on the Left leg) Keep extremity elevated above heart level: Left Leg Additional Activity Instructions: Do the exercises given to you by the therapists at least once a day. Call your doctor if you observe: Fever of 101 or Higher, Inability to urinate, Inability to have a bowel movement, Dizziness, Fainting spells, Chest pain, Increased palpitations (irregular heartbeat), Calf discomfort and Uncontrolled pain Pending Tests Upon Discharge: none Please Follow Up With: Bobby Herrera DPM Meaningful Use Info Meaningful Use Diagnoses (Choose all that apply): None applicable Discharge Plan Admission Admit Date/Time: 10/05/21 11:37 Primary Reason for Your Visit: debility due to a ND Left ankle fracture Attending Provider: Kiersten Purdy Primary Care Provider: Antoine Jacinto Consulting Providers: Bobby Herrera Instructions Patient Instructions: Chronic Lung Disease ..., Chronic Lung Disease Stress, RLS, Emphysema Dc, Chronic Lung Disease Avoiding ... Additional Instructions / Restrictions: 1. You have diastolic dysfunction of your heart but, I do not think you need Lasix every day. I think it is COPD that is primarily making you short of breath. I looked at the CT scan of the chest you had in September and you clearly have emphysema. I think you would benefit from seeing a lung specialist and having some Pulmonary function tests. You may need to have medication to improve your lung function. Regular exercise is also important in maintaining the lung function you currently have and prevent it from getting worse. [facility] has a pulmonary rehab program which may be a good idea for you to attend when you are allowed to bear weight on the Left leg. We have not given you any Lasix since you arrived on rehab. You have no swelling in the ankles.......it is controlled just with the VICENTE hose. Your weight has not significantly increased due to fluid retention and you have no crackles in the lungs that would suggest congestive heart failure. The lab test for congestive Heart failure, BNP, is normal. 2. You have restless legs and this makes it hard to sleep at night. We started you on a medication called Gabapentin and the restless legs have resolved. I sent a prescription to the pharmacy for you. 3. You were dehydrated when you came to us. You had acute kidney failure. We stopped the Lasix and hydrated you and the acute kidney failure has resolved. you have gained approximately 2 lbs since admission and this is because your weight was decreased at admission because of the dehydration. Most women, jamel older women, do not drink enough water during the day because they do not want to not make it to the BR in time and have wet pants. You do OK most days but, [id number] it is marginal. Try and drink at least 1 liter a day of water. 4. While you have been in rehab you have been getting a shot in the belly every day and this is prevent blood clots. Blood clots tend to form when mobility is restricted and when you can not bear weight on your legs. I have discontinued the shot and started you on a pill to prevent blood clots. It is called PerfectServe and you will take it every 12 hours until you are allowed to bear weight on the left leg and you are walking. We did an ultrasound on your left leg on 10/06/21 and it was negative for clots. 5. You have not had a bone density test in the past few years. I recommend you get a DEXA (bone density test) in the near future. 6. I am not sure that the diarrhea is due to IBS (irritable bowel syndrome). radiation not only kills cancer cells it damages healthy tissue and sometimes years after radiation you can have side effects such as diarrhea, and sometimes some blood in the diarrhea. We have not seen any blood. I would take Imodium every morning to help prevent diarrhea and you can take another dose later in the day if you have diarrhea. If you do not have a BM for 3 days hold the Imodium for a day or 2 and take Milk of magnesia if you have too. If you start to see blood in the stool then notify Dr. Jacinto or Dr. Wallace. 7. If you eat a lot of salt your body will retain fluid. One of the first signs you are retaining fluid is your weight will start increasing. Before you ever notice swelling in the legs your weight will have increased about 4 and 1/2 pounds. If this is addressed early then you can prevent admissions to the hospital for congestive heart failure. Buy a good scale. Weigh yourself daily in the AM after urinating with no clothes on and keep a record. If your weight increases by 5 pounds or more in 1 week then you are retaining fluid. Cut back on salt intake and fluids and take the Lasix once daily until you are back to your baseline weight If your weight continues to increase call your PCP or propellant assembler for instructions. 8. It has been a pleasure to meet you and some of your family. If you have any questions after you leave rehab or I can help you with anything please do not hesitate to call. Take care Carlos and bianca hope. Office [phone] Discharge Orders/Prescriptions Prescriptions: New calcium carbonate 200 mg calcium (500 mg) Tablet,Chewable 500 mg PO BIDCM Qty: 0 RF: 0 gabapentin 100 mg Capsule 100 mg PO BID@1900,2100 Qty: 60 RF: 0 magnesium hydroxide 400 mg/5 mL Suspension 30 ml PO .PRN X 1 PRN (Reason: Constipation) Qty: 0 RF: 0 Eliquis 2.5 mg tablet 2.5 mg PO BID Qty: 60 RF: 0 Continued loperamide [Imodium A-D] 2 mg capsule 2 mg PO Q6H PRN (Reason: Diarrhea) RF: 0 cholecalciferol (vitamin D3) 25 mcg (1,000 unit) tablet 3,000 unit PO DAILY RF: 0 acetaminophen [Tylenol] 325 mg Tablet 650 mg PO Q6H PRN PRN (Reason: Pain Score 1-10/Temp > 100.7 F) Qty: 0 RF: 0 carvedilol 12.5 mg tablet 12.5 mg PO BID RF: 0 potassium chloride 20 mEq tablet,ER particles/crystals 20 meq PO DAILY RF: 0 hydrocodone-acetaminophen 5-325 mg Tablet 1 tab PO Q6H PRN PRN (Reason: Pain Score 6-10) 7 Days Qty: 20 RF: 0 Changed furosemide 40 mg tablet 40 mg PO DAILY PRN (Reason: increase in weight by 5 lbs in 1 week) Qty: 0 RF: 0 Referrals / Follow Up: Asa Araujo DO [STAFF PHYSICIAN] - 11/29/21 7:15 am (pulmonary Medicine for COPD) Bobby Herrera DPM [STAFF PHYSICIAN] - 10/25/21 1:20 pm (Please bring photo ID and insurance card. Masks are required) Antoine Jacinto MD [Primary Care Provider] - 10/20/21 1:20 pm Disposition Disposition (needs filled in before D/C Order can be placed): Home Health Service Charges/Coding Visit Charges Inpatient E&M: 46540 Disch Hosp
--- NOTE | 2021-10-17 13:16 | CASEMGMT ---
Social Work updated this worker pt's O2 sats dropped during exertion with w/c and at nighttime. ordering 2LPM for O2 upon exertion and at nighttime at ID. Referral faxed to [facility] [place]. O2 to be delivered to pts room, then pt to call once arrived at home for concentrator arrival. Sindy Garza, ODILIA DIAZW
--- NOTE | 2021-10-17 13:59 | NURSING ---
pt's SPO2 drops to 86% on RA while propelling herself in the WC down the hallway
[2021-10-17 14:00] VITALS: PULSE 86
[2021-10-17 19:39] VITALS: BP 114/58; PULSE 74; RESP 17; TEMP 36.6; O2SAT 91
[2021-10-17] MEDS: Gabapentin 100 MG Capsule PO ×2 (19:41→21:15)
[2021-10-17] MEDS: HYDROcodone Bitartrate/Apap 5/325 Tablet PO (21:15)
[2021-10-18] MEDS: Enoxaparin 40 MG/0.4 ML Syringe SC (05:10)
[2021-10-18] MEDS: Loperamide 2 MG Capsule PO (05:10)
--- NOTE | 2021-10-18 06:48 | NURSING ---
Reviewed and agree with WIRED MUSIC OPERATOR assessment.
[2021-10-18] MEDS: Calcium Carbonate 500 MG Tablet PO (08:12)
[2021-10-18] MEDS: Carvedilol 12.5 MG Tablet PO (08:12)
[2021-10-18] MEDS: Furosemide 40 MG Tablet PO (08:13)
[2021-10-18] MEDS: Potassium Chloride Oral Tablet 20 MEQ PO (08:13)
[2021-10-18] MEDS: Cholecalciferol (VIT D3) 25 MCG TABLET (1,000 UNITS) 75 MCG PO (08:13)
[2021-10-18 08:57] VITALS: BP 118/54; PULSE 67; RESP 18; TEMP 37; O2SAT 95
--- NOTE | 2021-10-18 13:30 | NURSING ---
pt discharged home via car transport wtih son. denies questions or concerns.
== END 2021-10-18 13:30 | disposition home health service (06) | DRG 560 ==
PROVIDERS: Admitting Provider Internal Medicine; PCP Family Medicine; Visit Provider Internal Medicine
DX: S82.832D Other fracture of upper and lower end of left fibula, subsequent encounter for closed fracture with routine healing (principal); J96.11 Chronic respiratory failure with hypoxia; K52.0 Gastroenteritis and colitis due to radiation; C21.0 Malignant neoplasm of anus, unspecified; I50.32 Chronic diastolic (congestive) heart failure; I11.0 Hypertensive heart disease with heart failure; I71.2 Thoracic aortic aneurysm, without rupture; J43.9 Emphysema, unspecified; G25.81 Restless legs syndrome; G47.33 Obstructive sleep apnea (adult) (pediatric); I87.2 Venous insufficiency (chronic) (peripheral); W00.9XXD Unspecified fall due to ice and snow, subsequent encounter; E66.9 Obesity, unspecified; S90.31XD Contusion of right foot, subsequent encounter; Z87.891 Personal history of nicotine dependence; Z68.34 Body mass index [BMI] 34.0-34.9, adult; Z79.899 Other long term (current) drug therapy; R91.1 Solitary pulmonary nodule
CPT/HCPCS: 36415; 73610; 73630; 80048; 80053; 82306; 83735; 83880; 85025; 85027; 93971; 96361; 96372; 96374; 97110; 97162; 97166; 97167; 97530; 97535; 97542; 97802; 99218; 99251; 99285; J7030; A4216; G0378; G0463

== ENCOUNTER → 2022-03-22 | Outpatient (CLI) | payer MEDICARE, OTHER, SELFPAY ==
--- NOTE | 2022-03-22 07:48 | CT_ITS ---
STUDY: CTA CHEST REASON FOR EXAM: Female, 81 years old. Descending thoracic aortic aneurysm. Follow-up. -- Vaishali RADIATION DOSAGE (If Supplied By Facility): CTDIvol = ( 12.96 ) mGy, DLP = ( 415.53 ) mGycm TECHNIQUE: The examination was performed with the intravenous administration of IV 100mL Isovue-370. Post-processing of the angiographic images was performed, with multiplanar reformation and 3D reconstruction. Individualized dose optimization techniques were used for this CT. COMPARISON: Comparison is made with prior study dated 04/21/2020. FINDINGS: Stable small benign-appearing bilateral axillary lymph nodes. Normal enhancement of the main pulmonary artery and right and left pulmonary arteries. Normal enhancement of the bilateral peripheral pulmonary arteries. There is no demonstrated pulmonary embolism. There is aneurysmal dilatation of the ascending aorta. The transverse diameter of the ascending aorta measures 46.6 mm''s. This is unchanged. Mild degree of atherosclerotic plaque formation of the aortic arch. Once again, there is dilatation of the distal portion of the thoracic aorta proximal to the thoracoabdominal level. It measures 4.9 cm in transverse dimension. There is evidence of mural thrombus along the left side of the aorta with increased linear densities within it suggestive of a not a complete thrombosis. This is unchanged. There is no demonstrated aortic dissection. Normal heart and pericardium. No significant coronary artery calcification is seen. Normal mediastinum. Normal hilar regions. Normal visualized trachea and bronchi. Hyperinflation. Mild degree of emphysematous changes more prominent in the upper lobes. Stable 6 mm noncalcified nodule in the peripheral lateral aspect of the right lower lobe as seen on axial image #84. Normal pleura. Normal chest wall structures. Normal osseous structures. The patient is status post cholecystectomy. CT/CTA Chest W/WO Contrast IMPRESSION: Stable examination. Electronically Signed: Oscar Mcarthur MD at 9:03 EDT ,
[2022-03-22 08:40] LABS: CREATININE FINGERSTICK < 0.9 mg/dL (0.55-1.02); EGFR FINGERSTICK > 60.0000 mL/min (>60)
== END | disposition home or self-care (01) ==
LOC: CT 07:45
PROVIDERS: PCP Family Medicine; Referring Provider Nurse Practitioner Gerontology; Visit Provider Nurse Practitioner Gerontology
DX: I71.2 Thoracic aortic aneurysm, without rupture (principal); R91.1 Solitary pulmonary nodule; R00.2 Palpitations; I10 Essential (primary) hypertension; Z90.49 Acquired absence of other specified parts of digestive tract
CPT/HCPCS: 71275; 93225; 93226; Q9967

== ENCOUNTER → 2022-04-30 | Outpatient (CLI) | payer MEDICARE, OTHER, SELFPAY | END | disposition home or self-care (01) | LOC: LABSPEC 14:39 | PROVIDERS: PCP Family Medicine; Referring Provider Family Medicine; Visit Provider Family Medicine | DX: R19.7 Diarrhea, unspecified (principal) | CPT/HCPCS: 36415; 87493; 87506 ==

== ENCOUNTER → 2022-11-01 | Outpatient (CLI) | payer MEDICARE, OTHER, SELFPAY ==
[2022-11-01 14:15] LABS: Creatinine, Serum 0.81 mg/dL (0.55-1.02); EST Glomerular Filtration Rate 72 mL/min (>60); Est Glom Filt Rate - Afr Amer 87 mL/min (>60)
== END | disposition home or self-care (01) ==
LOC: LAB 13:42
PROVIDERS: Surgery Trauma Surgery; PCP Family Medicine; Visit Provider Internal Medicine Cardiovascular Disease
DX: I71.20 Thoracic aortic aneurysm, without rupture, unspecified (principal)
CPT/HCPCS: 36415; 82565

== ENCOUNTER → 2022-11-09 | Outpatient (CLI) | payer MEDICARE, OTHER, SELFPAY ==
--- NOTE | 2022-11-09 12:56 | ECHOD_ITS ---
Reason For Study: Dyspnea/SOB Procedure This was a 2D Doppler, Color Flow transthoracic echocardiogram. Exam performed in department. Left Ventricle Normal LV size. Left ventricular systolic function is normal. The estimated ejection fraction is 55 %. No regional wall motion abnormalities noted. Right Ventricle Normal RV size. Normal systolic function. Atria Normal left atrium. Normal right atrium. Mitral Valve Normal mitral valve. Tricuspid Valve Normal tricuspid valve. Mild (1+) tricuspid valve insufficiency. Pulmonary artery systolic pressure is 34 mmHg. Aortic Valve Trisinus/trileaflet aortic valve. Mild (1+) aortic valve insufficiency. Pulmonic Valve Normal pulmonic valve. Great Vessels Mild to moderately dilated aortic root. The pulmonary artery is normal size. Normal inferior vena cava. Pericardium/Pleural No pericardial effusion. MMode/2D Measurements & Calculations LVIDd: 4.4 cm IVSd: 1.0 cm Ao root diam: 4.2 cm LVIDs: 3.1 cm LVPWd: 0.98 cm LA dimension: 3.4 cm RVDd: 2.6 cm FS: 29.4 % LAV(MOD-bp): 34.5 ml LVAd ap4: 26.7 cm2 SV(MOD-sp4): 39.2 ml LAV(MOD-bp) Indexed: 19.7 ml/m2 LVLd ap4: 7.4 cm LAV(MOD-sp2): 49.7 ml EDV(MOD-sp4): 78.7 ml LAV(MOD-sp4): 20.1 ml EDV(sp4-el): 81.5 ml LVAs ap4: 17.5 cm2 LVLs ap4: 6.6 cm ESV(MOD-sp4): 39.5 ml ESV(sp4-el): 39.5 ml EF(MOD-sp4): 49.8 % EF(sp4-el): 51.6 % SV(sp4-el): 42.0 ml LA A4 area: 10.2 cm2 RA A4 area: 12.3 cm2 Time Measurements MV dec time: 0.31 sec Doppler Measurements & Calculations MV E max dk: 49.5 cm/sec Lat Peak E' Dk: 4.9 cm/sec Med Peak E' Dk: 4.7 cm/sec MV A max dk: 86.0 cm/sec E/E' lat: 10.1 E/E' med: 10.6 MV E/A: 0.58 MV V2 max: 94.1 cm/sec MV P1/2t max dk: 59.7 cm/sec Ao V2 max: 150.8 cm/sec MV max P.5 mmHg MV P1/2t: 114.6 msec Ao max P.1 mmHg MV V2 mean: 43.7 cm/sec Ao V2 mean: 95.3 cm/sec MV mean P.92 mmHg MV dec slope: 152.5 cm/sec2 Ao mean P.3 mmHg MV V2 VTI: 24.9 cm MVA(P1/2t): 1.9 cm2 Ao V2 VTI: 37.0 cm AV (velocity ratio): 0.67 AI max dk: 427.5 cm/sec LV V1 max: 106.8 cm/sec MR max dk: 462.2 cm/sec AI max P.1 mmHg LV V1 max P.6 mmHg MR max P.4 mmHg AI dec slope: 224.7 cm/sec2 LV V1 mean P.4 mmHg AI P1/2t: 557.1 msec LV V1 mean: 73.9 cm/sec LV V1 VTI: 24.9 cm PA V2 max: 88.6 cm/sec TR max dk: 282.5 cm/sec TR max P.9 mmHg ECHO/Echo Complete Interpretation Summary Normal LV size. Left ventricular systolic function is normal. The estimated ejection fraction is 55 %. Mild to moderately dilated aortic root. Mild (1+) aortic valve insufficiency. Ordering Physician: Gopi Tom Referring Physician: Antoine Brown Performed By: Sukhi Sanchez RCS
== END | disposition home or self-care (01) ==
LOC: CVS 12:54
PROVIDERS: PCP Family Medicine; Referring Provider Internal Medicine Cardiovascular Disease; Visit Provider Internal Medicine Cardiovascular Disease
DX: R00.2 Palpitations (principal)
CPT/HCPCS: 93306

== ENCOUNTER 2023-07-11 12:19 | Emergency (ER) | payer MEDICARE, OTHER, SELFPAY ==
[2023-07-11 12:20] VITALS: BP 157/69; PULSE 89; RESP 16; TEMP 35.9; O2SAT 93; BMI 34.4
[2023-07-11 12:23] VITALS: BP 157/69; PULSE 89; RESP 16; TEMP 35.9; O2SAT 93
--- NOTE | 2023-07-11 12:26 | EDS_ITS ---
HPI HPI - GI History of Present Illness Chief Complaint: Abd Pain Informant: patient Abdominal Pain/Flank Pain Onset: Weeks (1) Context: Gradual Onset Timing: Intermittent Quality: Aching and Sharp (At times) Location: RLQ Worsened by: Movement Relieved by: Remaining Still and - (Applying pressure to the right lower abdomen) Nausea/Vomiting/Emesis GI Symptom: Negative for Nausea or Vomiting Diarrhea/Melena/Hematochezia GI Symptom: Negative for Diarrhea, Melena or Hematochezia Associated Symptoms Associated Symptoms: Negative for Dysuria, Frequency or Hematuria Narrative Narrative: Patient presents with right lower quadrant abdominal pain that has been getting worse over the past week. Patient states it is gradually getting worse. Patient states it is dull and aching but sharp at times. Patient states her pain is intermittent. Patient states it has been constant for several hours tod ay. Patient states it is worse with certain movements. Patient states it is better when she applies pressure to her abdomen and lays still. Patient denies any nausea or vomiting. Patient denies any diarrhea, melena, or hematochezia. Patient states she did have an episode of dizziness while she was at her primary care doctor's office today. Patient denies any dizziness at this time. 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 Essential (primary) hypertension Foot drop, left foot Heart palpitations History of anal cancer Lung nodule Lung nodule Nicotine dependence, cigarettes, in remission Obesity Osteopenia Ovarian cyst Pain in left ankle Physical debility Restless leg syndrome SOB (shortness of breath) Thoracic ascending aortic aneurysm Vertigo Home Medications cholecalciferol (vitamin D3) 25 mcg (1,000 unit) tablet 3,000 unit PO DAILY supplement 08/08/20 [History Last Taken Unknown] loperamide 2 mg capsule (Imodium A-D) 2 mg PO Q6H PRN Diarrhea 09/27/21 [History Last Taken Unknown] acetaminophen 325 mg tablet (Tylenol) 650 mg (2 x 325 mg) PO Q6H PRN PRN Pain Score 1-10/Temp > 100.7 F #0 tabs 10/05/21 [Rx Last Taken Unknown] calcium carbonate 200 mg calcium (500 mg) chewable tablet 500 mg PO DAILY 03/09/22 [History Last Taken Unknown] furosemide 40 mg tablet 40 mg PO DAILY increase in weight by 5 lbs in 1 week #90 tabs 11/01/22 [Rx Last Taken Unknown] spironolactone 25 mg tablet 25 mg PO DAILY #90 tabs 11/01/22 [Rx Last Taken Unknown] carvedilol 12.5 mg tablet 12.5 mg PO BID htn #180 tabs 06/17/23 [Rx Last Taken Unknown] Allergy/AdvReac Type Severity Reaction Status Date / Time oxycodone Allergy Mild headache Verified 11/01/22 13:00 aspirin AdvReac Nausea Verified 11/01/22 13:00 Family History Father Heart disease Sister Cancer Diabetes Brother Heart disease Mother Heart disease Sister Heart disease Sister Cancer breast Surgical History History of cholecystectomy History of right and left heart catheterization (02/24/13) S/P complete hysterectomy (~10/13/20) Social History adopted: No household members: significant other housing: house number of children: 3 Smoking Status: Former smoker how long ago did patient quit smokin alcohol intake: never substance use type: does not use caffeine: Yes Type: coffee Number of servings: 2 what type of physical activity do you participate in: none seatbelt use: always do you feel safe at home: Yes additional social history: - Rosalio [facility] [place] ED Constitutional Constitutional ED: Denies chills or fever(s) Eyes Eyes: Denies blurry vision or change in vision ENT ENT ED: Denies rhinorrhea or sore throat Cardiovascular Cardiovascular: Denies chest pain or palpitations Respiratory/Chest Respiratory/Chest: Denies cough or dyspnea Gastrointestinal Gastrointestinal: Reports abdominal pain; Denies nausea or vomiting Genitourinary Genitourinary ED: Denies dysuria or hematuria Musculoskeletal Musculoskeletal: Denies back pain or neck pain Integumentary Denies abscess or rash Neurologic Neurologic: Denies headache(s) or weakness Allergic/Immunologic Allergic/Immunologic ED: Denies mouth swelling or urticaria EXAM Physical Exam Const Vital Signs: 07/11/23 12:20 07/11/23 12:23 07/11/23 14:06 Temperature 96.6 F L 96.6 F L Temperature Source Oral Temporal Pulse Rate 89 89 79 Respiratory Rate 16 16 16 Blood Pressure 157/69 H 157/69 H 134/56 H Blood Pressure Mean 98 98 82 Pulse Ox 93 93 95 Oxygen Delivery Method Room Air Room Air Room Air Positive well nourished and well developed General Appearance ED: well developed and NAD HEENT Reports moist mucous membranes Neck supple and no JVD Resp normal respiratory effort and clear to auscultation bilaterally Cardio regular rate and regular rhythm GI non-distended Palpation: soft and tender RLQ and RUQ; Negative for guarding or rebound tenderness present Extremity full ROM Neuro CN's II-XII intact bilaterally, moves all extremities and no sensory deficits noted Sensorium / Orientation: alert Psych mental status grossly normal MDM MDM MDM Narrative Medical decision making narrative: Differential diagnosis includes appendicitis, ureteral calculus, colitis, diverticulitis, urinary tract infection, and viral gastroenteritis. CBC will be obtained to assess for leukocytosis and anemia. Comprehensive metabolic profile will be obtained to assess for hepatic function, renal function, and electrolyte abnormalities. Lipase will be obtained to assess for pancreatitis. Urinalysis will be obtained to assess for urinary tract infection and hematuria. CT scan of the abdomen pelvis will be obtained to assess for appendicitis, bowel obstruction, perforation, pancreatitis, and ureteral calculus. Lab Data Attestation: I reviewed the patient's lab results. Lab results narrative: Was reviewed. White blood cell count was normal at 9.0. There is a mild anemia with a hemoglobin of 11.2 and hematocrit 35.8. Comprehensive metabolic profile was reviewed. BUN was 44 and creatinine was 1.41. The remainder was within normal limits. Lipase was reviewed and was only slightly elevated at 89. Labs: Laboratory Results - last 24 hr 07/11/23 12:55 WBC 9.0 RBC 3.45 L Hgb 11.2 L Hct 34.8 L MCV 100.9 H MCH 32.5 H MCHC 32.2 RDW Std Deviation 49.7 H RDW Coeff of Harsh 13.4 Plt Count 321 MPV 9.0 Immature Gran % (Auto) 0.200 Neut % (Auto) 70.2 H Lymph % (Auto) 19.4 Lagrange % (Auto) 7.5 Eos % (Auto) 2.3 Baso % (Auto) 0.4 Absolute Neuts (auto) 6.3 Absolute Lymphs (auto) 1.74 Nucleated RBC % 0 Sodium 141 Potassium 4.4 Chloride 109 H Carbon Dioxide 27.0 Anion Gap 5 BUN 44 H Creatinine 1.41 H Estim Creat Clear Calc 22.86 Est GFR (MDRD) Af Amer 46 L Est GFR (MDRD) Non-Af 38 L BUN/Creatinine Ratio 31.2 H Glucose 98 Calcium 9.0 Total Bilirubin 0.30 AST 18 ALT 26 Alkaline Phosphatase 99 Total Protein 7.6 Albumin 3.5 Globulin 4.1 Albumin/Globulin Ratio 0.9 Lipase 89 H Radiography Diagnostic Testing: Clinical Impression(s) from Imaging Studies Abdomen/Pelvis CT 07/11/23 12:49 IMPRESSION: Colonic diverticulosis without acute diverticulitis. Unremarkable appendix. Chronic findings as above. Electronically Signed: Angelica Gomez MD at 15:27 EDT , CT scan of the abdomen and pelvis was obtained. There is diverticulosis but no evidence of diverticulitis. There is no evidence of appendicitis. There is no acute process. There is no free air or free fluid. This was interpreted by the radiologist and was also independently reviewed by myself. Management Discussion w/another healthcare provider: PCP Treatment and Re-Evaluation :: Patient was given IV fluids. Patient declined analgesics at this time. Patient was advised of her findings. Case was discussed with Dr. Brown. He will f ollow-up with the patient as an outpatient. Patient understood and was agreeable with the plan. All questions were answered. Discharge Plan Triage Chief Complaint: Abd Pain ED Provider: Angelo Nicole Dx/Rx/DC Orders Clinical Impression: Essential (primary) hypertension, Right lower quadrant abdominal pain of unknown etiology Instructions: ED Abdominal Pain Unkn Cause Fem Prescriptions: No Action loperamide [Imodium A-D] 2 mg capsule 2 mg PO Q6H PRN (Reason: Diarrhea) calcium carbonate 200 mg calcium (500 mg) tablet,chewable 500 mg PO DAILY spironolactone 25 mg tablet 25 mg PO DAILY Qty: 90 3RF furosemide 40 mg tablet 40 mg PO DAILY Qty: 90 3RF cholecalciferol (vitamin D3) 25 mcg (1,000 unit) tablet 3,000 unit PO DAILY acetaminophen [Tylenol] 325 mg Tablet 650 mg PO Q6H PRN PRN (Reason: Pain Score 1-10/Temp > 100.7 F) Qty: 0 0RF carvedilol 12.5 mg tablet 12.5 mg PO BID Qty: 180 3RF Primary Care Provider: Antoine Brown Referrals: Antoine Brown MD [Primary Care Provider] - 5-7 Days Disposition Disposition: Home, Self Care Discharge Date/Time: 07/11/23 16:52
--- NOTE | 2023-07-11 12:49 | CT_ITS ---
HISTORY: Abdominal pain. TECHNIQUE: Helically acquired images were obtained of the abdomen and pelvis after the intravenous administration of 100 mL Isovue-370. Oral contrast also administered. A radiation dose optimization technique was used for this scan. 392 images. COMPARISON: 09/21/2021. FINDINGS: LOWER CHEST: Stable 5 mm right lower lobe pulmonary nodule. BOWEL: Bowel including appendix nondilated. No terminal ileal or periappendiceal inflammation. Extensive colonic diverticulosis without focal inflammatory change observed. PERITONEUM: No significant ascites. LIVER: Stable small peripherally calcified cystic lesion in the left lobe with scarring. GALLBLADDER/BILIARY TREE: Cholecystectomy. SPLEEN/PANCREAS/ADRENAL GLANDS: Homogeneous and nonenlarged. KIDNEYS: No hydronephrosis. Stable small bilateral cysts. 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 No abdominal aortic aneurysm or dissection flap. Mild atherosclerosis. PELVIC ORGANS: Absent uterus. BONES: Degenerative change CT/Abdomen/Pelvis WITH Contrast IMPRESSION: Colonic diverticulosis without acute diverticulitis. Unremarkable appendix. Chronic findings as above. Electronically Signed: Angelica Gomez MD at 15:27 EDT ,
[2023-07-11] MEDS: 0.9% Normal Saline (1000mL) 1,000 ML 1000 ML IV (13:01)
[2023-07-11 13:14] LABS: Absolute Lymphocyte Count 1.74 X10^3/uL (0.83-4.51); Absolute Neutrophil Count 6.3 X10^3/uL (2.0-7.7); Basophil# 0.04 X10^3/uL; Basophil% 0.4 % (0-1); Eosinophil# 0.21 X10^3/uL; Eosinophils% 2.3 % (0-5); Hematocrit 34.8 % (37-47); Hemoglobin 11.2 g/dL (12.0-15.0); Lymphocyte # 1.74 X10^3/ul (0.83-4.51); Lymphocyte % 19.4 % (19-41); Mean Corp Hgb Conc 32.2 g/dL (32-36); Mean Corpuscular Hgb 32.5 pg (27.0-32.0); Mean Corpuscular Volume 100.9 fL (81-99); Monocyte# 0.67 X10^3/uL; Monocyte% 7.5 % (0-10); NRBC Flagged by Analyzer 0 % (0-5); Neutrophil # 6.27 X10^3/uL (2.7-7.7); Neutrophil % 70.2 % (47-70); Platelet Count 321 K/mm3 (150-450); RBC Distribution Width CV 13.4 % (11.6-14.6); RBC Distribution Width SD 49.7 fl (35.1-43.9); Red Blood Count 3.45 M/mm3 (4.2-5.4)
[2023-07-11 13:46] LABS: ALB/GLOB Ratio 0.9 RATIO (0.9-2.4); AST(SGOT) 18 U/L (15-37); Alanine Aminotransfer ALT/SGPT 26 U/L (13-56); Albumin, Serum 3.5 g/dL (3.2-5.0); Alkaline Phosphatase 99 U/L (45-117); Anion Gap 5 (5-15); BUN 44 mg/dL (7-18); BUN/Creat Ratio 31.2 RATIO (10-20); Chloride 109 mmol/L (98-107); Creatinine, Serum 1.41 mg/dL (0.55-1.02); EST Glomerular Filtration Rate 38 mL/min (>60); Est Glom Filt Rate - Afr Amer 46 mL/min (>60); Estimated Creatinine Clearance 22.86 ml/min; Globulin 4.1 g/dL (2.2-4.2); Glucose 98 mg/dL (74-106); Lipase 89 U/L (13-75); Potassium 4.4 mmol/L (3.5-5.1); Protein, Total 7.6 g/dL (6.4-8.2); Sodium Level 141 mmol/L (136-145)
[2023-07-11 14:06] VITALS: BP 134/56; PULSE 79; RESP 16; O2SAT 95
[2023-07-11] MEDS: Morphine 4 MG/ML Syringe IV (16:40)
[2023-07-11] MEDS: Ondansetron 4 MG/2 ML Vial IV (16:40)
== END 2023-07-11 16:52 | disposition home or self-care (01) ==
PROVIDERS: Emergency Provider Emergency Medicine; PCP Family Medicine; Visit Provider Emergency Medicine
DX: I11.0 Hypertensive heart disease with heart failure (principal); J44.9 Chronic obstructive pulmonary disease, unspecified; I50.32 Chronic diastolic (congestive) heart failure; Z87.891 Personal history of nicotine dependence; R10.31 Right lower quadrant pain; Z85.048 Personal history of other malignant neoplasm of rectum, rectosigmoid junction, and anus; Z79.899 Other long term (current) drug therapy; Z90.49 Acquired absence of other specified parts of digestive tract; Z90.710 Acquired absence of both cervix and uterus
CPT/HCPCS: 74177; 80053; 83690; 85025; 96361; 96374; 96375; 99285; Q9967; J2405

== ENCOUNTER → 2023-09-03 | Outpatient (CLI) | payer MEDICARE, OTHER, SELFPAY ==
--- NOTE | 2023-09-03 16:34 | STRESSREP ---
Stress Test Report Pharmacologic myocardial perfusion stress test. 83-year-old lady with history of chest pain Resting EKG demonstrates sinus rhythm with a rate of 62 bpm. Resting blood pressure is 118/70 mmHg. 0.4 mg of regadenoson was infused per usual protocol followed by rapid intravenous saline flush injection. Continuous EKG monitoring was performed. The maximum heart rate was 84 bpm which was 60% of max impacted heart rate the maximum workload was 1 metabolic equivalent. At rest there were no ST or T wave changes noted to suggest ischemia and at peak infusion nonspecific ST changes were noted which did not meet the criteria for ischemia. No clinical angina is noted. The final blood pressure was 134/68 mmHg. Myocardial perfusion protocol. 10.9 mCi of technetium 99m sestamibi was injected at rest. 0.4 mg of regadenoson was infused per usual protocol. At peak infusion 33.9 mCi of technetium 99m sestamibi was injected stress images were obtained stress and rest images were reconstructed and compared in the short axis vertical long and horizontal long axis. Gated images were also obtained. Perfusion SPECT analysis: Review of the stress images demonstrate normal uptake of tracer noted in all areas of the myocardium. The resting images similar demonstrated normal uptake of tracer noted in all areas of the myocardium. No areas of reversibility are noted to suggest ischemia and no previous infarct is noted. Gated SPECT analysis: The gated ejection fraction is 70%. Conclusion: Normal pharmacologic myocardial perfusion stress test. Preserved ejection fraction.
== END | disposition home or self-care (01) ==
LOC: CVS 07:01
PROVIDERS: PCP Family Medicine; Referring Provider Nurse Practitioner Gerontology; Visit Provider Nurse Practitioner Gerontology
DX: R07.9 Chest pain, unspecified (principal); R06.02 Shortness of breath
CPT/HCPCS: 78452; 93017; A9500; A4216; J2785

== ENCOUNTER → 2023-10-04 | Outpatient (CLI) | payer MEDICARE, OTHER, SELFPAY ==
--- NOTE | 2023-10-04 13:52 | VDLE_ITS ---
Reason For Study: Left leg pain Procedure LEFT This is a venous duplex using B-mode, color GSV is normal. flow and spectral Doppler. CFV is compressible, spontaneous, phasic, Exam performed in department. competent, and demonstrates normal A preliminary report was called and/or faxed augmentation. to Dr. Brown. FV is compressible, spontaneous, phasic, competent and demonstrates normal augmentation. POP V is compressible, spontaneous, phasic, competent and demonstrates normal augmentation. T/P Trunk is compressible. PTV is compressible. LT PerV is compressible. VL/Venous Duplex US, Unilateral Interpretation Summary Deep veins of the left lower extremity are patent and compressible segmentally. There is no evidence of left lower extremity deep vein thrombosis. Valvular competence appears intac t within the proximal deep venous system on the left . The left great saphenous vein appears patent a nd compressible segmentally. Ordering Physician: Antoine Brown Referring Physician: Antoine Brown Performed By: Kavita Mcduffie RVT
--- OUTSIDE RECORDS SUMMARY | 2023-10-04 14:03 | XMS RPT_ITS | CCD ---
Author Name Unknown Address [facility] [place] [address] Organization [facility] Care Team Providers Care Ammonia Refrigeration Technician Name Role Phone Unavailable Primary Care Provider Unavailabl e Allergies Allergy Classification Reported Allergen(s) Allergy Type Date of Onset Reaction(s) Facility (1 source) Aluminum aspirin Drug Allergy 08-20-2019 Nausea Only [place], [place] (1 source) oxyCODONE Drug Allergy 08-22-2020 Other (See Comments) [place] Medications Current Medications Medication Drug Class(es) Dates Sig (Normalized) Sig (Original) acetaminophen 325 mg / HYDROcodone bitartrate 5 mg oral tablet (1 source) Opioid Agonist Start: 10-13-2020 End: 10-20-2020 take 1 tablet by mouth every six hours as needed for pain, then take 1 tablet by mouth as needed for pain HYDROcodone-acetami nophen (NORCO) 5-325 MG per tablet Indications: S/P hysterectomy Take 1 tablet by mouth every 6 hours as needed for Pain for up to 7 days. Intended supply: 7 days. Take lowest dose possible to manage pain 20 tablet 0 10/13/2020 10/20/2020 Active ALPRAZolam 0.25 mg disintegrating oral tablet (1 source) Benzodiazepine Start: 10-13-2020 ALPRAZolam (NIRAVAM) dissolvable tablet 0.25 mg calcium chloride 0.0014 meq/ml / potassium chloride 0.004 meq/ml / sodium chloride 0.103 meq/ml / sodium lactate 0.028 meq/ml injectable solution (1 source) Start: 10-13-2020 lactated ringers infusion carvedilol 6.25 mg oral tablet (1 source) alpha-Adrenergic Amos, beta-Adrenergic Amos Start: 07-09-2020 take 1 tablet by mouth twice daily carvedilol (COREG) 6.25 MG tablet TAKE 1 TABLET BY MOUTH TWICE A DAY 0 07/09/2020 Active cholecalciferol 2000 unt oral capsule (1 source) Vitamin D Cholecalciferol (VITAMIN D) 50 MCG (1999) CAPS capsule Take by mouth daily 0 Active 1 ml diphenhydrAMINE hydrochloride 50 mg/ml cartridge (1 source) Histamine-1 Receptor Antagonist Start: 10-13-2020 End: 10-13-2020 diphenhydrAMINE (BENADRYL) injection 12.5 mg docusate sodium 100 mg oral capsule (1 source) Start: 10-13-2020 End: 11-12-2020 take 1 capsule by mouth twice daily as needed for constipation docusate sodium (COLACE) 100 MG capsule Take 1 capsule by mouth 2 times daily as needed for Constipation 60 capsule 2 10/13/2020 11/12/2020 Active 2 ml fentaNYL 0.05 mg/ml injection (2 sources) Opioid Agonist Start: 10-13-2020 fentaNYL (SUBLIMAZE) injection 50 mcg Completed/Discontinued Medications Medication Drug Class(es) Dates Sig (Normalized) Sig (Original) ceFAZolin 2000 mg injection (1 source) Cephalosporin Antibacterial Start: 10-13-2020 End: 10-13-2020 ceFAZolin (ANCEF) 2000 mg in dextrose 4 % 100 mL IVPB (premix) Problems Problem Classification Problem Date Documented Da te Episodic/Chronic Ovarian cyst (2 sources) Complex cyst of right ovary; Translations: [Complex cyst of right ovary] 10-13-2020 Residual codes; unclassified (2 sources) H/O: hysterectomy; Translations: [S/P hysterectomy] Onset: 10-13-2020 10-13-2020 Episodic Results Test Name Value Interpretation Reference Range Facil ity Vital Signs Date Time Vital Sign Value Performing Clinician Faci lity 10-13-2020 10:45-0500 BP Diastolic 78 mm[Hg] Nikolai Lozoya [facility] [place] 10-13-2020 10:45-0500 BP Systolic 126 mm[Hg] Nikolai Lozoya [facility] [place] 10-13-2020 10:45-0500 Pulse (Heart Rate) 61 /min Nikolai Lozoya [facility] [place] 10-13-2020 10:45-0500 Pulse Oximetry 93 % [facility] [place] 10-13-2020 10:45-0500 Respiratory Rate 17 /min [facility], [place] 10-13-2020 08:09-0500 Body Temperature 97.39 [degF] Nikolai Helton [facility], [place] 10-13-2020 06:29-0500 BMI (Body Mass Index) 33.98 kg/m2 Nikolai Helton [facility], [place] 10-13-2020 06:29-0500 Body weight 78.93 kg [facility] [place] 10-13-2020 06:29-0500 Height 152.4 cm Nikolai oLzoya [facility] [place] Encounters Encounter Date Encounter Type Care Provider Facility Start: 10-13-2020 End: 10-13-2020 Subsequent hospital visit by physician Nikolai Lozoya Work Phone: [facility] General Surgery Procedures Date Procedure Procedure Detail Performing Clinician Start: 10-13-2020 OPERATIVE REPORT 3m Sca nning Start: 10-13-2020 Ecg routine ecg w/le ast 12 lds w/i&r Franky Olsen Work Phone: Start: 10-13-2020 Basic metabolic pane l calcium total Franky Raúl Work Phone: Start: 10-13-2020 Blood count complete auto&auto difrntl wbc Franky Olsen Work Phone: Start: 10-13-2020 Blood typing serolog ic abo Franky Olsen Work Phone: Plan of Treatment Date Care Activity Detail Author Start: 10-13-2021 Creatinine measurement Creatinine mo nitoring [facility] [place] Start: 10-13-2021 Potassium monitoring Potassium monit [place] Start: 10-31-2020 End: 10-31-2020 Office Visit 10/31/2020 Office Visit Gynecologic Oncology Nikolai Lozoya MD [address] [place] [address] [phone] [facility] TRACK INSPECTOR Oncology Start: 09-14-2020 Annual Wellness Visi t (AWV) Annual Wellness Visit (AWV) [place], [place] Start: 05-17-2020 Influenza vaccination Flu vaccine (# 1) [place], [place] Start: 2007 Pneumococcal 65+ yea rs Vaccine (1 of 1 - PPSV23) Pneumococcal 65+ years Vaccine (1 of 1 - PPSV23) [place] Start: 1997 Screening for osteoporosis DEXA (modify frequency per FRAX score) [place] Start: 1992 Shingles Vaccine (1 of 2) Shingles Vaccine (1 of 2) [place] Start: 1961 DTaP/Tdap/Td vaccine (1 - Tdap) DTaP/Tdap/Td vaccine (1 - Tdap) [place], [place] Start: 1958 COVID-19 Vaccine (1 of 2) COVID-19 Vaccine (1 of 2) [place], [place] Start: 1942 Hepatitis C screening Hepatitis C sc reen [place], [place] End: 10-13-2020 Blood glucose - POCT Blood glucose - POCT Point of Care Testing STAT One Time for 1 Occurrences starting 10/13/2020 until 10/13/2020 [place] Payers Date Payer Category Payer Private Health Insurance [facility] MEDIC[facility] SUPP [id number] 2020-Present [phone] [address] [place] [address] [id number] 2019 Medicare MEDICARE MEDICAR E PART A AND B [id number] 2019-Present [phone] [address] [address] [place] [address] [id number] Social History Date Type Detail Facility Start: 10-13-2020 [facility] [place] End: 09-16-2008 History of tobacco use Current smoker [place] End: 09-16-2008 History of tobacco use Cigarette Smoker [place] Start: 10-13-2020 Cigarettes smoked current (pack per day) - Reported [place] Start: 10-13-2020 Tobacco use and exposure Never used [place] Start: 10-13-2020 Alcohol intake Lifetime non-d ellie (finding) [place] Start: 10-10-2020 History SDOH Alcohol Frequency 1 [place] Sex Assigned At Not on file [place] Exposure to SARS-CoV -2 (event) Not sure [place] Discharge Instructions * Instructions* Belkys Coelho MD - 10/13/2020 Please follow your post operative care instructions given to you by your Country Printer Oncologist's office at your pre operative visit. Please call the office with questions or concerns and be sure to follow up at your scheduled post operative visit. documented in this encounter History of Present Illness * Eloisa Rodney, RN - 10/13/2020 10:20 AM EST Patient alert and oriented at this time. States relief from pain medication given, see MAR and abdominal binder. Daughter at bedside. Patient tolerating PO fluids. Patient repositioned sitting up at side of bed. Encouraging deep breathing and incentive spirometer provided. Patient completed proper return demonstration of incentive spirometer. Discharge instructions reviewed with patient and daughter and they verbalized understanding. * Clemencia Araujo, JOVAN - 10/13/2020 6:46 AM EST Anesthesia at bedside, will give tylenol and pepcid in the OR IV form documented in this encounter Assessments Diagnosis S/P hysterectomy- Primary Acquired absence of both cervix and uterus Complex cyst of right ovary Advance Directives No Advanced Directives Records FoundLatest Code Status on File Code Status Date Activated Date Inactivated Comments Full Code 10/13/2020 6:24 AM Summary Purpose Family History No Family History Records Found Additional Source Comments Ordered Prescriptions (unrec ognized section and content) INFORMATION SOURCE (unrecogn ized section and content) FOR RECORDS PERTAINING TO PATIENTS WHO ARE OR HAVE BEEN ENROLLED IN A CHEMICAL DEPENDENCY/SUBSTANCEABUSE PROGRAM, SOME INFORMATION MAY BE OMITTED. This clinical summary was aggregated from multiple sources. Caution should be exercised in using it in the provision of clinical care. This summary normalizes information from multiple sources, and as a consequence, information in this document may materially change the coding, format and clinical context of patient data. In addition, data may be omitted in some cases. CLINICAL DECISIONS SHOULD BE BASED ON THE PRIMARY CLINICAL RECORDS. [facility] [facility]. provides no warranty or guarantee of the accuracy or completeness of information in this document.
== END | disposition home or self-care (01) ==
LOC: CVS 13:51
PROVIDERS: PCP Family Medicine; Referring Provider Family Medicine; Visit Provider Family Medicine
DX: M79.605 Pain in left leg (principal)
CPT/HCPCS: 93971

== ENCOUNTER 2023-12-15 11:44 | Emergency (ER) | payer MEDICARE, OTHER, SELFPAY ==
[2023-12-15 11:45] VITALS: BP 147/82; PULSE 73; RESP 16; TEMP 36.4; O2SAT 98
[2023-12-15 11:51] VITALS: BMI 32.8
--- NOTE | 2023-12-15 12:05 | EDS_ITS ---
<Statement entered by Simona Newman MD - 12/15/23 13:22> I have personally performed a face to face assessment of the patient and have reviewed the JASON Note. Patient presents after mechanical fall at home. She caught her foot and fell injuring both of her feet. She has been able to weight-bear since the fall. Denies striking her head. Patient lying in bed no acute distress. Head and neck examination feels no evidence of trauma. Heart is regular rate and rhythm. Lung sounds are clear. Abdomen is soft and nontender. Lower extreme examination feels mild tenderness over the distal feet bilaterally. No obvious deformities, abrasions, ecchymosis. Good cap refill noted. Bilateral foot x-rays obtained. Per my interpretation, no obvious evidence of fracture. Radiology interpretation reviewed and agrees. Test results discussed with patient and return instructions provided. 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 Patient was going to the bathroom, she does use a walker and cane however when she is in her trailer she is able to touch all pressure so she does not use them. She struck her right knee on an outstretched sofa falling bending her feet backwards. Patient's pain is to bilateral feet and toes. Patient denies any head or neck injury. Patient is here to get x-rays of both of her feet. 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 Essential (primary) hypertension Foot drop, left foot Heart palpitations History of anal cancer Lung nodule Lung nodule Nicotine dependence, cigarettes, in remission Obesity Osteopenia Ovarian cyst Pain in left ankle Physical debility Restless leg syndrome SOB (shortness of breath) Thoracic ascending aortic aneurysm Vertigo Home Medications cholecalciferol (vitamin D3) 25 mcg (1,000 unit) tablet 3,000 unit PO DAILY supplement 08/08/20 [History Last Taken Unknown] loperamide 2 mg capsule (Imodium A-D) 2 mg PO Q6H PRN Diarrhea 09/27/21 [History Last Taken Unknown] acetaminophen 325 mg tablet (Tylenol) 650 mg (2 x 325 mg) PO Q6H PRN PRN Pain Score 1-10/Temp > 100.7 F #0 tabs 10/05/21 [Rx Last Taken Unknown] calcium carbonate 200 mg calcium (500 mg) chewable tablet 500 mg PO DAILY 03/09/22 [History Last Taken Unknown] furosemide 40 mg tablet 40 mg PO DAILY increase in weight by 5 lbs in 1 week #90 tabs 11/01/22 [Rx Last Taken Unknown] carvedilol 12.5 mg tablet 12.5 mg PO BID htn #180 tabs 06/17/23 [Rx Last Taken Unknown] vitamins A,C,L-gfbe-ctyqhl 2,148 mcg-113 mg-45 mg-17.4 mg tablet (PreserVision AREDS) 2 tab PO BID 08/01/23 [History Last Taken Unknown] spironolactone 25 mg tablet See Rx Instructions .Route .COMPLEX #90 tabs 08/21/23 [Rx Last Taken Unknown] vit C,E,zinc,Tj-xdgag-8-lutein-zeaxanthin 250 mg-2.5 mg-0.5 mg capsule cap PO DAILY 09/26/23 [History Last Taken Unknown] Allergy/AdvReac Type Severity Reaction Status Date / Time oxycodone Allergy Mild headache Verified 12/15/23 11:47 aspirin AdvReac Nausea Verified 12/15/23 11:47 Family History Father Heart disease Sister Cancer Diabetes Brother Heart disease Mother Heart disease Sister Heart disease Sister Cancer breast Surgical History History of cholecystectomy History of right and left heart catheterization (02/24/13) S/P complete hysterectomy (~10/13/20) Social History adopted: No household members: significant other housing: house number of children: 3 Smoking Status: Former smoker how long ago did patient quit smokin alcohol intake: never substance use type: does not use caffeine: Yes Type: coffee Number of servings: 2 what type of physical activity do you participate in: none seatbelt use: always do you feel safe at home: Yes additional social history: - [facility] ROS Narrative Constitutional: Negative for fever, chills, weight loss, weakness Eyes: Negative for vision loss, vision change, double vision ENT: Negative for any sore throat, ear pain, congestion Cardiovascular: Negative for any chest pain, tightness, palpitations Respiratory: Negative for any cough, sputum production, hemoptysis, dyspnea, dyspnea on exertion, orthopnea Gastrointestinal: Negative for any abdominal pain, nausea, vomiting, diarrhea, constipation, blood in stool, blood in vomit : Negative for any urinary frequency, dysuria, retention, blood in urine Muscle skeletal: Negative for any neck pain, back pain. Positive bilateral feet pain Neurological: Negative for any headache, syncope, dizziness Skin: Negative for any rashes, itching, abrasions, lacerations Psychiatric: Negative for any depression, anxiety, stress, suicidal ideation, homicidal ideation Hematologic: Negative for any excessive bruising, easy bleeding EXAM Physical Exam Narrative Exam Narrative: Vital signs reviewed. HEET: Head normocephalic atraumatic, TMs clear bilaterally. Posterior pharynx is clear, moist mucous membranes. Nares clear bilaterally. Neck: Supple with no lymphadenopathy or tenderness. No signs of meningismus. Cardiac: Regular rate and rhythm no murmurs gallops or rubs, equal peripheral pulses bilaterally. Respiratory: Lungs clear to auscultation bilaterally. No chest tenderness. Abdomen: Soft, nontender, nondistended. No abdominal bruit or pulsatile masses. No hepatosplenomegaly Extremities: No peripheral edema, no deformity. Active full range of motion of all extremities. Patient does have some bruising to the right great toe, right second toe as well as the left second toe. +2 pedal pulses. Patient's right foot is a dropfoot secondary to history of polio Neuro: Cranial nerves II through XII intact, no focal neurological deficits. Skin: Clean dry and intact with no rash, purpura, petechiae, vesicles or pustules. Backs/flank: No CVA tenderness, no midline spinal tenderness, no deformity. Psych: Normal mood and affect. No SI, HI or acute psychosis. Const Vital Signs: 12/15/23 11:45 Temperature 97.6 F L Temperature Source Temporal Pulse Rate 73 Respiratory Rate 16 Blood Pressure 147/82 H Blood Pressure Mean 103 Pulse Ox 98 Oxygen Delivery Method Room Air MDM MDM Radiography Diagnostic Testing: Clinical Impression(s) from Imaging Studies Foot X-Ray 12/15/23 12:11 IMPRESSION: No fracture or dislocation in the right foot. Mild degenerative change. Electronically Signed: Terence Sotelo MD at 13:05 EDT , Foot X-Ray 12/15/23 12:11 IMPRESSION: No fracture or dislocation in the left foot. Mild degenerative change. Electronically Signed: Terence Sotelo MD at 13:03 EDT , Treatment and Re-Evaluation :: Differential diagnosis includes however is not limited to: Bilateral feet fracture, contusions, fractured toes, contusion to the toes. Foot sprain Patient appears generally well, patient appears nontoxic vital signs are stable. Presenting to the emergency department after mechanical fall injuring both feet. Patient received x-rays of bilateral feet concerning for any fracture. Patient was offered analgesia however refused, patient states he took Tylenol at home. All radiologic examinations were read, reviewed by the emergency department attending. From these reads, a plan of care will be put in place. Patient is three-view x-rays of bilateral feet show no fracture or dislocation left foot. Patient's x-ray of the right foot shows no fracture or dislocation. At this time, patient be diagnosed with foot contusion, foot sprain. She will use her cane as well as her furniture. I spoke with the patient as well as the patient's children. All are in agreement. Patient stable for discharge will continue to ice elevate and use Tylenol. Stable for discharge. Discharge Plan Triage Chief Complaint: Fall ED Midlevel Provider: Antoine Escobedo ED Provider: Simona Newman Dx/Rx/DC Orders Clinical Impression: Contusion of foot, Fall Instructions: Bruises (Contusions), ED Foot Contusion Prescriptions: No Action loperamide [Imodium A-D] 2 mg capsule 2 mg PO Q6H PRN (Reason: Diarrhea) calcium carbonate 200 mg calcium (500 mg) tablet,chewable 500 mg PO DAILY furosemide 40 mg tablet 40 mg PO DAILY Qty: 90 3RF PreserVision AREDS 2,148 mcg-113 mg-45 mg-17.4mg tablet 2 tab PO BID Rx Instructions: administer with AM and PM meals vit C,E,Zn,Vl--uin-zeax 250-2.5-0.5 mg capsule PO DAILY cholecalciferol (vitamin D3) 25 mcg (1,000 unit) tablet 3,000 unit PO DAILY acetaminophen [Tylenol] 325 mg Tablet 650 mg PO Q6H PRN PRN (Reason: Pain Score 1-10/Temp > 100.7 F) Qty: 0 0RF carvedilol 12.5 mg tablet 12.5 mg PO BID Qty: 180 3RF spironolactone 25 mg tablet See Rx Instructions .ROUTE .COMPLEX Qty: 90 3RF Dose Instruction: TAKE 1 TABLET BY MOUTH EVERY DAY Rx Instructions: TAKE 1 TABLET BY MOUTH EVERY DAY Primary Care Provider: Antoine Brown Referrals: Antoine Brown MD [Primary Care Provider] - Activity Restrictions/Additional Instructions: Please ensure that you ice, elevate, you may take Tylenol. Good luck throughout this week. Disposition Disposition: Home, Self Care
--- NOTE | 2023-12-15 12:11 | RAD_ITS ---
STUDY: X-RAY - LEFT FOOT CLINICAL: Female, 83 years old. Fall. Pain. TECHNIQUE: 3 view(s) of the foot. COMPARISON: None. FINDINGS: There is no evidence of fracture or dislocation. There are mild degenerative changes. There are no radiodense foreign bodies. RAD/Foot min 3 Views IMPRESSION: No fracture or dislocation in the left foot. Mild degenerative change. Electronically Signed: Terence Sotelo MD at 13:03 EDT ,
--- NOTE | 2023-12-15 12:11 | RAD_ITS ---
STUDY: X-RAY - RIGHT FOOT CLINICAL: Female, 83 years old. Fall TECHNIQUE: 3 view(s) of the foot. COMPARISON: None. FINDINGS: There is no evidence of fracture or dislocation. There are mild degenerative changes. There are no radiodense foreign bodies. RAD/Foot min 3 Views IMPRESSION: No fracture or dislocation in the right foot. Mild degenerative change. Electronically Signed: Terence Sotelo MD at 13:05 EDT ,
[2023-12-15 13:28] VITALS: BP 145/82; PULSE 67; RESP 16; TEMP 37; O2SAT 99
== END 2023-12-15 13:29 | disposition home or self-care (01) ==
PROVIDERS: Emergency Provider Emergency Medicine; PCP Family Medicine; Visit Provider Emergency Medicine
DX: S90.31XA Contusion of right foot, initial encounter (principal); I11.0 Hypertensive heart disease with heart failure; I50.32 Chronic diastolic (congestive) heart failure; J44.9 Chronic obstructive pulmonary disease, unspecified; Z87.891 Personal history of nicotine dependence; W18.09XA Striking against other object with subsequent fall, initial encounter; Y92.89 Other specified places as the place of occurrence of the external cause; Z85.048 Personal history of other malignant neoplasm of rectum, rectosigmoid junction, and anus; Z79.899 Other long term (current) drug therapy; Z90.49 Acquired absence of other specified parts of digestive tract; Z90.710 Acquired absence of both cervix and uterus; S90.32XA Contusion of left foot, initial encounter
CPT/HCPCS: 73630; 99282

== ENCOUNTER → 2024-02-11 | Outpatient (CLI) | payer MEDICARE, OTHER, SELFPAY ==
--- NOTE | 2024-02-11 13:03 | CT_ITS ---
STUDY: CTA CHEST REASON FOR EXAM: Female, 83 years old. TAA RADIATION DOSAGE (If Supplied By Facility): CTDIvol = ( 14.00 ) mGy, DLP = ( 488.12 ) mGycm TECHNIQUE: The examination was performed with the intravenous administration of IV 100mL Isovue-370. Post-processing of the angiographic images was performed, with multiplanar reformation and 3D reconstruction. The protocol utilizes one or more of the following dose reduction techniques: automated exposure control, adjustment of mA and/or kV according to patient size,and/or use of iterative reconstruction technique. COMPARISON: Prior studies dated: 03/22/2022 FINDINGS: Normal enhancement of the main pulmonary artery and right and left pulmonary arteries. Normal enhancement of the bilateral peripheral pulmonary arteries. There is no demonstrated pulmonary embolism. Ascending thoracic aortic aneurysm measuring up to 4.6 cm again seen unchanged in size since previous examination. Distended thoracic aortic aneurysm measuring up to 4.7 cm in transverse diameter mural thrombus in the left posterior aspect of the aorta unchanged since prior exam. There is otherwise no demonstrated aortic dissection. Normal heart and pericardium. No significant coronary calcifications. Normal mediastinum. Normal hilar regions. Normal visualized trachea and bronchi. The lungs are well expanded. Mild emphysematous changes. 7 mm right lower lobe nodule stable since the previous exam. No acute pulmonary infiltrates. There are no pleural effusions. Normal chest wall structures. No demonstrated acute osseous changes. Cystic lesion with peripheral calcification in the lateral aspect of the left lobe of the liver unchanged since prior examinations. CT/CTA Chest W/WO Contrast IMPRESSION: No significant change since the previous examination. Electronically Signed: Shawn Perry MD at 14:01 EDT ,
[2024-02-11 13:41] LABS: CREATININE FINGERSTICK 1.2 mg/dL (0.55-1.02)
== END | disposition home or self-care (01) ==
LOC: CT 13:02
PROVIDERS: PCP Family Medicine; Referring Provider Nurse Practitioner Gerontology; Visit Provider Nurse Practitioner Gerontology
DX: I71.20 Thoracic aortic aneurysm, without rupture, unspecified (principal)
CPT/HCPCS: 71275; Q9967

== ENCOUNTER → 2024-05-02 | Outpatient (CLI) | payer MEDICARE, OTHER, SELFPAY | END | disposition home or self-care (01) | PROVIDERS: PCP Family Medicine; Visit Provider Physician Assistant | DX: N39.0 Urinary tract infection, site not specified (principal) | CPT/HCPCS: 87086; 87088 ==

== ENCOUNTER 2024-07-12 14:50 | Inpatient (IN) | payer MEDICARE, OTHER, SELFPAY ==
[2024-07-12] VITALS (11 sets, daily range): BP systolic 97–131; BP diastolic 33–79; PULSE 64–81; RESP 16–21; TEMP 36.8; O2SAT 93–98; BMI 29.5
--- NOTE | 2024-07-12 14:54 | NURSING ---
NO OLD EKGS
--- NOTE | 2024-07-12 15:14 | EKG12_ITS ---
Test Reason : CP Blood Pressure : / mmHG Vent. Rate : 066 BPM Atrial Rate : 066 BPM P-R Int : 166 ms QRS Dur : 076 ms QT Int : 388 ms P-R-T Axes : 065 -17 055 degrees QTc Int : 406 ms Normal sinus rhythm Nonspecific ST and T wave abnormality Abnormal ECG Confirmed by JAMES VARGAS, JENNIFER ([id number]), editor producer JESSE KRISHNAN ([id number]) on 07/14/2024 7:52:58 AM Referred By: BB/KELLIE Confirmed By:JENNIFER RAMIREZ MD
--- NOTE | 2024-07-12 15:19 | EX.ED.DYSGE1 ---
HPI <LORRAINE Hernandez - Last Filed: 07/12/24 19:20> History of Present Illness Chief Complaint: Chest Pain Narrative Narrative: Patient is an 83-year-old female with history of hypertension, COPD, history of a ascending thoracic aortic aneurysm who presents to the emerged Apt. 2 days of epigastric pain. Patient states she feels at that she has a gaseous sensation in her epigastrium, and states its pressure, this can come and go over the last 2 days. Patient states it began yesterday morning, it got better throughout the day however this morning, it was worse and is here for evaluation. She is here with her son and [id number]. Patient denies any nausea or vomiting. Patient states that she fell like she was going to have a syncopal episode over the last 2 days. She states that these episodes keep coming going however she never actually lost consciousness. [facility] <LORRAINE Hernandez - Last Filed: 07/12/24 19:20> [facility] Medical History Thoracic ascending aortic aneurysm Aortic mural thrombus Nicotine dependence, cigarettes, in remission Lung nodule SOB (shortness of breath) Chronic respiratory failure with hypoxia Osteopenia Enteritis secondary to radiation therapy Restless leg syndrome Physical debility Pain in left ankle Closed fracture of distal end of left fibula Heart palpitations Ovarian cyst Foot drop, left foot Chronic diastolic (congestive) heart failure Descending thoracic aortic aneurysm Obesity Essential (primary) hypertension Lung nodule Vertigo History of anal cancer 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) COPD (chronic obstructive pulmonary disease) 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 Home Medications ?Medication ?Instructions ?Recorded ?Last Taken ?Type cholecalciferol (vitamin D3) 25 3,000 unit PO DAILY supplement 08/08/20 Unknown History mcg (1,000 unit) tablet loperamide 2 mg capsule (Imodium 2 mg PO Q6H PRN Diarrhea 09/27/21 Unknown History A-D) acetaminophen 325 mg tablet 650 mg (2 x 325 mg) PO Q6H PRN PRN 10/05/21 Unknown Rx (Tylenol) Pain Score 1-10/Temp > 100.7 F #0 tabs calcium carbonate 500 mg PO DAILY 03/09/22 Unknown History vitamins A,C,E-cxej-ulzsny 2,148 2 tab PO BID 08/01/23 Unknown History mcg-113 mg-45 mg-17.4 mg tablet (PreserVision AREDS) spironolactone 25 mg tablet See Rx Instructions .Route 08/21/23 Unknown Rx .COMPLEX #90 tabs furosemide 40 mg tablet 40 mg PO DAILY increase in weight 01/17/24 Unknown Rx by 5 lbs in 1 week #90 tabs gabapentin 300 mg capsule 300 mg PO TID 04/07/24 Unknown History lactobacillus combination no.9 4 4,000 mmu cells PO DAILY 04/07/24 Unknown History billion cell capsule (Adult 50 Plus Probiotic) omeprazole 20 mg capsule,delayed 20 mg PO DAILY 04/07/24 Unknown History release carvedilol 12.5 mg tablet 12.5 mg PO BID for blood pressure 04/14/24 Unknown Rx #180 TABLETS Allergy/AdvReac Type Severity Reaction Status Date / Time oxycodone Allergy Mild headache Verified 05/02/24 13:13 aspirin AdvReac Nausea Verified 05/02/24 13:13 Family History Father Heart disease Sister Cancer Diabetes Brother Heart disease Mother Heart disease Sister Heart disease Sister Cancer breast Surgical History H/O cataract extraction S/P complete hysterectomy (~10/13/20) History of right and left heart catheterization (02/24/13) History of cholecystectomy Social History adopted: No household members: significant other housing: house number of children: 3 Smoking Status: Former smoker how long ago did patient quit smokin alcohol intake: never substance use type: does not use caffeine: Yes Type: coffee Number of servings: 2 what type of physical activity do you participate in: none seatbelt use: always do you feel safe at home: Yes additional social history: - Rosalio [place] <LORRAINE Hernandez - Last Filed: 07/12/24 19:20> ROS ED ROS Narrative Constitutional: Negative for fever, chills, weight loss, weakness Eyes: Negative for vision loss, vision change, double vision ENT: Negative for any sore throat, ear pain, congestion Cardiovascular: Negative for any chest pain, tightness, palpitations. Positive epigastric pain Respiratory: Negative for any cough, sputum production, hemoptysis, dyspnea, dyspnea on exertion, orthopnea Gastrointestinal: Negative for any abdominal pain, nausea, vomiting, diarrhea, constipation, blood in stool, blood in vomit : Negative for any urinary frequency, dysuria, retention, blood in urine Muscle skeletal: Negative for any neck pain, back pain Neurological: Negative for any headache. Positive for near syncope, dizziness Skin: Negative for any rashes, itching, abrasions, lacerations Psychiatric: Negative for any depression, anxiety, stress, suicidal ideation, homicidal ideation Hematologic: Negative for any excessive bruising, easy bleeding EXAM <Antoine MarioHECTOR mitchell-C - Last Filed: 07/12/24 19:20> Physical Exam Narrative Exam Narrative: Vital signs reviewed. Patient is in no obvious distress, vital signs are stable. HEET: Head normocephalic atraumatic, TMs clear bilaterally. Posterior pharynx is clear, moist mucous membranes. Nares clear bilaterally. Neck: Supple with no lymphadenopathy or tenderness. No signs of meningismus. Cardiac: Regular rate and rhythm no murmurs gallops or rubs, equal peripheral pulses bilaterally. Respiratory: Lungs clear to auscultation bilaterally. No chest tenderness. Abdomen: Soft. Pain on palpation to the epigastric area, right upper quadrant. Patient also has pain to the lower abdomen.. No hepatosplenomegaly Extremities: No peripheral edema, no signs of gross trauma or deformity. Active full range of motion of all extremities. Neuro: Cranial nerves II through XII intact, no focal neurological deficits. Skin: Clean dry and intact with no rash, purpura, petechiae, vesicles or pustules. Backs/flank: No CVA tenderness, no midline spinal tenderness, no deformity. Psych: Normal mood and affect. No SI, HI or acute psychosis. Const Vital Signs: 07/12/24 14:51 07/12/24 15:45 07/12/24 16:00 Temperature 98.2 F Temperature Source Oral Pulse Rate 69 64 79 Respiratory Rate 19 H 21 H 18 Blood Pressure 131/74 H 114/73 108/79 Blood Pressure Mean 93 87 88 Pulse Ox 95 98 96 Oxygen Delivery Method Room Air Room Air Oxygen Flow Rate (L/min) 07/12/24 16:56 07/12/24 18:00 07/12/24 18:56 Temperature Temperature Source Pulse Rate 78 66 78 Respiratory Rate 17 18 16 Blood Pressure 117/78 118/65 121/74 H Blood Pressure Mean 91 82 89 Pulse Ox 95 98 98 Oxygen Delivery Method Room Air Nasal Cannula Nasal Cannula Oxygen Flow Rate (L/min) 2 2 2 Positive well nourished and well developed General Appearance ED: well developed <Dr. Gerber Vanegas MD - Last Filed: 07/12/24 19:28> Physical Exam Const Vital Signs: 07/12/24 14:51 07/12/24 15:45 07/12/24 16:00 Temperature 98.2 F Temperature Source Oral Pulse Rate 69 64 79 Respiratory Rate 19 H 21 H 18 Blood Pressure 131/74 H 114/73 108/79 Blood Pressure Mean 93 87 88 Pulse Ox 95 98 96 Oxygen Delivery Method Room Air Room Air Oxygen Flow Rate (L/min) 07/12/24 16:56 07/12/24 18:00 07/12/24 18:56 Temperature Temperature Source Pulse Rate 78 66 78 Respiratory Rate 17 18 16 Blood Pressure 117/78 118/65 121/74 H Blood Pressure Mean 91 82 89 Pulse Ox 95 98 98 Oxygen Delivery Method Room Air Nasal Cannula Nasal Cannula Oxygen Flow Rate (L/min) 2 2 2 MDM <LORRAINE Hernandez - Last Filed: 07/12/24 19:20> MDM Lab Data Labs: Laboratory Results - last 24 hr 07/12/24 07/12/24 07/12/24 15:01 15:35 17:18 WBC 9.0 RBC 3.83 L Hgb 12.1 Hct 37.2 MCV 97.1 MCH 31.6 MCHC 32.5 RDW Std Deviation 50.0 H RDW Coeff of Harsh 14.1 Plt Count 291 MPV 9.0 Immature Gran % (Auto) 0.300 Neut % (Auto) 66.2 Lymph % (Auto) 22.6 [place] % (Auto) 8.9 Eos % (Auto) 1.6 Baso % (Auto) 0.4 Absolute Neuts (auto) 6.0 Absolute Lymphs (auto) 2.03 Nucleated RBC % 0 Sodium 137 Potassium 4.5 Chloride 104 Carbon Dioxide 28.0 Anion Gap 5 BUN 31 H Creatinine 1.35 H Estim Creat Clear Calc 28.21 Est GFR (MDRD) Af Amer 48 L Est GFR (MDRD) Non-Af 40 L BUN/Creatinine Ratio 23.0 H Glucose 79 Lactic Acid 1.1 Calcium 9.2 Total Bilirubin 0.20 AST 34 ALT 28 Alkaline Phosphatase 92 Troponin I High Sens 26 Total Protein 7.8 Albumin 3.4 Globulin 4.4 H Albumin/Globulin Ratio 0.8 L Lipase 122 H Urine Color Straw Urine Clarity Cloudy Urine pH 7.0 Ur Specific [place] 1.010 Urine Protein 15 H Urine Glucose (UA) Normal Urine Ketones Negative Urine Occult Blood 10 H Urine Nitrite Negative Urine Bilirubin Negative Urine Urobilinogen Normal Ur Leukocyte Esterase 500 H Urine RBC 0 SEEN Urine WBC >100 SEEN Ur Squamous Epith Cells 0-5 SEEN Urine Bacteria 2+ Urine Mucus 0 SEEN 07/12/24 17:23 WBC RBC Hgb Hct MCV MCH MCHC RDW Std Deviation RDW Coeff of Harsh Plt Count MPV Immature Gran % (Auto) Neut % (Auto) Lymph % (Auto) [place] % (Auto) Eos % (Auto) Baso % (Auto) Absolute Neuts (auto) Absolute Lymphs (auto) Nucleated RBC % Sodium Potassium Chloride Carbon Dioxide Anion Gap BUN Creatinine Estim Creat Clear Calc Est GFR (MDRD) Af Amer Est GFR (MDRD) Non-Af BUN/Creatinine Ratio Glucose Lactic Acid Calcium Total Bilirubin AST ALT Alkaline Phosphatase Troponin I High Sens 28 Total Protein Albumin Globulin Albumin/Globulin Ratio Lipase Urine Color Urine Clarity Urine pH Ur Specific [place] Urine Protein Urine Glucose (UA) Urine Ketones Urine Occult Blood Urine Nitrite Urine Bilirubin Urine Urobilinogen Ur Leukocyte Esterase Urine RBC Urine WBC Ur Squamous Epith Cells Urine Bacteria Urine Mucus Radiography Diagnostic Testing: Clinical Impression(s) from Imaging Studies Abdomen/Pelvis CTA 07/12/24 15:24 IMPRESSION: (NOT LISTED IN ORDER OF SIGNIFICANCE) There is mild sigmoid diverticulitis with fistulous medication between the colon and urinary bladder. Air is noted in the urinary bladder. Findings suggest a colovesicular fistula. Stable right lower lobe nodule. 38 mm aneurysm dilation of the descending thoracic aorta. Other findings as above. Electronically Signed: Leonidas Man MD at 16:40 EDT Reading Location ID and State: [facility] / [place] , Service support , Chest X-Ray 07/12/24 15:55 IMPRESSION: There are no acute findings. Electronically Signed: Leonidas Man MD at 16:06 EDT , Treatment and Re-Evaluation :: Differential diagnosis includes however is not limited to: Expanding thoracic aneurysm, acute choledocholithiasis, biliary colic, ACS, IA, GERD Patient appears generally well, vital signs are stable, patient is nontoxic-appearing. Presenting to the emergency department feeling of dizziness, near syncope, epigastric pain. Patient will receive a cardiac workup as well as a CTA of the abdomen pelvis. All radiologic examinations were read, reviewed by the emergency department attending. From these reads, a plan of care will be put in place. Patient will be reevaluated. Initial troponin as well as delta will be ordered. Patient CBC shows a hemoglobin stable 12.1, patient's creatinine slightly elevated at 1.3, chemistries were unremarkable. Patient's lipase 102 which is slightly elevated. Troponin initially 26, repeat 28. CTA of the abdomen pelvis shows mild sigmoid diverticulitis with fistulous medication between the colon and urinary bladder. Air is noted in the urinary bladder. Findings suggestive of [place] vesicular fistula. Stable right lower lobe nodule. 38 mm aneurysm dilatation of the descending thoracic aorta. Other findings as above. Secondary this finding, we did reach out to surgery however secondary to the patient having a UTI with 2+ bacteria greater than 100 white blood cells, 500 leukocytes, there does appear to be a fistula. At this time, surgery recommended transfer. Patient was accepted to [facility]. <Dr. Gerber Vanegas MD - Last Filed: 07/12/24 19:28> [facility] Narrative Medical decision making narrative: I have personally performed a face to face assessment of the patient and have reviewed the JASON Note. I performed a substantive portion of the visit including all aspects of the following. My russell findings include: History is episodes of feeling poorly along with lower chest/epigastric feeling of pressure, discomfort in the throat, once there were palpitations that felt like her heart was beating hard but not necessarily irregularly or fast, and many of the episodes been associated with near syncope but never syncope. Started yesterday and multiple episodes this morning. She is feeling better right now. Exam is tender in epigastrium as well as periumbilical area. No guarding or rebound but fairly tender. Heart is regular, lungs are clear, equal pulses throughout all 4 extremities. No pulsatile mass in the abdomen. Medical Decison Making initially considering intra-abdominal, intrathoracic and cardiac abnormalities/etiologies, after ordering the workup including CT of the abdomen/pelvis as angiography to rule out AAA/dissection, patient had recurrence of her symptoms and had a transient dysrhythmia the last 3 to 4 seconds, it looks like it was narrow complex supraventricular, possibly paroxysmal A-fib the difficult to diagnose based on a small/short strip. Will continue workup and plan is for admission. With regards to CT, I reviewed the images and the report which I agree with. It unexpectedly shows a colovesical fistula. There is air in the bladder and a significant amount. I discussed with Dr. Crowe, he states that there is acute infection in the urine, he recommends transfer since we do not have colorectal here. We obtained a urine at that point and it does not fact show infection. I initially discussed with [facility], however the hospital states they do not have the colorectal there so we then tried to [facility], spoke with the surgeon there who accepts the patient. They understand that the patient is having paroxysmal dysrhythmia and near syncopal episodes as well. We started the patient on cefepime after sending urine culture and we are awaiting bed availability and transfer. Upon discussing this with the patient and family, the patient at this point discloses to all of us including family for the first time, that for about the past month, she has been urinating air after her urine, sometimes but not every time. Other additions or changes: [None] Lab Data Labs: Laboratory Results - last 24 hr 07/12/24 07/12/24 07/12/24 15:01 15:35 17:18 WBC 9.0 RBC 3.83 L Hgb 12.1 Hct 37.2 MCV 97.1 MCH 31.6 MCHC 32.5 RDW Std Deviation 50.0 H RDW Coeff of Harsh 14.1 Plt Count 291 MPV 9.0 Immature Gran % (Auto) 0.300 Neut % (Auto) 66.2 Lymph % (Auto) 22.6 [place] % (Auto) 8.9 Eos % (Auto) 1.6 Baso % (Auto) 0.4 Absolute Neuts (auto) 6.0 Absolute Lymphs (auto) 2.03 Nucleated RBC % 0 Sodium 137 Potassium 4.5 Chloride 104 Carbon Dioxide 28.0 Anion Gap 5 BUN 31 H Creatinine 1.35 H Estim Creat Clear Calc 28.21 Est GFR (MDRD) Af Amer 48 L Est GFR (MDRD) Non-Af 40 L BUN/Creatinine Ratio 23.0 H Glucose 79 Lactic Acid 1.1 Calcium 9.2 Total Bilirubin 0.20 AST 34 ALT 28 Alkaline Phosphatase 92 Troponin I High Sens 26 Total Protein 7.8 Albumin 3.4 Globulin 4.4 H Albumin/Globulin Ratio 0.8 L Lipase 122 H Urine Color Straw Urine Clarity Cloudy Urine pH 7.0 Ur Specific [place] 1.010 Urine Protein 15 H Urine Glucose (UA) Normal Urine Ketones Negative Urine Occult Blood 10 H Urine Nitrite Negative Urine Bilirubin Negative Urine Urobilinogen Normal Ur Leukocyte Esterase 500 H Urine RBC 0 SEEN Urine WBC >100 SEEN Ur Squamous Epith Cells 0-5 SEEN Urine Bacteria 2+ Urine Mucus 0 SEEN 07/12/24 17:23 WBC RBC Hgb Hct MCV MCH MCHC RDW Std Deviation RDW Coeff of Harsh Plt Count MPV Immature Gran % (Auto) Neut % (Auto) Lymph % (Auto) [place] % (Auto) Eos % (Auto) Baso % (Auto) Absolute Neuts (auto) Absolute Lymphs (auto) Nucleated RBC % Sodium Potassium Chloride Carbon Dioxide Anion Gap BUN Creatinine Estim Creat Clear Calc Est GFR (MDRD) Af Amer Est GFR (MDRD) Non-Af BUN/Creatinine Ratio Glucose Lactic Acid Calcium Total Bilirubin AST ALT Alkaline Phosphatase Troponin I High Sens 28 Total Protein Albumin Globulin Albumin/Globulin Ratio Lipase Urine Color Urine Clarity Urine pH Ur Specific [place] Urine Protein Urine Glucose (UA) Urine Ketones Urine Occult Blood Urine Nitrite Urine Bilirubin Urine Urobilinogen Ur Leukocyte Esterase Urine RBC Urine WBC Ur Squamous Epith Cells Urine Bacteria Urine Mucus Radiography Diagnostic Testing: Clinical Impression(s) from Imaging Studies Abdomen/Pelvis CTA 07/12/24 15:24 IMPRESSION: (NOT LISTED IN ORDER OF SIGNIFICANCE) There is mild sigmoid diverticulitis with fistulous medication between the colon and urinary bladder. Air is noted in the urinary bladder. Findings suggest a colovesicular fistula. Stable right lower lobe nodule. 38 mm aneurysm dilation of the descending thoracic aorta. Other findings as above. Electronically Signed: Leonidas Man MD at 16:40 EDT , Chest X-Ray 07/12/24 15:55 IMPRESSION: There are no acute findings. Electronically Signed: Leonidas Man MD at 16:06 EDT , Management Discussion w/another healthcare provider: Hospitalist Discharge Plan Triage Chief Complaint: Chest Pain ED Midlevel Provider: Antoine Escobedo ED Provider: Gerber Vanegas Dx/Rx/DC Orders Clinical Impression: CVF (colovesical fistula), Acute UTI, Chest pain, Syncope, near, Supraventricular dysrhythmia Prescriptions: No Action loperamide [Imodium A-D] 2 mg capsule 2 mg PO Q6H PRN (Reason: Diarrhea) calcium carbonate 200 mg calcium (500 mg) tablet,chewable 500 mg PO DAILY PreserVision AREDS 2,148 mcg-113 mg-45 mg-17.4mg tablet 2 tab PO BID Rx Instructions: administer with AM and PM meals gabapentin 300 mg capsule 300 mg PO TID omeprazole 20 mg capsule,delayed release(DR/EC) 20 mg PO DAILY Adult 50 Plus Probiotic 4 billion cell capsule 4,000 mmu cells PO DAILY Rx Instructions: administer with a meal cholecalciferol (vitamin D3) 25 mcg (1,000 unit) tablet 3,000 unit PO DAILY acetaminophen [Tylenol] 325 mg Tablet 650 mg PO Q6H PRN PRN (Reason: Pain Score 1-10/Temp > 100.7 F) Qty: 0 0RF spironolactone 25 mg tablet See Rx Instructions .ROUTE .COMPLEX Qty: 90 3RF Dose Instruction: TAKE 1 TABLET BY MOUTH EVERY DAY Rx Instructions: TAKE 1 TABLET BY MOUTH EVERY DAY furosemide 40 mg tablet 40 mg PO DAILY Qty: 90 3RF carvedilol 12.5 mg tablet 12.5 mg PO BID Qty: 180 3RF Primary Care Provider: Antoine Brown Referrals: Antoine Brown MD [Primary Care Provider] - Print Language: Belarusian Disposition Disposition: Acute Care Hospital Discharge Location: [facility]
[2024-07-12 15:23] LABS: Absolute Lymphocyte Count 2.03 X10^3/uL (0.83-4.51); Basophil# 0.04 X10^3/uL; Basophil% 0.4 % (0-1); Eosinophil# 0.14 X10^3/uL; Eosinophils% 1.6 % (0-5); Hematocrit 37.2 % (37-47); Hemoglobin 12.1 g/dL (12.0-15.0); Lymphocyte # 2.03 X10^3/ul (0.83-4.51); Lymphocyte % 22.6 % (19-41); Mean Corp Hgb Conc 32.5 g/dL (32-36); Mean Corpuscular Hgb 31.6 pg (27.0-32.0); Mean Corpuscular Volume 97.1 fL (81-99); Monocyte% 8.9 % (0-10); NRBC Flagged by Analyzer 0 % (0-5); Neutrophil # 5.96 X10^3/uL (2.7-7.7); Neutrophil % 66.2 % (47-70); Platelet Count 291 K/mm3 (150-450); RBC Distribution Width CV 14.1 % (11.6-14.6); Red Blood Count 3.83 M/mm3 (4.2-5.4)
--- NOTE | 2024-07-12 15:24 | CT_ITS ---
STUDY: CTA Abdomen and Pelvis WO/W Contrast Injection REASON FOR EXAM: Female, 83 years old. abdominal pain TECHNIQUE: Axial CT angiography multi-detector data acquisition was obtained following intravenous administration of IV 100mL Isovue-370 contrast. Axial images and MIP images were reconstructed from the axial data set. Post-processing of the angiographic images was performed, with multiplanar reformation and 3D reconstruction. MIPS images were obtained. Individualized dose optimization techniques were used for this CT. COMPARISON: 07.11.23 FINDINGS: 5.7 mm nodule in the right lower lobe. The visualized portions of the heart are within normal limits. Stable calcific and cystic lesion of the left lobe of the liver. There are surgical clips in the gallbladder fossa consistent with a prior cholecystectomy. Normal spleen. Normal pancreas. Normal bilateral adrenal glands. There are hypodensities in the right kidney. These are consistent for cysts. No follow up required. There are hypodensities in the left kidney. These are consistent for cysts. No follow up required. Normal visualized stomach. Normal small intestine. There is diverticulosis, with thickening of the colon wall, and pericolonic inflammation changes consistent with acute diverticulitis. The appendix is visualized and appears normal. Normal inferior vena cava. Normal retroperitoneum. Air in the urinary bladder. The dome of the urinary bladder there is inflammation. . There is slight inflammation in the proximal sigmoid colon which abuts the urinary bladder. There is a fistulous communication into the urinary bladder. 38 mm aneurysm dilation of the descending thoracic aorta. There is a small umbilical hernia containing fat. There are diffuse degenerative changes of the visualized lumbar spine. There is an unremarkable-appearing IVC. Degenerative findings in the hips. Abdominal aorta: There are calcifications of the abdominal aorta. This is consistent for atherosclerotic disease. There is no abdominal aortic aneurysm. Celiac and superior mesenteric arteries: There is mild diffuse narrowing. Inferior mesenteric artery: There is mild diffuse narrowing. Right renal artery(arteries): There is mild diffuse narrowing. Left renal artery(arteries): There is mild diffuse narrowing. Right common iliac artery: There is mild diffuse narrowing. Right external iliac artery: There is mild diffuse narrowing. Right internal iliac artery: There is mild diffuse narrowing. Left common iliac artery: There is mild diffuse narrowing. Left external iliac artery: There is mild diffuse narrowing. Left internal iliac artery: There is mild diffuse narrowing. CT/CTA Abd/Pelvis W/WO Contrast IMPRESSION: (NOT LISTED IN ORDER OF SIGNIFICANCE) There is mild sigmoid diverticulitis with fistulous medication between the colon and urinary bladder. Air is noted in the urinary bladder. Findings suggest a colovesicular fistula. Stable right lower lobe nodule. 38 mm aneurysm dilation of the descending thoracic aorta. Other findings as above. Electronically Signed: Leonidas Man MD at 16:40 EDT ,
--- OUTSIDE RECORDS SUMMARY | 2024-07-12 15:27 | XMS RPT_ITS | CCD ---
Author Organization [facility] Care Team Providers Care Service Consultant Name Role Phone Unavailable Primary Care Provider Katerina WILSON MD, DR SANDHU Attending Katerina ruth Allergies Allergy Classification Reported Allergen(s) Allergy Type Date of Onset Reaction(s) Facility (1 source) Aluminum aspirin Drug Allergy 08-20-2019 Nausea Only [place], [place] (2 sources) oxyCODONE; Translations: [oxycodone] Drug Allergy 08-22-2020 Other (See Comments) [place] (1 source) Aspirin; Translations: [aspirin] Drug Allergy [facility] Medications Current Medications Medication Drug Class(es) Dates Sig (Normalized) Sig (Original) acetaminophen 325 mg / HYDROcodone bitartrate 5 mg oral tablet (1 source) Opioid Agonist Start: 10-13-2020 End: 10-20-2020 take 1 tablet by mouth every six hours as needed for pain, then take 1 tablet by mouth as needed for pain HYDROcodone-aceta minophen (NORCO) 5-325 MG per tablet Indications: S/P [...] source) Start: 10-13-2020 lactated ringers infusion carvedilol 12.5 mg oral tablet (2 sources) alpha-Adrenergic Amos, beta-Adrenergic Amos Start: 12-16-2023 take 1 tablet by mouth twice daily for hypertension carvedilol 12.5 mg oral tablet TAKE ONE TABLET BY MOUTH TWICE A DAY FOR HYPERTENSION Start Date: 12/16/23 Status: Ordered Start: 07-09-2020 take 1 tablet by shahid th twice daily carvedilol (COREG) 6.25 MG tablet TAKE 1 TABLET BY MOUTH TWICE A DAY 0 07/09/2020 Active cholecalciferol 2000 unt oral capsule (1 source) Vitamin D Cholecalciferol (VITAMIN D) 50 MCG (1999) CAPS capsule Take by mouth daily 0 Active 1 ml diphenhydrAMINE hydrochloride 50 mg/ml cartridge (1 source) Histamine-1 Receptor Antagonist Start: End: diphenhydrAMINE (BENADRYL) injection 12.5 mg docusate sodium 100 mg oral capsule (1 source) Start: End: take 1 capsule by mouth twice daily as needed for constipation docusate sodium (COLACE) 100 MG capsule Take 1 capsule by mouth 2 times daily as needed for Constipation 60 capsule 2 10/13/2020 11/12/2020 Active 2 ml fentaNYL 0.05 mg/ml injection (2 sources) Opioid Agonist Start: fentaNYL (SUBLIMAZE) injection 50 mcg Start: 10-13-2020 fentaNYL (SUBL IMAZE) injection 25 mcg furosemide 40 mg oral tablet (2 sources) Loop Diuretic Start: 12-16-2023 take 1 tablet by mouth once daily, then take 5 tablets by mouth every week furosemide 40 mg oral tablet TAKE ONE TABLET BY MOUTH DAILY FOR INCREASE IN WEIGHT BY 5 LBS IN 1 WEEK Start Date: 12/16/23 Status: Ordered Start: 07-04-2020 take 1 tablet by shahid th once daily furosemide (LASIX) 40 MG tablet TAKE 1 TABLET BY MOUTH EVERY DAY 0 07/04/2020 Active gabapentin 300 mg oral capsule (1 source) Anti-epileptic Agent Start: 12-16-2023 take 1 capsule by mouth three times daily gabapentin 300 mg oral capsule TAKE 1 CAPSULE BY MOUTH THREE TIMES A DAY Start Date: 12/16/23 Status: Ordered 1 ml hydrALAZINE hydrochloride 20 mg/ml injection (1 source) Arteriolar Vasodilator Start: 10-13-2020 hydrALAZINE (APRESOLINE) injection 5 mg 1 ml HYDROmorphone hydrochloride 1 mg/ml cartridge (2 sources) Opioid Agonist Start: 10-13-2020 HYDROmorphone (DILAUDID) injection 0.5 mg Start: 10-13-2020 HYDROmorphone (DILAUDID) injection 0.25 mg ibuprofen 600 mg oral tablet (1 source) Nonsteroidal Anti-inflammatory Drug Start: 10-13-2020 take 1 tablet by mouth every six hours as needed for pain ibuprofen (ADVIL;MOTRIN) 600 MG tablet Take 1 tablet by mouth every 6 hours as needed for Pain 60 tablet 0 10/13/2020 Active Start: 10-13-2020 take 1 tablet by shahid th every six hours as needed for pain ibuprofen (ADVIL;MOTRIN) 600 MG tablet Take 1 tablet by mouth every 6 hours as needed for Pain 60 tablet 0 10/13/2020 Active 4 ml labetalol hydrochloride 5 mg/ml cartridge (1 source) beta-Adrenergic Amos Start: 10-13-2020 labetalol (NORMODYNE;TRANDATE) injection 5 mg 10 ml lidocaine hydrochloride 10 mg/ml injection (1 source) Antiarrhythmic, Amide Local Anesthetic Start: 10-13-2020 End: 10-13-2020 lidocaine PF 1 % injection 1 mL meloxicam 15 mg oral tablet (2 sources) Nonsteroidal Anti-inflammatory Drug Start: 12-16-2023 take 1 tablet by mouth once daily meloxicam 15 mg oral tablet TAKE 1 TABLET BY MOUTH EVERY DAY Start Date: 12/16/23 Status: Ordered 1 ml meperidine hydrochloride 25 mg/ml cartridge (1 source) Opioid Agonist Start: 10-13-2020 meperidine (DEMEROL) injection 12.5 mg omeprazole 20 mg delayed release oral capsule (1 source) Proton Pump Inhibitor Start: 12-16-2023 take 1 capsule by mouth once daily omeprazole 20 mg oral delayed release capsule TAKE 1 CAPSULE BY MOUTH EVERY DAY Start Date: 12/16/23 Status: Ordered 2 ml ondansetron 2 mg/ml injection (1 source) Serotonin-3 Receptor Antagonist Start: 10-13-2020 End: 10-13-2020 ondansetron (ZOFRAN) injection 4 mg potassium chloride 20 meq extended release oral tablet (1 source) Start: 08-22-2020 take 1 tablet by mouth once daily potassium chloride (KLOR-CON M) 20 MEQ TBCR extended release tablet TAKE 1 TABLET BY MOUTH EVERY DAY 0 08/22/2020 Active 1 ml promethazine hydrochloride 25 mg/ml injection (1 source) Phenothiazine Start: 10-13-2020 End: 10-13-2020 promethazine (PHENERGAN) injection 6.25 mg 3 ml sodium chloride 9 mg/ml injection (2 sources) Start: 10-13-2020 sodium chloride flush 0.9 % injection 10 mL spironolactone 25 mg oral tablet (1 source) Aldosterone Antagonist Start: 12-16-2023 take 1 tablet by mouth once daily spironolactone 25 mg oral tablet TAKE 1 TABLET BY MOUTH EVERY DAY Start Date: 12/16/23 Status: Ordered Completed/Discontinued Medications Medication Drug Class(es) Dates Sig [...] Results Test Name Value Interpretation Reference Range Facility Final Surgical Pathology Rep [facility] 12-17-2023 Final Surgical Pathology Report . Pathology Reports Accession: Collected Date/Time: Received Date/Time: Pathologist: [id number] 12/16/2023 10:31 EDT 12/16/2023 14:07 EDT WILLIE RUDOLPH MD Final Surgical Pathology Report DIAGNOSIS: RECTUM, BIOPSY: - HYPERPLASTIC POLYP CLINICAL INFORMATION: PROCEDURE: COLONOSCOPY WITH BIOPSIES PREOPERATIVE DIAGNOSIS: POSITIVE FECAL OCCULT BLOOD POSTOPERATIVE DIAGNOSIS: POSITIVE FECAL OCCULT BLOOD SPECIMEN: A RECTAL BIOPSIES GROSS DESCRIPTION: All parts labelled with patient name and [id number] Received in formalin labeled rectal biopsies are 4 arteaga-pink tissue fragments each measuring 0.2 cm. Fecal debris also identified. TS-1 Eli Junior, Grossing Puppy Sitter/ Dr. Willie Rudolph, Pathologist Dictated by Eli Junior MICROSCOPIC DESCRIPTION: The microscopic examination is performed, except in the case of Gross Only. Electronically Signed by Pathology Report verified by [facility] WILLIE RUDOLPH Sign out Date: 12/17/2023 15:24 Performing Lab: [facility], [address] [place] [address] Pathology Dept Disclaimer If ancillary studies were utilized, the following Laboratory Developed Test (LDT) disclaimer will apply: Under CLIA requirements, [facility] Pathology Laboratory is qualified to perform high complexity testing. For all ancillary stains, positive and negative controls stain appropriately. Performance characteristics of immunohistochemical and chromogenic in-situ hybridization tests have been determined by [facility] Pathology Laboratory. These tests are used for clinical purposes, They should not be regarded as investigational or for research. Normal [facility] ([place]) FEon 12-16-2023 Iron [Mass/Vol] 42 ug/dL Low 50-170 [facility] ([place]) Comment on above: Performed By: #### F E #### [place] [address] [place] 12-16-2023 Ferritin [Mass/Vol] 138.0 ng/mL Normal 8.0-252.0 [facility] ([place]) Comment on above: Performed By: #### F ERR #### [address] [address] HHon 12-16-2023 Hematocrit (Bld) [Volume fraction] 33.8 % Low 37.0-47.0 [facility] ([place]) Comment on above: Performed By: #### H H #### [address] [address] Hgb 11.6 G/dL Low 12.0-16.0 [facility] ([place]) Comment on above: Performed By: #### H H #### [address] [address] LABORATORYOrdered By: SYSTEM SYSTEM on 12-16-2023 Ferritin [Mass/Vol] 138.0 ng/mL Normal 8.0 - 25 2.0 ng/mL AO ADM SS Hematocrit (Bld) [Volume fraction] 33.8 % Low 37.0 - 47.0 % AO Workflow SS Hemoglobin (Bld) [Mass/Vol] 11.6 G/dL Low 12.0 - 16.0 G/dL AO Workflow SS Iron [Mass/Vol] 42 ug/dL Low 50 - 170 mcg/dL AO ADM SS Basic Metabolic Panelon 09-17 Anion gap [Moles/Vol] 8 Normal [facility] Comment on above: Performed By: #### B MP3, HEMDF #### [address] [address] Creatinine [Mass/Vol] 0.78 mg/dL Normal 0.52-1.25 [facility] Comment on above: Performed By: #### B MP3, HEMDF #### [address] [address] GFR/1.73 sq M predicted among blacks MDRD (S/P/Bld) [Vol rate/Area] 84.3 mL/min/{1.73_m2} Normal >60 [facility] Comment on above: Performed By: #### B MP3, HEMDF #### [address] [address] GFR/1.73 sq M predicted among non-blacks MDRD (S/P/Bld) [Vol rate/Area] 72.7 mL/min/{1.73_m2} Normal >60 [facility] Comment on above: Result Comment: KDIG O guidelines provide the following GFR categories: Stage GFR(ml/min/1.73 m2) Terms G1 >=90 Normal or high G2 60-89 Mildly decreased* G3a 45-59 Mildly to moderately decreased G3b 30-44 Moderately to severely decreased G4 15-29 Severely decreased G5 <15 Kidney failure *Relative to young adult level. In the absence of evidence of kidney damage, neither GFR category G1 nor G2 fulfill the criteria for CKD. The CKD-EPI equation is validated in individuals 18 years of age and older. Currently the best equation for estimating glomerular filtration rate (GFR) from serum creatinine in children is the Bedside Gould equation. It is less accurate in patients with extremes of muscle mass, restriction of dietary protein, ingestion of creatine, extra-renal metabolism of creatinine, or treatment with medications that affect renal tubular creatinine secretion. Performed By: #### B MP3, HEMDF #### [place] [address] [place] [address] Potassium [Moles/Vol] 4.0 mmol/L Normal 3.5-5.1 [facility] Comment on above: Performed By: #### B MP3, HEMDF #### [place] [address] [place] [address] Sodium [Moles/Vol] 140 mmol/L Normal 135-145 [facility] Comment on above: Performed By: #### B MP3, HEMDF #### [place] [address] [address] [place], [place] Chloride [Moles/Vol] 105 mmol/L Normal 98-107 [facility] Comment on above: Performed By: #### B MP3, HEMDF #### [place] [address] [address] [place], [place] Calcium [Mass/Vol] 9.3 mg/dL Normal 8.4-10.4 [place], [place] Comment on above: Performed By: #### B MP3, HEMDF #### [place] [address] [address] [place], [place] CO2 [Moles/Vol] 27 mmol/L Normal 22-30 [place], [place] Comment on above: Performed By: #### B MP3, HEMDF #### [place] [address] [address] [place], [place] Glucose [Mass/Vol] 119 mg/dL High 70-100 [place] Comment on above: Performed By: #### B MP3, HEMDF #### [place] [address] [address] [place], [place] Urea nitrogen [Mass/Vol] 19 mg/dL Normal 7-20 [place] Comment on above: Performed By: #### B MP3, HEMDF #### [place] [address] [place] [address] Anion gap [Moles/Vol] 8 mmol/L [place], [place] Chloride [Moles/Vol] 105 mmol/L 98 - 10 7 mmol/L [place] Creatinine [Mass/Vol] 0.78 mg/dL 0.52 - 1.25 mg/dL [place] EGFR IF NonAfrican [place]amese 72.7 mL/min >60 [place] Comment on above: KDIGO guidelines pro vide the following GFR categories: Stage GFR(ml/min/1.73 m2) Terms G1 >=90 Normal or high G2 60-89 Mildly decreased* G3a 45-59 Mildly to moderately decreased G3b 30-44 Moderately to severely decreased G4 15-29 Severely decreased G5 <15 Kidney failure *Relative to young adult level. In the absence of evidence of kidney damage, neither GFR category G1 nor G2 fulfill the criteria for CKD. The CKD-EPI equation is validated in individuals 18 years of age and older. Currently the best equation for estimating glomerular filtration rate (GFR) from serum creatinine in children is the Bedside Gould equation. It is less accurate in patients with extremes of muscle mass, restriction of dietary protein, ingestion of creatine, extra-renal metabolism of creatinine, or treatment with medications that affect renal tubular creatinine secretion. GFR/1.73 sq M predicted among blacks MDRD (S/P/Bld) [Vol rate/Area] 84.3 mL/min/{1.73_m2} >60 [place], [place] Interpretation and review of laboratory results Abnormal [place] Potassium [Moles/Vol] 4.0 mmol/L 3.5 - 5.1 mmol/L [place] Sodium [Moles/Vol] 140 mmol/L 135 - 145 mmol/L [place] Test Performed by [facility], [address] [place] [address] [place], [place] CBC Auto Differentialon 09-17 Absolute Baso # 0.0 10*3/uL 0 - 0.2 10*3/uL [place] Absolute Neut # 4.4 10*3/uL 1.8 - 7 10*3/uL [place] Basophils/100 WBC (Bld) 0.5 % 0 - 2 % [place] Eosinophils (Bld) [#/Vol] 0.1 10*3/uL 0 - 0.5 10*3/uL [place] Eosinophils/100 WBC (Bld) 1.8 % 1 - 6 % [place] Erythrocyte distribution width (RBC) [Ratio] 13.5 % 11.5 - 14.5 % [place] Granulocytes/100 WBC (Bld) 65.7 % 40 - 80 % [place] Hematocrit (Bld) [Volume fraction] 38.6 % 35 - 47 % [place] Hemoglobin (Bld) [Mass/Vol] 12.8 g/dL 11.7 - 16 g/dL [place] Interpretation and review of laboratory results Abnormal [place] Lymphocytes (Bld) [#/Vol] 1.6 10*3/uL 1 - 4.3 10*3/uL [place] Lymphocytes/100 WBC (Bld) 23.6 % 20 - 40 % [place] MCH (RBC) [Entitic mass] 31.4 pg 26 - 34 pg [place] MCHC (RBC) [Mass/Vol] 33.1 % 32 - 36 % [place], [place] MCV (RBC) [Entitic vol] 94.9 fL 79 - 98 fL [place] Monocytes (Bld) [#/Vol] 0.6 10*3/uL 0 - 0.8 10*3/uL [place] Monocytes/100 WBC (Bld) 8.4 % 2 - 10 % [place] Platelet mean volume (Bld) [Entitic vol] 6.9 fL Low 7.4 - 10.4 fL [place], [place] Platelets (Bld) [#/Vol] 236 10*3/uL 140 - 440 10*3/uL [place] RBC (Bld) [#/Vol] 4.07 10*6/uL 3.8 - 5.2 10*6/uL [place] WBC (Bld) [#/Vol] 6.7 10*3/uL 3.6 - 10.7 10*3/uL [facility] [place], [place] Test Performed by [facility], [address] [place] [address] [facility], [place] Hemogram w/ Autodiffon 10-13 Abs Baso Cnt 0.0 10*3/uL Normal 0.0-0.2 [facility] Comment on above: Performed By: #### B MP3, HEMDF #### [place] [address] [address] [place], [place] Abs Neutrophile Cnt 4.4 10*3/uL Normal 1.8-7.0 [facility] Comment on above: Performed By: #### B MP3, HEMDF #### [place] [address] [place] [address] Basophils/100 WBC (Bld) 0.5 % Normal 0.0-2.0 [facility] Comment on above: Performed By: #### B MP3, HEMDF #### [place] [address] [place], [place] Eosinophils (Bld) [#/Vol] 0.1 10*3/uL Normal 0.0-0.5 [facility] Comment on above: Performed By: #### B MP3, HEMDF #### [place] [address] [address] [place], [place] Eosinophils/100 WBC (Bld) 1.8 % Normal 1.0-6.0 [facility] Comment on above: Performed By: #### B MP3, HEMDF #### [place] [address] [address] [place], [place] Erythrocyte distribution width (RBC) [Ratio] 13.5 % Normal 11.5-14.5 [facility] Comment on above: Performed By: #### B MP3, HEMDF #### [address] Granulocytes/100 WBC (Bld) 65.7 % Normal 40.0-80.0 [facility] Comment on above: Performed By: #### B MP3, HEMDF #### [place] [address] [address] [place] Hematocrit (Bld) [Volume fraction] 38.6 % Normal 35.0-47.0 [facility] Comment on above: Performed By: #### B MP3, HEMDF #### [place] [address] [place], [place] Hemoglobin (Bld) [Mass/Vol] 12.8 g/dL Normal 11.7-16.0 [facility] Comment on above: Performed By: #### B MP3, HEMDF #### [place] [address] [address] [place] Lymphocytes (Bld) [#/Vol] 1.6 10*3/uL Normal 1.0-4.3 [facility] Comment on above: Performed By: #### B PELON, HEMDF #### [address] Lymphocytes/100 WBC (Bld) 23.6 % Normal 20.0-40.0 [facility] Comment on above: Performed By: #### Trinity BIRD, HEMDF #### [place] [address] [address] [place] MCH (RBC) [Entitic mass] 31.4 pg Normal 26.0-34.0 [facility] Comment on above: Performed By: #### Trinity BIRD, HEMDF #### [address] MCHC (RBC) [Mass/Vol] 33.1 % Normal 32.0-36.0 [facility] Comment on above: Performed By: #### B MP3, HEMDF #### [place] [address] [address] [place] MCV (RBC) [Entitic vol] 94.9 fL Normal 79.0-98.0 [facility] Comment on above: Performed By: #### B MP3, HEMDF #### [address] Monocytes (Bld) [#/Vol] 0.6 10*3/uL Normal 0.0-0.8 [facility] Comment on above: Performed By: #### B MP3, HEMDF #### [facility] [address] [place] [address] Monocytes/100 WBC (Bld) 8.4 % Normal 2.0-10.0 [facility] Comment on above: Performed By: #### B MP3, HEMDF #### [facility] [address] [place] [address] Platelet mean volume (Bld) [Entitic vol] 6.9 fL Low 7.4-10.4 [facility] Comment on above: Performed By: #### B MP3, HEMDF #### [facility] [address] [place] [address] Platelets (Bld) [#/Vol] 236 10*3/uL Normal 140-440 [facility] Comment on above: Performed By: #### B MP3, HEMDF #### [facility] [address] [place] [address] RBC (Bld) [#/Vol] 4.07 10*6/uL Normal 3.80-5.20 [facility] Comment on above: Performed By: #### B MP3, HEMDF #### [facility] [address] [place] [address] WBC (Bld) [#/Vol] 6.7 10*3/uL Normal 3.6-10.7 [facility] Comment on above: Performed By: #### B MP3, HEMDF #### [facility] [address] [place] [address] Op Noteon 10-13-2020 Op Note PATIENT: RICKEY TRUJILLO ADMISSION DATE: 10/13/2020 SURGERY DATE: 10/13/2020 DATE OF : 1940 AGE: 80 ADMITTING PHYSICIAN: Nikolai Lozoya MD ATTENDING PHYSICIAN: Nikolai Lozoya MD DICTATING PHYSICIAN: Nikolai Lozoya MD OPERATIVE RECORD Procedure: ROBOTIC HYSTERECTOMY WITH BSO. Preoperative Diagnosis: Pelvic mass with thickened endometrial stripe. Postoperative Diagnosis: Benign right ovarian mass with endometrial polyp, grossly benign. Anesthesia: General. Description of Findings: The patient does have fairly severe diverticular disease. There was a multicystic right ovary measuring approximately 4 x 5 cm that was removed intact from the abdominal cavity and grossly was benign. The uterus was also opened off the field, had a small what appeared to be endometrial polyp. Description of Procedure: The patient was identified and brought to the operating room. After administration of general anesthesia, underwent abdominoperineal and vaginal prep in the low lithotomy position, the compression stockings were on and running. Time-out was performed. Antibiotics were given. An ICG green dye was injected into the cervix at 3 and 9 o'clock in anticipation of need for doing lymph node sampling. A Kronner manipulator was placed in the uterus and a Butterfield catheter in the bladder. Using a knife, a small incision made above the umbilicus and using the direct technique, a non-bladed trocar was inserted in the abdominal cavity. The abdomen was insufflated with CO2. Two blunt da Megan ports were placed in the right and left lower quadrant and a 5 mm blunt undertaker assistant's port in the right upper quadrant all under direct vision. The da Megan was docked after Trendelenburg was used to displace the bowel up out of the pelvis and upper abdominal exploration was normal. The right and left round ligaments were coagulated and divided. The anterior and posterior leaves of the broad ligament opened. The pararectal and paravesical spaces were made and sentinel lymph nodes were identified in anticipation of potential needed to remove abdominal. The ovarian vessels were skeletonized above the ureters, coagulated bipolar cautery and divided. The bladder was dissected inferiorly allowing the uterine vessels to be coagulated and divided as were the upper cardinal ligaments down the top of the vagina. A 360 colpotomy incision was then made. The ovary was detached on the right side from the uterus. The uterus, cervix, left tube and ovary moved out through the vagina, opened up off the field, appeared to be a benign endometrial polyp and the right ovary was also removed intact through the vaginal cuff. It was opened off the field and appeared to be benign. The cuff was then closed using a running 0 V-Loc suture. The pelvis was irrigated. Hemostasis was noted. All sponges, needles, and instruments were correct to the surgeon x2. The da Megan was undocked. The trocars were removed and the defects in the skin were closed with subcuticular 4-0 Monocryl and Dermabond. EBL was minimal. She tolerated the surgery well and was taken to recovery room by anesthesia. cc: Dr. Pau Murillo [facility] Job ID: [id number] Nikolai Lozoya MD DOD:10/13/2020 08:06 A /anabella DOT:10/13/2020 11:08 A Job Number: [id number] Document Number: [id number] cc: Nikolai Lozoya MD [address] [facility] [address] [facility] Surgical Pathologyon 021 Surgical Pathology [id number] [facility], [facility]. 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 ___ CLINICAL INFORMATION: Pelvic mass, right ovarian mass, thickened endometrial stripe SPECIMEN: UTERUS, WITH/WITHOUT TUBES AND OVARIES ___ GROSS DESCRIPTION: Received in formalin labeled uterus, cervix, bilateral tubes and ovaries is a previously bivalved uterus with attached cervix, attached left adnexa and detached ovary and fallopian tube. The uterus with attached cervix measures 6.5 x 4.5 x 3.2 cm. The serosal surface is arteaga, smooth and glistening. The attached cervix measures 3.7 cm in greatest dimension with a circular os upon reconstruction. The uterus weighs 43 g. The endometrial cavity is triangular in shape measuring 2.2 x 2.7 cm. The endometrium measures 0.1 cm, the myometrium measures 1.6 cm. The left ovary measures 2.5 x 1.3 x 1.6 cm. The serosal surface is arteaga, smooth and glistening with areas that are thin and possibly cystic. This ovary weighs 2 g. Sectioning through reveals multiple cystic spaces ranging in size from 0.1 to 1.0 cm in greatest dimension. The cystic spaces are filled with clear serous fluid. The left fallopian tube with attached fimbria measures 3.8 cm in length with an average diameter of 0.6 cm. The serosal surface is purple- arteaga, smooth and glistening. Sectioning through reveals a pinpoint lumen with no gross abnormalities. The detached right ovary measures 4.1 x 3.6 x 2.6 cm. The serosal surface is arteaga, smooth and glistening. This ovary has been previously opened revealing multiple cystic spaces. The ovary weighs 11 g. The cystic spaces range in size from 1 to 2.1 cm in greatest dimension. The cystic spaces contain multiple papillations ranging from 0.4 to 1.2 cm. The detached fallopian tube measures 7 cm in length with an average diameter of 0.5 cm. This fallopian tube has been previously segmented. The serosal surface is purple-arteaga, smooth and glistening. Sectioning through reveals a pinpoint lumen with no gross abnormalities. Instructor Hairspring sections are submitted. Cassette Summary: A1- anterior cervix, A2- posterior cervix, A3-4- full thickness anterior endomyometrium, A5- full thickness posterior endomyometrium, A6- novelties sales representative sections of the left ovary and fallopian tube, A7-9- novelties sales representative sections of the detached ovary, A10- novelties sales representative sections of the detached fallopian tube. [facility] Disclaimer: The following statement applies to all immunohistochemistry, in situ hybridization, molecular studies, and immunofluorescence testing. The use of one or more reagents in the above tests is regulated as an analyte specific reagent (ASR). These tests were developed and their performance characteristics determined by the clinical laboratories of [facility]. They have not been cleared by the US Food and Drug Administration (FDA). The FDA has determined that such clearance or approval is not necessary. All the above immunostains were performed on paraffin embedded tissue. Appropriate positive and negative controls (where applicable) were run in parallel with the patient's specimen; these controls showed expected staining pattern, with acceptable intensity of staining. Immunohistochemical assays have not been validated on decalcified tissues. Results should be interpreted with caution given the raised possibility of false negativity on decalcified specimens. Professional Performing Location: [address] [address]. DEPARTMENT OF PATHOLOGY AND LABORATORY MEDICINE [place], [place] [address] Normal [facility] TS GELon 10-13-2020 TS GEL ABO Group: A Rh, Gel: POS Antibody Screen Gel: NEG Normal [facility] Comment on above: Performed By: #### T SGL #### [facility] TYPE AND SCREENon 10-13-2020 Sodium [Moles/Vol] Positive [email or web address] [place], [place] Sodium [Moles/Vol] A [email or web address] [place] Sodium [Moles/Vol] Negative [facility] [place], [employer] Test Performed by [facility], [facility] [place], [place] [address] [place] [address], [employer] Vital Signs Date Time Vital Sign Value Performing Clinician Teddyi lity 12-16-2023 11:08-0400 Diastolic Blood Pressure Non-Invasive 88 mm[Hg] DR EDSON WILSON MD [facility] 12-16-2023 11:08-0400 Heart rate 75 /min DR EDSON WILSON MD [facility] 12-16-2023 11:08-0400 Respiratory rate 22 /min DR EDSON WILSON MD [facility] 12-16-2023 11:08-0400 Systolic Blood Pressure Non-Invasive 132 mm[Hg] DR EDSON WILSON MD [facility] 12-16-2023 10:41-0400 Diastolic Blood Pressure Non-Invasive 72 mm[Hg] DR EDSON WILSON MD [facility] 12-16-2023 10:41-0400 Heart rate 73 /min DR EDSON WILSON MD [facility] 12-16-2023 10:41-0400 Respiratory rate 20 /min DR EDSON WILSON MD [facility] 12-16-2023 10:41-0400 Systolic Blood Pressure Non-Invasive 120 mm[Hg] DR EDSON WILSON MD [facility] 12-16-2023 10:31-0400 Body temperature 96.8 [degF] DR EDSON WILSON MD [facility] 12-16-2023 10:31-0400 Diastolic Blood Pressure Non-Invasive 69 mm[Hg] DR EDSON WILSON MD [facility] 12-16-2023 10:31-0400 Heart rate 72 /min DR EDSON WILSON MD [facility] 12-16-2023 10:31-0400 Respiratory rate 14 /min DR EDSON WILSON MD [facility] 12-16-2023 10:31-0400 Systolic Blood Pressure Non-Invasive 120 mm[Hg] DR EDSON WILSON MD [facility] 12-16-2023 10:25-0400 Respiratory Rate - Anes 20 br/min DR EDSON WILSON MD [facility] 12-16-2023 10:20-0400 Respiratory Rate - Anes 23 br/min DR EDSON WILSON MD [facility] 12-16-2023 10:15-0400 Respiratory Rate - Anes 17 br/min DR EDSON WILSON MD [facility] 12-16-2023 09:19-0400 Body height [address] EDSON WILSON MD [facility] 12-16-2023 09:19-0400 Body temperature 97.34 [degF] DR EDSON WILSON MD [facility] 12-16-2023 09:19-0400 Body weight [address] EDSON WILSON MD [facility] 12-16-2023 09:19-0400 Body weight 32.46 kg/m2 DR EDSON WILSON MD [facility] 12-16-2023 09:19-0400 Heart rate 86 /min DR EDSON WILSON MD [facility] 10-13-2020 10:45-0500 BP Diastolic 78 mm[Hg] [facility] [place] [facility] [place] 10-13-2020 10:45-0500 BP Systolic 126 mm[Hg] [facility] [place] [facility] [place] 10-13-2020 10:45-0500 Pulse (Heart Rate) 61 /min Nikolai Helton [facility], [place] 10-13-2020 10:45-0500 Pulse Oximetry 93 % Nikolai Helton [facility] , [place] 10-13-2020 10:45-0500 Respiratory Rate 17 /min Nikolai Helton [facility], [place] 10-13-2020 08:09-0500 Body Temperature 97.39 [degF] Nikolai Helton [facility], [place] 10-13-2020 06:29-0500 BMI (Body Mass Index) 33.98 kg/m2 Nikolai Helton [facility], [place] 10-13-2020 06:29-0500 Body weight 78.[address] [facility] , [place] 10-13-2020 06:29-0500 Height 152.[address] [facility] [place] Encounters Encounter Date Encounter Type Care Provider Facility Start: 12-16-2023 End: 12-16-[address] EDSON WILSON MD Facility:B Start: 12-16-2023 End: 12-16-[address] EDSON WILSON MD [facility] Start: 10-13-2020 End: 10-13-2020 Subsequent hospital visit by physician Nikolai Lozoya Work Phone: [facility] General Surgery Comment on above: S/P hysterectomy (Pr imary Dx) Procedures Date Procedure Procedure Detail Performing Clinician Start: 12-16-[address] EDSON WILSON MD Start: 10-13-2020 OPERATIVE REPORT 3m Sca nning Start: 10-13-2020 Ecg routine ecg w/le ast 12 lds w/i&r Franky Raúl Work Phone: Start: 10-13-2020 Basic metabolic pane l calcium total Franky Olsen Work Phone: Start: 10-13-2020 Blood count complete auto&auto difrntl wbc Frankygala Olsen Work Phone: Start: 10-13-2020 Blood typing serologic abo Frankygala Olsen Work Phone: Abdominal hysterectomy DR ANA MARÍA WILSON MD Ambulatory chemotherapy DR Royce WILSON MD Cholecystectomy DR EDSON HERNANDEZ MD Radiation (physical force) [place] WILSON MD Comment on above: rectal CA Plan of Treatment Date Care Activity Detail Author Start: 10-13-2021 Creatinine measurement Creatinine mo nitoring [place], [place] Start: 10-13-2021 Potassium monitoring Potassium monit [place]ing [place] Start: 10-31-2020 End: 10-31-2020 Office Visit 10/31/2020 Office Visit Gynecologic Oncology Nikolai Lozoya MD [address] [place] [address], [address] [place] [address] [phone] [facility] [employer] HEL[employer] Oncology Start: 09-14-2020 Annual Wellness Visi t (AWV) Annual Wellness Visit (AWV) [place] Start: 05-17-2020 Influenza vaccination Flu vaccine (# 1) [place] Start: 2007 Pneumococcal 65+ yea rs Vaccine (1 of 1 - PPSV23) Pneumococcal 65+ years Vaccine (1 of 1 - PPSV23) [place] Start: 1997 Screening for osteoporosis DEXA (modify frequency per FRAX score) [place] Start: 1992 Shingles Vaccine (1 of 2) Shingles Vaccine (1 of 2) [place] Start: 1961 DTaP/Tdap/Td vaccine (1 - Tdap) DTaP/Tdap/Td vaccine (1 - Tdap) [place] Start: 1958 COVID-19 Vaccine (1 of 2) COVID-19 Vaccine (1 of 2) [place] Start: 1942 Hepatitis C screening Hepatitis C sc reen [place] End: 10-13-2020 Blood glucose - POCT Blood glucose - POCT Point of Care Testing STAT One Time for 1 Occurrences starting 10/13/2020 until [facility]: One Time for 1 Occur rences starting 10/13/2020 until 10/13/2020 EKG 12 Lead EKG 12 Lead ECG STAT 10/13/2020 6:40 AM [facility] End: 10-13-2020 Intermittent pulse oximetry Pulse Oximetry Spot Check Respiratory Care Routine One Time for 1 Occurrences starting 10/13/2020 until 10/13/2020 [facility] Comment on above: One Time for 1 Occur rences starting 10/13/2020 until 10/13/2020 Oxygen therapy [[facility] Data Set] Initiate Oxygen Therapy Protocol Respiratory Care Routine Daily until discontinued [facility] 10/13[facility]2020 [facility] on above: Daily until disconti nued starting 10/13/2020 Phase I & II - meter ed glucose Phase I & II - metered glucose Point of Care Testing Routine As Needed until discontinued starting 10/13/2020 [facility] on above: As Needed until disc ontinued starting 10/13/2020 End: 10-13-2020 Potassium w/ Reflex to Magnesium Potassium w/ Reflex to Magnesium Lab Routine One Time for 1 Occurrences starting 10/13/2020 until 10/13/2020 [facility] Comment on above: One Time for 1 Occur rences starting 10/13/2020 until 10/13/2020 End: 10-13-2020 , urine , urine Lab STAT One Time for 1 Occurrences starting 10/13/2020 until 10/13/2020 [facility] Comment on above: One Time for 1 Occur rences starting 10/13/2020 until 10/13/2020 End: 10-13-2020 Protime-INR Protime-INR Lab STAT One Time for 1 Occurrences starting 10/13/2020 until 10/13/2020 [facility] Comment on above: One Time for 1 Occur rences starting 10/13/2020 until 10/13/2020 Spirometry panel Incentive alex metry Respiratory Care Routine Q1H PRN until discontinued starting 10/13/2020 [facility] Comment on above: Q1H PRN until discon tinued starting 10/13/2020 Payers Date Payer Category Payer Private Health Insurance [id number] 2019 Medicare [id number] 1940 Unknown [id number] Social History Date Type Detail Facility Start: 10-13-2020 End: 12-16-2023 Tobacco smoking status NHIS Former smoker [facility] End: 09-16-2008 History of tobacco use Current [place] End: 09-16-2008 History of tobacco use Cigarette Sm[place] Start: 10-13-2020 Cigarettes smoked current (pack per day) - Reported [place] Start: 10-13-2020 Tobacco use and exposure Never used [place] Start: 10-13-2020 Alcohol intake Lifetime non-d ellie (finding) [place] Start: 10-10-2020 History SDOH Alcohol Frequency 1 [place] Sex Assigned At Not on file [place] Exposure to SARS-CoV -2 (event) Not sure [place] Sex Assigned At Female [facility] Functional Status Date Assessment Result Facility 12-16-2023 Functional Status Sleeping quiet ly with easy respirations [facility] 12-16-2023 Functional Status Maintained, Less than 8 hours [facility] Mental Status Date Assessment Result Facility 12-16-2023 Mental Status Orientation Asse ssment Oriented x 4 [facility] Evaluation + Plan note 12-16-2023 Note Date & Type Note Facility 12-16-2023 Evaluation + Plan note Extrac lenny from: Title:Clinical Document Author:EDSON WILSON Date:12/16/23 [facility] ADMISSION HISTORY AN D PHYSICIAL CHIEF COMPLAINT: HISTORY OF PRESENT ILLNESS: REVIEW OF SYSTEMS: ACTIVE PROBLEMS: (4) AA (aortic aneurysm) (109073377) Anemia (289064199) Barretts esophagus (287399023) CHF (congestive heart failure) (88352653) MEDICATIONS: Active Inpt Meds: None Active PRN Meds: None One Time Meds: None Active IV Meds: Lactated Ringers Infusion 1,000 mL (LR 1,000 mL) Start: 12/16/23 8:45:00 EDT, Rate: 50 mL/hr, 12/16/23 8:45:00 EDT ALLERGIES: (2) aspirin oxyCODONE FAMILY HISTORY: SOCIAL HISTORY: PHYSICAL EXAM: VITALS: OnelccWkvzJJMabqzLKCnF2XSV9MifgFg(kg) 12/15 09:23--------95RA/ 75.0 12/15 09:1936.3--[id number] 24 Hr Tmax: 36.3 at 12/15 09:19 36 Hr Tmax: 36.3 at 12/15 09:19 Vital Signs are the last 5 in the past 48 hours. Weights display the last 5 within 7 days. Initial Wt: 12/15 75.0 kg 165 lb Current Wt: 12/15 75.0 kg 165 lb GENERAL: HEENT: CARDIOVASCULAR: RESPIRATORY: ABDOMEN: EXREMETIES: NEUROLOGICAL: PSYCHIATRIC: LABS: No 36hr Lab Data DIAGNOSTICS: IMPRESSION: PLAN: History and Physical Update I have examined the patient; reviewed the H&P and there are no changes to the H&P unless noted below. [facility] Hospital Discharge instructions 12-16-2023 Note Date & Type Note Facility 12-16-2023 Hospital Discharg e instructions Patient Education 12/16/2023 10:51:06 Colon Biopsy, Care After Colon Biopsy, Care After This sheet gives you information about how to care for yourself after your procedure. Your health care provider may also give you more specific instructions. If you have problems or questions, contact your health care provider. What can I expect after the procedure? After the procedure, it is common to have: A small amount of blood in your stool for 24 hours after the procedure. Some gas. Mild cramping or bloating in your abdomen. Follow these instructions at home: General instructions For the first 24 hours after the procedure: ?Do not drive or use machinery. ?Do not sign important documents. ?Do not drink alcohol. ?Do your regular daily activities at a slower pace than normal. ?Eat soft, muyl-jg-lzidfx foods. ?Rest often. Take bmdg-pfx-xvcsqts or prescription medicines only as told by your health care provider. Keep all follow-up visits as told by your health care provider. This is important. Relieving cramping and bloating Try walking around when you have cramps or feel bloated. Put heat on your abdomen as told by your health care provider. Use a heat source that your health care provider recommends, such as a moist heat pack or a heating pad. ?Place a towel between your skin and the heat source. ?Leave the heat on for 20 30 minutes. ?Remove the heat if your skin turns bright red. This is especially important if you are unable to feel pain, heat, or cold. You may have a greater risk of getting burned. Eating and drinking Drink enough fluid to keep your urine pale yellow. Return to your normal diet as instructed by your health care provider. Avoid heavy or fried foods that are hard to digest. Avoid drinking alcohol for as long as told by your health care provider. Contact a health care provider if: You have blood in your stool 2 3 days after the procedure. Get help right away if: You have more than a small spotting of blood in your stool. You pass large blood clots in your stool. Your abdomen is swollen. You have nausea or vomiting. You have a fever. You have increasing abdominal pain that is not relieved with medicine. Summary After the procedure, it is common to have mild cramping and bloating in the abdomen. Do not drive for 24 hours after the procedure. Try walking around when you have cramps or feel bloated. This information is not intended to replace advice given to you by your health care provider. Make sure you discuss any questions you have with your health care provider. Document Released: 02/11/2018 Document Revised: 08/15/2018 Document Reviewed: 02/11/2018 [employer] Patient Education 2020 [employer] 12/16/2023 10:50:28 Monitored Anesthesia Care, Care After Monitored Anesthesia Care, Care After These instructions provide you with information about caring for yourself after your procedure. Your health care provider may also give you more specific instructions. Your treatment has been planned according to current medical practices, but problems sometimes occur. Call your health care provider if you have any problems or questions after your procedure. What can I expect after the procedure? After your procedure, you may: Feel sleepy for several hours. Feel clumsy and have poor balance for several hours. Feel forgetful about what happened after the procedure. Have poor judgment for several hours. Feel nauseous or vomit. Have a sore throat if you had a breathing tube during the procedure. Follow these instructions at home: For at least 24 hours after the procedure: Have a responsible adult stay with you. It is important to have someone help care for you until you are awake and alert. Rest as needed. Do not: ?Participate in activities in which you could fall or become injured. ?Drive. ?Use heavy machinery. ?Drink alcohol. ?Take sleeping pills or medicines that cause drowsiness. ?Make important decisions or sign legal documents. ?Take care of children on your own. Eating and drinking Follow the diet that is recommended by your health care provider. If you vomit, drink water, juice, or soup when you can drink without vomiting. Make sure you have little or no nausea before eating solid foods. General instructions Take pgxv-edd-ofxdpqw and prescription medicines only as told by your health care provider. If you have sleep apnea, surgery and certain medicines can increase your risk for breathing problems. Follow instructions from your health care provider about wearing your sleep device: ?Anytime you are sleeping, including during daytime naps. ?While taking prescription pain medicines, sleeping medicines, or medicines that make you drowsy. If you smoke, do not smoke without supervision. Keep all follow-up visits as told by your health care provider. This is important. Contact a health care provider if: You keep feeling nauseous or you keep vomiting. You feel light-headed. You develop a rash. You have a fever. Get help right away if: You have trouble breathing. Summary For several hours after your procedure, you may feel sleepy and have poor judgment. Have a responsible adult stay with you for at least 24 hours or until you are awake and alert. This information is not intended to replace advice given to you by your health care provider. Make sure you discuss any questions you have with your health care provider. Document Released: 12/23/2016 Document Revised: 12/01/2018 Document Reviewed: 12/23/2016 [employer] Patient Education 2020 [employer]. 12/16/2023 10:50:20 Diverticulosis Diverticulosis Diverticulosis is a condition that develops when small pouches (diverticula) form in the wall of the large intestine (colon). The colon is where water is absorbed and stool is formed. The pouches form when the inside layer of the colon pushes through weak spots in the outer layers of the colon. You may have a few pouches or many of them. What are the causes? The cause of this condition is not known. What increases the risk? The following factors may make you more likely to develop this condition: Being older than age 60. Your risk for this condition increases with age. Diverticulosis is rare among people younger than age 30. By age 80, many people have it. Eating a low-fiber diet. Having frequent constipation. Being overweight. Not getting enough exercise. Smoking. Taking vwqg-ras-yburgnb pain medicines, like aspirin and ibuprofen. Having a family history of diverticulosis. What are the signs or symptoms? In most people, there are no symptoms of this condition. If you do have symptoms, they may include: Bloating. Cramps in the abdomen. Constipation or diarrhea. Pain in the lower left side of the abdomen. How is this diagnosed? This condition is most often diagnosed during an exam for other colon problems. Because diverticulosis usually has no symptoms, it often cannot be diagnosed independently. This condition may be diagnosed by: Using a flexible scope to examine the colon (colonoscopy). Taking an X-ray of the colon after dye has been put into the colon (barium enema). Doing a CT scan. How is this treated? You may not need treatment for this condition if you have never developed an infection related to diverticulosis. If you have had an infection before, treatment may include: Eating a high-fiber diet. This may include eating more fruits, vegetables, and grains. Taking a fiber supplement. Taking a live bacteria supplement (probiotic). Taking medicine to relax your colon. Taking antibiotic medicines. Follow these instructions at home: Drink 6 8 glasses of water or more each day to prevent constipation. Try not to strain when you have a bowel movement. If you have had an infection before: ?Eat more fiber as directed by your health care provider or your diet and study specialist (dietitian). ?Take a fiber supplement or probiotic, if your health care provider approves. Take xbyw-cwd-mgbumte and prescription medicines only as told by your health care provider. If you were prescribed an antibiotic, take it as told by your health care provider. Do not stop taking the antibiotic even if you start to feel better. Keep all follow-up visits as told by your health care provider. This is important. Contact a health care provider if: You have pain in your abdomen. You have bloating. You have cramps. You have not had a bowel movement in 3 days. Get help right away if: Your pain gets worse. Your bloating becomes very bad. You have a fever or chills, and your symptoms suddenly get worse. You vomit. You have bowel movements that are bloody or black. You have bleeding from your rectum. Summary Diverticulosis is a condition that develops when small pouches (diverticula) form in the wall of the large intestine (colon). You may have a few pouches or many of them. This condition is most often diagnosed during an exam for other colon problems. If you have had an infection related to diverticulosis, treatment may include increasing the fiber in your diet, taking supplements, or taking medicines. This information is not intended to replace advice given to you by your health care provider. Make sure you discuss any questions you have with your health care provider. Document Released: 05/30/2005 Document Revised: 08/15/2018 Document Reviewed: 07/22/2017 [employer] Patient Education 2020 [employer]. 12/16/2023 10:49:55 Colonoscopy, Adult, Care After, Idvc-xs-Alql Colonoscopy, Adult, Care After This sheet gives you information about how to care for yourself after your procedure. Your doctor may also give you more specific instructions. If you have problems or questions, call your doctor. What can I expect after the procedure? After the procedure, it is common to have: A small amount of blood in your poop for 24 hours. Some gas. Mild cramping or bloating in your belly. Follow these instructions at home: General instructions For the first 24 hours after the procedure: ?Do not drive or use machinery. ?Do not sign important documents. ?Do not drink alcohol. ?Do your daily activities more slowly than normal. ?Eat foods that are soft and easy to digest. Take vrqr-skq-mixfrxu or prescription medicines only as told by your doctor. To help cramping and bloating: Try walking around. Put heat on your belly (abdomen) as told by your doctor. Use a heat source that your doctor recommends, such as a moist heat pack or a heating pad. ?Put a towel between your skin and the heat source. ?Leave the heat on for 20 30 minutes. ?Remove the heat if your skin turns bright red. This is especially important if you cannot feel pain, heat, or cold. You can get burned. Eating and drinking Drink enough fluid to keep your pee (urine) clear or pale yellow. Return to your normal diet as told by your doctor. Avoid heavy or fried foods that are hard to digest. Avoid drinking alcohol for as long as told by your doctor. Contact a doctor if: You have blood in your poop (stool) 2 3 days after the procedure. Get help right away if: You have more than a small amount of blood in your poop. You see large clumps of tissue (blood clots) in your poop. Your belly is swollen. You feel sick to your stomach (nauseous). You throw up (vomit). You have a fever. You have belly pain that gets worse, and medicine does not help your pain. Summary After the procedure, it is common to have a small amount of blood in your poop. You may also have mild cramping and bloating in your belly. For the first 24 hours after the procedure, do not drive or use machinery, do not sign important documents, and do not drink alcohol. Get help right away if you have a lot of blood in your poop, feel sick to your stomach, have a fever, or have more belly pain. This information is not intended to replace advice given to you by your health care provider. Make sure you discuss any questions you have with your health care provider. Document Released: 10/05/2011 Document Revised: 07/03/2018 Document Reviewed: 05/27/2017 [employer] Patient Education 2020 [employer]. Follow Up Care 12/02/2023 07:31:07 With:EDSON WILSON MD Address: [address] [place] [phone] When: Unknown Comments:CALL DR WILSON WITH ANY QUESTIONS OR CONCERNS. GO TO THE EMERGENCY ROOM WITH ANY URGENT CONCERNS. YOUR LOWER COLON LOOKED INFLAMMED SO WE TOOK BIOPSIES. YOU WILL SEE BLOOD ON YOUR TOILET TISSUE FROM US TAKING THE BIOPSIES. YOU ALSO HAVE DIVERTICULI . SEE INFORMATION ON DIVERTICULI IN THIS PACKET OF INFORMATION. TAKE IRON WITH ORANGE JUICE OR A VITAMIN C TABLET . OU MAY NEED TO TAKE MIRILAX IF YOU BECOME CONTIPATED WITH THE IRON. WE ARE DRAWING IRON, FERITIN AND H AND H. [facility] Clinical Note 12-16-2023 Note Date & Type Note Facility 12-16-2023 Note Discharge Instructions Thank you for allowing [facility] to assist you with your healthcare needs. The following is important discharge information regarding your hospital visit. Your Care Team DR. EDSON WILSON Your Diagnosis COLONOSCOPY WITH BIOPSIES What to do next Follow Up Appointments Follow Up with EDSON WILSON MD When Why: CALL DR WILSON WITH ANY QUESTIONS OR CONCERNS. GO TO THE EMERGENCY ROOM WITH ANY URGENT CONCERNS. YOUR LOWER COLON LOOKED INFLAMMED SO WE TOOK BIOPSIES. YOU WILL SEE BLOOD ON YOUR TOILET TISSUE FROM US TAKING THE BIOPSIES. YOU ALSO HAVE DIVERTICULI . SEE INFORMATION ON DIVERTICULI IN THIS PACKET OF INFORMATION. TAKE IRON WITH ORANGE JUICE OR A VITAMIN C TABLET . OU MAY NEED TO TAKE MIRILAX IF YOU BECOME CONTIPATED WITH THE IRON. WE ARE DRAWING IRON, FERITIN AND H AND H. Where: [address] [place] [address] [place] [phone] The Following Activity and Diet Have Been Ordered for You Discharge Activity - Ordered -- NO activity restrictions, 12/16/23 10:36:00 EDT Discharge Diet - Ordered -- Follow the post-operative/post-procedure diet instructions provided by your physician's office., 12/16/23 10:36:00 EDT Someone Will Contact You Regarding These Home Health Referrals No home referrals have been ordered for you. No one will call you. Allergies aspirin oxyCODONE Medications Please ask your primary doctor or pharmacist before taking any other medication not listed, including over the counter drugs, herbal medications, vitamins and or supplements as they may interact with your home medications. What When Instructions Last Dose Unchanged carvedilol (carvedilol 12.5 mg oral tablet) TAKE ONE TABLET BY MOUTH TWICE A DAY FOR HYPERTENSION Unchanged furosemide (furosemide 40 mg oral tablet) TAKE ONE TABLET BY MOUTH DAILY FOR INCREASE IN WEIGHT BY 5 LBS IN 1 WEEK Unchanged gabapentin (gabapentin 300 mg oral capsule) TAKE 1 CAPSULE BY MOUTH THREE TIMES A DAY Unchanged meloxicam (meloxicam 15 mg oral tablet) TAKE 1 TABLET BY MOUTH EVERY DAY Unchanged meloxicam (meloxicam 15 mg oral tablet) TAKE 1 TABLET BY MOUTH EVERY DAY Unchanged omeprazole (omeprazole 20 mg oral delayed release capsule) TAKE 1 CAPSULE BY MOUTH EVERY DAY Unchanged spironolactone (spironolactone 25 mg oral tablet) TAKE 1 TABLET BY MOUTH EVERY DAY Please take this list to your next doctor s visit. Bring all medications you take, including over the counter medications, herbals and other supplements with you to your doctor s visit. Patients and families are reminded to discard old lists and to update any records with all medication providers or retail pharmacies. Education Materials Colon Biopsy, Care After This sheet gives you information about how to care for yourself after your procedure. Your health care provider may also give you more specific instructions. If you have problems or questions, contact your health care provider. What can I expect after the procedure? After the procedure, it is common to have: A small amount of blood in your stool for 24 hours after the procedure. Some gas. Mild cramping or bloating in your abdomen. Follow these instructions at home: General instructions For the first 24 hours after the procedure: ? Do not drive or use machinery. ? Do not sign important documents. ? Do not drink alcohol. ? Do your regular daily activities at a slower pace than normal. ? Eat soft, rocl-nk-nkolhz foods. ? Rest often. Take gnoa-twb-exepxug or prescription medicines only as told by your health care provider. Keep all follow-up visits as told by your health care provider. This is important. Relieving cramping and bloating Try walking around when you have cramps or feel bloated. Put heat on your abdomen as told by your health care provider. Use a heat source that your health care provider recommends, such as a moist heat pack or a heating pad. ? Place a towel between your skin and the heat source. ? Leave the heat on for 20 30 minutes. ? Remove the heat if your skin turns bright red. This is especially important if you are unable to feel pain, heat, or cold. You may have a greater risk of getting burned. Eating and drinking Drink enough fluid to keep your urine pale yellow. Return to your normal diet as instructed by your health care provider. Avoid heavy or fried foods that are hard to digest. Avoid drinking alcohol for as long as told by your health care provider. Contact a health care provider if: You have blood in your stool 2 3 days after the procedure. Get help right away if: You have more than a small spotting of blood in your stool. You pass large blood clots in your stool. Your abdomen is swollen. You have nausea or vomiting. You have a fever. You have increasing abdominal pain that is not relieved with medicine. Summary After the procedure, it is common to have mild cramping and bloating in the abdomen. Do not drive for 24 hours after the procedure. Try walking around when you have cramps or feel bloated. This information is not intended to replace advice given to you by your health care provider. Make sure you discuss any questions you have with your health care provider. Document Released: 02/11/2018 Document Revised: 08/15/2018 Document Reviewed: 02/11/2018 [employer] Patient Education 2020 [employer]. Monitored Anesthesia Care, Care After These instructions provide you with information about caring for yourself after your procedure. Your health care provider may also give you more specific instructions. Your treatment has been planned according to current medical practices, but problems sometimes occur. Call your health care provider if you have any problems or questions after your procedure. What can I expect after the procedure? After your procedure, you may: Feel sleepy for several hours. Feel clumsy and have poor balance for several hours. Feel forgetful about what happened after the procedure. Have poor judgment for several hours. Feel nauseous or vomit. Have a sore throat if you had a breathing tube during the procedure. Follow these instructions at home: For at least 24 hours after the procedure: Have a responsible adult stay with you. It is important to have someone help care for you until you are awake and alert. Rest as needed. Do not: ? Participate in activities in which you could fall or become injured. ? Drive. ? Use heavy machinery. ? Drink alcohol. ? Take sleeping pills or medicines that cause drowsiness. ? Make important decisions or sign legal documents. ? Take care of children on your own. Eating and drinking Follow the diet that is recommended by your health care provider. If you vomit, drink water, juice, or soup when you can drink without vomiting. Make sure you have little or no nausea before eating solid foods. General instructions Take ljqg-hfx-gnvflfz and prescription medicines only as told by your health care provider. If you have sleep apnea, surgery and certain medicines can increase your risk for breathing problems. Follow instructions from your health care provider about wearing your sleep device: ? Anytime you are sleeping, including during daytime naps. ? While taking prescription pain medicines, sleeping medicines, or medicines that make you drowsy. If you smoke, do not smoke without supervision. Keep all follow-up visits as told by your health care provider. This is important. Contact a health care provider if: You keep feeling nauseous or you keep vomiting. You feel light-headed. You develop a rash. You have a fever. Get help right away if: You have trouble breathing. Summary For several hours after your procedure, you may feel sleepy and have poor judgment. Have a responsible adult stay with you for at least 24 hours or until you are awake and alert. This information is not intended to replace advice given to you by your health care provider. Make sure you discuss any questions you have with your health care provider. Document Released: 12/23/2016 Document Revised: 12/01/2018 Document Reviewed: 12/23/2016 [employer] Patient Education 2020 [employer] Inc. Diverticulosis Diverticulosis is a condition that develops when small pouches (diverticula) form in the wall of the large intestine (colon). The colon is where water is absorbed and stool is formed. The pouches form when the inside layer of the colon pushes through weak spots in the outer layers of the colon. You may have a few pouches or many of them. What are the causes? The cause of this condition is not known. What increases the risk? The following factors may make you more likely to develop this condition: Being older than age 60. Your risk for this condition increases with age. Diverticulosis is rare among people younger than age 30. By age 80, many people have it. Eating a low-fiber diet. Having frequent constipation. Being overweight. Not getting enough exercise. Smoking. Taking scjd-rjo-jerzfam pain medicines, like aspirin and ibuprofen. Having a family history of diverticulosis. What are the signs or symptoms? In most people, there are no symptoms of this condition. If you do have symptoms, they may include: Bloating. Cramps in the abdomen. Constipation or diarrhea. Pain in the lower left side of the abdomen. How is this diagnosed? This condition is most often diagnosed during an exam for other colon problems. Because diverticulosis usually has no symptoms, it often cannot be diagnosed independently. This condition may be diagnosed by: Using a flexible scope to examine the colon (colonoscopy). Taking an X-ray of the colon after dye has been put into the colon (barium enema). Doing a CT scan. How is this treated? You may not need treatment for this condition if you have never developed an infection related to diverticulosis. If you have had an infection before, treatment may include: Eating a high-fiber diet. This may include eating more fruits, vegetables, and grains. Taking a fiber supplement. Taking a live bacteria supplement (probiotic). Taking medicine to relax your colon. Taking antibiotic medicines. Follow these instructions at home: Drink 6 8 glasses of water or more each day to prevent constipation. Try not to strain when you have a bowel movement. If you have had an infection before: ? Eat more fiber as directed by your health care provider or your diet and study specialist (dietitian). ? Take a fiber supplement or probiotic, if your health care provider approves. Take hmsb-crg-wjkkomp and prescription medicines only as told by your health care provider. If you were prescribed an antibiotic, take it as told by your health care provider. Do not stop taking the antibiotic even if you start to feel better. Keep all follow-up visits as told by your health care provider. This is important. Contact a health care provider if: You have pain in your abdomen. You have bloating. You have cramps. You have not had a bowel movement in 3 days. Get help right away if: Your pain gets worse. Your bloating becomes very bad. You have a fever or chills, and your symptoms suddenly get worse. You vomit. You have bowel movements that are bloody or black. You have bleeding from your rectum. Summary Diverticulosis is a condition that develops when small pouches (diverticula) form in the wall of the large intestine (colon). You may have a few pouches or many of them. This condition is most often diagnosed during an exam for other colon problems. If you have had an infection related to diverticulosis, treatment may include increasing the fiber in your diet, taking supplements, or taking medicines. This information is not intended to replace advice given to you by your health care provider. Make sure you discuss any questions you have with your health care provider. Document Released: 05/30/2005 Document Revised: 08/15/2018 Document Reviewed: 07/22/2017 [employer] Patient Education 2020 [employer]Wave. Colonoscopy, Adult, Care After This sheet gives you information about how to care for yourself after your procedure. Your doctor may also give you more specific instructions. If you have problems or questions, call your doctor. What can I expect after the procedure? After the procedure, it is common to have: A small amount of blood in your poop for 24 hours. Some gas. Mild cramping or bloating in your belly. Follow these instructions at home: General instructions For the first 24 hours after the procedure: ? Do not drive or use machinery. ? Do not sign important documents. ? Do not drink alcohol. ? Do your daily activities more slowly than normal. ? Eat foods that are soft and easy to digest. Take gmnn-huh-hovjuvq or prescription medicines only as told by your doctor. To help cramping and bloating: Try walking around. Put heat on your belly (abdomen) as told by your doctor. Use a heat source that your doctor recommends, such as a moist heat pack or a heating pad. ? Put a towel between your skin and the heat source. ? Leave the heat on for 20 30 minutes. ? Remove the heat if your skin turns bright red. This is especially important if you cannot feel pain, heat, or cold. You can get burned. Eating and drinking Drink enough fluid to keep your pee (urine) clear or pale yellow. Return to your normal diet as told by your doctor. Avoid heavy or fried foods that are hard to digest. Avoid drinking alcohol for as long as told by your doctor. Contact a doctor if: You have blood in your poop (stool) 2 3 days after the procedure. Get help right away if: You have more than a small amount of blood in your poop. You see large clumps of tissue (blood clots) in your poop. Your belly is swollen. You feel sick to your stomach (nauseous). You throw up (vomit). You have a fever. You have belly pain that gets worse, and medicine does not help your pain. Summary After the procedure, it is common to have a small amount of blood in your poop. You may also have mild cramping and bloating in your belly. For the first 24 hours after the procedure, do not drive or use machinery, do not sign important documents, and do not drink alcohol. Get help right away if you have a lot of blood in your poop, feel sick to your stomach, have a fever, or have more belly pain. This information is not intended to replace advice given to you by your health care provider. Make sure you discuss any questions you have with your health care provider. Document Released: 10/05/2011 Document Revised: 07/03/2018 Document Reviewed: 05/27/2017 [employer] Patient Education 2020 [employer] Inc. Additional Information VACCINATE! IT SAVES LIVES! Members of the community who have not yet received the COVID-19 vaccine and would like to receive it can visit one of [facility] vaccine clinics. There are many vaccine clinic locations within the [facility]. For locations and available times, please visit [email or web address].[email or web address].go [email or web address] It is important to note that some COVID mobile vaccine clinics are held outdoors and may be canceled in rainy or stormy conditions. To learn more about pediatric vaccinations (ages 5-11), we invite you to visit the [facility] webpage. [email or web address]/[email or web address]-Gjfwo-Lqjqwkqjmwa-Frequently-[email or web address] -Questions.html To learn more about the COVID-19 vaccine, we invite you to visit the CDC website for a list of frequently asked questions.https://www.cdc.gov/coronavi debra/2019-ncov/vaccines/faq.html [facility] Patient Portal Access Instructions: Stay connected with your healthcare team and access your personal medical information anytime with the [facility] Patient Portal. Please follow the directions below to create your [facility] account: 1.Access the email account you provided upon registration to the hospital/physician office.2.Look for an invitation email from [facility].3.Open the email and access the invitation link: Accept Invitation to [facility].4.Fill in the required sosa to create your account. To access your account, visit [facility]. Click the blue button labeled Access Patient Portal and then log in with the username and password that you created in the steps above. You will be able to view your test results, lab results, a summary of your visits, upcoming appointments and more. There is also a convenient messaging option where you can send secure messages to your provider. In addition, you will have the ability to download any documents or summaries to your computer and/or send the information securely to a physician. Remember that your healthcare information is confidential, so carefully consider who you will allow to register on the [facility] Patient Portal for access to your information. You can also access the [facility] [employer] Patient Portal on the [facility] kandy. Simply click on Patient Portal and then log into your account. If you would like to receive a full copy of your medical records, please contact the [facility] Medical Records Department by calling [phone], Saturday through Saturday between 8 a.m. and 4:30 p.m. HOW TO SAFELY DISPOSE OF PRESCRIPTION MEDICATIONS Please use one of the following methods to safely dispose of your unused medications. 1.Use a drug disposal kit: the drug disposal pouch allows you to safely discard your old and unused drugs. Ask your nurse to give you one when you are discharged.2.Visit a local take-back location: Many local pharmacies and police departments have programs that collect old and unwanted prescription drugs. Call your local pharmacy or go to http://PrairieSmarts.Payoff/1F3Mq2g to find one close to you.3.Make use of household items: Use cat litter or old coffee grounds to dispose medications if other options are not available. Mix your drugs with these household products, seal them in an airtight container and throw it into the garbage. Call [facility]: [phone] to be sure your drugs can be disposed of in this way. Some medicines may require a different approach.4.Never flush your medications down the toilet. IF YOU HAVE BEEN PRESCRIBED AN OPIOID FOR PAIN If you have been prescribed an opioid (such as hydrocodone, oxycodone or morphine), it is critical to understand the possible side effects and risks of opioid pain medications. Even when taken as directed, opioids can have several side effects including: Tolerance, meaning you might need to take more of a medication for the same pain relief. Nausea, vomiting and/or constipation. Sleepiness, dizziness, dry mouth, confusion, depression or itching. Physical dependence, meaning you have withdrawal symptoms when a medication is stopped, can develop within a few days. KNOW YOUR RESPONSIBILITIES It is important to know exactly how much and how often to take the opioid pain medications you are prescribed. Never take opioids in higher amounts or more often than prescribed. Do not combine opioids with alcohol or other drugs that cause drowsiness, such as benzodiazepines, also known as benzos, including diazepam and alprazolam, muscle relaxants or sleep aids. Never sell or share prescription opioids. This is illegal. Store opioids in a secure place and out of reach of others (including children, family, friends and visitors). The last page of this document has been signed and retained as a CHART COPY. Signatures Patient Education Materials Colon Biopsy, Care After Monitored Anesthesia Care, Care After Diverticulosis Colonoscopy, Adult, Care After, Psiz-nb-Ozke Medication Leaflets My discharge plan and instructions have been reviewed and explained to me and I,RICKEY TRUJILLO understand my current condition and have read and understand these discharge instructions. I have received a written copy of the plan/instructions. If I have questions, I am aware that I should contact my doctor. 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 Signature: _ Date/Time: Relationship to Patient: Witness Name/Signature: Date/Time: [facility] Clinical Note 12-16-2023 Note Date & Type Note Facility 12-16-2023 [facility] ADMISSION HISTORY AND PHYSICIAL CHIEF COMPLAINT: HISTORY OF PRESENT ILLNESS: REVIEW OF SYSTEMS: ACTIVE PROBLEMS: (4) AA (aortic aneurysm) ([id number]) Anemia ([id number]) Barretts esophagus ([id number]) CHF (congestive heart failure) ([id number]) MEDICATIONS: Active Inpt Meds: None Active PRN Meds: None One Time Meds: None Active IV Meds: Lactated Ringers Infusion 1,000 mL (LR 1,000 mL) Start: 12/16/23 8:45:00 EDT, Rate: 50 mL/hr, 12/16/23 8:45:00 EDT ALLERGIES: (2) aspirin oxyCODONE FAMILY HISTORY: SOCIAL HISTORY: PHYSICAL EXAM: VITALS: [id number](k g) 12/15 09:23--------95RA04/ 75.0 12/15 09:1936.3--[id number] 24 Hr Tmax: 36.3 at 12/15 09:19 36 Hr Tmax: 36.3 at 12/15 09:19 Vital Signs are the last 5 in the past 48 hours. Weights display the last 5 within 7 days. Initial Wt: 12/15 75.0 kg 165 lb Current Wt: 12/15 75.0 kg 165 lb GENERAL: HEENT: CARDIOVASCULAR: RESPIRATORY: ABDOMEN: EXREMETIES: NEUROLOGICAL: PSYCHIATRIC: LABS: No 36hr Lab Data DIAGNOSTICS: IMPRESSION: PLAN: History and Physical Update I have examined the patient; reviewed the H&P and there are no changes to the H&P unless noted below. Digitally Signed by EDSON WILSON MD on 12/16/2023 10:13 AM [facility] Anesthesiology Consult note 12-16-2023 Note Date & Type Note Facility 12-16-2023 Anesthesiology Consult note Patient: RICKEY TRUJILLO [facility]: [id number] Age: 83 years Sex: Female : 1940 Associated Diagnoses: None Author: JACKI MURRAY CHEESE SPRAYER-CRIB CLERK Preoperative Information Time of last food or liquid consumption: 12/16/2023 06:00:00 Anesthesia history Patient's history: negative. Family's history: negative. Review of Systems Ear/Nose/Mouth/Throat: Negative. Respiratory: Negative. Cardiovascular: znemia, hx chf. Gastrointestinal: obese, AAA. Genitourinary: Negative. Endocrine: Negative. Musculoskeletal: wheelchair bound. Integumentary: Negative. Neurologic: Negative. Health Status Allergies: Allergic Reactions (Selected) Severity Not Documented Aspirin- No reactions were documented. OxyCODONE- No reactions were documented., Allergies (2) ActiveReaction aspirinNone Documented oxyCODONENone Documented Current medications: (Selected) Inpatient Medications Ordered LR 1,000 mL: 50 mL/hr, Intravenous Documented Medications Documented carvedilol 12.5 mg oral tablet: TAKE ONE TABLET BY MOUTH TWICE A DAY FOR HYPERTENSION furosemide 40 mg oral tablet: TAKE ONE TABLET BY MOUTH DAILY FOR INCREASE IN WEIGHT BY 5 LBS IN 1 WEEK gabapentin 300 mg oral capsule: TAKE 1 CAPSULE BY MOUTH THREE TIMES A DAY meloxicam 15 mg oral tablet: TAKE 1 TABLET BY MOUTH EVERY DAY meloxicam 15 mg oral tablet: TAKE 1 TABLET BY MOUTH EVERY DAY omeprazole 20 mg oral delayed release capsule: TAKE 1 CAPSULE BY MOUTH EVERY DAY spironolactone 25 mg oral tablet: TAKE 1 TABLET BY MOUTH EVERY DAY, Medications (1) Active Scheduled: (0) Continuous: (1) Lactated Ringers 1,000 mL 1,000 mL, Intravenous, 50 mL/hr PRN: (0) Problem list: Active Problems (4) AA (aortic aneurysm) Anemia Barretts esophagus CHF (congestive heart failure) Histories Past Medical History: No active or resolved past medical history items have been selected or recorded. Family History: Breast cancer Sister Diabetes mellitus type 2 Mother Sister Lymphoma (clinical) Sister Heart attack Father Sister Brother Procedure history: Colonoscopy ([id number]) on 12/16/2023 at 83 Years. Radiation ([id number]). Comments: 12/16/2023 9:06 EDT - Aleta Charles RN rectal CA Cholecystectomy ([id number]). Abdominal hysterectomy ([id number]). Ambulatory chemotherapy ([id number]). Social History Social & Psychosocial Habits Tobacco 12/16/2023 Tobacco Use: Former smoker, quit more Type: Cigarettes Started at age: 17 Years Stopped at age: 76 Years . Physical Examination Vital Signs 12/16/2023 9:19 EDT Temperature Temporal Artery 36.3 DegC Peripheral Pulse Rate 86 bpm Respiratory Rate 20 br/min Systolic Blood Pressure Non-Invasive 131 mmHg Diastolic Blood Pressure Non-Invasive 98 mmHg NH Vital Signs(last 24 hrs) Last Charted BND104 mmHg (DEC 15 09:19) DBPH 98mmHg (DEC 15 09:) BMI32.46 (DEC 15 09:) Measurements from flowsheet : Measurements 12/16/2023 9:19 EDT Height 152 cm Admission Weight 75 kg [place] Body Weight 45.14 kg BSA Admission 1.72 Body Mass Index 32.46 kg/m2 Pain assessment: Pain Assessment 12/16/2023 9:19 EDT Pain Scale Type 0-10 Pain scale . General: Alert and oriented. Airway: Normal temporomandibular joint mobility. Mallampati classification: II (soft palate, fauces, uvula visible). Head: Atraumatic. Dentition Evaluation: Dentures, upper. Neck: Supple. Respiratory: Lungs are clear to auscultation. Cardiovascular: Normal rate. Heart Sounds: Normal. Gastrointestinal: Soft. Musculoskeletal Normal range of motion. Integumentary: Intact. Neurologic: Alert, Oriented. Review / Management Results review: No qualifying data available , Lab results 12/16/2023 9:23 EDT Oxygen Therapy Room air Oxygen Saturation 95 % Skin Integrity Intact 12/16/2023 9:19 EDT Designated Person #1 We May Share [facility] [phone] Designated Person #1 Relationship Son Height 152 cm Admission Weight 75 kg Makoti Body Weight 45.14 kg BSA Admission 1.72 Body Mass Index 32.46 kg/m2 Temperature Temporal Artery 36.3 DegC Peripheral Pulse Rate 86 bpm Respiratory Rate 20 br/min Systolic Blood Pressure Non-Invasive 131 mmHg Diastolic Blood Pressure Non-Invasive 98 mmHg HI Pain Scale Type 0-10 Pain scale Oxygen Therapy Room air Oxygen Saturation 89 % Status N/A Characteristics of Speech Clear Level of Consciousness Alert Affect/Behavior Appropriate Sensory Deficits None Infectious Disease Symptoms Patient states no symptoms Infectious Disease Recent Exposure No Alcohol and Drug Use No Employee of Institutional Living No Health Care Employee No History of Exposure to TB No History of Positive Chest X-Ray for TB No History of Positive TB Skin Test No Homeless No Known Immunosuppression No Recent Immigrant No Resident of Institutional Living No Bloody Sputum No Fatigue No Fever No Loss of Appetite No Night Sweats No Persistent Cough > 3 Weeks No Weight Loss No Barriers to Learning None evident Teaching Method Explanation Preferred Spoken Language Bolivian Preferred Written Language Bolivian Information Given by Patient Patient's Current Physicians Kraig Discharge To, Anticipated Home with family care Positioning Repositions self Standard Safety Safety level maintained Prev Test Positive/Diagnosis w/COVID-19 No Current Quarantine/Isolated any Illness No Any Contact with Sick Animals/Birds No Traveled Anywhere in Last 30 Days No N/A Personal Devices, Patient Valuables Glasses Admission Note-Nursing Procedure/Therapy Intake 12/16/2023 9:16 EDT Urinary Elimination Voiding, no difficulties IV Present Present Dial Marker On Yes Colon Prep Results Good Consent Form Signed Yes Patient Dressed In Hospital gown Bowel Prep Completed Yes NPO Status Maintained, Less than 8 hours Anesthesia Consent Signed Yes Last Fluid Intake 12/16/2023 5:30 Last Food Intake 12/15/2023 10:00 12/16/2023 9:15 EDT Lactated Ringers Injection Begin Bag 1,000 mL mL . Assessment and Plan [place] [employer] Anesthesiologists (ASA) physical status classification: Class III. Anesthetic Preoperative Plan Anesthetic technique: MAC. Postoperative pain management: Per surgeon. Informed consent: signed by patient. Digitally Signed by JACKI MURRAY on 12/16/2023 10:09 AM [facility] Anesthesiology Consult note 12-16-2023 Note Date & Type Note Facility 12-16-2023 Anesthesiology Consult note JACKI MURRAY: PERFORM, SIGN, VERIFY Event Display: Anesthesiology Consultation Authored Date: Patient: RICKEY TRUJILLO Age: 83 years Sex: Female : 1940 Associated Diagnoses: None Author: JACKI MURRAY Preoperative Information Time of last food or liquid consumption: 12/16/2023 06:00:00 Anesthesia history Patient's history: negative. Family's history: negative. Review of Systems Ear/Nose/Mouth/Throat: Negative. Respiratory: Negative. Cardiovascular: znemia, hx chf. Gastrointestinal: obese, AAA. Genitourinary: Negative. Endocrine: Negative. Musculoskeletal: wheelchair bound. Integumentary: Negative. Neurologic: Negative. Health Status Allergies: Allergic Reactions (Selected) Severity Not Documented Aspirin- No reactions were documented. OxyCODONE- No reactions were documented., Allergies (2) ActiveReaction aspirinNone Documented oxyCODONENone Documented Current medications: (Selected) Inpatient Medications Ordered LR 1,000 mL: 50 mL/hr, Intravenous Documented Medications Documented carvedilol 12.5 mg oral tablet: TAKE ONE TABLET BY MOUTH TWICE A DAY FOR HYPERTENSION furosemide 40 mg oral tablet: TAKE ONE TABLET BY MOUTH DAILY FOR INCREASE IN WEIGHT BY 5 LBS IN 1 WEEK gabapentin 300 mg oral capsule: TAKE 1 CAPSULE BY MOUTH THREE TIMES A DAY meloxicam 15 mg oral tablet: TAKE 1 TABLET BY MOUTH EVERY DAY meloxicam 15 mg oral tablet: TAKE 1 TABLET BY MOUTH EVERY DAY omeprazole 20 mg oral delayed release capsule: TAKE 1 CAPSULE BY MOUTH EVERY DAY spironolactone 25 mg oral tablet: TAKE 1 TABLET BY MOUTH EVERY DAY, Medications (1) Active Scheduled: (0) Continuous: (1) Lactated Ringers 1,000 mL 1,000 mL, Intravenous, 50 mL/hr PRN: (0) Problem list: Active Problems (4) AA (aortic aneurysm) Anemia Barretts esophagus CHF (congestive heart failure) Histories Past Medical History: No active or resolved past medical history items have been selected or recorded. Family History: Breast cancer Sister Diabetes mellitus type 2 Mother Sister Lymphoma (clinical) Sister Heart attack Father Sister Brother Procedure history: Colonoscopy ([id number]) on 12/16/2023 at 83 Years. Radiation ([id number]). Comments: 12/16/2023 9:06 EDT - Aleta Charles RN rectal CA Cholecystectomy ([id number]). Abdominal hysterectomy ([id number]). Ambulatory chemotherapy ([id number]). Social History Social & Psychosocial Habits Tobacco 12/16/2023 Tobacco Use: Former smoker, quit more Type: Cigarettes Started at age: 17 Years Stopped at age: 76 Years . Physical Examination Vital Signs 12/16/2023 9:19 EDT Temperature Temporal Artery 36.3 DegC Peripheral Pulse Rate 86 bpm Respiratory Rate 20 br/min Systolic Blood Pressure Non-Invasive 131 mmHg Diastolic Blood Pressure Non-Invasive 98 mmHg NH Vital Signs(last 24 hrs) Last Charted KHH089 mmHg (DEC 15 09:19) DBPH 98mmHg (DEC 15 09:19) BMI32.46 (DEC 15:19) Measurements from flowsheet : Measurements 12/16/2023 9:19 EDT Height 152 cm Admission Weight 75 kg Makoti Body Weight 45.14 kg BSA Admission 1.72 Body Mass Index 32.46 kg/m2 Pain assessment: Pain Assessment 12/16/2023 9:19 EDT Pain Scale Type 0-10 Pain scale . General: Alert and oriented. Airway: Normal temporomandibular joint mobility. Mallampati classification: II (soft palate, fauces, uvula visible). Head: Atraumatic. Dentition Evaluation: Dentures, upper. Neck: Supple. Respiratory: Lungs are clear to auscultation. Cardiovascular: Normal rate. Heart Sounds: Normal. Gastrointestinal: Soft. Musculoskeletal Normal range of motion. Integumentary: Intact. Neurologic: Alert, Oriented. Review / Management Results review: No qualifying data available , Lab results 12/16/2023 9:23 EDT Oxygen Therapy Room air Oxygen Saturation 95 % Skin Integrity Intact 12/16/2023 9:19 EDT Designated Person #1 We May Share PHI [id number] Designated Person #1 Relationship Son Height 152 cm Admission Weight 75 kg Makoti Body Weight 45.14 kg BSA Admission 1.72 Body Mass Index 32.46 kg/m2 Temperature Temporal Artery 36.3 DegC Peripheral Pulse Rate 86 bpm Respiratory Rate 20 br/min Systolic Blood Pressure Non-Invasive 131 mmHg Diastolic Blood Pressure Non-Invasive 98 mmHg HI Pain Scale Type 0-10 Pain scale Oxygen Therapy Room air Oxygen Saturation 89 % <LLOW Status N/A Characteristics of Speech Clear Level of Consciousness Alert Affect/Behavior Appropriate Sensory Deficits None Infectious Disease Symptoms Patient states no symptoms Infectious Disease Recent Exposure No Alcohol and Drug Use No Employee of Institutional Living No Health Care Employee No History of Exposure to TB No History of Positive Chest X-Ray for TB No History of Positive TB Skin Test No Homeless No Known Immunosuppression No Recent Immigrant No Resident of Institutional Living No Bloody Sputum No Fatigue No Fever No Loss of Appetite No Night Sweats No Persistent Cough > 3 Weeks No Weight Loss No Barriers to Learning None evident Teaching Method Explanation Preferred Spoken Language Bolivian Preferred Written Language Bolivian Information Given by Patient Patient's Current Physicians Kraig Discharge To, Anticipated Home with family care Positioning Repositions self Standard Safety Safety level maintained Prev Test Positive/Diagnosis w/COVID-19 No Current Quarantine/Isolated any Illness No Any Contact with Sick Animals/Birds No Traveled Anywhere in Last 30 Days No N/A Personal Devices, Patient Valuables Glasses Admission Note-Nursing Procedure/Therapy Intake 12/16/2023 9:16 EDT Urinary Elimination Voiding, no difficulties IV Present Present Dial Marker On Yes Colon Prep Results Good Consent Form Signed Yes Patient Dressed In Hospital gown Bowel Prep Completed Yes NPO Status Maintained, Less than 8 hours Anesthesia Consent Signed Yes Last Fluid Intake 12/16/2023 5:30 Last Food Intake 12/15/2023 10:00 12/16/2023 9:15 EDT Lactated Ringers Injection Begin Bag 1,000 mL mL . Assessment and Plan [place] [employer] Anesthesiologists (ASA) physical status classification: Class III. Anesthetic Preoperative Plan Anesthetic technique: MAC. Postoperative pain management: Per surgeon. Informed consent: signed by patient. Digitally Signed by JACKI MURRAY on 12/16/2023 10:09 AM [facility] Hospital course Narrative Note Date & Type Note Facility Hospital course Narrative No data available for this section [facility] Discharge Instructions * Instructions* Belkys Coelho MD - 10/13/2020 Please follow your post operative care instructions given to you by your [facility]'s office at your pre operative visit. Please call the office with questions or concerns and be sure to follow up at your scheduled post operative visit. documented in this encounter History of Present Illness * Eloisa Rodney RN - 10/13/2020 10:20 AM EST Patient [...] Family History No Family History Records Found No data available for this section No Family History Records Found Additional Source Comments Ordered Prescriptions (unrec ognized section and content) Prescription Sig Dispensed Refills Start Date End Da te HYDROcodone-acetamino phen (NORCO) 5-325 MG per tabletIndications:S/P hysterectomy Take 1 tablet by mouth every 6 hours as needed for Pain for up to 7 days. Intended supply: 7 days. Take lowest dose possible to manage pain 20 tablet 0 10/13/2020 10/20/2020 ibuprofen (ADVIL;MOTRIN) 600 MG tablet Take 1 tablet by mouth every 6 hours as needed for Pain 60 tablet 0 10/13/2020 docusate sodium (COLACE) 100 MG capsule Take 1 capsule by mouth 2 times daily as needed for Constipation 60 capsule 2 10/13/2020 11/12/2020 INFORMATION SOURCE (unrecogn ized section and content) DATE CREATED AUTHOR 10/17/2020 [employer] DATE CREATED AUTHOR AUTHOR'S ORGANIZ ATION 01/22/2024 [facility] [employer] ([place]) FOR RECORDS PERTAINING TO PATIENTS WHO ARE [...] BE BASED ON THE PRIMARY CLINICAL RECORDS. [employer] [facility]. provides no warranty or guarantee of the accuracy or completeness of information in this document.
[2024-07-12 15:55] LABS: ALB/GLOB Ratio 0.8 RATIO (0.9-2.4); AST(SGOT) 34 U/L (15-37); Alanine Aminotransfer ALT/SGPT 28 U/L (13-56); Albumin, Serum 3.4 g/dL (3.2-5.0); Alkaline Phosphatase 92 U/L (45-117); Anion Gap 5 (5-15); BUN 31 mg/dL (7-18); Calcium,Total 9.2 mg/dL (8.5-10.1); Chloride 104 mmol/L (98-107); Creatinine, Serum 1.35 mg/dL (0.55-1.02); EST Glomerular Filtration Rate 40 mL/min (>60); Est Glom Filt Rate - Afr Amer 48 mL/min (>60); Estimated Creatinine Clearance 28.21 ml/min; Globulin 4.4 g/dL (2.2-4.2); Glucose 79 mg/dL (74-106); Lipase 122 U/L (13-75); Potassium 4.5 mmol/L (3.5-5.1); Protein, Total 7.8 g/dL (6.4-8.2); Sodium Level 137 mmol/L (136-145); Troponin-I HS (w/2H Reflex) 26 pg/mL (3.0-54.0)
--- NOTE | 2024-07-12 15:55 | RAD_ITS ---
STUDY: XR Chest 1 View 07/12/2024 3:33 PM REASON FOR EXAM: Female, 83 years old. cough COMPARISON: None TECHNIQUE: XR Chest 1 View FINDINGS: There is no demonstrated pleural abnormality. Normal heart size. Normal mediastinum. Normal ralph. Prominent appearing increased interstitial lung markings. Normal visualized pulmonary arteries. There is atherosclerotic calcification of the aortic arch with tortuosity. There are diffuse degenerative changes of the visualized thoracic spine. There is degenerative osteoarthritis of the bilateral shoulders. There are no acute findings of the upper abdomen. RAD/Chest 1 View (Portable) IMPRESSION: There are no acute findings. Electronically Signed: Leonidas Man MD at 16:06 EDT ,
[2024-07-12 16:21] LABS: Lactic Acid 1.1 mmol/L (0.4-1.9)
[2024-07-12 17:19] LABS: Reflex Troponin-HS? (from REC) Y
[2024-07-12 17:22] LABS: Mucous, Urine 0 SEEN /hpf (<or=2+); Red Blood Cells-Urine 0 SEEN /hpf (0-5)
[2024-07-12 17:27] LABS: Color, Urine Straw (Yellow); Glucose, Dipstick Normal (Normal); Ketone-Dipstick Negative (Negative); Leukocyte Esterase-Dipstick 500 /ul (Negative); Nitrite-Dipstick Negative (Negative); Occult Blood-Urine 10 /ul (Negative); Protein-Dipstick 15 mg/dl (Negative); Urine Bilirubin Dipstick Negative (Negative); Urine Clarity Cloudy (Clear); Urine Urobilinogen Normal (Normal)
[2024-07-12 17:36] LABS: Bacteria 2+ /hpf (None Seen); Squamous Epithelial Cells - UA 0-5 SEEN /hpf (5-10); White Blood Cells >100 SEEN /hpf (0-5)
[2024-07-12 17:54] LABS: Troponin-I HS 28 pg/mL (3.0-54.0)
[2024-07-12] MEDS: Cefepime HCl 2 GM in 0.9% Normal Saline (100mL MB+) 100 ML IV (18:11)
--- NOTE | 2024-07-12 18:24 | NURSING ---
CALLED [facility] FOR TRANSFER, TALKED TO ELEANOR FAXED FACESHEET CALLED CT TO HAVE IMAGES TRANSMITTED
[2024-07-13] VITALS (15 sets, daily range): BP systolic 103–126; BP diastolic 61–77; PULSE 63–82; RESP 14–17; TEMP 36.3–36.9; O2SAT 92–97; BMI 29.3
--- NOTE | 2024-07-13 03:16 | ED.RN ---
Discussed UTI treatment with Dr. Lemons while waiting for bed at [facility], per Dr. Lemons medication only needed every 24 hrs per creatinine clearance.
--- NOTE | 2024-07-13 03:20 | ED.RN ---
Called for status/bed update, spoke with Tg.No beds avail until tomorrow(Saturday), discharge dependant.
--- NOTE | 2024-07-13 03:25 | HP.PCM.HOS_ITS ---
[facility] - General General Date of Admission: 07/13/24 Date of Service: 07/13/24 Chief Complaint: Epigastric Pain. HPI Narrative RICKEY TRUJILLO, is a 83 F with a past medical history of essential hypertension, overweight; with BMI of 29.5 this admission, former history of tobacco abuse (quit 2008); with subsequent COPD, chronic hypoxic respiratory failure, history of lung nodules, chronic diastolic CHF; with preserved LVEF ~55% (2019) on Coreg, Lasix and Aldactone, history of thoracic aortic aneurysm (ascending & descending), history of aortic mural thrombosis, history of anal squamous cell carcinoma; s/p chemotherapy and radiation (2017), history of radiation enteritis, history of complete SANDY-BSO (2017); with pathology revealing benign serous cystoadenomas, history of cholecystectomy (2012), history of diverticular disease, history of ovarian cyst, history of GERD; 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 She informed the ER physician that she was having an increasing gaseous sensation in her upper abdomen that progressively worsened for ~2 days prior to admission that caused her to come in for further evaluation and treatment. She also admitted to a intermittent near syncopal episodes but she denied fall or LOC. She states she was passing gas through her urethra for the past month but did not understand what was happening because she never had similar symptoms previously. 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 The general surgeon on-call recommended immediate transfer to a tertiary care center due to a combination of her need for a colorectal surgical instrument repair specialist and her medical complexity. She was then started on IV Cefepime and then received a second dose 3:30 AM for a severe complicated UTI with normal WBC of 9K, normal lactic acid of 1.1 mmol/L and afebrile with no other significant laboratory abnormalities with patient clinically stable and having no other significant complaints at that time. Then approximately 12 hours later the hospitalist service was called to admit this surgical patient to this hospitalist service due to a lack of immediate bed availability at [facility] as per this hospital's policy with current ER physician stating a bed would not likely be available until Sunday, July 14, 2024. She was then admitted to the general medical floor until a bed becomes available for a stay that is expected to extend beyond 2 midnights. [facility] Medical History Thoracic ascending aortic aneurysm Aortic mural thrombus Nicotine dependence, cigarettes, in remission Lung nodule SOB (shortness of breath) Chronic respiratory failure with hypoxia Osteopenia Enteritis secondary to radiation therapy Restless leg syndrome Physical debility Pain in left ankle Closed fracture of distal end of left fibula Heart palpitations Ovarian cyst Foot drop, left foot Chronic diastolic (congestive) heart failure Descending thoracic aortic aneurysm Obesity Essential (primary) hypertension Lung nodule Vertigo History of anal cancer 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) COPD (chronic obstructive pulmonary disease) 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 Home Medications ?Medication ?Instructions ?Recorded ?Last Taken ?Type cholecalciferol (vitamin D3) 25 3,000 unit PO DAILY supplement 08/08/20 Unknown History mcg (1,000 unit) tablet vitamins A,C,C-qfpd-cfjryf 2,148 2 tab PO BID supplement 08/01/23 Unknown History mcg-113 mg-45 mg-17.4 mg tablet (PreserVision AREDS) spironolactone 25 mg tablet See Rx Instructions .Route 08/21/23 Unknown Rx .COMPLEX water pill #90 tabs furosemide 40 mg tablet 40 mg PO DAILY increase in weight 01/17/24 Unknown Rx by 5 lbs in 1 week #90 tabs gabapentin 300 mg capsule 300 mg PO TID nerve pain 04/07/24 Unknown History lactobacillus combination no.9 4 4,000 mmu cells PO DAILY supplement 04/07/24 Unknown History billion cell capsule (Adult 50 Plus Probiotic) omeprazole 20 mg capsule,delayed 20 mg PO DAILY acid reflux 04/07/24 Unknown History release carvedilol 12.5 mg tablet 12.5 mg PO BID for blood pressure 04/14/24 Unknown Rx #180 TABLETS Allergy/AdvReac Type Severity Reaction Status Date / Time oxycodone Allergy Mild headache Verified 05/02/24 13:13 aspirin AdvReac Nausea Verified 05/02/24 13:13 Family History Father Heart disease Sister Cancer Diabetes Brother Heart disease Mother Heart disease Sister Heart disease Sister Cancer breast Surgical History H/O cataract extraction S/P complete hysterectomy (~10/13/20) History of right and left heart catheterization (02/24/13) History of cholecystectomy Social History adopted: No household members: significant other housing: house number of children: 3 Smoking Status: Former smoker how long ago did patient quit smokin alcohol intake: never substance use type: does not use caffeine: Yes Type: coffee Number of servings: 2 what type of physical activity do you participate in: none seatbelt use: always do you feel safe at home: Yes additional social history: - Rosalio UPT[place] Narrative Review of Systems: Constitutional: Patient denies fever or chills. Eyes: Patient denies changes in vision or discharge from eyes. ENT: Patient denies runny nose, sore throat or ear pain. Resp: Patient denies SOB or cough. CV: Patient admits to intermittent episodes of near syncope but she denies chest pain, palpitations or heart racing. GI: Patient admits to primarily epigastric abdominal pain as per HPI. She denies nausea, vomiting, diarrhea or constipation. : Patient denies dysuria or hematuria. MSK: Patient denies myalgias and arthralgias. Skin: Patient denies rash, abscess or jaundice. Psych: Patient denies symptoms of uncontrolled depression or anxiety. Neuro: Patient denies headache, paresthesias or focal neurologic deficits. Allergy: Patient denies lip swelling, tongue swelling or urticaria. Hematology: Patient denies easy bleeding or easy bruisability. Endocrinology: Patient denies polyuria, polydipsia and polyphagia. 14 point ROS otherwise negative except for positives noted above in HPI. Vital Signs Vital Signs Vital Signs: 07/12/24 14:51 07/12/24 15:45 07/12/24 16:00 Temperature 98.2 F Temperature Source Oral Pulse Rate 69 64 79 Respiratory Rate 19 H 21 H 18 Blood Pressure 131/74 H 114/73 108/79 Blood Pressure Mean 93 87 88 Pulse Ox 95 98 96 Oxygen Delivery Method Room Air Room Air Oxygen Flow Rate (L/min) 07/12/24 16:56 07/12/24 18:00 07/12/24 18:56 Temperature Temperature Source Pulse Rate 78 66 78 Respiratory Rate 17 18 16 Blood Pressure 117/78 118/65 121/74 H Blood Pressure Mean 91 82 89 Pulse Ox 95 98 98 Oxygen Delivery Method Room Air Nasal Cannula Nasal Cannula Oxygen Flow Rate (L/min) 2 2 2 07/12/24 20:00 07/12/24 21:00 07/12/24 22:00 Temperature Temperature Source Pulse Rate 67 66 71 Respiratory Rate 17 21 H 17 Blood Pressure 97/52 L 104/50 L 100/61 Blood Pressure Mean 67 68 74 Pulse Ox 96 94 96 Oxygen Delivery Method Room Air Room Air Room Air Oxygen Flow Rate (L/min) 07/12/24 23:00 07/13/24 00:00 07/13/24 01:00 Temperature Temperature Source Pulse Rate 74 67 63 Respiratory Rate 20 H 16 14 Blood Pressure 102/33 L 103/64 109/64 Blood Pressure Mean 56 77 79 Pulse Ox 93 96 92 Oxygen Delivery Method Nasal Cannula Nasal Cannula Nasal Cannula Oxygen Flow Rate (L/min) 2 2 2 07/13/24 02:00 07/13/24 03:00 Temperature Temperature Source Pulse Rate 64 64 Respiratory Rate 15 16 Blood Pressure 119/66 115/61 Blood Pressure Mean 83 79 Pulse Ox 94 93 Oxygen Delivery Method Room Air Room Air Oxygen Flow Rate (L/min) Weight Weight: 150 lb 14.15 oz Body Mass Index (BMI) 29.5 Physical Exam Const alert, oriented x3, no apparent distress and average body habitus General Appearance: cooperative HEENT normocephalic, head/scalp atraumatic, hearing grossly normal bilaterally and moist oral mucous membranes Eyes PERRL and EOMs intact bilaterally Neck no lymphadenopathy and supple Resp normal respiratory effort, no retractions, no use of accessory muscles and clear to auscultation bilaterally Cardio regular rate and regular rhythm GI normal to inspection, nondistended, normoactive bowel sounds, soft to palpation and non-distended GI Narrative: TTP in epigastrium and RUQ. Extremity normal to inspection and full ROM Skin Skin Narrative: Patient has no evidence of rash, abscess or jaundice. Neuro oriented x3, CN's II-XII intact bilaterally, moves all extremities and no focal motor deficits Sensorium / Orientation: awake, alert, oriented to person, oriented to place and oriented to time Speech: speech normal Psych affect normal Results Medical Records Data Attestation: I reviewed the patient's medical records Lab / Micro Data Attestation: I reviewed the patient's lab results. 07/12/24 15:01 07/12/24 15:01 Labs: Laboratory Results - last 24 hr 07/12/24 15:01: WBC 9.0, RBC 3.83 L, Hgb 12.1, Hct 37.2, MCV 97.1, MCH 31.6, MCHC 32.5, RDW Std Deviation 50.0 H, RDW Coeff of Harsh 14.1, Plt Count 291, MPV 9.0, Immature Gran % (Auto) 0.300, Neut % (Auto) 66.2, Lymph % (Auto) 22.6, [place] % (Auto) 8.9, Eos % (Auto) 1.6, Baso % (Auto) 0.4, Absolute Neuts (auto) 6.0, Absolute Lymphs (auto) 2.03, Nucleated RBC % 0, Sodium 137, Potassium 4.5, Chloride 104, Carbon Dioxide 28.0, Anion Gap 5, BUN 31 H, Creatinine 1.35 H, Estim Creat Clear Calc 28.21, Est GFR (MDRD) Af Amer 48 L, Est GFR (MDRD) Non-Af 40 L, BUN/Creatinine Ratio 23.0 H, Glucose 79, Calcium 9.2, Total Bilirubin 0.20, AST 34, ALT 28, Alkaline Phosphatase 92, Troponin I High Sens 26, Total Protein 7.8, Albumin 3.4, Globulin 4.4 H, Albumin/Globulin Ratio 0.8 L, Lipase 122 H 07/12/24 15:35: Lactic Acid 1.1 07/12/24 17:18: Urine Color Straw, Urine Clarity Cloudy, Urine pH 7.0, Ur Specific [place] 1.010, Urine Protein 15 H, Urine Glucose (UA) Normal, Urine Ketones Negative, Urine Occult Blood 10 H, Urine Nitrite Negative, Urine Bilirubin Negative, Urine Urobilinogen Normal, Ur Leukocyte Esterase 500 H, Urine RBC 0 SEEN, Urine WBC >100 SEEN, Ur Squamous Epith Cells 0-5 SEEN, Urine Bacteria 2+, Urine Mucus 0 SEEN 07/12/24 17:23: Troponin I High Sens 28 Imaging Radiology Impression Abdomen/Pelvis CTA 07/12/24 15:24 IMPRESSION: (NOT LISTED IN ORDER OF SIGNIFICANCE) There is mild sigmoid diverticulitis with fistulous medication between the colon and urinary bladder. Air is noted in the urinary bladder. Findings suggest a colovesicular fistula. Stable right lower lobe nodule. 38 mm aneurysm dilation of the descending thoracic aorta. Other findings as above. Electronically Signed: Leonidas Man MD at 16:40 EDT , Chest X-Ray 07/12/24 15:55 IMPRESSION: There are no acute findings. Electronically Signed: Leonidas Man MD at 16:06 EDT , Assessment & Plan Assessment/Plan (1) CVF (colovesical fistula): (2) Acute UTI: (3) Abdominal pain: QUALIFIERS: Abdominal location: epigastric Qualified Code(s): R 10.13 - Epigastric pain (4) Syncope, near: (5) Lung nodule: (6) Anal squamous cell carcinoma: (7) Descending thoracic aortic aneurysm: QUALIFIERS: Presence of rupture: without rupture Qualified Code(s): I71.23 - Aneurysm of the descending thoracic aorta, without rupture (8) Overweight (BMI 25.0-29.9): (9) COPD (chronic obstructive pulmonary disease): QUALIFIERS: COPD type: emphysema Emphysema type: unspecified Q ualified Code(s): J43.9 - Emphysema, unspecified PLAN: Plan 1. 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 Continue Cefepime 2g IV BID plus await culture and sensitivity data. Keep NPO for impending surgery. Give Toradol IV prn for [id number] (level 1-5/10) pain or fever. Give Morphine IV prn for severe (level 6-10/10) pain. Give Zofran IV prn for nausea or vomiting. 2. UA positive for Acute Cystitis; without hematuria complicating #1 - IV Cefepime ordered with cultures pending. 3. Abdominal Pain with ~38 mm Aneurysmal Dilatation of the Descending Thoracic Aorta with history of known Thoracic Aortic Aneurysm and Aortic Mural Thrombus compounding #1 & #2 - Apparently stable. 4. History of intermittent Near Syncopal episodes arising from #1 - #3 - Volume resuscitate and monitor for improvement. Check echocardiogram to evaluate LVEF. 5. History of anal squamous cell carcinoma; s/p chemotherapy and radiation (2018) with subsequent radiation enteritis - Noted with no signs of recurrence. 6. History of complete SANDY-BSO (2017); with pathology revealing benign serous cystoadenomas - Noted. 7. Essential hypertension - Give IV Hydralazine prn for systolic blood pressure > 160 mmHg. 8. Overweight; with BMI of 29.5 this admission - Weight loss will be recommended. 9. Former history of tobacco abuse (quit 2008); with subsequent COPD - Noted with no evidence of acute flare. Maintain prn nebulizers. 10. Chronic hypoxic respiratory failure - Stable. 11. History of lung nodules - Appears unchanged on most recent CT. 12. Chronic diastolic CHF; with preserved LVEF ~55% (2019) on Coreg, Lasix and Aldactone - Stable with no signs of volume overload. 13. History of cholecystectomy (2012) - Noted. 14. 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 15. RLS - Stable. 16. History of Left foot drop - Stable. 17. History of vertigo - Noted. 18. Osteopenia - Stable. 19. OA; with chronic debility - Give IV Toradol prn. 20. DVT/GI prophylaxis - SCD's only with impending surgery. Protonix 40 mg IV daily. Total time: Approximately (but not less than) 75 minutes. Charges/Coding Visit Charges Inpatient E&M: 87636 Init Hosp L3
--- OUTSIDE RECORDS SUMMARY | 2024-07-13 04:09 | XMS RPT_ITS | CCD ---
Author Organization [facility] Care Team Providers Care Job Development Specialist Name Role Phone Unavailable Primary Care Provider Katerina WILSON MD, DR SANDHU Attending Katerina ruth Allergies Allergy Classification Reported Allergen(s) Allergy Type Date of Onset Reaction(s) Facility (1 source) Aluminum aspirin Drug Allergy 08-20-2019 Nausea Only [place], [place] (2 sources) oxyCODONE; Translations: [oxycodone] Drug Allergy 08-22-2020 Other (See Comments) [place] (1 source) Aspirin; Translations: [aspirin] Drug Allergy [facility] Medications Current Medications Medication Drug Class(es) [...] Reference Range Facility Final Surgical Pathology Rep [facility] 12-17-2023 Final Surgical Pathology Report . Pathology Reports Accession: Collected Date/Time: Received Date/Time: Pathologist: [id number] 12/16/2023 10:31 EDT 12/16/2023 14:07 EDT WILLIE RUDOLPH MD Final Surgical Pathology Report DIAGNOSIS: RECTUM, BIOPSY: - HYPERPLASTIC POLYP CLINICAL INFORMATION: PROCEDURE: COLONOSCOPY WITH BIOPSIES PREOPERATIVE DIAGNOSIS: POSITIVE FECAL OCCULT BLOOD POSTOPERATIVE DIAGNOSIS: POSITIVE FECAL OCCULT BLOOD SPECIMEN: A RECTAL BIOPSIES GROSS DESCRIPTION: All parts labelled with patient name and [id number] Received in formalin labeled rectal biopsies are 4 arteaga-pink tissue fragments each measuring 0.2 cm. Fecal debris also identified. TS-1 Eli Junior, Grossing Legal Recruiter/ Dr. Willie Rudolph, Pathologist Dictated by Eli Junior MICROSCOPIC DESCRIPTION: The microscopic examination is performed, except in the case of Gross Only. Electronically Signed by Pathology Report verified by [facility] WILLIE RUDOLPH Sign out Date: 12/17/2023 15:24 Performing Lab: [facility], [address] [place] [address] Pathology Dept Disclaimer If ancillary studies were utilized, the following Laboratory Developed Test (LDT) disclaimer will apply: Under CLIA requirements, [facility] is qualified to perform high complexity testing. For all ancillary stains, positive and negative controls stain appropriately. Performance characteristics of immunohistochemical and chromogenic in-situ hybridization tests have been determined by [facility]. These tests are used for clinical purposes, They should not be regarded as investigational or for research. Normal [facility] ([place] FEon 12-16-2023 Iron [Mass/Vol] 42 ug/dL Low 50-170 [facility] [place] Comment on above: Performed By: #### F E #### [place] [address] [place] 12-16-2023 Ferritin [Mass/Vol] 138.0 ng/mL Normal 8.0-252.0 [facility] ([place]) Comment on above: Performed By: #### F ERR #### [address] [address] HHon 12-16-2023 Hematocrit (Bld) [Volume fraction] 33.8 % Low 37.0-47.0 [facility] ([place] Comment on above: Performed By: #### H H #### [address] [address] Hgb 11.6 G/dL Low 12.0-16.0 [facility] [place] Comment on above: Performed By: #### H H #### [address] [address] LABORATORYOrdered By: SYSTEM SYSTEM on 12-16-2023 Ferritin [...] 09-17 Anion gap [Moles/Vol] 8 Normal [facility] Comment on above: Performed By: #### B MP3, HEMDF #### [address] [address] Creatinine [Mass/Vol] 0.78 mg/dL Normal 0.52-1.25 [facility] Comment on above: Performed By: #### B MP3, HEMDF #### [address] [address] GFR/1.73 sq M predicted among blacks MDRD (S/P/Bld) [Vol rate/Area] 84.3 mL/min/{1.73_m2} Normal >60 [facility] Comment on above: Performed By: #### B MP3, HEMDF #### [address] [address] GFR/1.73 sq M predicted among non-blacks MDRD (S/P/Bld) [Vol rate/Area] 72.7 mL/min/{1.73_m2} Normal >60 [facility] Comment on above: Result Comment: KDIG [...] Performed By: #### B MP3, HEMDF #### [place] [address] [place] [address] Potassium [Moles/Vol] 4.0 mmol/L Normal 3.5-5.1 [facility] Comment on above: Performed By: #### B MP3, HEMDF #### [place] [address] [place] [address] Sodium [Moles/Vol] 140 mmol/L Normal 135-145 [facility] Comment on above: Performed By: #### B MP3, HEMDF #### [place] [address] [place] Chloride [Moles/Vol] 105 mmol/L Normal 98-107 [facility] Comment on above: Performed By: #### B MP3, HEMDF #### [place] [address] [place] Calcium [Mass/Vol] 9.3 mg/dL Normal 8.4-10.4 [place] Comment on above: Performed By: #### B MP3, HEMDF #### [place] [address] [place] CO2 [Moles/Vol] 27 mmol/L Normal 22-30 [place] Comment on above: Performed By: #### B MP3, HEMDF #### [place] [address] [place] Glucose [Mass/Vol] 119 mg/dL High 70-100 [place] Comment on above: Performed By: #### B MP3, HEMDF #### [place] [address] [place] Urea nitrogen [Mass/Vol] 19 mg/dL Normal 7-20 [place] Comment on above: Performed By: #### B MP3, HEMDF #### [place] [address] [place] [address] Anion gap [Moles/Vol] 8 mmol/L [place] Chloride [Moles/Vol] 105 mmol/L 98 - 10 7 mmol/L [place] Creatinine [Mass/Vol] 0.78 mg/dL 0.52 - 1.25 mg/dL [place] EGFR IF NonAfrican [place]an 72.7 mL/min >60 [place] Comment on above: KDIGO guidelines pro [...] MDRD (S/P/Bld) [Vol rate/Area] 84.3 mL/min/{1.73_m2} >60 [place], [place] Interpretation and review of laboratory results Abnormal [place] Potassium [Moles/Vol] 4.0 mmol/L 3.5 - 5.1 mmol/L [place] Sodium [Moles/Vol] 140 mmol/L 135 - 145 mmol/L [place] Test Performed by [facility], [address] [place] [address] [place] CBC Auto Differentialon 09-17 Absolute Baso # 0.0 10*3/uL 0 - 0.2 10*3/uL [place] Absolute Neut # 4.4 10*3/uL 1.8 - 7 10*3/uL [place] Basophils/100 WBC (Bld) 0.5 % 0 - 2 % [place] Eosinophils (Bld) [#/Vol] 0.1 10*3/uL 0 - 0.5 10*3/uL [place] Eosinophils/100 WBC (Bld) 1.8 % 1 - 6 % [place] Erythrocyte distribution width (RBC) [Ratio] 13.5 % 11.5 - 14.5 % [place] Granulocytes/100 WBC (Bld) 65.7 % 40 - 80 % [place] Hematocrit (Bld) [Volume fraction] 38.6 % 35 - 47 % [place] Hemoglobin (Bld) [Mass/Vol] 12.8 g/dL 11.7 - 16 g/dL [place] Interpretation and review of laboratory results Abnormal [place] Lymphocytes (Bld) [#/Vol] 1.6 10*3/uL 1 - 4.3 10*3/uL [place] Lymphocytes/100 WBC (Bld) 23.6 % 20 - 40 % [place] MCH (RBC) [Entitic mass] 31.4 pg 26 - 34 pg [place] MCHC (RBC) [Mass/Vol] 33.1 % 32 - 36 % [place] MCV (RBC) [Entitic vol] 94.9 fL 79 - 98 fL [place] Monocytes (Bld) [#/Vol] 0.6 10*3/uL 0 - 0.8 10*3/uL [place] Monocytes/100 WBC (Bld) 8.4 % 2 - 10 % [place] Platelet mean volume (Bld) [Entitic vol] 6.9 fL Low 7.4 - 10.4 fL [place] Platelets (Bld) [#/Vol] 236 10*3/uL 140 - 440 10*3/uL [place] RBC (Bld) [#/Vol] 4.07 10*6/uL 3.8 - 5.2 10*6/uL [place] WBC (Bld) [#/Vol] 6.7 10*3/uL 3.6 - 10.7 10*3/uL [facility] [place], [place] Test Performed by [facility], [address] [place] [address] [facility] [place] Hemogram w/ Autodiffon 10-13 Abs Baso Cnt 0.0 10*3/uL Normal 0.0-0.2 [facility] Comment on above: Performed By: #### B MP3, HEMDF #### [place] [address] [address] [place] Abs Neutrophile Cnt 4.4 10*3/uL Normal 1.8-7.0 [facility] Comment on above: Performed By: #### B MP3, HEMDF #### [place] [address] [place] [address] Basophils/100 WBC (Bld) 0.5 % Normal 0.0-2.0 [facility] Comment on above: Performed By: #### B MP3, HEMDF #### [place] [address] [place] Eosinophils (Bld) [#/Vol] 0.1 10*3/uL Normal 0.0-0.5 [facility] Comment on above: Performed By: #### B MP3, HEMDF #### [place] [address] [place] Eosinophils/100 WBC (Bld) 1.8 % Normal 1.0-6.0 [facility] Comment on above: Performed By: #### B MP3, HEMDF #### [place] [address] [place] Erythrocyte distribution width (RBC) [Ratio] 13.5 % Normal 11.5-14.5 [facility] Comment on above: Performed By: #### B MP3, HEMDF #### [address] Granulocytes/100 WBC (Bld) 65.7 % Normal 40.0-80.0 [facility] Comment on above: Performed By: #### B MP3, HEMDF #### [place] [address] [place] Hematocrit (Bld) [Volume fraction] 38.6 % Normal 35.0-47.0 [facility] Comment on above: Performed By: #### B MP3, HEMDF #### [place] [address] [place], [place] Hemoglobin (Bld) [Mass/Vol] 12.8 g/dL Normal 11.7-16.0 [facility] Comment on above: Performed By: #### B MP3, HEMDF #### [place] [address] [place] Lymphocytes (Bld) [#/Vol] 1.6 10*3/uL Normal 1.0-4.3 [facility] Comment on above: Performed By: #### B PELON, HEMDF #### [address] Lymphocytes/100 WBC (Bld) 23.6 % Normal 20.0-40.0 [facility] Comment on above: Performed By: #### Trinity BIRD, HEMDF #### [place] [address] [place] MCH (RBC) [Entitic mass] 31.4 pg Normal 26.0-34.0 [facility] Comment on above: Performed By: #### Trinity BIRD, HEMDF #### [address] MCHC (RBC) [Mass/Vol] 33.1 % Normal 32.0-36.0 [facility] Comment on above: Performed By: #### B MP3, HEMDF #### [place] [address] [place] MCV (RBC) [Entitic vol] 94.9 fL Normal 79.0-98.0 [facility] Comment on above: Performed By: #### B MP3, HEMDF #### [address] Monocytes (Bld) [#/Vol] 0.6 10*3/uL Normal 0.0-0.8 [facility] Comment on above: Performed By: #### B MP3, HEMDF #### [facility] [address] [place] [address] Monocytes/100 WBC (Bld) 8.4 % Normal 2.0-10.0 [facility] Comment on above: Performed By: #### B MP3, HEMDF #### [facility] [address] [place] [address] Platelet mean volume (Bld) [Entitic vol] 6.9 fL Low 7.4-10.4 [facility] Comment on above: Performed By: #### B MP3, HEMDF #### [facility] [address] [place] [address] Platelets (Bld) [#/Vol] 236 10*3/uL Normal 140-440 [facility] Comment on above: Performed By: #### B MP3, HEMDF #### [facility] [address] [place] [address] RBC (Bld) [#/Vol] 4.07 10*6/uL Normal 3.80-5.20 [facility] Comment on above: Performed By: #### B MP3, HEMDF #### [facility] [address] [place] [address] WBC (Bld) [#/Vol] 6.7 10*3/uL Normal 3.6-10.7 [facility] Comment on above: Performed By: #### B MP3, HEMDF #### [facility] [address] [place] [address] Op Noteon 10-13-2020 Op Note PATIENT: RICKEY TRUJILLO ADMISSION DATE: 10/13/2020 SURGERY DATE: 10/13/2020 DATE OF : 1940 AGE: 80 ADMITTING PHYSICIAN: Nikolai Loozya MD ATTENDING PHYSICIAN: Nikolai Lozoya MD DICTATING [...] lower quadrant and a 5 mm blunt assistant manager trainee's port in the right upper quadrant all [...] room by anesthesia. cc: Dr. Pau Murillo [facility] Job ID: [id number] Nikolai Lozoya MD DOD:10/13/2020 08:06 A /anabella DOT:10/13/2020 11:08 A Job Number: [id number] Document Number: [id number] cc: Nikolai Lozoya MD [address] Critical access hospital [address] [facility] Surgical Pathologyon 021 Surgical Pathology [id number] [facility], [facility]. PATHOLOGY AND LABORATORY MEDICINE [address] [place], [place] [id number] FINAL SURGICAL PATHOLOGY REPORT ___ NAME: RICKEY TRUJILLO : 1940 80 Y F BILLING NO.: [id number] LOCATION: [address] PROCEDURE 10/13/2020 DATE: SURGEON: NIKOLAI [...] a pinpoint lumen with no gross abnormalities. Outbound Sales Agent sections are submitted. Cassette Summary: A1- anterior cervix, A2- posterior cervix, A3-4- full thickness anterior endomyometrium, A5- full thickness posterior endomyometrium, A6- congressional representative sections of the left ovary and fallopian tube, A7-9- congressional representative sections of the detached ovary, A10- congressional representative sections of the detached fallopian tube. [facility] Disclaimer: The following statement applies to all immunohistochemistry, in situ hybridization, molecular studies, and immunofluorescence testing. The use of one or more reagents in the above tests is regulated as an analyte specific reagent (ASR). These tests were developed and their performance characteristics determined by the clinical laboratories of [facility]. They have not been cleared by the [...] negativity on decalcified specimens. Professional Performing Location: [address] [address]. DEPARTMENT OF PATHOLOGY AND LABORATORY MEDICINE [place], [place] [address] Normal [facility] TS GELon 10-13-2020 TS GEL ABO Group: A Rh, Gel: POS Antibody Screen Gel: NEG Normal [facility] Comment on above: Performed By: #### T SGL #### [facility] TYPE AND SCREENon 10-13-2020 Sodium [Moles/Vol] Positive [place] Sodium [Moles/Vol] A [place] Sodium [Moles/Vol] Negative [facility] [place], [employer] Test Performed by [facility], [facility] [place], [place] [id number] [place] [address], [employer] Vital Signs Date Time Vital Sign Value Performing Clinician Teddyi lity 12-16-2023 11:08-0400 Diastolic Blood Pressure Non-Invasive 88 mm[Hg] DR EDSON WILSON MD [facility] 12-16-2023 11:08-0400 Heart rate 75 /min DR EDSON WILSON MD [facility] 12-16-2023 11:08-0400 Respiratory rate 22 /min DR EDSON WILSON MD [facility] 12-16-2023 11:08-0400 Systolic Blood Pressure Non-Invasive 132 mm[Hg] DR EDSON WILSON MD [facility] 12-16-2023 10:41-0400 Diastolic Blood Pressure Non-Invasive 72 mm[Hg] DR EDSON WILSON MD [facility] 12-16-2023 10:41-0400 Heart rate 73 /min DR EDSON WILSON MD [facility] 12-16-2023 10:41-0400 Respiratory rate 20 /min DR EDSON WILSON MD [facility] 12-16-2023 10:41-0400 Systolic Blood Pressure Non-Invasive 120 mm[Hg] DR EDSON WILSON MD [facility] 12-16-2023 10:31-0400 Body temperature 96.8 [degF] DR EDSON WILSON MD [facility] 12-16-2023 10:31-0400 Diastolic Blood Pressure Non-Invasive 69 mm[Hg] DR EDSON WILSON MD [facility] 12-16-2023 10:31-0400 Heart rate 72 /min DR EDSON WILSON MD [facility] 12-16-2023 10:31-0400 Respiratory rate 14 /min DR EDSON WILSON MD [facility] 12-16-2023 10:31-0400 Systolic Blood Pressure Non-Invasive 120 mm[Hg] DR EDSON WILSON MD [facility] 12-16-2023 10:25-0400 Respiratory Rate - Anes 20 br/min DR EDSON WILSON MD [facility] 12-16-2023 10:20-0400 Respiratory Rate - Anes 23 br/min DR EDSON WILSON MD [facility] 12-16-2023 10:15-0400 Respiratory Rate - Anes 17 br/min DR EDSON WILSON MD [facility] 12-16-2023 09:19-0400 Body height [address] EDSON WILSON MD [facility] 12-16-2023 09:19-0400 Body temperature 97.34 [degF] DR EDSON WILSON MD [facility] 12-16-2023 09:19-0400 Body weight [address] EDSON WILSON MD [facility] 12-16-2023 09:19-0400 Body weight 32.46 kg/m2 DR EDSON WILSON MD [facility] 12-16-2023 09:19-0400 Heart rate 86 /min DR EDSON WILSON MD [facility] 10-13-2020 10:45-0500 BP Diastolic 78 mm[Hg[facility] [place] 10-13-2020 10:45-0500 BP Systolic 126 mm[Hg] [facility] [place] 10-13-2020 10:45-0500 Pulse (Heart Rate) 61 /min Nikolai Helton [facility], [place] 10-13-2020 10:45-0500 Pulse Oximetry 93 % Nikolai Helton [facility] , [place] 10-13-2020 10:45-0500 Respiratory Rate 17 /min Nikolai Helton [facility], [place] 10-13-2020 08:09-0500 Body Temperature 97.39 [degF] Nikolai Helton [facility], [place] 10-13-2020 06:29-0500 BMI (Body Mass Index) 33.98 kg/m2 Nikolai Helton [facility], [place] 10-13-2020 06:29-0500 Body weight 78.93 kg Nikolai Helton [facility] , [place] 10-13-2020 06:29-0500 Height 152.4 cm Nikolai Helton [facility] [place] Encounters Encounter Date Encounter Type Care Provider Facility Start: 12-16-2023 End: 12-16-[address] EDSON WILSON MD Facility:B Start: 12-16-2023 End: 12-16-[address] EDSON WILSON MD [facility] Start: 10-13-2020 End: 10-13-2020 Subsequent hospital visit by physician Nikolai Lozoya Work Phone: [facility] General Surgery Comment on above: S/P hysterectomy [...] Start: 10-13-2021 Creatinine measurement Creatinine mo [place]itoring [place] Start: 10-13-2021 Potassium monitoring Potassium monit oring [place] Start: 10-31-2020 End: 10-31-2020 Office Visit 10/31/2020 Office Visit Gynecologic Oncology Nikolai Lozoya MD [address] [place] [address], [address] [place] [address] [phone] [facility] 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 Start: 09-14-2020 Annual Wellness Visi t (AWV) Annual Wellness Visit (AWV) [place] Start: 05-17-2020 Influenza vaccination Flu vaccine (# 1) [place] Start: 2007 Pneumococcal 65+ yea rs Vaccine (1 of 1 - PPSV23) Pneumococcal 65+ years Vaccine (1 of 1 - PPSV23) [place] Start: 1997 Screening for osteoporosis DEXA (modify frequency per FRAX score) [place] Start: 1992 Shingles Vaccine (1 of 2) Shingles Vaccine (1 of 2) [place] Start: 1961 DTaP/Tdap/Td vaccine (1 - Tdap) DTaP/Tdap/Td vaccine (1 - Tdap) [place] Start: 1958 COVID-19 Vaccine (1 of 2) COVID-19 Vaccine (1 of 2) [place] Start: 1940 Hepatitis C screening Hepatitis C sc reen [place] End: 10-13-2020 Blood glucose - POCT Blood glucose - POCT Point of Care Testing STAT One Time for 1 Occurrences starting 10/13/2020 until 10/13/2020 [facility] on above: One Time for 1 Occur rences starting 10/13/2020 until 10/13/2020 EKG 12 Lead EKG 12 Lead ECG STAT 10/13/2020 6:40 AM [facility] End: 10-13-2020 Intermittent pulse oximetry Pulse Oximetry Spot Check Respiratory Care Routine One Time for 1 Occurrences starting 10/13/2020 until 10/13/2020 [facility] Comment on above: One Time for 1 Occur rences starting 10/13/2020 until 10/13/2020 Oxygen therapy [[facility] Data Set] Initiate Oxygen Therapy Protocol Respiratory Care Routine Daily until discontinued starting 10/13/2020 [facility] Comment on above: Daily until disconti nued starting 10/13/2020 Phase I & II - meter ed glucose Phase I & II - metered glucose Point of Care Testing Routine As Needed until discontinued starting 10/13/2020 [facility] Comment on above: As Needed until disc ontinued starting 10/13/2020 End: 10-13-2020 Potassium w/ Reflex to Magnesium Potassium w/ Reflex to Magnesium Lab Routine One Time for 1 Occurrences starting 10/13/2020 until 10/13/2020 [facility] Comment on above: One Time for 1 Occur rences starting 10/13/2020 until 10/13/2020 End: 10-13-2020 , urine , urine Lab STAT One Time for 1 Occurrences starting 10/13/2020 until 10/13/2020 [facility] Comment on above: One Time for 1 Occur rences starting 10/13/2020 until 10/13/2020 End: 10-13-2020 Protime-INR Protime-INR Lab STAT One Time for 1 Occurrences starting 10/13/2020 until 10/13/2020 [facility] Comment on above: One Time for 1 Occur rences starting 10/13/2020 until 10/13/2020 Spirometry panel Incentive alex metry Respiratory Care Routine Q1H PRN until discontinued starting 10/13/2020 [facility] Comment on above: Q1H PRN until discon tinued starting 10/13/2020 Payers Date Payer Category Payer Private Health Insurance [id number] 2019 Medicare [id number] 1940 Unknown [id number] Social History Date Type Detail Facility Start: 10-13-2020 End: 12-16-2023 Tobacco smoking status NHIS Former smoker [facility] End: 09-16-2008 History of tobacco use Current [place] End: 09-16-2008 History of tobacco use Cigarette Smoker [place] Start: 10-13-2020 Cigarettes smoked current (pack per day) - Reported [place] Start: 10-13-2020 Tobacco use and exposure Never used [place] Start: 10-13-2020 Alcohol intake Lifetime non-d ellie (finding) [place] Start: 10-10-2020 History SDOH Alcohol Frequency 1 [place] Sex Assigned At Not on file [place] Exposure to SARS-CoV -2 (event) Not sure [place] Sex Assigned At Female [facility] Functional Status Date Assessment Result Facility 12-16-2023 Functional Status Sleeping quiet ly with easy respirations [facility] 12-16-2023 Functional Status Maintained, Less than 8 hours [facility] Mental Status Date Assessment Result Facility 12-16-2023 Mental Status Orientation Asse ssment Oriented x 4 [facility] Evaluation + Plan note 12-16-2023 Note Date & Type Note Facility 12-16-2023 Evaluation + Plan note Extrac lenny from: Title:Clinical Document Author:EDSON WILSON Date:12/16/23 [place] ADMISSION HISTORY AN D PHYSICIAL CHIEF COMPLAINT: HISTORY OF PRESENT ILLNESS: REVIEW OF SYSTEMS: ACTIVE PROBLEMS: (4) AA (aortic aneurysm) (122641686) Anemia (952051964) Barretts esophagus (206602207) CHF (congestive heart failure) (13334620) MEDICATIONS: Active Inpt Meds: None Active PRN Meds: None One Time Meds: None Active IV Meds: Lactated Ringers Infusion 1,000 mL (LR 1,000 mL) Start: 12/16/23 8:45:00 EDT, Rate: 50 mL/hr, 12/16/23 8:45:00 EDT ALLERGIES: (2) aspirin oxyCODONE FAMILY HISTORY: SOCIAL HISTORY: PHYSICAL EXAM: VITALS: RbkacuXwsxXUIxlcrXOYgN9SBY2UbmfQg(kg) 12/15 09:23--------95RA/ 75.0 12/15 09:1936.3--[id number] 24 Hr Tmax: 36.3 at 12/15 09:19 [...] changes to the H&P unless noted below. [facility] Hospital Discharge instructions 12-16-2023 Note Date [...] a slower pace than normal. ?Eat soft, fbvq-la-hbnxuu foods. ?Rest often. Take ydrg-mbh-bvgzoil or prescription medicines only as told by [...] 02/11/2018 Document Revised: 08/15/2018 Document Reviewed: 02/11/2018 [employer] Patient Education 2020 [employer] 12/16/2023 10:50:28 Monitored Anesthesia Care, Care [...] before eating solid foods. General instructions Take ruxe-gjo-svijoxu and prescription medicines only as told by [...] 12/23/2016 Document Revised: 12/01/2018 Document Reviewed: 12/23/2016 [employer] Patient Education 2020 [employer]. 12/16/2023 10:50:20 Diverticulosis Diverticulosis Diverticulosis is a [...] overweight. Not getting enough exercise. Smoking. Taking thbg-oop-cldmohi pain medicines, like aspirin and ibuprofen. Having [...] health care provider or your diet and curriculum and instruction specialist (dietitian). ?Take a fiber supplement or probiotic, if your health care provider approves. Take zvwi-iwc-zruqeeg and prescription medicines only as told by [...] 05/30/2005 Document Revised: 08/15/2018 Document Reviewed: 07/22/2017 [employer] Patient Education 2020 [employer]. 12/16/2023 10:49:55 Colonoscopy, Adult, Care After, Fbwe-jz-Dvka Colonoscopy, Adult, Care After This sheet gives [...] are soft and easy to digest. Take jxoe-vji-oslcsrs or prescription medicines only as told by [...] 10/05/2011 Document Revised: 07/03/2018 Document Reviewed: 05/27/2017 [employer]ktg Patient Education 2020 [facility]. Follow Up Care 12/02/2023 07:31:07 With:EDSON WILSON MD Address: [address] [place] [phone] When: Unknown Comments:CALL DR WILSON WITH ANY [...] DRAWING IRON, FERITIN AND H AND H. [facility] Clinical Note 12-16-2023 Note Date & Type Note Facility 12-16-2023 Note Discharge Instructions Thank you for allowing [place] to assist you with your healthcare needs. [...] H. Where: [address] [place] [address] [place] [phone] The Following Activity and Diet Have Been [...] slower pace than normal. ? Eat soft, zysm-jl-jjajsw foods. ? Rest often. Take qndf-tdz-lcjiywq or prescription medicines only as told by [...] 02/11/2018 Document Revised: 08/15/2018 Document Reviewed: 02/11/2018 mktg Patient Education 2020 [facility]. Monitored Anesthesia Care, Care After These instructions [...] before eating solid foods. General instructions Take jiqk-baz-gametql and prescription medicines only as told by [...] 12/23/2016 Document Revised: 12/01/2018 Document Reviewed: 12/23/2016 [employer]ktg Patient Education 2020 [employer] Diverticulosis Diverticulosis is a condition that [...] overweight. Not getting enough exercise. Smoking. Taking apdx-ees-ybrfgkn pain medicines, like aspirin and ibuprofen. Having [...] health care provider or your diet and curriculum and instruction specialist (dietitian). ? Take a fiber supplement or probiotic, if your health care provider approves. Take yzvp-pup-ktneqym and prescription medicines only as told by [...] 05/30/2005 Document Revised: 08/15/2018 Document Reviewed: 07/22/2017 mktg Patient Education 2020 [facility]. Colonoscopy, Adult, Care After This sheet gives [...] are soft and easy to digest. Take ppeh-nlt-diijhgz or prescription medicines only as told by [...] 10/05/2011 Document Revised: 07/03/2018 Document Reviewed: 05/27/2017 mktg Patient Education 2020 [employer] Additional Information VACCINATE! IT SAVES LIVES! Members of the community who have not yet received the COVID-19 vaccine and would like to receive it can visit one of [facility] vaccine clinics. There are many vaccine clinic locations within the [facility]. For locations and available times, please visit [email or web address] It is important to note that some COVID mobile vaccine clinics are held outdoors and may be canceled in rainy or stormy conditions. To learn more about pediatric vaccinations (ages 5-11), we invite you to visit the [facility] webpage. [email or web address] -[email or web address] To learn more about the COVID-19 vaccine, we invite you to visit the CDC website for a list of frequently asked questions.https://www.cdc.gov/coronavi debra/2019-ncov/vaccines/faq.html [facility] Patient Portal Access Instructions: Stay connected with your healthcare team and access your personal medical information anytime with the [facility] Patient Portal. Please follow the directions below to create your [facility] account: 1.Access the email account you provided upon registration to the hospital/physician office.2.Look for an invitation email from [facility].3.Open the email and access the invitation link: Accept Invitation to [facility].4.Fill in the required sosa to create your account. To access your account, visit [employer]. Click the blue button labeled Access Patient [...] you will allow to register on the [place] [facility] Patient Portal for access to your information. You can also access the [place] [email or web address] Patient Portal on the [place] [facility] kandy. Simply click on Patient Portal and then log into your account. If you would like to receive a full copy of your medical records, please contact the [facility] Medical Records Department by calling [phone], Saturday through Saturday between 8 a.m. and [...] Call your local pharmacy or go to [email or web address] to find one close to you.3.Make use of household items: Use cat litter or old coffee grounds to dispose medications if other options are not available. Mix your drugs with these household products, seal them in an airtight container and throw it into the garbage. Call [facility]: [phone] to be sure your drugs can be [...] Care After Diverticulosis Colonoscopy, Adult, Care After, Ssvi-hf-Rewk Medication Leaflets My discharge plan and instructions have been reviewed and explained to me and I,RICKEY TRUJILLO understand my current condition and have read and understand these discharge instructions. I have received a written copy of the plan/instructions. If I have questions, I am aware that I should contact my doctor. 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 Signature: _ Date/Time: Relationship to Patient: Witness Name/Signature: Date/Time: [facility] Clinical Note 12-16-2023 Note Date & Type Note Facility 12-16-2023 [facility] ADMISSION HISTORY AND PHYSICIAL CHIEF COMPLAINT: HISTORY OF PRESENT ILLNESS: REVIEW OF SYSTEMS: ACTIVE PROBLEMS: (4) AA (aortic aneurysm) ([id number]) Anemia ([id number]) Barretts esophagus (140550259) CHF (congestive heart failure) (27334919) MEDICATIONS: Active Inpt Meds: None Active PRN Meds: None One Time Meds: None Active IV Meds: Lactated Ringers Infusion 1,000 mL (LR 1,000 mL) Start: 12/16/23 8:45:00 EDT, Rate: 50 mL/hr, 12/16/23 8:45:00 EDT ALLERGIES: (2) aspirin oxyCODONE FAMILY HISTORY: SOCIAL HISTORY: PHYSICAL EXAM: VITALS: [id number](k g) 12/15 09:23--------95RA04/ 75.0 12/15 09:1936.3--264759HV 24 Hr Tmax: 36.3 at 12/15 09:19 [...] EDSON WILSON MD on 12/16/2023 10:13 AM [facility] Anesthesiology Consult note 12-16-2023 Note Date & Type Note Facility 12-16-2023 Anesthesiology Consult note Patient: RICKEY TRUJILLO [facility]: [id number] Age: 83 years Sex: Female : 1940 Associated Diagnoses: None Author: JACKI MURRAY HEEL TURNER-PLASTERER FOREMAN Preoperative Information Time of last food or [...] attack Father Sister Brother Procedure history: Colonoscopy ([id number]) on 12/16/2023 at 83 Years. Radiation ([id number]). Comments: 12/16/2023 9:06 EDT - Aleta Charles RN rectal CA Cholecystectomy ([id number]). Abdominal hysterectomy (364820329). Ambulatory chemotherapy (316877535). Social History Social & Psychosocial Habits Tobacco 12/16/2023 Tobacco Use: Former smoker, quit more Type: Cigarettes Started at age: 17 Years Stopped at age: 76 Years . Physical Examination Vital Signs 12/16/2023 9:19 EDT Temperature Temporal Artery 36.3 DegC Peripheral Pulse Rate 86 bpm Respiratory Rate 20 br/min Systolic Blood Pressure Non-Invasive 131 mmHg Diastolic Blood Pressure Non-Invasive 98 mmHg AK Vital Signs(last 24 hrs) Last Charted CID238 mmHg (DEC 15 09:19) DBPH 98mmHg (DEC 15 09:) BMI32.46 (DEC 15 09:) Measurements from flowsheet : Measurements 12/16/2023 9:19 EDT Height 152 cm Admission Weight 75 kg [place] Body Weight 45.14 kg BSA Admission 1.72 [...] EDT Designated Person #1 We May Share [facility] [phone] Designated Person #1 Relationship Son Height 152 cm Admission Weight 75 kg Charlotte Body Weight 45.14 kg BSA Admission 1.72 [...] evident Teaching Method Explanation Preferred Spoken Language Irish Preferred Written Language Irish Information Given by Patient Patient's Current Physicians [...] Elimination Voiding, no difficulties IV Present Present Transportation Analyst On Yes Colon Prep Results Good Consent Form Signed Yes Patient Dressed In Hospital gown Bowel Prep Completed Yes NPO Status Maintained, Less than 8 hours Anesthesia Consent Signed Yes Last Fluid Intake 12/16/2023 5:30 Last Food Intake 12/15/2023 10:00 12/16/2023 9:15 EDT Lactated Ringers Injection Begin Bag 1,000 mL mL . Assessment and Plan [place] [employer]esthesi[employer] (ASA) physical status classification: Class III. Anesthetic Preoperative Plan Anesthetic technique: MAC. Postoperative pain management: Per surgeon. Informed consent: signed by patient. Digitally Signed by JACKI MURRAY on 12/16/2023 10:09 AM [facility] Anesthesiology Consult note 12-16-2023 Note Date [...] attack Father Sister Brother Procedure history: Colonoscopy ([id number]) on 12/16/2023 at 83 Years. Radiation ([id number]). Comments: 12/16/2023 9:06 EDT - Aleta Charles RN rectal CA Cholecystectomy (16745002). Abdominal hysterectomy (244618184). Ambulatory chemotherapy (314507644). Social History Social & Psychosocial Habits Tobacco 12/16/2023 Tobacco Use: Former smoker, quit more Type: Cigarettes Started at age: 17 Years Stopped at age: 76 Years . Physical Examination Vital Signs 12/16/2023 9:19 EDT Temperature Temporal Artery 36.3 DegC Peripheral Pulse Rate 86 bpm Respiratory Rate 20 br/min Systolic Blood Pressure Non-Invasive 131 mmHg Diastolic Blood Pressure Non-Invasive 98 mmHg AK Vital Signs(last 24 hrs) Last Charted TEK508 mmHg (DEC 15 09:19) DBPH 98mmHg (DEC 15 09:19) BMI32.46 (DEC 15:19) Measurements from flowsheet : Measurements 12/16/2023 9:19 EDT Height 152 cm Admission Weight 75 kg Charlotte Body Weight 45.14 kg BSA Admission 1.72 [...] Designated Person #1 We May Share PHI [phone] Designated Person #1 Relationship Son Height 152 cm Admission Weight 75 kg Charlotte Body Weight 45.14 kg BSA Admission 1.72 [...] evident Teaching Method Explanation Preferred Spoken Language Irish Preferred Written Language Irish Information Given by Patient Patient's Current Physicians [...] Elimination Voiding, no difficulties IV Present Present Transportation Analyst On Yes Colon Prep Results Good Consent Form Signed Yes Patient Dressed In Hospital gown Bowel Prep Completed Yes NPO Status Maintained, Less than 8 hours Anesthesia Consent Signed Yes Last Fluid Intake 12/16/2023 5:30 Last Food Intake 12/15/2023 10:00 12/16/2023 9:15 EDT Lactated Ringers Injection Begin Bag 1,000 mL mL . Assessment and Plan [place] [employer]esthesiologists (ASA) physical status classification: Class III. Anesthetic Preoperative Plan Anesthetic technique: MAC. Postoperative pain management: Per surgeon. Informed consent: signed by patient. Digitally Signed by JACKI MURRAY on 12/16/2023 10:09 AM [facility] Hospital course Narrative Note Date & Type Note Facility Hospital course Narrative No data available for this section [facility] Discharge Instructions * Instructions* Belkys Coelho MD - 10/13/2020 Please follow your post operative care instructions given to you by your Ldr Rn Oncologist's office at your pre operative visit. [...] section and content) DATE CREATED AUTHOR 10/17/2020 [employer] DATE CREATED AUTHOR AUTHOR'S ORGANIZ ATION 01/22/2024 [facility] ([place]) FOR RECORDS PERTAINING TO PATIENTS WHO ARE [...] BE BASED ON THE PRIMARY CLINICAL RECORDS. [employer] [facility]. provides no warranty or guarantee of the accuracy or completeness of information in this document.
--- NOTE | 2024-07-13 05:12 | ECHOD_ITS ---
Reason For Study: Syncope Procedure This was a 2D Doppler, Color Flow transthoracic echocardiogram. Exam performed portable in patient room. Left Ventricle Normal LV size. Left ventricular systolic function is normal. The left ventricular ejection fraction is 55 %. Stage 1 diastolic dysfunction. No regional wall motion abnormalities noted. Right Ventricle Normal RV size. Normal systolic function. Atria Normal left atrium. Normal right atrium. Mitral Valve Normal mitral valve. Tricuspid Valve Normal tricuspid valve. Mild tricuspid valve insufficiency. Right ventricular systolic pressure estimated to be 48 mmHg. Aortic Valve Trisinus/trileaflet aortic valve. Mild diffuse aortic valve thickening. Mild (1+) aortic valve insufficiency. Pulmonic Valve Normal pulmonic valve. Great Vessels Mild to moderately dilated aortic root. The pulmonary artery is normal size. Inferior vena cava collapse with respiration. Pericardium/Pleural No pericardial effusion. MMode/2D Measurements & Calculations LVIDd: 4.2 cm IVSd: 1.1 cm LVOT diam: 2.0 cm LVIDs: 2.9 cm LVPWd: 0.78 cm LVOT area: 3.2 cm2 RVDd: 3.0 cm FS: 31.1 % Ao root diam: 4.3 cm asc Aorta Diam: 4.4 cm LAV(MOD-sp2): 42.0 ml LVAd ap4: 21.8 cm2 SV(MOD-sp4): 31.7 ml SV(sp4-el): 33.3 ml LVLd ap4: 6.9 cm EDV(MOD-sp4): 55.8 ml EDV(sp4-el): 58.0 ml LVAs ap4: 13.5 cm2 LVLs ap4: 6.2 cm ESV(MOD-sp4): 24.2 ml ESV(sp4-el): 24.7 ml EF(MOD-sp4): 56.7 % EF(sp4-el): 57.4 % Ao sinus diam: 3.[address] Junction: 3.9 cm LA dimension(2D): 2.7 cm TAPSE: 1.4 cm RA A4 area: 15.3 cm2 Time Measurements MV dec time: 0.26 sec Doppler Measurements & Calculations MV E max dk: 60.8 cm/sec Lat Peak E' Dk: 5.3 cm/sec Med Peak E' Dk: 5.3 cm/sec MV A max dk: 76.0 cm/sec E/E' lat: 11.6 E/E' med: 11.4 MV E/A: 0.80 MV V2 max: 85.7 cm/sec MV P1/2t max dk: 60.2 cm/sec Ao V2 max: 139.1 cm/sec MV max P.9 mmHg MV P1/2t: 80.7 msec Ao max P.7 mmHg MV V2 mean: 43.7 cm/sec MV dec slope: 218.6 cm/sec2 Ao V2 mean: 91.8 cm/sec MV mean P.90 mmHg Ao mean P.0 mmHg MV V2 VTI: 21.1 cm MVA(P1/2t): 2.7 cm2 Ao V2 VTI: 27.5 cm MVA(VTI): 3.1 cm2 AV (velocity ratio): 0.74 ELIEZER(I,D): 2.4 cm2 ELIEZER(V,D): 2.4 cm2 AI max dk: 385.8 cm/sec LV V1 max: 101.1 cm/sec SV(LVOT): 65.6 ml AI max P.7 mmHg LV V1 max P.1 mmHg AI dec slope: 213.8 cm/sec2 LV V1 mean P.1 mmHg AI P1/2t: 528.6 msec LV V1 mean: 68.5 cm/sec LV V1 VTI: 20.3 cm AI Accel Time: 0.44 sec PA V2 max: 74.7 cm/sec TR max dk: 336.4 cm/sec TR max P.3 mmHg ECHO/Echo Complete Interpretation Summary Normal LV size. Left ventricular systolic function is normal. The left ventricular ejection fraction is 55 %. Stage 1 diastolic dysfunction. Mild to moderately dilated aortic root. Mild (1+) aortic valve insufficiency. Right ventricular systolic pressure estimated to be 48 mmHg. Ordering Physician: Reginald Chung Performed By: Sukhi Sanchez RCS
--- OUTSIDE RECORDS SUMMARY | 2024-07-13 05:23 | XMS RPT_ITS | CCD ---
Author Organization [facility] Care Team Providers Care Immigration Coordinator Name Role Phone Unavailable Primary Care Provider Katerina WILSON MD, DR SANDHU Attending Katerina ruth Allergies Allergy Classification Reported Allergen(s) Allergy Type Date of Onset Reaction(s) Facility (1 source) Aluminum aspirin Drug Allergy 08-20-2019 Nausea Only [place], [place] (2 sources) oxyCODONE; Translations: [oxycodone] Drug Allergy 08-22-2020 Other (See Comments) [place] (1 source) Aspirin; Translations: [aspirin] Drug Allergy [facility] Medications Current Medications Medication Drug Class(es) Dates [...] Reference Range Facility Final Surgical Pathology Rep [facility] 12-17-2023 Final Surgical Pathology Report . Pathology Reports Accession: Collected Date/Time: Received Date/Time: Pathologist: [id number] 12/16/2023 10:31 EDT 12/16/2023 14:07 EDT WILLIE RUDOLPH MD Final Surgical Pathology Report DIAGNOSIS: RECTUM, BIOPSY: - HYPERPLASTIC POLYP CLINICAL INFORMATION: PROCEDURE: COLONOSCOPY WITH BIOPSIES PREOPERATIVE DIAGNOSIS: POSITIVE FECAL OCCULT BLOOD POSTOPERATIVE DIAGNOSIS: POSITIVE FECAL OCCULT BLOOD SPECIMEN: A RECTAL BIOPSIES GROSS DESCRIPTION: All parts labelled with patient name and [id number] Received in formalin labeled rectal biopsies are 4 arteaga-pink tissue fragments each measuring 0.2 cm. Fecal debris also identified. TS-1 Eli Jnuior, Grossing Lining Stitcher/ Dr. Willie Rudolph, Pathologist Dictated by Eli Junior MICROSCOPIC DESCRIPTION: The microscopic examination is performed, except in the case of Gross Only. Electronically Signed by Pathology Report verified by [facility] WILLIE RUDOLPH Sign out Date: 12/17/2023 15:24 Performing Lab: [facility], [address] [place] [address] Pathology Dept Disclaimer If ancillary studies were utilized, the following Laboratory Developed Test (LDT) disclaimer will apply: Under CLIA requirements, [facility] Pathology Laboratory is qualified to perform high complexity testing. For all ancillary stains, positive and negative controls stain appropriately. Performance characteristics of immunohistochemical and chromogenic in-situ hybridization tests have been determined by [facility] Pathology Laboratory. These tests are used for clinical purposes, They should not be regarded as investigational or for research. Normal [facility] ([place]) FEon 12-16-2023 Iron [Mass/Vol] 42 ug/dL Low 50-170 [facility] ([place]) Comment on above: Performed By: #### F E #### [place] [address] [place] 12-16-2023 Ferritin [Mass/Vol] 138.0 ng/mL Normal 8.0-252.0 [facility] ([place]) Comment on above: Performed By: #### F ERR #### [address] [address] HHon 12-16-2023 Hematocrit (Bld) [Volume fraction] 33.8 % Low 37.0-47.0 [facility] ([place]) Comment on above: Performed By: #### H H #### [address] [address] Hgb 11.6 G/dL Low 12.0-16.0 [facility] ([place]) Comment on above: Performed By: #### H H #### [address] [address] LABORATORYOrdered By: SYSTEM SYSTEM on 12-16-2023 Ferritin [...] Panelon 09-17 Anion gap [Moles/Vol] 8 Normal [facility] Comment on above: Performed By: #### B MP3, HEMDF #### [address] [address] Creatinine [Mass/Vol] 0.78 mg/dL Normal 0.52-1.25 [facility] Comment on above: Performed By: #### B MP3, HEMDF #### [address] [address] GFR/1.73 sq M predicted among blacks MDRD (S/P/Bld) [Vol rate/Area] 84.3 mL/min/{1.73_m2} Normal >60 [facility] Comment on above: Performed By: #### B MP3, HEMDF #### [address] [address] GFR/1.73 sq M predicted among non-blacks MDRD (S/P/Bld) [Vol rate/Area] 72.7 mL/min/{1.73_m2} Normal >60 [facility] Comment on above: Result [...] Performed By: #### B MP3, HEMDF #### [place] [address] [place] [address] Potassium [Moles/Vol] 4.0 mmol/L Normal 3.5-5.1 [facility] Comment on above: Performed By: #### B MP3, HEMDF #### [place] [address] [place] [address] Sodium [Moles/Vol] 140 mmol/L Normal 135-145 [facility] Comment on above: Performed By: #### B MP3, HEMDF #### [place] [address] [place] Chloride [Moles/Vol] 105 mmol/L Normal 98-107 [facility] Comment on above: Performed By: #### B MP3, HEMDF #### [place] [address] [place] Calcium [Mass/Vol] 9.3 mg/dL Normal 8.4-10.4 [place] Comment on above: Performed By: #### B MP3, HEMDF #### [place] [address] [place] [place] CO2 [Moles/Vol] 27 mmol/L Normal 22-30 [place] Comment on above: Performed By: #### B MP3, HEMDF #### [place] [address] [place] Glucose [Mass/Vol] 119 mg/dL High 70-100 [place] Comment on above: Performed By: #### B MP3, HEMDF #### [place] [address] [place] Urea nitrogen [Mass/Vol] 19 mg/dL Normal 7-20 [place] Comment on above: Performed By: #### B MP3, HEMDF #### [place] [address] [place] [address] Anion gap [Moles/Vol] 8 mmol/L [place] Chloride [Moles/Vol] 105 mmol/L 98 - 10 7 mmol/L [place] Creatinine [Mass/Vol] 0.78 mg/dL 0.52 - 1.25 mg/dL [place] EGFR IF NonAfrican [place] 72.7 mL/min >60 [place] Comment on above: KDIGO guidelines pro [...] MDRD (S/P/Bld) [Vol rate/Area] 84.3 mL/min/{1.73_m2} >60 [place] Interpretation and review of laboratory results Abnormal [place] Potassium [Moles/Vol] 4.0 mmol/L 3.5 - 5.1 mmol/L [place] Sodium [Moles/Vol] 140 mmol/L 135 - 145 mmol/L [place] Test Performed by [facility], [address] [place] [address] [place] CBC Auto Differentialon 09-17 Absolute Baso # 0.0 10*3/uL 0 - 0.2 10*3/uL [place] Absolute Neut # 4.4 10*3/uL 1.8 - 7 10*3/uL [place] Basophils/100 WBC (Bld) 0.5 % 0 - 2 % [place] Eosinophils (Bld) [#/Vol] 0.1 10*3/uL 0 - 0.5 10*3/uL [place] Eosinophils/100 WBC (Bld) 1.8 % 1 - 6 % [place] Erythrocyte distribution width (RBC) [Ratio] 13.5 % 11.5 - 14.5 % [place] Granulocytes/100 WBC (Bld) 65.7 % 40 - 80 % [place] Hematocrit (Bld) [Volume fraction] 38.6 % 35 - 47 % [place] Hemoglobin (Bld) [Mass/Vol] 12.8 g/dL 11.7 - 16 g/dL [place] Interpretation and review of laboratory results Abnormal [place] Lymphocytes (Bld) [#/Vol] 1.6 10*3/uL 1 - 4.3 10*3/uL [place] Lymphocytes/100 WBC (Bld) 23.6 % 20 - 40 % [place] MCH (RBC) [Entitic mass] 31.4 pg 26 - 34 pg [place] MCHC (RBC) [Mass/Vol] 33.1 % 32 - 36 % [place] MCV (RBC) [Entitic vol] 94.9 fL 79 - 98 fL [place] Monocytes (Bld) [#/Vol] 0.6 10*3/uL 0 - 0.8 10*3/uL [place] Monocytes/100 WBC (Bld) 8.4 % 2 - 10 % [place] Platelet mean volume (Bld) [Entitic vol] 6.9 fL Low 7.4 - 10.4 fL [place] Platelets (Bld) [#/Vol] 236 10*3/uL 140 - 440 10*3/uL [place] RBC (Bld) [#/Vol] 4.07 10*6/uL 3.8 - 5.2 10*6/uL [place] WBC (Bld) [#/Vol] 6.7 10*3/uL 3.6 - 10.7 10*3/uL [facility] [place] Test Performed by [facility], [address] [place] [address] [facility] [place] Hemogram w/ Autodiffon 10-13 Abs Baso Cnt 0.0 10*3/uL Normal 0.0-0.2 [facility] Comment on above: Performed By: #### B MP3, HEMDF #### [place] [address] [place] Abs Neutrophile Cnt 4.4 10*3/uL Normal 1.8-7.0 [facility] Comment on above: Performed By: #### B MP3, HEMDF #### [place] [address] [place] [address] Basophils/100 WBC (Bld) 0.5 % Normal 0.0-2.0 [facility] Comment on above: Performed By: #### B MP3, HEMDF #### [place] [address] [place], [place] Eosinophils (Bld) [#/Vol] 0.1 10*3/uL Normal 0.0-0.5 [facility] Comment on above: Performed By: #### B MP3, HEMDF #### [place] [address] [place] Eosinophils/100 WBC (Bld) 1.8 % Normal 1.0-6.0 [facility] Comment on above: Performed By: #### B MP3, HEMDF #### [place] [address] [place] Erythrocyte distribution width (RBC) [Ratio] 13.5 % Normal 11.5-14.5 [facility] Comment on above: Performed By: #### B MP3, HEMDF #### [address] Granulocytes/100 WBC (Bld) 65.7 % Normal 40.0-80.0 [facility] Comment on above: Performed By: #### B MP3, HEMDF #### [place] [address] [place] Hematocrit (Bld) [Volume fraction] 38.6 % Normal 35.0-47.0 [facility] Comment on above: Performed By: #### B MP3, HEMDF #### [place] [address] [place], [place] Hemoglobin (Bld) [Mass/Vol] 12.8 g/dL Normal 11.7-16.0 [facility] Comment on above: Performed By: #### B MP3, HEMDF #### [place] [address] [place] Lymphocytes (Bld) [#/Vol] 1.6 10*3/uL Normal 1.0-4.3 [facility] Comment on above: Performed By: #### B PELON, HEMDF #### [address] Lymphocytes/100 WBC (Bld) 23.6 % Normal 20.0-40.0 [facility] Comment on above: Performed By: #### Trinity BIRD, HEMDF #### [place] [address] [place] MCH (RBC) [Entitic mass] 31.4 pg Normal 26.0-34.0 [facility] Comment on above: Performed By: #### Trinity BIRD, HEMDF #### [address] MCHC (RBC) [Mass/Vol] 33.1 % Normal 32.0-36.0 [facility] Comment on above: Performed By: #### B MP3, HEMDF #### [place] [address] [place] MCV (RBC) [Entitic vol] 94.9 fL Normal 79.0-98.0 [facility] Comment on above: Performed By: #### B MP3, HEMDF #### [address] Monocytes (Bld) [#/Vol] 0.6 10*3/uL Normal 0.0-0.8 [facility] Comment on above: Performed By: #### B MP3, HEMDF #### [facility] [address] [place] [address] Monocytes/100 WBC (Bld) 8.4 % Normal 2.0-10.0 [facility] Comment on above: Performed By: #### B MP3, HEMDF #### [facility] [address] [place] [address] Platelet mean volume (Bld) [Entitic vol] 6.9 fL Low 7.4-10.4 [facility] Comment on above: Performed By: #### B MP3, HEMDF #### [facility] [address] [place] [address] Platelets (Bld) [#/Vol] 236 10*3/uL Normal 140-440 [facility] Comment on above: Performed By: #### B MP3, HEMDF #### [facility] [address] [place] [address] RBC (Bld) [#/Vol] 4.07 10*6/uL Normal 3.80-5.20 [facility] Comment on above: Performed By: #### B MP3, HEMDF #### [facility] [address] [place] [address] WBC (Bld) [#/Vol] 6.7 10*3/uL Normal 3.6-10.7 [facility] Comment on above: Performed By: #### B MP3, HEMDF #### [facility] [address] [place] [address] Op Noteon 10-13-2020 Op Note PATIENT: RICKEY [...] quadrant and a 5 mm blunt assistant professor of biology's port in the right upper quadrant all [...] room by anesthesia. cc: Dr. Pau Murillo [facility] Job ID: [id number] Nikolai Lozoya MD DOD:10/13/2020 08:06 A /anabella DOT:10/13/2020 11:08 A Job Number: [id number] Document Number: [id number] cc: Nikolai Lozoya MD [address] [facility] [address] [facility] Surgical Pathologyon 021 Surgical Pathology [id number] [facility], [facility]. PATHOLOGY AND LABORATORY MEDICINE [address] [place], [place] [id number] FINAL SURGICAL PATHOLOGY REPORT ___ NAME: RICKEY TRUJILLO : 1940 80 Y F BILLING NO.: [id number] LOCATION: [address] PROCEDURE 10/13/2020 DATE: SURGEON: NIKOLAI [...] a pinpoint lumen with no gross abnormalities. Systems Engineering Manager sections are submitted. Cassette Summary: A1- anterior cervix, A2- posterior cervix, A3-4- full thickness anterior endomyometrium, A5- full thickness posterior endomyometrium, A6- service center representative sections of the left ovary and fallopian tube, A7-9- service center representative sections of the detached ovary, A10- service center representative sections of the detached fallopian tube. [facility] Disclaimer: The following statement applies to all immunohistochemistry, in situ hybridization, molecular studies, and immunofluorescence testing. The use of one or more reagents in the above tests is regulated as an analyte specific reagent (ASR). These tests were developed and their performance characteristics determined by the clinical laboratories of [facility]. They have not been cleared by [...] negativity on decalcified specimens. Professional Performing Location: [address] [address]. DEPARTMENT OF PATHOLOGY AND LABORATORY MEDICINE [place], [place] [address] Normal [facility] TS GELon 10-13-2020 TS GEL ABO Group: A Rh, Gel: POS Antibody Screen Gel: NEG Normal [facility] Comment on above: Performed By: #### T SGL #### [facility] TYPE AND SCREENon 10-13-2020 Sodium [Moles/Vol] Positive [facility] [place], [place] Sodium [Moles/Vol] A [facility] [place] Sodium [Moles/Vol] Negative [facility] [place], [facility] Test Performed by [facility], [facility] [place], [place] [id number] [place] [address], [facility] Vital Signs Date Time Vital Sign Value Performing Clinician Teddyi lity 12-16-2023 11:08-0400 Diastolic Blood Pressure Non-Invasive 88 mm[Hg] DR EDSON WILSON MD [facility] 12-16-2023 11:08-0400 Heart rate 75 /min DR EDSON WILSON MD [facility] 12-16-2023 11:08-0400 Respiratory rate 22 /min DR EDSON WILSON MD [facility] 12-16-2023 11:08-0400 Systolic Blood Pressure Non-Invasive 132 mm[Hg] DR EDSON WILSON MD [facility] 12-16-2023 10:41-0400 Diastolic Blood Pressure Non-Invasive 72 mm[Hg] DR EDSON WILSON MD [facility] 12-16-2023 10:41-0400 Heart rate 73 /min DR EDSON WILSON MD [facility] 12-16-2023 10:41-0400 Respiratory rate 20 /min DR EDSON WILSON MD [facility] 12-16-2023 10:41-0400 Systolic Blood Pressure Non-Invasive 120 mm[Hg] DR EDSON WILSON MD [facility] 12-16-2023 10:31-0400 Body temperature 96.8 [degF] DR EDSON WILSON MD [facility] 12-16-2023 10:31-0400 Diastolic Blood Pressure Non-Invasive 69 mm[Hg] DR EDSON WILSON MD [facility] 12-16-2023 10:31-0400 Heart rate 72 /min DR EDSON WILSON MD [facility] 12-16-2023 10:31-0400 Respiratory rate 14 /min DR EDSON WILSON MD [facility] 12-16-2023 10:31-0400 Systolic Blood Pressure Non-Invasive 120 mm[Hg] DR EDSON WILSON MD [facility] 12-16-2023 10:25-0400 Respiratory Rate - Anes 20 br/min DR EDSON WILSON MD [facility] 12-16-2023 10:20-0400 Respiratory Rate - Anes 23 br/min DR EDSON WILSON MD [facility] 12-16-2023 10:15-0400 Respiratory Rate - Anes 17 br/min DR EDSON WILSON MD [facility] 12-16-2023 09:19-0400 Body height [address] EDSON WILSON MD [facility] 12-16-2023 09:19-0400 Body temperature 97.34 [degF] DR EDSON WILSON MD [facility] 12-16-2023 09:19-0400 Body weight [address] EDSON WILSON MD [facility] 12-16-2023 09:19-0400 Body weight 32.46 kg/m2 DR EDSON WILSON MD [facility] 12-16-2023 09:19-0400 Heart rate 86 /min DR EDSON WILSON MD [facility] 10-13-2020 10:45-0500 BP Diastolic 78 mm[Hg] [facility] 10-13-2020 10:45-0500 BP Systolic 126 mm[Hg] [facility] [place] 10-13-2020 10:45-0500 Pulse (Heart Rate) 61 /min Nikolai Hel[facility], [place] 10-13-2020 10:45-0500 Pulse Oximetry 93 % Nikolai Helton [facility] , [place] 10-13-2020 10:45-0500 Respiratory Rate 17 /min Nikolai Helton [facility], [place] 10-13-2020 08:09-0500 Body Temperature 97.39 [degF] Nikolai Helton [facility], [place] 10-13-2020 06:29-0500 BMI (Body Mass Index) 33.98 kg/m2 Nikolai Helton [facility], [place] 10-13-2020 06:29-0500 Body weight 78.93 kg Nikolai Helton [facility] , [place] 10-13-2020 06:29-0500 Height 152.4 cm Nikolai Helton [facility] [place] Encounters Encounter Date Encounter Type Care Provider Facility Start: 12-16-2023 End: 12-16-[address] EDSON WILSON MD Facility:B Start: 12-16-2023 End: 12-16-[address] EDSON WILSON MD [facility] Start: 10-13-2020 End: 10-13-2020 Subsequent hospital visit by physician Nikolai Lozoya Work Phone: [facility] General Surgery Comment on above: S/P hysterectomy [...] Start: 10-13-2021 Creatinine measurement Creatinine mo [place]itoring [place] Start: 10-13-2021 Potassium monitoring Potassium monit [place]ing [place] Start: 10-31-2020 End: 10-31-2020 Office Visit 10/31/2020 Office Visit Gynecologic Oncology Nikolai Lozoya MD [address] [place] [address], [address] [place] [address] [phone] [facility] [employer] Oncology Start: 09-14-2020 Annual Wellness Visi t (AWV) Annual Wellness Visit (AWV) [place] Start: 05-17-2020 Influenza vaccination Flu vaccine (# 1) [place] Start: 2007 Pneumococcal 65+ yea rs Vaccine (1 of 1 - PPSV23) Pneumococcal 65+ years Vaccine (1 of 1 - PPSV23) [place] Start: 1997 Screening for osteoporosis DEXA (modify frequency per FRAX score) [place] Start: 1992 Shingles Vaccine (1 of 2) Shingles Vaccine (1 of 2) [place] Start: 1961 DTaP/Tdap/Td vaccine (1 - Tdap) DTaP/Tdap/Td vaccine (1 - Tdap) [place] Start: 1958 COVID-19 Vaccine (1 of 2) COVID-19 Vaccine (1 of 2) [place] Start: 1940 Hepatitis C screening Hepatitis C sc reen [place] End: 10-13-2020 Blood glucose - POCT Blood glucose - POCT Point of Care Testing STAT One Time for 1 Occurrences starting 10/13/2020 until 10/13/2020 [facility] on above: One Time for 1 Occur rences starting 10/13/2020 until 10/13/2020 EKG 12 Lead EKG 12 Lead ECG STAT 10/13/2020 6:40 AM OLLIE [facility] End: 10-13-2020 Intermittent pulse oximetry Pulse Oximetry Spot Check Respiratory Care Routine One Time for 1 Occurrences starting 10/13/2020 until 10/13/2020 [facility] Comment on above: One Time for 1 Occur rences starting 10/13/2020 until 10/13/2020 Oxygen therapy [[facility] Data Set] Initiate Oxygen Therapy Protocol Respiratory Care Routine Daily until discontinued starting 10/13/2020 [facility] Comment on above: Daily until disconti nued starting 10/13/2020 Phase I & II - meter ed glucose Phase I & II - metered glucose Point of Care Testing Routine As Needed until discontinued starting 10/13/2020 [facility] Comment on above: As Needed until disc ontinued starting 10/13/2020 End: 10-13-2020 Potassium w/ Reflex to Magnesium Potassium w/ Reflex to Magnesium Lab Routine One Time for 1 Occurrences starting 10/13/2020 until 10/13/2020 [facility] Comment on above: One Time for 1 Occur rences starting 10/13/2020 until 10/13/2020 End: 10-13-2020 , urine , urine Lab STAT One Time for 1 Occurrences starting 10/13/2020 until 10/13/2020 [facility] Comment on above: One Time for 1 Occur rences starting 10/13/2020 until 10/13/2020 End: 10-13-2020 Protime-INR Protime-INR Lab STAT One Time for 1 Occurrences starting 10/13/2020 until 10/13/2020 [facility] Comment on above: One Time for 1 Occur rences starting 10/13/2020 until 10/13/2020 Spirometry panel Incentive alex metry Respiratory Care Routine Q1H PRN until discontinued starting 10/13/2020 [facility] Comment on above: Q1H PRN until discon tinued starting 10/13/2020 Payers Date Payer Category Payer Private Health Insurance [id number] 2019 Medicare [id number] 1940 Unknown [id number] Social History Date Type Detail Facility Start: 10-13-2020 End: 12-16-2023 Tobacco smoking status NHIS Former smoker [facility] End: 09-16-2008 History of tobacco use Current [place] End: 09-16-2008 History of tobacco use Cigarette [place] Start: 10-13-2020 Cigarettes smoked current (pack per day) - Reported [place] Start: 10-13-2020 Tobacco use and exposure Never used [place] Start: 10-13-2020 Alcohol intake Lifetime non-d ellie (finding) [place] Start: 10-10-2020 History SDOH Alcohol Frequency 1 [place] Sex Assigned At Not on file [place] Exposure to SARS-CoV -2 (event) Not sure [place] Sex Assigned At Female [facility] Functional Status Date Assessment Result Facility 12-16-2023 Functional Status Sleeping quiet ly with easy respirations [facility] 12-16-2023 Functional Status Maintained, Less than 8 hours [facility] Mental Status Date Assessment Result Facility 12-16-2023 Mental Status Orientation Asse ssment Oriented x 4 [facility] Evaluation + Plan note 12-16-2023 Note Date & Type Note Facility 12-16-2023 Evaluation + Plan note Extrac lenny from: Title:Clinical Document Author:EDSON WILSON Date:12/16/23 [place] ADMISSION HISTORY AN D PHYSICIAL CHIEF COMPLAINT: HISTORY OF PRESENT ILLNESS: REVIEW OF SYSTEMS: ACTIVE PROBLEMS: (4) AA (aortic aneurysm) ([id number]) Anemia (425831385) Barretts esophagus ([id number]) CHF (congestive heart failure) (83684370) MEDICATIONS: Active Inpt Meds: None Active PRN Meds: None One Time Meds: None Active IV Meds: Lactated Ringers Infusion 1,000 mL (LR 1,000 mL) Start: 12/16/23 8:45:00 EDT, Rate: 50 mL/hr, 12/16/23 8:45:00 EDT ALLERGIES: (2) aspirin oxyCODONE FAMILY HISTORY: SOCIAL HISTORY: PHYSICAL EXAM: VITALS: MpznzkGpvgSPWokqmSKUeW3TFN4GdgtHr(kg) 12/15 09:23--------95RA/ 75.0 12/15 09:1936.3--[id number] 24 Hr Tmax: 36.3 at 12/15 09:19 [...] changes to the H&P unless noted below. [facility] Hospital Discharge instructions 12-16-2023 Note Date & [...] a slower pace than normal. ?Eat soft, vbbu-yo-eidwmf foods. ?Rest often. Take eufn-qyk-tndjakr or prescription medicines only as told by [...] 02/11/2018 Document Revised: 08/15/2018 Document Reviewed: 02/11/2018 [employer] Patient Education 2020 [employer] 12/16/2023 10:50:28 Monitored Anesthesia Care, Care [...] before eating solid foods. General instructions Take dyhd-qkt-lazvora and prescription medicines only as told by [...] 12/23/2016 Document Revised: 12/01/2018 Document Reviewed: 12/23/2016 [employer] Patient Education 2020 [employer]. 12/16/2023 10:50:20 Diverticulosis Diverticulosis Diverticulosis is a [...] overweight. Not getting enough exercise. Smoking. Taking zbti-olz-ruczsuw pain medicines, like aspirin and ibuprofen. Having [...] health care provider or your diet and clinical lab specialist (dietitian). ?Take a fiber supplement or probiotic, if your health care provider approves. Take plit-shg-zcostgj and prescription medicines only as told by [...] 05/30/2005 Document Revised: 08/15/2018 Document Reviewed: 07/22/2017 [employer] Patient Education 2020 [employer]. 12/16/2023 10:49:55 Colonoscopy, Adult, Care After, Cfck-dg-Ohgq Colonoscopy, Adult, Care After This sheet gives [...] are soft and easy to digest. Take qrrx-wpv-cwybdqu or prescription medicines only as told by [...] 10/05/2011 Document Revised: 07/03/2018 Document Reviewed: 05/27/2017 [employer] Patient Education 2020 [employer]. Follow Up Care 12/02/2023 07:31:07 With:EDSON WILSON MD Address: [address] [place] [phone] When: Unknown Comments:CALL DR WILSON WITH ANY [...] DRAWING IRON, FERITIN AND H AND H. [facility] Clinical Note 12-16-2023 Note Date & Type Note Facility 12-16-2023 Note Discharge Instructions Thank you for allowing [facility] to assist you with your healthcare needs. [...] H. Where: [address] [place] [address] [place] [phone] The Following Activity and Diet Have Been [...] slower pace than normal. ? Eat soft, pcwl-mx-fdiewb foods. ? Rest often. Take wohz-bso-rpcooyj or prescription medicines only as told by [...] 02/11/2018 Document Revised: 08/15/2018 Document Reviewed: 02/11/2018 [employer] Patient Education 2020 [employer]. Monitored Anesthesia Care, Care After These instructions [...] before eating solid foods. General instructions Take pbky-osi-tqsamqo and prescription medicines only as told by [...] 12/23/2016 Document Revised: 12/01/2018 Document Reviewed: 12/23/2016 [employer] Patient Education 2020 [employer] Diverticulosis Diverticulosis is a condition that [...] overweight. Not getting enough exercise. Smoking. Taking ivjp-yvp-boxrkzj pain medicines, like aspirin and ibuprofen. Having [...] health care provider or your diet and clinical lab specialist (dietitian). ? Take a fiber supplement or probiotic, if your health care provider approves. Take sfen-luv-asdilvo and prescription medicines only as told by [...] 05/30/2005 Document Revised: 08/15/2018 Document Reviewed: 07/22/2017 [employer] Patient Education 2020 [employer]. Colonoscopy, Adult, Care After This sheet gives [...] are soft and easy to digest. Take nide-sqm-hacybrn or prescription medicines only as told by [...] 10/05/2011 Document Revised: 07/03/2018 Document Reviewed: 05/27/2017 [employer] Patient Education 2020 [employer] Additional Information VACCINATE! IT SAVES LIVES! Members of the community who have not yet received the COVID-19 vaccine and would like to receive it can visit one of [facility] vaccine clinics. There are many vaccine clinic locations within the [facility]. For locations and available times, please visit [email or web address] It is important to note that some COVID mobile vaccine clinics are held outdoors and may be canceled in rainy or stormy conditions. To learn more about pediatric vaccinations (ages 5-11), we invite you to visit the [facility] webpage. [email or web address]-Frequently-[email or web address] -Questions.html To learn more about the COVID-19 vaccine, we invite you to visit the CDC website for a list of frequently asked questions.https://www.cdc.gov/coronavi debra/2019-ncov/vaccines/faq.html [facility] Patient Portal Access Instructions: Stay connected with your healthcare team and access your personal medical information anytime with the [facility] Patient Portal. Please follow the directions below to create your [facility] account: 1.Access the email account you provided upon registration to the hospital/physician office.2.Look for an invitation email from [facility].3.Open the email and access the invitation link: Accept Invitation to [facility].4.Fill in the required sosa to create your account. To access your account, visit [email or web address]. Click the blue button labeled Access Patient [...] you will allow to register on the [facility] Patient Portal for access to your information. You can also access the [facility] Patient Portal on the [facility] kandy. Simply click on Patient Portal and then log into your account. If you would like to receive a full copy of your medical records, please contact the [facility] Medical Records Department by calling [phone], Saturday through Saturday between 8 a.m. and [...] Call your local pharmacy or go to [email or web address] to find one close to you.3.Make use of household items: Use cat litter or old coffee grounds to dispose medications if other options are not available. Mix your drugs with these household products, seal them in an airtight container and throw it into the garbage. Call [facility]: [phone] to be sure your drugs can be [...] Care After Diverticulosis Colonoscopy, Adult, Care After, Fuqm-vy-Spbi Medication Leaflets My discharge plan and instructions have been reviewed and explained to me and I,RICKEY TRUJILLO understand my current condition and have read and understand these discharge instructions. I have received a written copy of the plan/instructions. If I have questions, I am aware that I should contact my doctor. 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 Signature: _ Date/Time: Relationship to Patient: Witness Name/Signature: Date/Time: [facility] Clinical Note 12-16-2023 Note Date & Type Note Facility 12-16-2023 [facility] ADMISSION HISTORY AND PHYSICIAL CHIEF COMPLAINT: HISTORY OF PRESENT ILLNESS: REVIEW OF SYSTEMS: ACTIVE PROBLEMS: (4) AA (aortic aneurysm) (780296211) Anemia (713515189) Barretts esophagus (503432081) CHF (congestive heart failure) (17526516) MEDICATIONS: Active Inpt Meds: None Active PRN Meds: None One Time Meds: None Active IV Meds: Lactated Ringers Infusion 1,000 mL (LR 1,000 mL) Start: 12/16/23 8:45:00 EDT, Rate: 50 mL/hr, 12/16/23 8:45:00 EDT ALLERGIES: (2) aspirin oxyCODONE FAMILY HISTORY: SOCIAL HISTORY: PHYSICAL EXAM: VITALS: BlwrryBddoNRJzfciPNXcV3YLG9TgmjPs(k g) 12/15 09:23--------95RA04/ 75.0 12/15 09:1936.3--059904TF 24 Hr Tmax: 36.3 at 12/15 09:19 [...] EDSON WILSON MD on 12/16/2023 10:13 AM [facility] Anesthesiology Consult note 12-16-2023 Note Date & Type Note Facility 12-16-2023 Anesthesiology Consult note Patient: RICKEY TRUJILLO [facility]: [id number] Age: 83 years Sex: Female : 1940 Associated Diagnoses: None Author: JACKI MURRAY PUBLIC SAFETY TELECOMMUNICATOR-RD LAB TECHNICIAN Preoperative Information Time of last food or [...] attack Father Sister Brother Procedure history: Colonoscopy ([id number]) on 12/16/2023 at 83 Years. Radiation ([id number]). Comments: 12/16/2023 9:06 EDT - Aleta Charles RN rectal CA Cholecystectomy ([id number]). Abdominal hysterectomy (076614508). Ambulatory chemotherapy (963989126). Social History Social & Psychosocial Habits Tobacco [...] [place] Vital Signs(last 24 hrs) Last Charted OWE756 mmHg (DEC 15 09:19) DBPH 98mmHg (DEC 15 09:) BMI32.46 (DEC 15 09:) Measurements from flowsheet : Measurements 12/16/2023 9:19 EDT Height 152 cm Admission Weight 75 kg Wesley Body Weight 45.14 kg BSA Admission 1.72 [...] EDT Designated Person #1 We May Share [facility] [phone] Designated Person #1 Relationship Son Height 152 cm Admission Weight 75 kg Wesley Body Weight 45.14 kg BSA Admission 1.72 [...] evident Teaching Method Explanation Preferred Spoken Language Israeli Preferred Written Language Israeli Information Given by Patient Patient's Current Physicians [...] Elimination Voiding, no difficulties IV Present Present Embedded Linux Developer On Yes Colon Prep Results Good Consent Form Signed Yes Patient Dressed In Hospital gown Bowel Prep Completed Yes NPO Status Maintained, Less than 8 hours Anesthesia Consent Signed Yes Last Fluid Intake 12/16/2023 5:30 Last Food Intake 12/15/2023 10:00 12/16/2023 9:15 EDT Lactated Ringers Injection Begin Bag 1,000 mL mL . Assessment and Plan [place] Society of Anesthesiologists (ASA) physical status classification: Class III. Anesthetic Preoperative Plan Anesthetic technique: MAC. Postoperative pain management: Per surgeon. Informed consent: signed by patient. Digitally Signed by JACKI MURRAY on 12/16/2023 10:09 AM [facility] Anesthesiology Consult note 12-16-2023 Note Date & [...] attack Father Sister Brother Procedure history: Colonoscopy ([id number]) on 12/16/2023 at 83 Years. Radiation ([id number]). Comments: 12/16/2023 9:06 EDT - Aleta Charles RN rectal CA Cholecystectomy ([id number]). Abdominal hysterectomy (571500729). Ambulatory chemotherapy (947802776). Social History Social & Psychosocial Habits Tobacco [...] [place] Vital Signs(last 24 hrs) Last Charted NOC170 mmHg (DEC 15 09:19) DBPH 98mmHg (DEC 15 09:19) BMI32.46 (DEC 15:19) Measurements from flowsheet : Measurements 12/16/2023 9:19 EDT Height 152 cm Admission Weight 75 kg Wesley Body Weight 45.14 kg BSA Admission 1.72 [...] Designated Person #1 We May Share PHI [phone] Designated Person #1 Relationship Son Height 152 cm Admission Weight 75 kg Wesley Body Weight 45.14 kg BSA Admission 1.72 [...] evident Teaching Method Explanation Preferred Spoken Language Israeli Preferred Written Language Israeli Information Given by Patient Patient's Current Physicians [...] Elimination Voiding, no difficulties IV Present Present Embedded Linux Developer On Yes Colon Prep Results Good Consent Form Signed Yes Patient Dressed In Hospital gown Bowel Prep Completed Yes NPO Status Maintained, Less than 8 hours Anesthesia Consent Signed Yes Last Fluid Intake 12/16/2023 5:30 Last Food Intake 12/15/2023 10:00 12/16/2023 9:15 EDT Lactated Ringers Injection Begin Bag 1,000 mL mL . Assessment and Plan [place] Society of Anesthesiologists (ASA) physical status classification: Class III. Anesthetic Preoperative Plan Anesthetic technique: MAC. Postoperative pain management: Per surgeon. Informed consent: signed by patient. Digitally Signed by JACKI MURRAY on 12/16/2023 10:09 AM [facility] Hospital course Narrative Note Date & Type Note Facility Hospital course Narrative No data available for this section [facility] Discharge Instructions * Instructions* Belkys Coelho MD - 10/13/2020 Please follow your post operative care instructions given to you by your Surgical Attendant Oncologist's office at your pre operative visit. [...] section and content) DATE CREATED AUTHOR 10/17/2020 [employer] DATE CREATED AUTHOR AUTHOR'S ORGANIZ ATION 01/22/2024 [facility] oundation ([place]) FOR RECORDS PERTAINING TO PATIENTS WHO ARE [...] BE BASED ON THE PRIMARY CLINICAL RECORDS. [employer] [facility]. provides no warranty or guarantee of the accuracy or completeness of information in this document.
[2024-07-13 06:42] LABS: Absolute Lymphocyte Count 1.33 X10^3/uL (0.83-4.51); Absolute Neutrophil Count 6.4 X10^3/uL (2.0-7.7); Basophil# 0.04 X10^3/uL; Basophil% 0.5 % (0-1); Eosinophil# 0.14 X10^3/uL; Eosinophils% 1.6 % (0-5); Hematocrit 36.4 % (37-47); Hemoglobin 11.7 g/dL (12.0-15.0); Lymphocyte # 1.33 X10^3/ul (0.83-4.51); Lymphocyte % 15.1 % (19-41); Mean Corp Hgb Conc 32.1 g/dL (32-36); Mean Corpuscular Hgb 31.5 pg (27.0-32.0); Mean Corpuscular Volume 97.8 fL (81-99); Mean Platelet Vol. 8.7 fl (6.2-12.0); Monocyte# 0.83 X10^3/uL; Monocyte% 9.5 % (0-10); NRBC Flagged by Analyzer 0 % (0-5); Neutrophil # 6.41 X10^3/uL (2.7-7.7); Platelet Count 288 K/mm3 (150-450); RBC Distribution Width CV 14.2 % (11.6-14.6); RBC Distribution Width SD 51.1 fl (35.1-43.9); Red Blood Count 3.72 M/mm3 (4.2-5.4); White Blood Count 8.8 K/mm3 (4.4-11.0)
[2024-07-13 07:40] LABS: ALB/GLOB Ratio 0.8 RATIO (0.9-2.4); AST(SGOT) 17 U/L (15-37); Alanine Aminotransfer ALT/SGPT 19 U/L (13-56); Albumin, Serum 3.3 g/dL (3.2-5.0); Alkaline Phosphatase 88 U/L (45-117); Anion Gap 11 (5-15); BUN 30 mg/dL (7-18); Calcium,Total 9.2 mg/dL (8.5-10.1); Chloride 103 mmol/L (98-107); Creatinine, Serum 1.43 mg/dL (0.55-1.02); EST Glomerular Filtration Rate 37 mL/min (>60); Est Glom Filt Rate - Afr Amer 45 mL/min (>60); Estimated Creatinine Clearance 26.58 ml/min; Globulin 4.1 g/dL (2.2-4.2); Glucose 99 mg/dL (74-106); Magnesium 2.4 mg/dL (1.6-2.6); Phosphorus 4.6 mg/dL (2.5-4.9); Potassium 3.8 mmol/L (3.5-5.1); Protein, Total 7.4 g/dL (6.4-8.2); Sodium Level 142 mmol/L (136-145)
[2024-07-13] MEDS: 0.9% Normal Saline (1000mL) 1,000 ML 50 ML IV (07:53)
[2024-07-13] MEDS: Piperacil/Tazobactam 3.375 GM in 0.9% Normal Saline (50mL MB+) 50 ML IV ×3 (09:03→21:23)
[2024-07-13] MEDS: Pantoprazole Sodium 40 MG in 0.9% Normal Saline (100mL MB+) 100 ML 330 MG IV (09:07)
--- NOTE | 2024-07-13 12:41 | NURSING ---
pt stated that while sitting in chair pt had a episode that she felt like she was passing out. pt a/o at this time, vitals wnl. pt stated she does not feel this way anymore.
--- NOTE | 2024-07-13 13:46 | CHAPLAIN ---
Type of Pastoral Visit _x__ Initial Visit ___ Follow-up Visit ___ On-call Visit ___ General Patient Visit ___ Spiritual Assessment ___ Family Conference ___ Bereavement ___ Rapid Response ___ Code Blue ___ Other (describe below) Pastoral Care Referral From _x__ Patient ___ Family ___ Nurse ___ Physician ___ Computer Installer ___ Eye Clinic Manager ___ Other (describe below) Sacrament/Intervention _x__ Active listening ___ Anointing ___ Hoahaoism ___ Bereavement ___ Communion ___ Nanmarie exploration ___ ___ Life review _x__ Prayer ___ Reconciliation ___ Sacrament of Sick _x__ Supportive presence ___ Wedding ___ Other (describe below) Pastoral Comments patient states that she has some improvement, would like to be out of the hospital but handles it fine when she is needing one, and hopes to get a room in an [facility] to get her surgery done; pt states that she has good family support and a granddaughter is with her in the room; pt is not judaism but spiritual and welcomes a prayer; casual conversation as well
--- NOTE | 2024-07-13 17:41 | PN.HOSP_ITS ---
Hospitalist Note Patient seen and examined today, I changed her antibiotic coverage to Zosyn and stopped her cefepime. Patient has no specific complaints at the time of my visit today, we are awaiting information on a bed from [facility] At this time.
[2024-07-14 04:10] VITALS: BP 103/53; PULSE 79; RESP 17; TEMP 36.4; O2SAT 92
[2024-07-14 04:16] VITALS: PULSE 77
[2024-07-14 04:37] VITALS: BMI 31.1
[2024-07-14] MEDS: Piperacil/Tazobactam 3.375 GM in 0.9% Normal Saline (50mL MB+) 50 ML IV (05:16)
[2024-07-14 07:12] VITALS: O2SAT 92
[2024-07-14 09:09] VITALS: BP 96/66; PULSE 88; RESP 16; TEMP 36.6; O2SAT 95
[2024-07-14 09:14] VITALS: PULSE 84
[2024-07-14] MEDS: Pantoprazole Sodium 40 MG in 0.9% Normal Saline (100mL MB+) 100 ML 330 MG IV (10:02)
--- NOTE | 2024-07-14 10:40 | NURSING ---
called report to mikaela perez took report
== END 2024-07-14 11:47 | disposition short-term general hospital (02) | DRG 699 ==
LOC: ED 07-13 03:30 → MS3 07-13 05:21
PROVIDERS: Nurse Practitioner; Admitting Provider Internal Medicine; Emergency Provider Emergency Medicine; PCP Family Medicine; Visit Provider Internal Medicine
DX: N32.1 Vesicointestinal fistula (principal); J96.11 Chronic respiratory failure with hypoxia; C21.0 Malignant neoplasm of anus, unspecified; I50.32 Chronic diastolic (congestive) heart failure; K57.32 Diverticulitis of large intestine without perforation or abscess without bleeding; N30.00 Acute cystitis without hematuria; I11.0 Hypertensive heart disease with heart failure; K21.9 Gastro-esophageal reflux disease without esophagitis; E66.3 Overweight; J43.9 Emphysema, unspecified; I71.23 Aneurysm of the descending thoracic aorta, without rupture; Z90.710 Acquired absence of both cervix and uterus; Z87.891 Personal history of nicotine dependence; R55 Syncope and collapse; R53.81 Other malaise; M85.80 Other specified disorders of bone density and structure, unspecified site; Z68.29 Body mass index [BMI] 29.0-29.9, adult; Z90.49 Acquired absence of other specified parts of digestive tract
CPT/HCPCS: 36415; 71045; 74174; 80053; 81001; 83605; 83690; 83735; 84100; 84443; 84484; 85025; 87077; 87086; 87088; 87186; 93005; 93306; 94668; 99283; J7030; J7050; Q9967; A4216

== ENCOUNTER 2024-08-31 17:17 | Inpatient (IN) | payer MEDICARE, OTHER, SELFPAY ==
[2024-08-31 18:08] VITALS: BP 124/64; PULSE 70; RESP 18; TEMP 36.4; O2SAT 94; BMI 29.6
[2024-08-31 18:46] VITALS: BP 124/64; PULSE 70; RESP 18; TEMP 36.4; O2SAT 94
[2024-08-31] MEDS: Gabapentin 300 MG Capsule PO (21:27)
[2024-08-31] MEDS: APIXABAN 5 MG TABLET PO (21:27)
[2024-08-31] MEDS: Multivitamin (Healthy Eyes) Capsule 1 CAP PO (21:28)
[2024-08-31] MEDS: Carvedilol 12.5 MG Tablet PO (21:28)
[2024-09-01 05:08] VITALS: BP 103/51; PULSE 70; RESP 16; TEMP 37.1; O2SAT 94
[2024-09-01] MEDS: Gabapentin 300 MG Capsule PO ×2 (05:10→21:43)
[2024-09-01] MEDS: Acetaminophen 325 MG Tablet 650 MG PO (05:48)
[2024-09-01 07:11] LABS: Absolute Lymphocyte Count 1.39 X10^3/uL (0.83-4.51); Basophil# 0.04 X10^3/uL; Basophil% 0.5 % (0-1); Eosinophil# 0.25 X10^3/uL; Hematocrit 31.6 % (37-47); Lymphocyte # 1.39 X10^3/ul (0.83-4.51); Lymphocyte % 16.9 % (19-41); Mean Corp Hgb Conc 31.6 g/dL (32-36); Mean Corpuscular Hgb 31.5 pg (27.0-32.0); Mean Corpuscular Volume 99.7 fL (81-99); Mean Platelet Vol. 8.2 fl (6.2-12.0); Monocyte# 0.59 X10^3/uL; Monocyte% 7.2 % (0-10); NRBC Flagged by Analyzer 0 % (0-5); Neutrophil # 5.95 X10^3/uL (2.7-7.7); Neutrophil % 72.2 % (47-70); Platelet Count 286 K/mm3 (150-450); RBC Distribution Width CV 14.4 % (11.6-14.6); RBC Distribution Width SD 52.1 fl (35.1-43.9); Red Blood Count 3.17 M/mm3 (4.2-5.4); White Blood Count 8.2 K/mm3 (4.4-11.0)
[2024-09-01] MEDS: Cholecalciferol (VIT D3) 25 MCG TABLET (1,000 UNITS) 50 MCG PO (07:48)
[2024-09-01] MEDS: Multivitamin (Healthy Eyes) Capsule 1 CAP PO ×2 (07:48→21:40)
[2024-09-01] MEDS: APIXABAN 5 MG TABLET PO ×2 (07:49→21:40)
[2024-09-01] MEDS: Pantoprazole Sodium 20 MG Tablet PO (07:49)
[2024-09-01] MEDS: Lactobacillis Acidophilus 1 CAP PO (07:50)
[2024-09-01] MEDS: Spironolactone 25 MG Tablet PO (07:50)
[2024-09-01 08:19] LABS: ALB/GLOB Ratio 0.7 RATIO (0.9-2.4); AST(SGOT) 65 U/L (15-37); Alanine Aminotransfer ALT/SGPT 68 U/L (13-56); Albumin, Serum 2.7 g/dL (3.2-5.0); Alkaline Phosphatase 116 U/L (45-117); Anion Gap 4 (5-15); BUN 18 mg/dL (7-18); BUN/Creat Ratio 16.7 RATIO (10-20); Calcium,Total 8.4 mg/dL (8.5-10.1); Chloride 110 mmol/L (98-107); Creatinine, Serum 1.08 mg/dL (0.55-1.02); EST Glomerular Filtration Rate 52 mL/min (>60); Est Glom Filt Rate - Afr Amer 63 mL/min (>60); Estimated Creatinine Clearance 34.76 ml/min; Globulin 3.9 g/dL (2.2-4.2); Glucose 102 mg/dL (74-106); Magnesium 2.2 mg/dL (1.6-2.6); Phosphorus 2.6 mg/dL (2.5-4.9); Potassium 3.9 mmol/L (3.5-5.1); Protein, Total 6.6 g/dL (6.4-8.2); Sodium Level 140 mmol/L (136-145)
--- NOTE | 2024-09-01 08:24 | PCM.HP.STD ---
[facility] - General General Date of Admission: 08/31/24 Date of Service: 09/01/24 Chief Complaint: Debility secondary to recent hemicolectomy HPI Narrative RICKEY TRUJILLO, is a 84 YO F with a PMH of anal squamous cell carcinoma (SP) chemoRT in 2018), colovesical fistula, diverticulosis, hypertension, congestive heart failure and tobacco dependence in remission (quit in 2008) who underwent an elective left side sigmoid colectomy on 08/26/2024 with takedown of a colovesical fistula. Prior to surgery she had a stress test that showed no evidence of inducible ischemia. LVEF was estimated at 73%. Echocardiogram estimated the ejection fraction at 55%. Initial postoperative course was unremarkable and she was scheduled for discharge on 08/29/2024. Prior to discharge she developed tachycardia and chest pain. EKG showed atrial fibrillation and she was started on intravenous amiodarone. She converted to normal sinus rhythm. She was started on Eliquis 5 mg twice daily. She had an echocardiogram that showed a low normal ejection fraction with no wall motion abnormalities. She was noted to have an ascending aortic aneurysm and regular surveillance was recommended. She was transferred to the acute inpatient rehab unit at [facility] on 08/31/2024 for 3 hours of therapy daily to restore function/independence at or near her level prior to the sigmoid resection. Cardiology: [facility] PCP: Dr. Antoine Brown Oncology: Dr. Wallace She tells me that she slept well last night and that her pain is well-controlled. All lab from this morning was personally reviewed. The white blood cell count is normal at 8.2. Hemoglobin is 10.0 with an elevated MCV at 99.7. Platelets are within normal limits. Sodium is 140 and potassium is 3.9. Serum bicarb is normal at 26. The BUN is 18 with a creatinine of 1.08 which is down from 1.43 on 07/13/2024. Creatinine in October 2022 was 0.81. She is now on Lasix 40 mg daily and spironolactone. Phosphorus and magnesium are within normal limits. Calcium corrected for hypoalbuminemia is normal. Bilirubin and alkaline phosphatase are normal but transaminases are mildly elevated at 65 for AST and 68 for ALT. I suspect this is related to the surgery. She had an elevated TSH of 5.15 on 07/13/2024. [facility] Medical History (Updated 09/01/24 @ 11:[address] 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 Restless leg syndrome Pain in left ankle Closed fracture of distal end of left fibula Ovarian cyst Foot drop, left foot Chronic diastolic (congestive) heart failure Descending thoracic aortic aneurysm Obesity Essential (primary) hypertension Lung nodule Vertigo 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) COPD (chronic obstructive pulmonary disease) 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 Home Medications ?Medication ?Instructions ?Recorded ?Last Taken ?Type cholecalciferol (vitamin D3) 25 2,000 unit PO DAILY supplement 08/08/20 07/12/24 History mcg (1,000 unit) tablet vitamins A,C,M-cewg-mstpbv 2,148 2 tab PO BID supplement 08/01/23 07/12/24 History mcg-113 mg-45 mg-17.4 mg tablet (PreserVision AREDS) spironolactone 25 mg tablet See Rx Instructions .Route 08/21/23 07/12/24 Rx .COMPLEX water pill #90 tabs furosemide 40 mg tablet 40 mg PO DAILY increase in weight 01/17/24 07/12/24 Rx by 5 lbs in 1 week #90 tabs gabapentin 300 mg capsule 300 mg PO TID nerve pain 04/07/24 07/12/24 History lactobacillus combination no.9 4 4,000 mmu cells PO DAILY supplement 04/07/24 07/12/24 History billion cell capsule (Adult 50 Plus Probiotic) omeprazole 20 mg capsule,delayed 20 mg PO DAILY acid reflux 04/07/24 07/12/24 History release carvedilol 12.5 mg tablet 12.5 mg PO BID for blood pressure 04/14/24 08/31/24 Rx #180 TABLETS tirzepatide 5 mg/0.5 mL 5 mg subcut QWEEK weight lose 07/31/24 Unknown History subcutaneous pen injector (Mounjaro) apixaban 5 mg tablet (Eliquis) 10 mg PO BID AFIB 08/31/24 Unknown History lisinopril 2.5 mg tablet 2.5 mg PO DAILY blood pressure 08/31/24 Unknown History ondansetron 4 mg disintegrating 4 mg PO Q6H PRN nausea and vomiting 08/31/24 Unknown History tablet polyethylene glycol 3350 17 17 g PO DAILY PRN constipation 08/31/24 Unknown History gram/dose oral powder (Miralax) Allergy/AdvReac Type Severity Reaction Status Date / Time oxycodone Allergy Mild headache Verified 07/31/24 13:28 aspirin AdvReac Nausea Verified 07/31/24 13:28 Family History Father Heart disease Sister Cancer Diabetes Brother Heart disease Mother Heart disease Sister Heart disease Sister Cancer breast Surgical History (Updated 09/01/24 @ 10:[address] Kiersten Purdy DO) S/P left hemicolectomy H/O cataract extraction S/P complete hysterectomy (~10/13/20) History of right and left heart catheterization (02/24/13) History of cholecystectomy Social History (Updated 09/01/24 @ 10:[address] Kiersten Purdy DO) adopted: No household members: family and other details: Her grandson lives with her housing: other details: She lives in a mobile home number of children: 3 current occupational status: retired Smoking Status: Former smoker how long ago did patient quit smokin alcohol intake: never substance use type: does not use caffeine: Yes Type: coffee Number of servings: 2 what type of physical activity do you participate in: none seatbelt use: always do you feel safe at home: Yes additional social history: 2021 Homelessness:: Sheltered ROS Constitutional Constitutional: Reports fatigue; Denies anorexia, change in weight, chills, fever(s), night sweats or weakness Eyes Eyes: Denies blurry vision, change in vision, eye pain or loss of vision ENT HEENT: Denies abnormal hearing, dysphagia, headache(s), hearing loss, nasal congestion or sore throat Cardiovascular Cardiovascular: Reports dyspnea on exertion; Denies chest pain, edema, lightheadedness, orthopnea, palpitations, paroxysmal nocturnal dyspnea or syncope Respiratory/Chest Respiratory/Chest: Reports shortness of breath with exertion; Denies cough, dyspnea, shortness of breath at rest or wheezing Gastrointestinal Gastrointestinal: Reports abdominal pain and diarrhea; Denies constipation, dyspepsia, hematemesis, hematochezia, nausea or vomiting Genitourinary Genitourinary: Denies dysuria, hematuria, nocturia, urinary frequency, urinary hesitancy, urinary incontinence or urinary urgency Musculoskeletal Musculoskeletal: Denies back pain, joint pain, joint swelling or neck pain Integumentary Integumentary: Denies alopecia, jaundice, photosensitivity or rash Neurologic Neurologic: Denies confusion, disequilibrium, dizziness, focal weakness, headache(s), paresthesias, seizures or tremor(s) Psychiatric Psychiatric: Denies anxiety, depression, homicidal ideation or suicidal ideation Endocrine Endocrinology: Denies change in body appearance, polydipsia or polyuria Hematologic/Lymphatic Hematologic/Lymphatic: Denies easy bleeding, easy bruising or lymphadenopathy Allergic/Immunologic Allergic/Immunologic: Denies rhinitis, eczemia or asthma Vital Signs Vital Signs Vital Signs: 08/31/24 18:08 08/31/24 18:46 08/31/24 20:10 Temperature 97.5 F L 97.5 F L Temperature Source Temporal Temporal Pulse Rate 70 70 Respiratory Rate 18 18 Respiratory Effort Normal Non-Labored Respiratory Depth Normal Respiratory Pattern Normal Blood Pressure 124/64 H 124/64 H Blood Pressure Mean 84 84 Blood Pressure Source Monitor Monitor Blood Pressure Position Semi-Fowlers Semi-Fowlers Blood Pressure Location Right Arm Right Arm Pulse Ox 94 94 Oxygen Delivery Method Room Air Room Air Room Air 09/01/24 05:08 Temperature 98.7 F Temperature Source Temporal Pulse Rate 70 Respiratory Rate 16 Respiratory Effort Respiratory Depth Respiratory Pattern Blood Pressure 103/51 L Blood Pressure Mean 68 Blood Pressure Source Monitor Blood Pressure Position Supine Blood Pressure Location Left Arm Pulse Ox 94 Oxygen Delivery Method Room Air Weight Weight: 151 lb 10.848 oz Body Mass Index (BMI) 29.6 Physical Exam Const alert, oriented x3, no apparent distress, healthy appearing and well nourished General Appearance: cooperative and well kempt HEENT head/scalp atraumatic and hearing grossly normal bilaterally HEENT Narrative: Dry mucous membranes. Has missing teeth and also has an upper denture. Eyes PERRL, EOMs intact bilaterally, conjunctivae normal and no scleral icterus Eyes Narrative: No discharge from the eyes and no mattering of the eyelashes. General Eye: normal appearance of both eyes Neck supple, No nodes and no carotid bruits Chest Chest Narrative: Increase in AP diameter Chest: symmetrical chest wall rise Resp normal respiratory effort, normal air movement, no use of accessory muscles and clear to auscultation bilaterally Resp Narrative: Diminished breath sounds throughout Cardio regular rate, regular rhythm, S1 normal heart sound, S2 normal heart sound, no murmurs, no rub and no gallops GI GI Narrative: Mildly distended and tympanic. Tender to palpation. Bowel sounds are present in all 4 quadrants. Incisions are healing, intact without erythema or discharge. No abdominal bruits. Back/Spine no CVA tenderness and normal to inspection Back/Spine Narrative: No pain with palpation or percussion over the vertebrae. Denies back pain. Extremity no calf tenderness and no pedal edema Skin no rashes or lesions noted, no jaundice and no petechiae Skin Narrative: Abdominal incisions are intact with no dehiscence, no fabi-incisional erythema and no discharge. General Skin Exam: turgor normal Neuro oriented x3, CN's II-XII intact bilaterally, moves all extremities, no focal motor deficits and no sensory deficits noted Psych mental status grossly normal, thought process normal, cooperative, affect normal and speech normal Appearance: appropriate Attitude: calm and engaged Results Lab / Micro Data 09/01/24 07:05 09/01/24 07:05 Labs: Laboratory Results - last 24 hr 09/01/24 07:05: WBC 8.2, RBC 3.17 L, Hgb 10.0 L, Hct 31.6 L, MCV 99.7 H, MCH 31.5, MCHC 31.6 L, RDW Std Deviation 52.1 H, RDW Coeff of Harsh 14.4, Plt Count 286, MPV 8.2, Immature Gran % (Auto) 0.200, Neut % (Auto) 72.2 H, Lymph % (Auto) 16.9 L, [place] % (Auto) 7.2, Eos % (Auto) 3.0, Baso % (Auto) 0.5, Absolute Neuts (auto) 6.0, Absolute Lymphs (auto) 1.39, Nucleated RBC % 0, Sodium 140, Potassium 3.9, Chloride 110 H, Carbon Dioxide 26.0, Anion Gap 4 L, BUN 18, Creatinine 1.08 H, Estim Creat Clear Calc 34.76, Est GFR (MDRD) Af Amer 63, Est GFR (MDRD) Non-Af 52 L, BUN/Creatinine Ratio 16.7, Glucose 102, Calcium 8.4 L, Phosphorus 2.6, Magnesium 2.2, Total Bilirubin 0.20, AST 65 H, ALT 68 H, Alkaline Phosphatase 116, Total Protein 6.6, Albumin 2.7 L, Globulin 3.9, Albumin/Globulin Ratio 0.7 L Assessment & Plan Assessment/Plan (1) Physical debility: (2) S/P left hemicolectomy: (3) Abdominal pain: QUALIFIERS: Abdominal location: epigastric Qualified Code(s): R10.13 - Epigastric pain (4) CVF (colovesical fistula): (5) Acute blood loss anemia: (6) Chronic diastolic (congestive) heart failure: (7) HTN (hypertension): QUALIFIERS: Hypertension type: primary hypertension Qualified Code(s): I10 - Essential (primary) hypertension (8) Thoracic ascending aortic aneurysm: QUALIFIERS: Presence of rupture: without rupture Qualified Code(s): I71.21 - Aneurysm of the ascending aorta, without rupture (9) Descending thoracic aortic aneurysm: QUALIFIERS: Presence of rupture: without rupture Qualified Code(s): I71.23 - Aneurysm of the descending thoracic aorta, without rupture (10) COPD (chronic obstructive pulmonary disease): QUALIFIERS: COPD type: emphysema Emphysema type: unspecified Qualified Code(s): J43.9 - Emphysema, unspecified (11) Essential (primary) hypertension: PLAN: Plan PLAN PT for gait stability OT for ADL's Analgesics as needed Bowel protocol Fall precautions Assess for Anxiety/Depression GI prophylaxis -Protonix DVT prophylaxis continue Eliquis for paroxysmal atrial fibrillation. Follow up with Dr. Antoine Brown, surgery and [facility] following DC from IP Rehab AM lab including CMP, CBC, Mag and Phos She was placed on gabapentin 300 mg 3 times daily for restless leg when she had a fracture of her left ankle. She denies any radicular pain. The restless leg occurs primarily at night. Will change the dosing to 300 mg nightly. Will need follow-up on the ascending and descending aortic aneurysms. Charges/Coding Visit Charges Inpatient E&M: 60869 Init Hosp L2
[2024-09-01 09:00] VITALS: BP 114/56; PULSE 55
[2024-09-01] MEDS: Menthol/Lanolin/Calamine/Znox 113 GM Tube 1 APPLIC TOPICAL ×2 (10:51→21:40)
[2024-09-01] MEDS: Furosemide 40 MG Tablet PO (10:51)
[2024-09-01] MEDS: Carvedilol 12.5 MG Tablet PO ×2 (10:51→21:40)
[2024-09-01] MEDS: Lisinopril 2.5 MG Tablet PO (10:51)
--- NOTE | 2024-09-01 11:27 | REHABEVAL_ITS ---
Admission Information Primary Diagnosis:: Physical debility secondary to left hemicolectomy with takedown of colovesical fistula Status Changes from Prescreening?: No changes Identified Actual Problem List:: Skin Intergrity, Pain, ALteration in Cmfrt, Mobility Impaired, Self Care Deficit, BP, Hypertension, Alteration/ Air Exchange and Alteration-Leisure Activ. Potential Problem List:: DVT, Bleeding, Infection, UTI, Aspiration, Falls, Skin Integrity and Depression Risk of Complications DVT: VICENTE Rodriguez and - (Continue Eliquis 5 mg p.o. twice daily) Bleeding: Monitor Lab Values, Nursing to Teach Precautions for anti-coagulation therapy., Wound, if applicable, to be assessed every shift. and Stroke patients assessed for lethargy or change in status. Infection: Clinical Staff to Monitor for S/S of infection: and S/S of infection include fever, redness, warmth, etc. Urinary Tract Infection: Monitor for frequency, burning, discomfort, or incontinence. and Nursing will obtain urine sample for urinalysis and C&S when ordered. Aspiration: Clinical staff will monitor for coughing, drooling, congestion., Speech will evaluate swallowing and dsyphasia. and Nursing will monitor patient swallowing during meals. Falls: Patient will be evaluated for Fall Precautions and Patient will be placed on Fall Precautions as indicated per protocol. Skin Breakdown: Nursing will assess skin daily using assessment tool. and Nursing will place on Skin Breakdown Precautions as indicated. Pain: Clinical staff will assess patient's pain level per protocol., Medications will be given, if needed, and the pain level reassessed. and Other methods: Massage, distraction, decrease stimulus, etc. used PRN. Plan of Care Patient requires physician specializing in physical medicine and rehab oversight to provide close medical supervision of rehab issues including: Pain Management, Sleep Problems, Bowel and Bladder, Medical and co-morbidity Management, DVT prophylaxis, Rehabilitation Leadership and Coordination of treatment team Patient needs Physical Therapy: For a minimum of 1 hour and At least 5 out of 7 days Patient needs Physical Therapy to improve:: Mobility, Strengthening, Transfers, Stretching, ROM, Endurance, Stairs, Gait and Balance Patient needs Occupational Therapy: For a minimum of 1 hour and At least 5 out of 7 days Patient needs Occupational Therapy to improve ADL's incl.: Eating, Grooming, Bathing, Dressing, Toileting, Toilet transfers, Community Reintegration, Higher functioning activities, Household tasks, Adaptive Equipment, Splinting and Other activities as determined Patient requires 24/7 Rehabilitation Nursing for: Pain Issues, Identifying and preventing risk factors, Monitoring and reporting current medical conditions, Assisting with ambulation, transfer, and all ADL's, Teaching patients about disease process and medications, Family teaching, Providing safe environment, Bowel and Bladder Issues, Skin integrity and Medication Management Patient needs Crayon Sorting Machine Feeder/ Case Management for: Discharge Planning, Arranging Home Equipment or Services and Family Interventions Patient needs Dietary and Nutrition Services for: Adequate Nutrition, Nutritional Supplements and Nutritional Education Goals Goals Patient will ambulate: - (300 feet with least restrictive device and) Patient will complete upper body dressing at: MOD I level of assist. Patient will complete lower body dressing at: MOD I level of assist. Patient will complete toilet transfer at: MOD I level of assist. Patient will complete toileting at: MOD I level of assist. Patient will perform bathing at: - (She will complete upper body bathing independently and lower body bathing at mod I with adaptive equipment as needed.) Patient will perform Tub/Shower transfer at: - (Supervision) Patient will complete grooming at: MOD I level of assist. Patient will complete home management skills at: MOD I level of assist. Patient will achieve: - (1 curb step at mod I with least restrictive device) Discharge Planning Pt Prognosis for Sig. Practical Improv. w/in Reasonable Time: Good Estimated Length of stay (days): 14 Anticipated D/C Destination: Home with Outpt Therapy
[2024-09-01 11:39] LABS: T4 Free Direct 1.19 ng/dL (0.76-1.46)
[2024-09-01 12:48] VITALS: O2SAT 95
[2024-09-01 17:48] VITALS: BP 114/64; PULSE 67; RESP 16; TEMP 37.1; O2SAT 95
[2024-09-01 21:48] VITALS: BP 111/60; PULSE 70
[2024-09-02 06:00] VITALS: BMI 29.6
[2024-09-02 06:25] VITALS: BP 117/61; PULSE 73; RESP 16; TEMP 36.6; O2SAT 93
[2024-09-02] MEDS: Lactobacillis Acidophilus 1 CAP PO (07:40)
[2024-09-02] MEDS: Lisinopril 2.5 MG Tablet PO (07:40)
[2024-09-02] MEDS: APIXABAN 5 MG TABLET PO ×2 (07:40→21:21)
[2024-09-02] MEDS: Spironolactone 25 MG Tablet PO (07:40)
[2024-09-02] MEDS: Multivitamin (Healthy Eyes) Capsule 1 CAP PO ×2 (07:41→21:22)
[2024-09-02] MEDS: Furosemide 40 MG Tablet PO (07:41)
[2024-09-02] MEDS: Carvedilol 12.5 MG Tablet PO ×2 (07:41→21:21)
[2024-09-02] MEDS: Cholecalciferol (VIT D3) 25 MCG TABLET (1,000 UNITS) 50 MCG PO (07:41)
[2024-09-02] MEDS: Menthol/Lanolin/Calamine/Znox 113 GM Tube 1 APPLIC TOPICAL ×2 (07:41→21:20)
[2024-09-02] MEDS: Pantoprazole Sodium 20 MG Tablet PO (07:41)
--- NOTE | 2024-09-02 08:49 | PCM.PROGNOTE ---
Subjective Subjective Afebrile VSS - Maintaining appropriate oxygen saturation on RA Oral intake - FOOD good FLUIDS poor....may not be capturing all her intake.....people have been getting her coffee and she is drinking without letting nursing know. Had 4 bowel movements yesterday Discussed with nursing - no problems that need addressed. Slept well last night. Postvoid residuals are less than 50. Reviewed the THERAPY notes Medication list reviewed. TSH yesterday was 4.15 and the free T4 is good at 1.19. No indication for treatment at this time. ROS is negative today with no complaints. she denies CP, SOB, lightheadedness, N/V/, calf pain. The abd pain is less today and she tells me that the stool is starting to firm up a little. Objective Data Objective Data Vital Signs: Vital Signs Temp Pulse Resp BP Pulse Ox O2 Del Method 98 F 73 16 117/61 93 Room Air 09/02/24 06:25 09/02/24 06:25 09/02/24 06:25 09/02/24 06:25 09/02/24 06:25 09/02/24 06:25 Oxygen Delivery Method Room Air Weight: 151 lb 10.848 oz Body Mass Index (BMI) 29.6 Intake & Output: Intake and Output for Last 24 Hours 08/31/24 09/01/24 09/02/24 23:59 23:59 23:59 Intake Total 120 / 120 660 / 660 480 / 480 Output Total 100 / 100 1050 / 1400 550 / 550 Balance 20 / 20 -390 / -740 -70 / -70 Lab / Micro Data 09/01/24 07:05 09/01/24 07:05 Labs: Laboratory Results - last 24 hr 09/01/24 07:05: TSH 4.150 H, Free T4 1.19 Social Homelessness:: Sheltered Physical Exam Const alert, oriented x3 and no apparent distress Resp normal respiratory effort, normal air movement, no use of accessory muscles and clear to auscultation bilaterally Resp Narrative: Diminished breath sounds throughout Cardio regular rate, regular rhythm, no murmurs, no rub and no gallops GI GI Narrative: Soft, BS present, less tender with palpation today. Extremity no calf tenderness and no pedal edema Skin Skin Narrative: Abdominal incisions are intact with no dehiscence, no fabi-incisional erythema and no discharge. Assessment & Plan Assessment/Plan (1) Physical debility: (2) S/P left hemicolectomy: (3) Abdominal pain: QUALIFIERS: Abdominal location: epigastric Qualified Code(s): R10.13 - Epigastric pain (4) CVF (colovesical fistula): (5) Acute blood loss anemia: (6) Chronic diastolic (congestive) heart failure: (7) Essential (primary) hypertension: PLAN: Plan 1. Continue therapy 2. Patient tells me that she would like to go home on Saturday and after talking with the therapists they think she will do OK at home. Family is supportive and will be available to help. 3. Immodium PRN for > 2 BM's daily Charges/Coding Visit Charges Inpatient E&M: 52510 Subs Hosp L1
--- NOTE | 2024-09-02 15:30 | CHAPLAIN ---
Type of Pastoral Visit _x__ Initial Visit ___ Follow-up Visit ___ On-call Visit ___ General Patient Visit ___ Spiritual Assessment ___ Family Conference ___ Bereavement ___ Rapid Response ___ Code Blue ___ Other (describe below) Pastoral Care Referral From _x__ Patient ___ Family ___ Nurse ___ Physician ___ Line Maintenance ___ Fund Controller ___ Other (describe below) Sacrament/Intervention _x__ Active listening ___ Anointing ___ Moravian ___ Bereavement ___ Communion ___ Annmarie exploration ___ ___ Life review _x__ Prayer ___ Reconciliation ___ Sacrament of Sick _x__ Supportive presence ___ Wedding ___ Other (describe below) Pastoral Comments patient is willing to talk about her life, family, and goals of getting better and home before Domo; pt does not indicate further concerns or worries but welcomes prayer support
[2024-09-02 17:08] VITALS: BP 112/65; PULSE 73; RESP 16; TEMP 37; O2SAT 92
[2024-09-02] MEDS: Gabapentin 300 MG Capsule PO (21:20)
[2024-09-02 21:24] VITALS: BP 112/42; PULSE 70
[2024-09-02 22:00] VITALS: O2SAT 92
--- NOTE | 2024-09-03 05:39 | NURSING ---
Pt informed HUNTER she would like to shower after breakfast this am.
[2024-09-03 06:00] VITALS: BP 104/45; PULSE 73; RESP 16; TEMP 37.3; O2SAT 94
[2024-09-03] MEDS: Pantoprazole Sodium 20 MG Tablet PO (08:27)
[2024-09-03] MEDS: Lisinopril 2.5 MG Tablet PO (08:27)
[2024-09-03] MEDS: Spironolactone 25 MG Tablet PO (08:28)
[2024-09-03] MEDS: Carvedilol 12.5 MG Tablet PO ×2 (08:28→20:32)
[2024-09-03] MEDS: Cholecalciferol (VIT D3) 25 MCG TABLET (1,000 UNITS) 50 MCG PO (08:28)
[2024-09-03] MEDS: Furosemide 40 MG Tablet PO (08:28)
[2024-09-03] MEDS: Lactobacillis Acidophilus 1 CAP PO (08:28)
[2024-09-03] MEDS: APIXABAN 5 MG TABLET PO ×2 (08:28→20:33)
[2024-09-03] MEDS: Multivitamin (Healthy Eyes) Capsule 1 CAP PO ×2 (08:28→20:33)
[2024-09-03] MEDS: Menthol/Lanolin/Calamine/Znox 113 GM Tube 1 APPLIC TOPICAL ×2 (08:30→20:32)
[2024-09-03 08:57] VITALS: BP 108/55; PULSE 62
--- NOTE | 2024-09-03 12:20 | PCM.PROGNOTE ---
Subjective Subjective Deltha was seen on TEAM rounds today. Afebrile VSS - Maintaining appropriate oxygen saturation on RA Oral intake - FOOD good FLUIDS intake is not reflective of how much she is drinking in a day. Staff has been getting her coffee and diet soda and this has not been included in her intake. Postvoid residuals x 3 have all been less than 120. She had 2 bowel movements yesterday and none yet today. Has not had to take any Imodium since ordered. Discussed with nursing - no problems that need addressed Reviewed the THERAPY notes Medication list reviewed. She had some abdominal pain today but she was bending over and she knows she is not supposed to do this. She tells me she is having less gas. She denies chest pain, shortness of breath, lightheadedness, nausea/vomiting, dysuria and calf tenderness. Objective Data Objective Data Vital Signs: Vital Signs Temp Pulse Resp BP Pulse Ox O2 Del Method 99.1 F 62 16 108/55 L 94 Room Air 09/03/24 06:00 09/03/24 08:57 09/03/24 06:00 09/03/24 08:57 09/03/24 06:00 09/03/24 10:00 Oxygen Delivery Method Room Air Weight: 151 lb 10.848 oz Body Mass Index (BMI) 29.6 Intake & Output: Intake and Output for Last 24 Hours 09/01/24 09/02/24 09/03/24 23:59 23:59 23:59 Intake Total 660 / 660 920 / 920 50 / 50 Output Total 1050 / 1400 1350 / 1350 Balance -390 / -740 -430 / -430 50 / 50 Lab / Micro Data 09/06/24 07:31 09/06/24 07:31 Social Homelessness:: Sheltered Physical Exam Const alert and oriented x3 General Appearance: cooperative HEENT Mouth: dry mucous membranes Resp normal respiratory effort and clear to auscultation bilaterally Effort and Inspection: Negative for tachypneic Cardio regular rate, regular rhythm and no gallops GI normal to inspection, nondistended, normoactive bowel sounds and soft to palpation GI Narrative: No guarding with palpation. Bowel sounds are not hyperactive. All incisions are intact with no fabi-incisional erythema and no discharge. Extremity no calf tenderness General Extremity: Negative for edema Assessment & Plan Assessment/Plan (1) Physical debility: (2) S/P left hemicolectomy: (3) CVF (colovesical fistula): (4) Abdominal pain: QUALIFIERS: Abdominal location: epigastric Qualified Code(s): R10.13 - Epigastric pain (5) Acute blood loss anemia: (6) Orthostatic hypotension: (7) Acute cystitis: (8) Chronic diastolic (congestive) heart failure: (9) Essential (primary) hypertension: (10) Diarrhea: QUALIFIERS: Diarrhea type: unspecified type Qualified Code(s): R19.7 - Diarrhea, unspecified (11) Hematochezia: PLAN: Plan 1. Continue therapy 2. Continue empiric Levaquin and await the final results of the urine culture. 3. Recheck lab in a.m. Charges/Coding Visit Charges Inpatient E&M: 85228 [facility] Hosp L1
--- NOTE | 2024-09-03 12:36 | CASEMGMT ---
Addendum entered by Sindy Garza 09/03/24 14:10: [facility] requesting SN to assess and open SOC 09/08. agreed. Order updated. Original Note: Social Work IDT met with patient and son for Team meeting. Discussed patient's progress in PT/OT/SN. Educated to Medicare coverage during stay. Pt is requesting to DC home 09/06 and IDT is agreeable. Pt is safe to return home alone. SW offered HHC vs OP therapy. Pt prefers [facility]. Pt denies DME needs. Son to transport after work. SW phoned referral to [facility]. Plan: DC home alone 09/06, [facility] PT/OT ODILIA Bejarano
[2024-09-03 17:47] VITALS: BP 100/49; PULSE 68; RESP 20; TEMP 37.1; O2SAT 91
[2024-09-03] MEDS: Gabapentin 300 MG Capsule PO (20:32)
[2024-09-04 06:00] VITALS: BP 97/46; PULSE 73; RESP 16; TEMP 36.5; O2SAT 93
[2024-09-04 07:37] VITALS: O2SAT 93
--- NOTE | 2024-09-04 08:30 | NURSING ---
Patient had large liquid bowel movement incontinent. Patient requested that clothing with stool be placed in a bag and thrown away. I offered to clean laundry but she reiterated that she wanted this thrown away
[2024-09-04] MEDS: Loperamide 2 MG Capsule PO (08:43)
[2024-09-04] MEDS: Carvedilol 12.5 MG Tablet PO ×2 (08:44→21:00)
[2024-09-04] MEDS: Lactobacillis Acidophilus 1 CAP PO (08:44)
[2024-09-04] MEDS: Spironolactone 25 MG Tablet PO (08:44)
[2024-09-04] MEDS: Cholecalciferol (VIT D3) 25 MCG TABLET (1,000 UNITS) 50 MCG PO (08:44)
[2024-09-04] MEDS: Multivitamin (Healthy Eyes) Capsule 1 CAP PO ×2 (08:44→21:00)
[2024-09-04] MEDS: Pantoprazole Sodium 20 MG Tablet PO (08:44)
[2024-09-04] MEDS: Lisinopril 2.5 MG Tablet PO (08:44)
[2024-09-04] MEDS: APIXABAN 5 MG TABLET PO ×2 (08:44→21:00)
[2024-09-04] MEDS: Menthol/Lanolin/Calamine/Znox 113 GM Tube 1 APPLIC TOPICAL ×2 (08:45→21:08)
[2024-09-04] MEDS: Furosemide 40 MG Tablet PO (08:45)
[2024-09-04 08:46] VITALS: BP 102/50; PULSE 71
--- NOTE | 2024-09-04 10:33 | PN_ITS ---
Subjective Subjective Afebrile Blood pressure is on the low side today and has ranged from 97/46 to 102/50 over the past 18 hours. Heart rate is normal. Having copious amounts of liquid stool. Admits to some abdominal discomfort but nothing out of the ordinary postop discomfort. Has been drinking copious amounts of coffee and Diet Coke which is likely contributing to diarrhea. Small amount of bright red blood in the toilet.....more likely than not due to hemorrhoids. he was on antibiotics following surgery. Denies hx of C. DIFF. Has not had any stool softener since admission. Nursing recently gave her an Imodium. She is having dysuria off and on......more so when she just goes a little bit and the urine is dark yellow. No cough, no rhinitis, no sore throat. Denies N/V and is eating well. Objective Data Objective Data Vital Signs: Vital Signs Temp Pulse Resp BP Pulse Ox O2 Del Method 97.7 F L 71 16 102/50 L 93 Room Air 09/04/24 06:00 09/04/24 08:46 09/04/24 06:00 09/04/24 08:46 09/04/24 07:37 09/04/24 07:37 Oxygen Delivery Method Room Air Weight: 151 lb 10.848 oz Body Mass Index (BMI) 29.6 Intake & Output: Intake and Output for Last 24 Hours 09/02/24 09/03/24 09/04/24 23:59 23:59 23:59 Intake Total 920 / 920 1830 / 2030 400 / 400 Output Total 1350 / 1350 1200 / 1300 600 / 600 Balance -430 / -430 630 / 730 -200 / -200 Lab / Micro Data 09/04/24 11:01 09/04/24 11:01 Social Homelessness:: Sheltered Physical Exam Const alert, oriented x3 and no apparent distress Constitutional Narrative: does not look ill/toxic HEENT HEENT Narrative: Pharynx is free of exudate there is no significant posterior pharyngeal injection. Denies sore throat. Resp clear to auscultation bilaterally Cardio regular rate and regular rhythm GI GI Narrative: The abdomen is soft and she is not nearly as tender to palpation as she was at admission to rehab. Pain seems to be more suprapubic. The suprapubic incision is intact with no fabi-incisional erythema, no dehiscence and no discharge. Bowel sounds are unremarkable. No guarding with palpation and no rebound. Extremity no calf tenderness Extremity Narrative: She has trace ankle edema. She had the VICENTE hose removed and her legs are dependent. She tells me the VICENTE hose digging into her skin and she does not want to wear them. She has venous insufficiency. General Extremity: edema Skin Rashes: no rashes Assessment & Plan Assessment/Plan (1) Physical debility: (2) S/P left hemicolectomy: (3) Abdominal pain: QUALIFIERS: Abdominal location: epigastric Qualified Code(s): R 10.13 - Epigastric pain PLAN: Much better than at admission to rehab. (4) CVF (colovesical fistula): (5) Acute blood loss anemia: (6) Chronic diastolic (congestive) heart failure: (7) Essential (primary) hypertension: (8) Diarrhea: QUALIFIERS: Diarrhea type: unspecified type Qualified Code(s): R 19.7 - Diarrhea, unspecified (9) Hematochezia: PLAN: Plan 1. Continue therapy 2. Add a lactose restriction and caffeine restriction to the current diet 3. CBC with differential, BMP, enteric pathogen panel and C. difficile 4. Continue Imodium as needed Charges/Coding Visit Charges Inpatient E&M: 51534 [facility] L1
[2024-09-04 11:10] LABS: Absolute Lymphocyte Count 1.22 X10^3/uL (0.83-4.51); Absolute Neutrophil Count 12.9 X10^3/uL (2.0-7.7); Basophil# 0.04 X10^3/uL; Basophil% 0.3 % (0-1); Eosinophils% 1.3 % (0-5); Hematocrit 30.8 % (37-47); Hemoglobin 10.2 g/dL (12.0-15.0); Lymphocyte # 1.22 X10^3/ul (0.83-4.51); Lymphocyte % 7.9 % (19-41); Mean Corp Hgb Conc 33.1 g/dL (32-36); Mean Corpuscular Hgb 32.2 pg (27.0-32.0); Mean Corpuscular Volume 97.2 fL (81-99); Mean Platelet Vol. 8.3 fl (6.2-12.0); Monocyte# 1.02 X10^3/uL; Monocyte% 6.6 % (0-10); NRBC Flagged by Analyzer 0 % (0-5); Neutrophil # 12.94 X10^3/uL (2.7-7.7); Neutrophil % 83.4 % (47-70); Platelet Count 350 K/mm3 (150-450); RBC Distribution Width CV 14.8 % (11.6-14.6); RBC Distribution Width SD 52.2 fl (35.1-43.9); Red Blood Count 3.17 M/mm3 (4.2-5.4); White Blood Count 15.5 K/mm3 (4.4-11.0)
[2024-09-04 11:29] LABS: Anion Gap 6 (5-15); BUN 25 mg/dL (7-18); BUN/Creat Ratio 20.2 RATIO (10-20); Calcium,Total 9.1 mg/dL (8.5-10.1); Chloride 105 mmol/L (98-107); Creatinine, Serum 1.24 mg/dL (0.55-1.02); EST Glomerular Filtration Rate 44 mL/min (>60); Est Glom Filt Rate - Afr Amer 53 mL/min (>60); Estimated Creatinine Clearance 30.27 ml/min; Glucose 104 mg/dL (74-106); Potassium 3.6 mmol/L (3.5-5.1); Sodium Level 138 mmol/L (136-145)
[2024-09-04 17:56] VITALS: BP 97/53; PULSE 79; RESP 16; TEMP 36.9; O2SAT 93
[2024-09-04 18:58] LABS: Mucous, Urine 0 SEEN /hpf (<or=2+); Red Blood Cells-Urine 0 SEEN /hpf (0-5)
[2024-09-04 19:00] LABS: Color, Urine Yellow (Yellow); Glucose, Dipstick Normal (Normal); Ketone-Dipstick Negative (Negative); Leukocyte Esterase-Dipstick 25 /ul (Negative); Nitrite-Dipstick Negative (Negative); Occult Blood-Urine Negative /ul (Negative); Protein-Dipstick Negative (Negative); Specific Gravity, Urine 1.015 (1.002-1.030); Urine Bilirubin Dipstick Negative (Negative); Urine Clarity Clear (Clear); Urine Urobilinogen Normal (Normal)
[2024-09-04 19:22] LABS: Bacteria RARE /hpf (None Seen); Squamous Epithelial Cells - UA 5-10 SEEN /hpf (5-10); White Blood Cells 0-5 SEEN /hpf (0-5)
[2024-09-04] MEDS: levoFLOXacin 500 MG Tablet PO (21:00)
[2024-09-04] MEDS: Gabapentin 300 MG Capsule PO (21:03)
[2024-09-04 22:00] VITALS: PULSE 83; RESP 16; O2SAT 94
[2024-09-05 06:00] VITALS: RESP 16; TEMP 37.6; O2SAT 94
[2024-09-05 06:45] VITALS: BP 71/27; BP 97/51; BP 98/51; PULSE 71; PULSE 80; PULSE 81
[2024-09-05] MEDS: levoFLOXacin 250 MG Tablet PO (06:56)
[2024-09-05] MEDS: Acetaminophen 325 MG Tablet 650 MG PO (06:56)
--- NOTE | 2024-09-05 09:55 | PN_ITS ---
Subjective Subjective Day #2 Levaquin Afebrile VSS -orthostatics are positive today. Blood pressure lying down was 98/51 with a heart rate of 71. Standing up blood pressure dropped to 71/27 with a heart rate of 81. She takes a beta-alfredo for hypertension which is blunting of the tachycardic response. Maintaining appropriate oxygen saturation on RA Oral intake - FOOD ate only 25 to 49% of her supper last night and may be 25% of her breakfast this morning FLUIDS poor No bowel movements since yesterday after receiving 1 Imodium. Discussed with nursing - no problems that need addressed Reviewed the THERAPY notes Medication list reviewed. Denies nausea but, admits to decreased appetite today. Denies flank pain. No night sweats and no shaking chills. She tells me that the dysuria is better today. Not c/o abd pain today. Denies lightheadedness with sitting but, gets lightheaded with standing. Urine culture is pending. Objective Data Objective Data Vital Signs: Vital Signs Temp Pulse Resp BP Pulse Ox O2 Del Method 99.6 F H 71 16 98/51 L 94 Room Air 09/05/24 06:00 09/05/24 06:45 09/05/24 06:00 09/05/24 06:45 09/05/24 06:00 09/05/24 08:37 Oxygen Delivery Method Room Air Weight: 151 lb 10.848 oz Body Mass Index (BMI) 29.6 Intake & Output: Intake and Output for Last 24 Hours 09/03/24 09/04/24 09/05/24 23:59 23:59 23:59 Intake Total 1830 / 2030 760 / 760 100 / 100 Output Total 1200 / 1300 600 / 600 200 / 200 Balance 630 / 730 160 / 160 -100 / -100 Lab / Micro Data 09/04/24 11:01 09/04/24 11:01 Labs: Laboratory Results - last 24 hr 09/04/24 11:01: WBC 15.5 H, RBC 3.17 L, Hgb 10.2 L, Hct 30.8 L, MCV 97.2, MCH 32.2 H, MCHC 33.1, RDW Std Deviation 52.2 H, RDW Coeff of Harsh 14.8 H, Plt Count 350, MPV 8.3, Immature Gran % (Auto) 0.500, Neut % (Auto) 83.4 H, Lymph % (Auto) 7.9 L, Weakley % (Auto) 6.6, Eos % (Auto) 1.3, Baso % (Auto) 0.3, Absolute Neuts (auto) 12.9 H, Absolute Lymphs (auto) 1.22, Nucleated RBC % 0, Sodium 138, Potassium 3.6, Chloride 105, Carbon Dioxide 28.0, Anion Gap 6, BUN 25 H, C reatinine 1.24 H, Estim Creat Clear Calc 30.27, Est GFR (MDRD) Af Amer 53 L, Est GFR (MDRD) Non-Af 44 L, BUN/Creatinine Ratio 20.2 H, Glucose 104, Calcium 9.1 09/04/24 17:30: Urine Color Yellow, Urine Clarity Clear, Urine pH 6.0, Ur Specific Radisson 1.015, Urine Protein Negative, Urine Glucose (UA) Normal, Urine Ketones Negative, Urine Occult Blood Negative, Urine Nitrite Negative, Urine Bilirubin Negative, Urine Urobilinogen Normal, Ur Leukocyte Esterase 25 H, Urine RBC 0 SEEN, Urine WBC 0-5 SEEN, Ur Squamous Epith Cells 5-10 SEEN, Urine Bacteria RARE, Urine Mucus 0 SEEN Social Homelessness:: Sheltered Physical Exam Const alert and oriented x3 General Appearance: cooperative HEENT Mouth: dry mucous membranes Resp clear to auscultation bilaterally Cardio regular rate, regular rhythm, no rub and no gallops GI normal to inspection, nondistended, normoactive bowel sounds, soft to palpation and non-tender Extremity no calf tenderness General Extremity: Negative for edema Skin Wound Narrative: All incisions are intact with no dehiscence, no fabi-incisional erythema and no discharge. Assessment & Plan Assessment/Plan (1) Physical debility: (2) S/P left hemicolectomy: (3) Abdominal pain: QUALIFIERS: Abdominal location: epigastric Qualified Code(s): R 10.13 - Epigastric pain PLAN: Much better than at admission to rehab. (4) CVF (colovesical fistula): (5) Acute blood loss anemia: (6) Chronic diastolic (congestive) heart failure: (7) Essential (primary) hypertension: (8) Diarrhea: QUALIFIERS: Diarrhea type: unspecified type Qualified Code(s): R 19.7 - Diarrhea, unspecified (9) Hematochezia: (10) Orthostatic hypotension: (11) Acute cystitis: PLAN: Plan 1. Limit therapy to in the bed or in the chair today in light of severe orthostatic hypotension. 2. Continue Levaquin and await the results of the urine culture. 3. Recheck CBC with differential and BMP in the a.m. 4. 1 L of normal saline at 125 cc/h. Patient strongly encouraged to increase her water intake today. She was reminded that she should have no caffeine. 5. Repeat orthostatics in the a.m. 6. Plan discharge home tomorrow with home health care if she is stable Charges/Coding Visit Charges Inpatient E&M: 21040 Subs Hosp L1
[2024-09-05 10:00] VITALS: RESP 16
[2024-09-05] MEDS: Pantoprazole Sodium 20 MG Tablet PO (10:55)
[2024-09-05] MEDS: Cholecalciferol (VIT D3) 25 MCG TABLET (1,000 UNITS) 50 MCG PO (10:55)
[2024-09-05] MEDS: Multivitamin (Healthy Eyes) Capsule 1 CAP PO ×2 (10:55→21:43)
[2024-09-05] MEDS: APIXABAN 5 MG TABLET PO ×2 (10:56→21:43)
[2024-09-05] MEDS: Lactobacillis Acidophilus 1 CAP PO (10:56)
[2024-09-05] MEDS: Menthol/Lanolin/Calamine/Znox 113 GM Tube 1 APPLIC TOPICAL ×2 (11:01→21:43)
[2024-09-05] MEDS: 0.9% Normal Saline (1000mL) 1,000 ML 125 ML IV (11:16)
--- NOTE | 2024-09-05 11:46 | DS.PCM_ITS ---
Providers Date of Admission: 08/31/24 Date of Discharge: 09/06/24 Primary Care Physician: Dr. Antoine Brown MD Reason For Visit: DEBILITY Diagnosis Discharge Diagnosis (1) Physical debility: Status: Acute Code(s): R53.81 - Other malaise (2) S/P left hemicolectomy: Status: Acute Code(s): Z90.49 - Acquired absence of other specified parts of digestive tract Plan: Laparoscopic hemicolectomy with takedown of colovesical fistula. (3) CVF (colovesical fistula): Status: Acute Code(s): N32.1 - Vesicointestinal fistula (4) Abdominal pain: Status: Acute Code(s): R10.9 - Unspecified abdominal pain Qualifiers: Abdominal location: epigastric Qualified Code(s): R10.13 - Epigastric pain Plan: Much improved since admission to rehab. (5) Acute blood loss anemia: Status: Acute Code(s): D62 - Acute posthemorrhagic anemia Plan: Hemoglobin is stable at the time of discharge. (6) Orthostatic hypotension: Status: Acute Code(s): I95.1 - Orthostatic hypotension Plan: Due to intravascular volume depletion. (7) Acute cystitis: Status: Acute Code(s): N30.00 - Acute cystitis without hematuria (8) Chronic diastolic (congestive) heart failure: Status: Chronic Code(s): I50.32 - Chronic diastolic (congestive) heart failure (9) Essential (primary) hypertension: Status: Chronic Code(s): I10 - Essential (primary) hypertension (10) Diarrhea: Status: Acute Code(s): R19.7 - Diarrhea, unspecified Qualifiers: Diarrhea type: unspecified type Qualified Code(s): R19.7 - Diarrhea, unspecified Plan: Having some loose stools but has improved since admission to rehab. This is not uncommon with an acute left hemicolectomy. Discharged with instructions to take Imodium if more than 2 bowel movements daily. (11) Hematochezia: Status: Acute Code(s): K92.1 - Melena Plan: More likely than not secondary to hemorrhoids. Hemoglobin is stable. (12) Enterocolitis due to Clostridioides difficile: Status: Acute Code(s): A04.72 - Enterocolitis due to Clostridium difficile, not specified as recurrent Plan 1. Discharge home with home health care 2. Follow-up with Dr. Brown and Dr. Corine Brady postdischarge. Appointments have been scheduled. 3. No caffeine for the next 2 weeks. Also limit dairy products because they can increase diarrhea. Medications at Discharge Home Medications cholecalciferol (vitamin D3) 25 mcg (1,000 unit) tablet 2,000 unit PO DAILY supplement 08/08/20 vitamins A,C,G-ffzu-yfbsev 2,148 mcg-113 mg-45 mg-17.4 mg tablet (PreserVision AREDS) 2 tab PO BID supplement 08/01/23 spironolactone 25 mg tablet See Rx Instructions .Route .COMPLEX water pill #90 tabs 08/21/23 furosemide 40 mg tablet 40 mg PO DAILY increase in weight by 5 lbs in 1 week #90 tabs 01/17/24 omeprazole 20 mg capsule,delayed release 20 mg PO DAILY acid reflux 04/07/24 lisinopril 2.5 mg tablet 2.5 mg PO DAILY blood pressure 08/31/24 polyethylene glycol 3350 17 gram/dose oral powder (Miralax) 17 g PO DAILY PRN constipation 08/31/24 apixaban 5 mg tablet (Eliquis) 5 mg PO BID #60 tabs 09/04/24 gabapentin 300 mg capsule 300 mg PO 2000 #30 caps 09/04/24 L.acidophil,salivari-Bifido bifidum-Strep thermoph 175 mg capsule 1 cap PO TID #30 caps 09/06/24 acetaminophen 325 mg tablet 650 mg (2 x 325 mg) PO Q6H PRN PRN Pain Score 1-10 #1 TAB 09/06/24 carvedilol 12.5 mg tablet 12.5 mg PO BID for blood pressure #180 TABLETS 09/06/24 vancomycin 25 mg/mL oral solution (Firvanq) 125 mg (5 mL) PO Q6 #40 doses 09/06/24 Hospital Course Operations - (Laparoscopic left hemicolectomy with takedown of colovesical fistula on 08/26/2024.) Procedures None Summary of Care Provided Minutes Spent on Discharge: 30 Hospital Course: RICKEY TRUJILLO, is a 84 YO F with a PMH of anal squamous cell carcinoma (SP) chemoRT in 2018), colovesical fistula, diverticulosis, hypertension, diastolic congestive heart failure, COPD and 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 Prior to surgery she had a stress test that showed no evidence of inducible ischemia. LVEF was estimated at 73% on the stress test. Transthoracic echocardiogram estimated the ejection fraction at 55%. Initial postoperative course was unremarkable and she was scheduled for discharge on 08/29/2024. Prior to discharge she developed tachycardia and chest pain. EKG showed atrial fibrillation and she was started on intravenous amiodarone. She converted to normal sinus rhythm. She was started on Eliquis 5 mg twice daily. She had an echocardiogram that showed a low normal ejection fraction with no wall motion abnormalities. She was noted to have an ascending aortic aneurysm (this is being followed by cardiology) and regular surveillance was recommended. She was transferred to the acute inpatient rehab unit at [facility] on 08/31/2024 for 3 hours of therapy daily to restore function/independence at or near her level prior to the sigmoid resection. Complications while on rehab included urinary tract infection, C. difficile enterocolitis and dehydration resulting in orthostatic hypotension. UA showed 0-5 WBCs with rare bacteria. She was started empirically on Levaquin for complaints of dysuria associated with an elevated white blood cell count of 15.5. The culture grew less than 1000 colonies of Enterococcus faecalis. The urine sample was obtained by straight cath. Dysuria resolved with Levaquin and the Levaquin was discontinued after 3 doses. Lasix and spironolactone were held for 3 days and the patient received normal saline x 1 L. Orthostatics on the day of discharge were negative. She will restart Lasix and spironolactone on Saturday. She had loose stools at admission and this was presumed to be related to the recent hemicolectomy. Toward the end of her admission the number of stools increased dramatically 1 night and she became dehydrated. An enteric pathogen panel was negative but C. difficile antigen was positive and so was the C. difficile toxin. She was started on vancomycin 125 mg p.o. every 6 hours on 09/05/2024. Rickey did very well on rehab. At the time of discharge she was able to complete the timed up and go test in 15.08 seconds with no assistive device at close standby assist/contact-guard assist. She was able to do 16 sit to stands in 30 seconds using her bilateral upper extremities to rise. She had ambulated up to 160 feet with no assistive device at standby assist/contact-guard assist. She was able to ascend/descend two 6 inch steps with 2 handrails at contact- guard assist. She is supervision/set up for eating, grooming and upper body dressing. She is mod I with toileting and toilet transfer and standby assist for tub/shower transfer and bathing. Rickey was discharged home with home health care on 09/06/2024. She has follow-up appointment scheduled with Dr. Antoine Brown and Dr. Corine Brady. Physical Exam Const alert and oriented x3 General Appearance: cooperative HEENT Mouth: dry mucous membranes Resp clear to auscultation bilaterally Cardio regular rate, regular rhythm, no rub and no gallops GI normal to inspection, nondistended, normoactive bowel sounds, soft to palpation and non-tender Extremity no calf tenderness General Extremity: Negative for edema Skin Wound Narrative: All incisions are intact with no dehiscence, no fabi-incisional erythema and no discharge. Medical Records Data Homelessness:: Sheltered Weight / BMI Weight Weight: 151 lb 10.848 oz Body Mass Index (BMI) 29.6 ABG / Lab / Microbiology Data Attestation: I reviewed the patient's lab results. 09/06/24 07:31 09/06/24 07:31 Laboratory: Laboratory Results - last 24 hr 09/06/24 07:31: WBC 12.3 H, RBC 3.09 L, Hgb 9.6 L, Hct 30.4 L, MCV 98.4, MCH 31.1, MCHC 31.6 L, RDW Std Deviation 53.9 H, RDW Coeff of Harsh 15.0 H, Plt Count 360, MPV 8.5, Immature Gran % (Auto) 0.300, Neut % (Auto) 78.9 H, Lymph % (Auto) 9.9 L, Hubbard % (Auto) 8.1, Eos % (Auto) 2.4, Baso % (Auto) 0.4, Absolute Neuts (auto) 9.7 H, Absolute Lymphs (auto) 1.22, Nucleated RBC % 0, Sodium 142, P otassium 3.2 L, Chloride 108 H, Carbon Dioxide 24.0, Anion Gap 10, BUN 22 H, C reatinine 1.24 H, Estim Creat Clear Calc 30.27, Est GFR (MDRD) Af Amer 53 L, Est GFR (MDRD) Non-Af 44 L, BUN/Creatinine Ratio 17.7, Glucose 101, Calcium 8.9 Microbiology: Microbiology 09/04/24 17:30 Urine Catheter - Catheter Urine Culture - Final Enterococcus faecalis 09/05/24 11:12 Stool Enteric Bacteriology - Final 09/05/24 11:12 Stool C. difficile GDH Antigen & Toxins - Final Toxigenic C. difficile 09/05/24 11:12 Stool Clostridioides difficile (PCR) - Final D/C Instructions DC O2, CPAP, BIPAP Needs Home O2 Discharge instructions: No Meaningful Use Info Meaningful Use Meaningful Use Diagnoses (Choose all that apply): None applicable Ischemic Stroke Statin Dosing Therapy Reference: STATIN DOSE THERAPY REFERENCE: * Patients > 75 years receive moderate or high dose statin therapy. * Patients 75 years or YOUNGER should receive HIGH intensity statin dose unless contraindicated. You will be required to document reason for non-treatment if statin daily dose does not meet guidelines. HIGH DOSE STATIN THERAPY DAILY Atorvastatin > than or = to 40 mg Rosuvastatin > than or = to 20 mg Amlodipine + Atorvastatin > than or = to 2.5/40 mg Ezetimibe + Simvastatin 10/80 mg Simvastatin 80mg Discharge Plan Admission Admit Date/Time: 08/31/24 17:17 Primary Reason for Your Visit: Debility secondary to left hemicolectomy with colovesical fistula takedown Attending Provider: Kiersten Purdy Primary Care Provider: Antoine Brown Instructions Patient Instructions: Caring for Your Incision Additional Instructions / Restrictions: 1. You need to drink more water. You are taking 2 different diuretics and you do not drink enough water. You drink primarily caffeinated beverages and caffeine is also a diuretic. The BP dropped to 71/27 when you stood up on Saturday and we held the Lasix and Spironolactone and had to give you IV fluids. Avoid caffeinated beverages. Do not restart the Lasix and Spironolactone until Saturday. 2. The incisions are healing very well and there is not sign of infection. 3. You had a urinary tract infection. The culture only grew a small amount of the bacteria and the burning with urination has resolved. Antibiotics are what leads to a C. difficile infection. Because the symptoms are gone and you only grew a small amount of bacteria we are going to stop the antibiotic (Levaquin) since you have already had 3 doses. If the burning with urination comes back please notify Dr. Brown as quickly as possible. 4. The diarrhea was caused by a overgrowth of a bacteria called C. difficile that lives in your colon. This likely occurred because of the antibiotics you had with your surgery. You will be taking an antibiotic called vancomycin to eradicate the C. difficile. You will need to take this antibiotic every 6 hours for the next 10 days. I am also giving you a prescription for lactobacillus which is a probiotic. Probiotics replace the normal bacteria that live in your colon. Do not take any medication to slow diarrhea......this can lead to dilation of the colon (called toxic megacolon) and that would not be good. No caffeine for the next 2 weeks.......it increases bowel movements AND caffeine is a diuretic and you have been dehydrated. 5. Unfortunately the pharmacy is not open on Saturday. You can roller picker your Prescriptions tomorrow morning at the retail pharmacy in the hospital. 6. while you were on rehab we were giving you Gabapentin only once a day at bedtime. I would continue taking it only once a day at bedtime since you have had no restless leg recurrence since the dose was decreased. 7. IF you or your family has any questions after you leave rehab please do not hesitate to call me. I will send a copy of your discharge summary to Dr. Brown and Dr. Brady. OFFICE: [phone] CELL: [phone] NURSES STATION ON REHAB: [phone] Discharge Orders/Prescriptions Prescriptions: New gabapentin 300 mg Capsule 300 mg PO 1999 Qty: 30 0RF Eliquis 5 mg Tablet 5 mg PO BID Qty: 60 0RF L.acidoph,saliva-B.bif-S.therm 175 mg Capsule 1 cap PO TID Qty: 30 0RF vancomycin [Firvanq] 25 mg/mL Recon Soln 125 mg PO Q6 Qty: 40 0RF acetaminophen 325 mg Tablet 650 mg PO Q6H PRN PRN (Reason: Pain Score 1-10) Qty: 1 0RF Continued PreserVision AREDS 2,148 mcg-113 mg-45 mg-17.4mg tablet 2 tab PO BID Rx Instructions: administer with AM and PM meals omeprazole 20 mg capsule,delayed release(DR/EC) 20 mg PO DAILY cholecalciferol (vitamin D3) 25 mcg (1,000 unit) tablet 2,000 unit PO DAILY lisinopril 2.5 mg tablet 2.5 mg PO DAILY polyethylene glycol 3350 [Miralax] 17 gram/dose powder 17 g PO DAILY PRN (Reason: constipation) carvedilol 12.5 mg tablet 12.5 mg PO BID Qty: 180 3RF spironolactone 25 mg tablet See Rx Instructions .ROUTE .COMPLEX Qty: 90 3RF Dose Instruction: TAKE 1 TABLET BY MOUTH EVERY DAY Rx Instructions: TAKE 1 TABLET BY MOUTH EVERY DAY furosemide 40 mg tablet 40 mg PO DAILY Qty: 90 3RF Discontinued gabapentin 300 mg capsule 300 mg PO TID Adult 50 Plus Probiotic 4 billion cell capsule 4,000 mmu cells PO DAILY Mounjaro 5 mg/0.5 mL pen injector 5 mg subcut QWEEK Eliquis 5 mg tablet 10 mg PO BID ondansetron 4 mg tablet,disintegrating 4 mg PO Q6H PRN (Reason: nausea and vomiting) Referrals / Follow Up: Corine Brady [Other] - 09/18/24 10:00 am Antoine Brown MD [Primary Care Provider] - 09/14/24 2:20 pm Disposition Disposition (needs filled in before D/C Order can be placed): Home Health Service Charges/Coding Visit Charges Inpatient E&M: 31142 Disch Hosp
[2024-09-05] MEDS: Vancomycin 125 MG/5 ML Susp PO.SYRINGE PO (17:21)
[2024-09-05 18:00] VITALS: BP 107/53; PULSE 78; RESP 16; TEMP 36.5; O2SAT 97
[2024-09-05] MEDS: Gabapentin 300 MG Capsule PO (21:42)
[2024-09-05] MEDS: Carvedilol 12.5 MG Tablet PO (21:45)
[2024-09-05] MEDS: 0.9% Saline Lock 10 ML Syringe IV (21:59)
[2024-09-06] MEDS: Acetaminophen 325 MG Tablet 650 MG PO (00:27)
[2024-09-06] MEDS: Vancomycin 125 MG/5 ML Susp PO.SYRINGE PO ×3 (00:27→11:51)
[2024-09-06] MEDS: Loperamide 2 MG Capsule PO (00:27)
[2024-09-06 06:00] VITALS: BP 101/53; BP 90/46; BP 92/52; PULSE 70; PULSE 73; PULSE 74; RESP 16; TEMP 36.6; O2SAT 95
[2024-09-06 07:34] VITALS: O2SAT 94
[2024-09-06] MEDS: levoFLOXacin 250 MG Tablet PO (07:36)
[2024-09-06 07:59] LABS: Absolute Lymphocyte Count 1.22 X10^3/uL (0.83-4.51); Absolute Neutrophil Count 9.7 X10^3/uL (2.0-7.7); Basophil# 0.05 X10^3/uL; Basophil% 0.4 % (0-1); Eosinophils% 2.4 % (0-5); Hematocrit 30.4 % (37-47); Hemoglobin 9.6 g/dL (12.0-15.0); Lymphocyte # 1.22 X10^3/ul (0.83-4.51); Lymphocyte % 9.9 % (19-41); Mean Corp Hgb Conc 31.6 g/dL (32-36); Mean Corpuscular Hgb 31.1 pg (27.0-32.0); Mean Corpuscular Volume 98.4 fL (81-99); Mean Platelet Vol. 8.5 fl (6.2-12.0); Monocyte% 8.1 % (0-10); NRBC Flagged by Analyzer 0 % (0-5); Neutrophil # 9.68 X10^3/uL (2.7-7.7); Neutrophil % 78.9 % (47-70); Platelet Count 360 K/mm3 (150-450); RBC Distribution Width SD 53.9 fl (35.1-43.9); Red Blood Count 3.09 M/mm3 (4.2-5.4); White Blood Count 12.3 K/mm3 (4.4-11.0)
[2024-09-06 08:00] VITALS: BP 103/52; BP 104/56; BP 98/51; PULSE 67; PULSE 69; PULSE 72
[2024-09-06 08:05] LABS: Anion Gap 10 (5-15); BUN 22 mg/dL (7-18); BUN/Creat Ratio 17.7 RATIO (10-20); Calcium,Total 8.9 mg/dL (8.5-10.1); Chloride 108 mmol/L (98-107); Creatinine, Serum 1.24 mg/dL (0.55-1.02); EST Glomerular Filtration Rate 44 mL/min (>60); Est Glom Filt Rate - Afr Amer 53 mL/min (>60); Estimated Creatinine Clearance 30.27 ml/min; Glucose 101 mg/dL (74-106); Potassium 3.2 mmol/L (3.5-5.1); Sodium Level 142 mmol/L (136-145)
[2024-09-06] MEDS: Multivitamin (Healthy Eyes) Capsule 1 CAP PO (10:20)
[2024-09-06] MEDS: Lactobacillis Acidophilus 1 CAP PO (10:20)
[2024-09-06] MEDS: Carvedilol 12.5 MG Tablet PO (10:20)
[2024-09-06] MEDS: Pantoprazole Sodium 20 MG Tablet PO (10:20)
[2024-09-06] MEDS: APIXABAN 5 MG TABLET PO (10:20)
[2024-09-06 10:26] VITALS: BP 103/47
[2024-09-06] MEDS: Menthol/Lanolin/Calamine/Znox 113 GM Tube 1 APPLIC TOPICAL (10:34)
== END 2024-09-06 13:10 | disposition home health service (06) | DRG 949 ==
PROVIDERS: Admitting Provider Internal Medicine; PCP Family Medicine; Referring Provider Internal Medicine; Visit Provider Internal Medicine
DX: Z48.815 Encounter for surgical aftercare following surgery on the digestive system (principal); K92.1 Melena; A04.72 Enterocolitis due to Clostridium difficile, not specified as recurrent; D62 Acute posthemorrhagic anemia; N32.1 Vesicointestinal fistula; I50.32 Chronic diastolic (congestive) heart failure; N30.00 Acute cystitis without hematuria; B95.2 Enterococcus as the cause of diseases classified elsewhere; I11.0 Hypertensive heart disease with heart failure; E86.9 Volume depletion, unspecified; J43.9 Emphysema, unspecified; I71.21 Aneurysm of the ascending aorta, without rupture; I48.0 Paroxysmal atrial fibrillation; I71.23 Aneurysm of the descending thoracic aorta, without rupture; I95.1 Orthostatic hypotension; K21.9 Gastro-esophageal reflux disease without esophagitis; K64.9 Unspecified hemorrhoids; Z79.01 Long term (current) use of anticoagulants; Z87.891 Personal history of nicotine dependence; Z79.85 Long-term (current) use of injectable non-insulin antidiabetic drugs; Z79.899 Other long term (current) drug therapy; R91.8 Other nonspecific abnormal finding of lung field; Z85.048 Personal history of other malignant neoplasm of rectum, rectosigmoid junction, and anus
CPT/HCPCS: 36415; 80048; 80053; 81001; 83735; 84100; 84439; 84443; 85025; 87077; 87086; 87088; 87186; 87493; 87506; 94668; 97110; 97162; 97166; 97530; 97535; 97802; J7030; A4216

== ENCOUNTER → 2025-01-08 | Outpatient (CLI) | payer MEDICARE, OTHER, SELFPAY ==
[2025-01-08 12:30] LABS: Anion Gap 12 (5-15); BUN 17 mg/dL (4-19); BUN/Creat Ratio 15.2 RATIO (10-20); Calcium,Total 9.2 mg/dL (7.6-11.0); Carbon Dioxide 27.5 mmol/L (21.0-32.0); Chloride 102 mmol/L (98-108); Creatinine, Serum 1.12 mg/dL (0.70-1.20); EST Glomerular Filtration Rate 49 (>60); Glucose 90 mg/dL (70-99); Potassium 4.1 mmol/L (3.3-5.1); Sodium Level 141 mmol/L (133-145)
== END | disposition home or self-care (01) ==
LOC: LAB 10:42
PROVIDERS: PCP Family Medicine; Referring Provider Nurse Practitioner Family; Visit Provider Nurse Practitioner Family
DX: Z51.81 Encounter for therapeutic drug level monitoring (principal); Z79.899 Other long term (current) drug therapy
CPT/HCPCS: 36415; 80048

== ENCOUNTER → 2025-03-02 | Outpatient (CLI) | payer MEDICARE, OTHER, SELFPAY ==
[2025-03-02 17:57] LABS: Hematocrit 38.8 % (37-47); Hemoglobin 12.4 g/dL (12.0-15.0); Mean Corpuscular Hgb 31.7 pg (27.0-32.0); Mean Corpuscular Volume 99.2 fL (81-99); Platelet Count 267 K/mm3 (150-450); RBC Distribution Width CV 13.3 % (11.6-14.6); RBC Distribution Width SD 48.8 fl (35.1-43.9); Red Blood Count 3.91 M/mm3 (4.2-5.4); White Blood Count 8.6 K/mm3 (4.4-11.0)
[2025-03-02 18:21] LABS: Iron 91 ug/dL (50-170)
== END | disposition home or self-care (01) ==
LOC: MTLAB 16:28
PROVIDERS: PCP Family Medicine; Referring Provider Internal Medicine Gastroenterology; Visit Provider Internal Medicine Gastroenterology
DX: D50.9 Iron deficiency anemia, unspecified (principal)
CPT/HCPCS: 36415; 83540; 85027

== ENCOUNTER → 2025-05-14 | Outpatient (CLI) | payer MEDICARE, OTHER, SELFPAY ==
[2025-05-14 13:42] LABS: Anion Gap 12 (5-15); BUN 30 mg/dL (4-19); BUN/Creat Ratio 23.4 RATIO (10-20); Calcium,Total 9.3 mg/dL (7.6-11.0); Carbon Dioxide 26.7 mmol/L (21.0-32.0); Chloride 99 mmol/L (98-108); Cholesterol 152 mg/dL (<=200); Glucose 95 mg/dL (70-99); Low Density Lipoprotein Calc. 80 mg/dL; Potassium 4.5 mmol/L (3.3-5.1); Triglycerides 135 mg/dL; Very Low Density Lipoprotein 27 mg/dL (5-40); cholesterol:hdl ratio screen 3.36
== END | disposition home or self-care (01) ==
LOC: MFPLAB 10:03
PROVIDERS: PCP Family Medicine; Referring Provider Family Medicine; Visit Provider Family Medicine
DX: I10 Essential (primary) hypertension (principal)
CPT/HCPCS: 36415; 80048; 80061

== ENCOUNTER → 2025-06-23 | Outpatient (CLI) | payer MEDICARE, OTHER, SELFPAY ==
--- NOTE | 2025-06-23 12:04 | BI_ITS ---
EXAM: SCRN MAMM (CAD)W/CASIE BILAT DATE: 06/23/2025 CLINICAL HISTORY: F, Age 84 y/o , SCREENING Sister with breast cancer. TECHNIQUE: Procedure Code: [id number] Modality: MG Procedure: SCRN MAMM (CAD)W/CASIE BILAT COMPARISON: No study available for comparison. FINDINGS: TISSUE DENSITY: There are scattered areas of fibroglandular density. Bilateral Breast Mammographic Findings: No significant masses, calcifications or other abnormalities are identified. Bilateral secretory calcifications. No suspicious masses, areas of developing architectural distortion, or suspicious calcifications. BI/SCRN MAMM (CAD)W/CASIE BILAT IMPRESSION: Unremarkable screening mammogram. OVERALL FINAL ASSESSMENT BI-RADS 2: BENIGN RECOMMENDATION: Routine annual follow-up in 1 Year Additional Recommendation none A letter with findings and recommendations will be mailed to the patient. Reading Location: [id number]
== END | disposition home or self-care (01) ==
LOC: OPBI 12:02
PROVIDERS: PCP Family Medicine; Referring Provider Family Medicine; Visit Provider Family Medicine
DX: Z12.31 Encounter for screening mammogram for malignant neoplasm of breast (principal); Z80.3 Family history of malignant neoplasm of breast
CPT/HCPCS: 77063; 77067